=== PATIENT | female | born 1975 | race Caucasian/White ===

== ENCOUNTER 2023-01-22 03:28 | Inpatient (IN) | payer OTHER ==
[2023-01-22] MEDS ORDERED: methylPREDNISolone SOD SUCCI 125 MG/2 ML VIAL IV STA (03:38)
[2023-01-22] MEDS ORDERED: MAGNESIUM SULFATE-D5W PMX 1 GM in DEXTROSE/WATER 1 100ML.BAG IVPB STA (03:38)
[2023-01-22] MEDS ORDERED: IPRATROPIUM-ALBUTEROL 3 ML NEB INHALATION STA ×4 (03:38→06:06)
[2023-01-22 04:03] LABS: Allen Test Performed? Yes
[2023-01-22 04:04] LABS: ABG Oxygen Saturation 91.4 % (94-97); ABG PH 7.25 (7.35-7.45); ABG PO2 66 mmHg (83-108); ABG TCO2 49 mmol/L (19-24)
--- NOTE | 2023-01-22 04:07 | ED ---
General Adult HPI - General Chief complaint: Shortness of Breath Stated complaint: Respitory distress Time Seen by Provider: 01/22/23 03:41 Source: family, EMS, RN notes reviewed, old records reviewed Mode of arrival: EMS - History of Present Illness Initial comments: Patient is a 47-year-old female with past medical history remarkable for chronic hypoxic respiratory failure on CPAP and home oxygen, diabetes, CML, bipolar disorder, morbid obesity, hypertension, who is coming from [facility] where she is a permanent resident [facility] hypoxia and increased work of breathing. Patient is confused. She keeps trend rip off her CPAP as well as we'll keep any nasal cannula oxygen on. She is alert but oriented only to self. Normally is alert and oriented 3. Denies any chest pain or abdominal pain. Patient is not a good historian. Denies any acute complaints at this time and states she does not want to mask on and wants to lay down flat. Presents for further evaluation at this time. - Related Data Home Medications Medication Instructions Recorded Confirmed Baclofen 20 mg PO TID 02/06/16 02/06/16 Calcium Carbonate [Calcium] 600 mg PO 02/06/16 02/06/16 DULoxetine HCL [Cymbalta] 60 mg PO DAILY 02/06/16 02/06/16 Estrogens, Conjugated [Premarin] 0.625 mg PO DAILY 02/06/16 02/06/16 Fenofibrate [Tricor] 160 mg PO DAILY 02/06/16 02/06/16 INSULIN LISPRO (HumaLOG) [HumaLOG] 0 units SQ ACHS 02/06/16 02/06/16 Insulin Glargine [Lantus] 0 unit SQ HS 02/06/16 02/06/16 Lurasidone [Latuda] 40 mg PO DAILY 02/06/16 02/06/16 Meloxicam [Mobic] 7.5 mg PO BID 02/06/16 02/06/16 Metoprolol Tartrate [Lopressor] 25 mg PO DAILY 02/06/16 02/06/16 Naproxen 500 mg PO Q12HR 02/06/16 02/06/16 Nitroglycerin Sl Tabs [Nitrostat] 0.4 mg SUBLINGUAL Q5M PRN 02/06/16 02/06/16 OXcarbazepine [Trileptal] 150 mg PO BID 02/06/16 02/06/16 busPIRone HCL [Buspar] 30 mg PO BID 02/06/16 02/06/16 diphenhydrAMINE [Benadryl] 50 mg PO HS PRN 02/06/16 02/06/16 oxyCODONE HCL [OxyCONTIN] 30 mg PO Q12H 02/06/16 02/06/16 Allergies Allergy/AdvReac Type Severity Reaction Status Date / Time Sulfa (Sulfonamide Allergy Anaphylaxis Verified 02/06/16 19:10 Antibiotics) diuretics Allergy Swelling Uncoded 02/06/16 19:10 Review of Systems ROS Statement: Those systems with pertinent positive or pertinent negative responses have been documented in the HPI. ROS Other: All systems not noted in ROS Statement are negative. Past Medical History Past Medical History: COPD, Diabetes Mellitus Additional Past Medical History / Comment(s): colitis History of Any Multi-Drug Resistant Organisms: None Reported Past Surgical History: Cholecystectomy, Hysterectomy, Tonsillectomy Additional Past Surgical History / Comment(s): carpal tunnel, right axila-lymph removal Past Psychological History: ADD/ADHD, Bipolar Past Alcohol Use History: None Reported Past Drug Use History: None Reported - Past Family History Father Brother(s) Family Medical History: Unable to Obtain (due to mental status) General Exam - General Exam Comments Initial Comments: General: Appears in respiratory distress, is tachypneic, hypoxic. HEAD: Normal with no signs of head trauma. EYES: PERRLA, EOMI, conjunctiva normal, no discharge. Pupils are 3 mm and equal bilaterally. ENT: Hearing grossly intact, normal oropharynx. RESPIRATORY: Bilateral end expiratory wheezing with coarse breath sounds bilaterally. Hypoxic on room air. Hypoxia on BiPAP. Increased work of breathing. C/V: Regular rate and rhythm. S1 and S2 auscultated, no significant pitting edema, peripheral pulses 2+ and intact throughout ABD: Abd is soft, nontender, nondistended EXT: Normal range of motion, no obvious deformity SKIN: No rashes or lesions observed on exposed skin. NEURO: Alert and oriented times one. Baseline is alert and oriented 4. Moving all 4 extremities. No obvious focal deficits. Difficult to obtain a specific neurological exam secondary to patient's current altered mental status and confusion. Course Vital Signs 0601/22/23 01/22/23 03:30 03:35 03:37 Temperature 98.8 F Pulse Rate 86 Respiratory 22 Rate Blood Pressure 110/56 O2 Sat by Pulse 88 L Oximetry Fraction of 100 100 Inspired Oxygen (FIO2) 01/22/23 01/22/23 01/22/23 03:46 03:51 03:58 Temperature Pulse Rate 83 82 Respiratory 13 16 Rate Blood Pressure 110/56 110/56 O2 Sat by Pulse 91 L 90 L Oximetry Fraction of 100 Inspired Oxygen (FIO2) 01/22/23 01/22/23 01/22/23 04:00 04:30 05:00 Temperature Pulse Rate 84 85 90 Respiratory 17 18 8 L Rate Blood Pressure 110/56 108/46 116/78 O2 Sat by Pulse 90 L 88 L 89 L Oximetry Fraction of Inspired Oxygen (FIO2) 01/22/23 01/22/23 01/22/23 05:30 05:45 06:00 Temperature Pulse Rate 92 93 Respiratory 25 H 18 Rate Blood Pressure 128/57 147/45 O2 Sat by Pulse 89 L 80 L Oximetry Fraction of 100 Inspired Oxygen (FIO2) 01/22/23 01/22/23 01/22/23 06:25 06:28 06:30 Temperature 98.9 F Pulse Rate 92 92 92 Respiratory 17 14 Rate Blood Pressure 103/55 117/62 O2 Sat by Pulse 77 L 81 L Oximetry Fraction of Inspired Oxygen (FIO2) 01/22/23 01/22/23 01/22/23 06:35 07:21 07:27 Temperature 97.7 F Pulse Rate 92 92 Respiratory 16 Rate Blood Pressure 115/78 O2 Sat by Pulse 79 L Oximetry Fraction of 100 Inspired Oxygen (FIO2) 01/22/23 01/22/23 07:32 07:34 Temperature Pulse Rate 96 Respiratory 21 Rate Blood Pressure O2 Sat by Pulse Oximetry Fraction of 100 Inspired Oxygen (FIO2) Medical Decision Making - Medical Decision Making Was pt. sent in by a medical professional or institution (, PA, UNIVERSITY EXTENSION SPECIALIST, urgent care, hospital, or retirement...) When possible be specific @ -No Did you speak to anyone other than the patient for history (EMS, parent, family, police, friend...)? What history was obtained from this source @ -Nursing staff has spoken with patient's sister Rosemary multiple times who confirms that the patient is full code. Intubation if necessary. Did you review nursing and triage notes (agree or disagree)? Why? @ -I reviewed and agree with nursing and triage notes Were old charts reviewed (outside hosp., previous admission, EMS record, old EKG, old radiological studies, urgent care reports/EKG's, retirement records)? Report findings @ -No old charts were reviewed Differential Diagnosis (chest pain, altered mental status, abdominal pain women, abdominal pain men, vaginal bleeding, weakness, fever, dyspnea, syncope, heada jalil, dizziness, GI bleed, back pain, seizure, CVA, palpatations, mental health, musculoskeletal)? @ -Differential Dyspnea: Coronary syndrome, arrhythmia, tamponade, asthma, COPD, pulmonary embolism, pneumonia, pneumothorax, pulmonary effusion, anaphylaxis, diabetic ketoacidosis, flailed chest, pulmonary contusion, diaphragmatic rupture, anemia, neuromuscular, this is not meant to be an all-inclusive list. EKG interpreted by me (3pts min.). @ -As above X-rays interpreted by me (1pt min.). @ -Chest x-ray shows findings concerning for multifocal pneumonia.Repeat chest x-ray following intubation reveals adequate placement of the ET tube, after multiple adjustments. ET tube is now at [address] interpreted by me (1pt min.). @ -CT brain reveals no obvious acute intracranial process or injury. U/S interpreted by me (1pt. min.). @ -None done What testing was considered but not performed or refused? (CT, X-rays, U/S, labs)? Why? @ -None What meds were considered but not given or refused? Why? @ -None Did you discuss the management of the patient with other professionals (professionals i.e. , PA, UNIVERSITY EXTENSION SPECIALIST, lab, RT, psych nurse, dialysis social worker, paper latcher, teacher, surveillance officer, spring encaser)? Give summary @ -Discussed the case with Dr. Dick admitting physician who accepted the patient. Also discussed the case with ICU attending Dr. Chew who accepted the patient. He was also in agreement with the plan. Patient will be admitted to ICU in serious condition. Was smoking cessation discussed for >3mins.? @ -No Was critical care preformed (if so, how long)? @ -Yes, 45 minutes. Were there social determinants of health that impacted care today? How? (Homelessness, low income, unemployed, alcoholism, drug addiction, transportation, low edu. Level, literacy, decrease access to med. care, custodial, rehab)? @ -No Was there de-escalation of care discussed even if they declined (Discuss DNR or withdrawal of care, Hospice)? DNR status @ -No What co-morbidities impacted this encounter? (DM, HTN, Smoking, COPD, CAD, Cancer, CVA, ARF, Chemo, Hep., AIDS, mental health diagnosis, sleep apnea, morbid obesity)? @ -None Was patient admitted / discharged? Hospital course, mention meds given and route, prescriptions, significant lab abnormalities, going to OR and other pertinent info. @ - Based on the patient's presentation and physical exam, there is concern for acute on chronic hypoxic and hypercarbic respiratory failure for the patient. She is altered. I suspect hypercarbia this time however we will obtain altered mental status labs in addition to cardiopulmonary labs. She was immediately placed on BiPAP. We immediately obtained an ABG while placing the patient on BiPAP. This did reveal a respiratory acidosis. Patient is hypercarbia up to 105. We will repeat an ABG in 1 hour after being on BiPAP to observe for improvement. At this time, patient's sister Rosemary was contacted by nursing staff. They confirm that the patient is a full code. Intubation if necessary. Chest x-ray showed findings concerning for multifocal pneumonia. Patient's labs are remarkable for a possible UTI with a Dixon catheter in place. Elevated bicarb in the setting of hypercapnic respiratory failure, as well as an anemia with a hemoglobin of 10.6. Troponin is undetectable. BNP is within except for limits for her age. Patient was empirically started on Rocephin as well as azithromycin for pneumonia. Blood cultures were obtained and sent. Sputum culture was obtained and sent. CT brain showed no evidence of acute process. Degenerative changes are present. Repeat ABG redemonstrates the patient's hypoxic hypercapnic respiratory failure with a respiratory acidosis. The patient is more altered at this time and continues to attempt to rip off her BiPAP. She remains alert and oriented only to self. Baseline is alert and oriented 3. She is not tolerating BiPAP ther apy at this time, decision was made to intubate. Patient tolerated intubation well. Placement was confirmed on chest x-ray, and multiple x-rays were obtained as tube was withdrawn multiple times to 23 at the lip.. However postintubation there was difficult time oxygenating the patient. We did increase the patient's PEEP eventually to 12 on 100%. Patient was given an additional breathing treatment. Breath sounds remain course. We'll continue to monitor. Postintubation patient was initially at 66% but did improve to 81%, and continues to slowly improve. I spoke with the ICU attending on-call Dr. Deng who accepted the patient to the ICU. We discussed the plan and he was in agreement with it. I also spoke with Dr. Dick who accepted the admission. Patient will be admitted to the ICU in serious condition. Undiagnosed new problem with uncertain prognosis? @ -No Drug Therapy requiring intensive monitoring for toxicity (Heparin, Nitro, Insulin, Cardizem)? @ -No Were any procedures done? @ -Intubation Diagnosis/symptom? @ -Acute on chronic hypoxic hypercapnic respiratory failure secondary to COPD and multifocal pneumonia Concerning for ARDS Acute, or Chronic, or Acute on Chronic? @ -Acute on chronic Uncomplicated (without systemic symptoms) or Complicated (systemic symptoms)? @ -Complicated Side effects of treatment? @ -none. Exacerbation, Progression, or Severe Exacerbation] @ -Severe exacerbation Poses a threat to life or bodily function? @ -yes Diagnosis/symptom? @ -Encephalopathy, likely secondary to hypercapnia Acute, or Chronic, or Acute on Chronic? @ -Acute Uncomplicated (without systemic symptoms) or Complicated (systemic symptoms)? @ -Complicated Side effects of treatment? @ -none Exacerbation, Progression, or Severe Exacerbation] @ -no Poses a threat to life or bodily function? @ -no. - Lab Data Result diagrams: 01/22/23 03:48 01/22/23 03:48 Lab Results 01/22/23 01/22/23 01/22/23 Range/Units 03:48 03:48 03:48 WBC 10.0 (3.8-10.6) k/uL RBC 4.06 (3.80-5.40) m/uL Hgb 10.6 L (11.4-16.0) gm/dL Hct 36.2 (34.0-46.0) % MCV 89.1 (80.0-100.0) fL MCH 26.1 (25.0-35.0) pg MCHC 29.3 L (31.0-37.0) g/dL RDW 14.5 (11.5-15.5) % Plt Count 239 (150-450) k/uL MPV 7.7 Neutrophils % 91 % Lymphocytes % 4 % Monocytes % 3 % Eosinophils % 1 % Basophils % 0 % Neutrophils # 9.2 H (1.3-7.7) k/uL Lymphocytes # 0.5 L (1.0-4.8) k/uL Monocytes # 0.3 (0-1.0) k/uL Eosinophils # 0.1 (0-0.7) k/uL Basophils # 0.0 (0-0.2) k/uL Hypochromasia Marked PT 10.7 (9.0-12.0) sec INR 1.0 (<1.2) APTT 26.1 (22.0-30.0) sec Sample Site ABG pH (7.35-7.45) ABG pCO2 (35-45) mmHg ABG pO2 (83-108) mmHg ABG HCO3 (21-25) mmol/L ABG Total CO2 (19-24) mmol/L ABG O2 Saturation (94-97) % ABG Base Excess mmol/L Denys Test FiO2 % Sodium 129 L (137-145) mmol/L Potassium 3.8 (3.5-5.1) mmol/L Chloride 77 L (98-107) mmol/L Carbon Dioxide 45 H* (22-30) mmol/L Anion Gap 7 mmol/L BUN 12 (7-17) mg/dL Creatinine 0.99 (0.52-1.04) mg/dL Est GFR (CKD-EPI)AfAm 78 (>60 ml/min/1.73 sqM) Est GFR (CKD-EPI)NonAf 67 (>60 ml/min/1.73 sqM) Glucose 205 H (74-99) mg/dL Plasma Lactic Acid Dimitri (0.7-2.0) mmol/L Calcium 8.1 L (8.4-10.2) mg/dL Magnesium 2.2 (1.6-2.3) mg/dL Total Bilirubin 0.4 (0.2-1.3) mg/dL AST 37 H (14-36) U/L ALT 26 (4-34) U/L Alkaline Phosphatase 88 (38-126) U/L Ammonia (<30) umol/L Troponin I (0.000-0.034) ng/mL NT-Pro-B Natriuret Pep pg/mL Total Protein 6.4 (6.3-8.2) g/dL Albumin 3.9 (3.5-5.0) g/dL Urine Color Urine Appearance (Clear) Urine pH (5.0-8.0) Ur Specific [place] (1.001-1.035) Urine Protein (Negative) Urine Glucose (UA) (Negative) Urine Ketones (Negative) Urine Blood (Negative) Urine Nitrite (Negative) Urine Bilirubin (Negative) Urine Urobilinogen (<2.0) mg/dL Ur Leukocyte Esterase (Negative) Urine WBC (0-5) /hpf Urine Bacteria (None) /hpf Urine Mucus (None) /hpf Influenza Type A (PCR) (Not Detectd) Influenza Type B (PCR) (Not Detectd) RSV (PCR) (Not Detectd) SARS-CoV-2 (PCR) (Not Detectd) 01/22/23 01/22/23 01/22/23 Range/Units 03:48 03:48 03:48 WBC (3.8-10.6) k/uL RBC (3.80-5.40) m/uL Hgb (11.4-16.0) gm/dL Hct (34.0-46.0) % MCV (80.0-100.0) fL MCH (25.0-35.0) pg MCHC (31.0-37.0) g/dL RDW (11.5-15.5) % Plt Count (150-450) k/uL MPV Neutrophils % % Lymphocytes % % Monocytes % % Eosinophils % % Basophils % % Neutrophils # (1.3-7.7) k/uL Lymphocytes # (1.0-4.8) k/uL Monocytes # (0-1.0) k/uL Eosinophils # (0-0.7) k/uL Basophils # (0-0.2) k/uL Hypochromasia PT (9.0-12.0) sec INR (<1.2) APTT (22.0-30.0) sec Sample Site ABG pH (7.35-7.45) ABG pCO2 (35-45) mmHg ABG pO2 (83-108) mmHg ABG HCO3 (21-25) mmol/L ABG Total CO2 (19-24) mmol/L ABG O2 Saturation (94-97) % ABG Base Excess mmol/L Denys Test FiO2 % Sodium (137-145) mmol/L Potassium (3.5-5.1) mmol/L Chloride (98-107) mmol/L Carbon Dioxide (22-30) mmol/L Anion Gap mmol/L BUN (7-17) mg/dL Creatinine (0.52-1.04) mg/dL Est GFR (CKD-EPI)AfAm (>60 ml/min/1.73 sqM) Est GFR (CKD-EPI)NonAf (>60 ml/min/1.73 sqM) Glucose (74-99) mg/dL Plasma Lactic Acid Dimitri 0.9 (0.7-2.0) mmol/L Calcium (8.4-10.2) mg/dL Magnesium (1.6-2.3) mg/dL Total Bilirubin (0.2-1.3) mg/dL AST (14-36) U/L ALT (4-34) U/L Alkaline Phosphatase (38-126) U/L Ammonia 29 (<30) umol/L Troponin I <0.012 (0.000-0.034) ng/mL NT-Pro-B Natriuret Pep 744 pg/mL Total Protein (6.3-8.2) g/dL Albumin (3.5-5.0) g/dL Urine Color Urine Appearance (Clear) Urine pH (5.0-8.0) Ur Specific [place] (1.001-1.035) Urine Protein (Negative) Urine Glucose (UA) (Negative) Urine Ketones (Negative) Urine Blood (Negative) Urine Nitrite (Negative) Urine Bilirubin (Negative) Urine Urobilinogen (<2.0) mg/dL Ur Leukocyte Esterase (Negative) Urine WBC (0-5) /hpf Urine Bacteria (None) /hpf Urine Mucus (None) /hpf Influenza Type A (PCR) (Not Detectd) Influenza Type B (PCR) (Not Detectd) RSV (PCR) (Not Detectd) SARS-CoV-2 (PCR) (Not Detectd) 01/22/23 01/22/23 01/22/23 Range/Units 03:48 03:49 04:24 WBC (3.8-10.6) k/uL RBC (3.80-5.40) m/uL Hgb (11.4-16.0) gm/dL Hct (34.0-46.0) % MCV (80.0-100.0) fL MCH (25.0-35.0) pg MCHC (31.0-37.0) g/dL RDW (11.5-15.5) % Plt Count (150-450) k/uL MPV Neutrophils % % Lymphocytes % % Monocytes % % Eosinophils % % Basophils % % Neutrophils # (1.3-7.7) k/uL Lymphocytes # (1.0-4.8) k/uL Monocytes # (0-1.0) k/uL Eosinophils # (0-0.7) k/uL Basophils # (0-0.2) k/uL Hypochromasia PT (9.0-12.0) sec INR (<1.2) APTT (22.0-30.0) sec Sample Site right radial ABG pH 7.25 L (7.35-7.45) ABG pCO2 105 H* (35-45) mmHg ABG pO2 66 L (83-108) mmHg ABG HCO3 46 H* (21-25) mmol/L ABG Total CO2 49 H (19-24) mmol/L ABG O2 Saturation 91.4 L (94-97) % ABG Base Excess 19.0 mmol/L Denys Test Yes FiO2 100 % Sodium (137-145) mmol/L Potassium (3.5-5.1) mmol/L Chloride (98-107) mmol/L Carbon Dioxide (22-30) mmol/L Anion Gap mmol/L BUN (7-17) mg/dL Creatinine (0.52-1.04) mg/dL Est GFR (CKD-EPI)AfAm (>60 ml/min/1.73 sqM) Est GFR (CKD-EPI)NonAf (>60 ml/min/1.73 sqM) Glucose (74-99) mg/dL Plasma Lactic Acid Dimitri (0.7-2.0) mmol/L Calcium (8.4-10.2) mg/dL Magnesium (1.6-2.3) mg/dL Total Bilirubin (0.2-1.3) mg/dL AST (14-36) U/L ALT (4-34) U/L Alkaline Phosphatase (38-126) U/L Ammonia (<30) umol/L Troponin I (0.000-0.034) ng/mL NT-Pro-B Natriuret Pep pg/mL Total Protein (6.3-8.2) g/dL Albumin (3.5-5.0) g/dL Urine Color Yellow Urine Appearance Cloudy H (Clear) Urine pH 7.5 (5.0-8.0) Ur Specific [place] 1.008 (1.001-1.035) Urine Protein Trace H (Negative) Urine Glucose (UA) 1+ H (Negative) Urine Ketones Negative (Negative) Urine Blood Negative (Negative) Urine Nitrite Negative (Negative) Urine Bilirubin Negative (Negative) Urine Urobilinogen <2.0 (<2.0) mg/dL Ur Leukocyte Esterase Large H (Negative) Urine WBC 23 H (0-5) /hpf Urine Bacteria Occasional H (None) /hpf Urine Mucus Rare H (None) /hpf Influenza Type A (PCR) Not Detected (Not Detectd) Influenza Type B (PCR) Not Detected (Not Detectd) RSV (PCR) Not Detected (Not Detectd) SARS-CoV-2 (PCR) Not Detected (Not Detectd) 01/22/23 Range/Units 04:58 WBC (3.8-10.6) k/uL RBC (3.80-5.40) m/uL Hgb (11.4-16.0) gm/dL Hct (34.0-46.0) % MCV (80.0-100.0) fL MCH (25.0-35.0) pg MCHC (31.0-37.0) g/dL RDW (11.5-15.5) % Plt Count (150-450) k/uL MPV Neutrophils % % Lymphocytes % % Monocytes % % Eosinophils % % Basophils % % Neutrophils # (1.3-7.7) k/uL Lymphocytes # (1.0-4.8) k/uL Monocytes # (0-1.0) k/uL Eosinophils # (0-0.7) k/uL Basophils # (0-0.2) k/uL Hypochromasia PT (9.0-12.0) sec INR (<1.2) APTT (22.0-30.0) sec Sample Site right radial ABG pH 7.25 L (7.35-7.45) ABG pCO2 103 H* (35-45) mmHg ABG pO2 49 L* (83-108) mmHg ABG HCO3 45 H* (21-25) mmol/L ABG Total CO2 48 H (19-24) mmol/L ABG O2 Saturation 80.1 L (94-97) % ABG Base Excess 17.4 mmol/L Denys Test Yes FiO2 100 % Sodium (137-145) mmol/L Potassium (3.5-5.1) mmol/L Chloride (98-107) mmol/L Carbon Dioxide (22-30) mmol/L Anion Gap mmol/L BUN (7-17) mg/dL Creatinine (0.52-1.04) mg/dL Est GFR (CKD-EPI)AfAm (>60 ml/min/1.73 sqM) Est GFR (CKD-EPI)NonAf (>60 ml/min/1.73 sqM) Glucose (74-99) mg/dL Plasma Lactic Acid Dimitri (0.7-2.0) mmol/L Calcium (8.4-10.2) mg/dL Magnesium (1.6-2.3) mg/dL Total Bilirubin (0.2-1.3) mg/dL AST (14-36) U/L ALT (4-34) U/L Alkaline Phosphatase (38-126) U/L Ammonia (<30) umol/L Troponin I (0.000-0.034) ng/mL NT-Pro-B Natriuret Pep pg/mL Total Protein (6.3-8.2) g/dL Albumin (3.5-5.0) g/dL Urine Color Urine Appearance (Clear) Urine pH (5.0-8.0) Ur Specific [place] (1.001-1.035) Urine Protein (Negative) Urine Glucose (UA) (Negative) Urine Ketones (Negative) Urine Blood (Negative) Urine Nitrite (Negative) Urine Bilirubin (Negative) Urine Urobilinogen (<2.0) mg/dL Ur Leukocyte Esterase (Negative) Urine WBC (0-5) /hpf Urine Bacteria (None) /hpf Urine Mucus (None) /hpf Influenza Type A (PCR) (Not Detectd) Influenza Type B (PCR) (Not Detectd) RSV (PCR) (Not Detectd) SARS-CoV-2 (PCR) (Not Detectd) - EKG Data -: EKG Interpreted by Me EKG Comments: 12-lead Electrocardiogram Interpretation Note EKG was reviewed and interpreted by myself. 12-lead ECG performed at 0333 is interpreted by me as revealing normal sinus rhythm at a rate of 87 beats per minute. [place] is normal. CT interval is 166 ms, QRS duration is 109 ms, QTc is 430 ms.. There is an incomplete right bundle branch block. There were no ST or T wave abnormalities to suggest myocardial ischemia or injury. R wave progression across the precordium was satisfactory. By my interpretation this EKG is non-diagnostic for acute ischemia. Disposition Clinical Impression: Respiratory failure with hypoxia and hypercapnia, COPD (chronic obstructive pulmonary disease), Pneumonia, Encephalopathy acute, Acute respiratory distress syndrome (ARDS) Disposition: ADMITTED IP TO THIS HOSP Condition: Serious Time of Disposition: 06:25
[2023-01-22 04:09] LABS: ABG HCO3 46 mmol/L (21-25); ABG PCO2 105 mmHg (35-45)
[2023-01-22 04:12] LABS: Partial Thromboplastin Time 26.1 sec (22.0-30.0); Prothrombin Time 10.7 sec (9.0-12.0)
[2023-01-22 04:23] LABS: Basophils % (A) 0 %; Eosinophils # (A) 0.1 k/uL (0-0.7); Eosinophils % (A) 1 %; HCT 36.2 % (34.0-46.0); HGB 10.6 gm/dL (11.4-16.0); Hypochromasia Marked; Lymphocytes # (A) 0.5 k/uL (1.0-4.8); Lymphocytes % (A) 4 %; MCH 26.1 pg (25.0-35.0); MCHC 29.3 g/dL (31.0-37.0); MCV 89.1 fL (80.0-100.0); Mean Platelet Volume 7.7; Monocytes # (A) 0.3 k/uL (0-1.0); Monocytes % (A) 3 %; Neutrophils # (A) 9.2 k/uL (1.3-7.7); Neutrophils % (A) 91 %; Platelet Count 239 k/uL (150-450); RBC 4.06 m/uL (3.80-5.40); RDW 14.5 % (11.5-15.5)
[2023-01-22 04:24] LABS: ALT 26 U/L (4-34); AST 37 U/L (14-36); African American GFR (CKD) 78 (>60 ml/min/1.73 sqM); Albumin 3.9 g/dL (3.5-5.0); Alkaline Phosphatase 88 U/L (38-126); Blood Urea Nitrogen 12 mg/dL (7-17); Calcium 8.1 mg/dL (8.4-10.2); Chloride 77 mmol/L (98-107); Glucose 205 mg/dL (74-99); Lactic Acid, Venous 0.9 mmol/L (0.7-2.0); Magnesium 2.2 mg/dL (1.6-2.3); Non-African American GFR(CKD) 67 (>60 ml/min/1.73 sqM); Potassium 3.8 mmol/L (3.5-5.1); Sodium 129 mmol/L (137-145); Total Bilirubin 0.4 mg/dL (0.2-1.3); Total Protein 6.4 g/dL (6.3-8.2)
[2023-01-22 04:32] LABS: Anion Gap 7 mmol/L
--- NOTE | 2023-01-22 04:35 | P.HPIM ---
History of Present Illness H&P Date: 01/22/23 Patient is a 47-year-old female with a PMH of COPD with chronic hypoxic respiratory failure, type II DM, and hypertension, resident of [facility] was sent to the emergency room due to hypoxia and altered mental status. The history was limited as the patient was confused at the time of interview and also agitated and refusing to answer most questions. When asked about her breathing, the patient states that "it's fine"and refused to answer any further questions or elaborate. She denied experiencing any pain. In the emergency room, upon arrival in the emergency room, the patient was noted to be hypoxic with SpO2 of 88% on nonrebreather at 15 L of oxygen, BP 110/56, pulse 86, and temp 98.8F with respiratory rate 22. An ABG revealed a pH of 7.25 with pCO2 105. Laboratory evaluation also revealed a hemoglobin of 10.6 (only prior value available is 15.6 from 01/2016). Chest X-ray revealed findings consistent with pneumonia. ED documentation reviewed and case discussed with ED provider. Review of systems: Unable to obtain due to mental status Physical examination: Vital signs reviewed General: Morbidly obese female on BiPAP, no distress, appears older than stated age Derm: no unusual rashes/lesions, warm Head: atraumatic, normocephalic, symmetric Eyes: EOMI, no lid lag, anicteric sclera, pupils equal round reactive to light ENT: Nose and ears atraumatic Neck: No cervical lymphadenopathy, trachea midline, supple Mouth: no lip lesion, mucus membranes dry Cardiovascular: S1S2 reg, no murmur, positive dorsalis pedis pulse bilateral, no edema Lungs: Coarse breath sounds throughout with expiratory wheezing appreciated, some accessory muscle use noted Abdominal: soft, nontender to palpation, no guarding Ext: no gross muscle atrophy, no contractures, Neuro: no gross focal neuro deficits Psych: Slow to respond, oriented to self, refused to answer further orientation questions, agitated Assessment: Toxic metabolic encephalopathy secondary to acute hypercapnic respiratory failure Acute hypoxic and hypercapnic respiratory failure, likely multifactorial sec ondary pneumonia with acute COPD exacerbation Chronic conditions: Type II DM, hypertension Imaging: Chest X-ray revealed findings consistent with pneumonia. Data Review: In the emergency room, upon arrival in the emergency room, the patient was noted to be hypoxic with SpO2 of 88% on nonrebreather at 15 L of oxygen, BP 110/56, pulse 86, and temp 98.8F with respiratory rate 22. An ABG revealed a pH of 7.25 with pCO2 105. Laboratory evaluation also revealed a hemoglobin of 10.6 (only prior value available is 15.6 from 01/2016). Plan: C/w Bipap Pulmonary consulted Continue IV Abxs with Ceftriaxone 2 g q24h and Azithromycin 500 mg po q24h C/w Duonebs scheduled and prn C/w Solumedrol 60 mg q6h IV Repeat ABG F/u sputum and blood cultures DVT prophylaxis: Lovenox SubQ The patient is admitted with an anticipated greater than 2 midnight stay for evaluation of COPD exacerbation CODE STATUS: Full Code Anticipated discharge place: [facility] Review of Systems ROS unobtainable: due to mental status (due to mental status) Past Medical History Past Medical History: COPD, Diabetes Mellitus Additional Past Medical History / Comment(s): colitis History of Any Multi-Drug Resistant Organisms: None Reported Past Surgical History: Cholecystectomy, Hysterectomy, Tonsillectomy Additional Past Surgical History / Comment(s): carpal tunnel, right axila-lymph removal Past Psychological History: ADD/ADHD, Bipolar Past Alcohol Use History: None Reported Past Drug Use History: None Reported - Past Family History Father Brother(s) Family Medical History: Unable to Obtain (due to mental status) Medications and Allergies Home Medications Medication Instructions Recorded Confirmed Type Baclofen 20 mg PO TID 02/06/16 02/06/16 History Calcium Carbonate [Calcium] 600 mg PO 02/06/16 02/06/16 History DULoxetine HCL [Cymbalta] 60 mg PO DAILY 02/06/16 02/06/16 History Estrogens, Conjugated [Premarin] 0.625 mg PO DAILY 02/06/16 02/06/16 History Fenofibrate [Tricor] 160 mg PO DAILY 02/06/16 02/06/16 History INSULIN LISPRO (HumaLOG) [HumaLOG] 0 units SQ ACHS 02/06/16 02/06/16 History Insulin Glargine [Lantus] 0 unit SQ HS 02/06/16 02/06/16 History Lurasidone [Latuda] 40 mg PO DAILY 02/06/16 02/06/16 History Meloxicam [Mobic] 7.5 mg PO BID 02/06/16 02/06/16 History Metoprolol Tartrate [Lopressor] 25 mg PO DAILY 02/06/16 02/06/16 History Naproxen 500 mg PO Q12HR 02/06/16 02/06/16 History Nitroglycerin Sl Tabs [Nitrostat] 0.4 mg SUBLINGUAL Q5M PRN 02/06/16 02/06/16 History OXcarbazepine [Trileptal] 150 mg PO BID 02/06/16 02/06/16 History busPIRone HCL [Buspar] 30 mg PO BID 02/06/16 02/06/16 History diphenhydrAMINE [Benadryl] 50 mg PO HS PRN 02/06/16 02/06/16 History oxyCODONE HCL [OxyCONTIN] 30 mg PO Q12H 02/06/16 02/06/16 History Allergies Allergy/AdvReac Type Severity Reaction Status Date / Time Sulfa (Sulfonamide Allergy Anaphylaxis Verified 02/06/16 19:10 Antibiotics) diuretics Allergy Swelling Uncoded 02/06/16 19:10 Physical Exam Vitals: Vital Signs Temp Pulse Resp BP Pulse Ox FiO2 01/22/23 03:58 82 16 110/56 90 L 01/22/23 03:46 100 01/22/23 03:37 98.8 F 86 22 110/56 88 L 01/22/23 03:35 100 01/22/23 03:30 100 Intake and Output 01/21/23 01/21/23 01/22/23 14:59 22:59 06:59 Other: Weight 131.542 kg Results CBC & Chem 7: 01/22/23 03:48 01/22/23 03:48 Labs: Abnormal Lab Results - Last 24 Hours (Table) 01/22/23 01/22/23 Range/Units 03:48 03:49 Hgb 10.6 L (11.4-16.0) gm/dL MCHC 29.3 L (31.0-37.0) g/dL Neutrophils # 9.2 H (1.3-7.7) k/uL Lymphocytes # 0.5 L (1.0-4.8) k/uL ABG pH 7.25 L (7.35-7.45) ABG pCO2 105 H* (35-45) mmHg ABG pO2 66 L (83-108) mmHg ABG HCO3 46 H* (21-25) mmol/L ABG Total CO2 49 H (19-24) mmol/L ABG O2 Saturation 91.4 L (94-97) %
[2023-01-22 04:38] LABS: Carbon Dioxide 45 mmol/L (22-30)
[2023-01-22 04:42] LABS: Appearance,Urine Cloudy (Clear); Bacteria,Urine Occasional /hpf; Bilirubin,Urine Negative (Negative); Blood,Urine Negative (Negative); Color,Urine Yellow; Glucose,Urine (UA) 1+ (Negative); Ketones,Urine Negative (Negative); Leukocyte Esterase,Urine Large (Negative); Mucus,Urine Rare /hpf; Nitrite,Urine Negative (Negative); PH, Urine 7.5 (5.0-8.0); Protein,Urine Trace (Negative); Specific Gravity,Urine 1.008 (1.001-1.035); Urobilinogen,Urine <2.0 mg/dL (<2.0); WBC,Urine 23 /hpf (0-5)
[2023-01-22] MEDS ORDERED: AZITHROMYCIN 500 MG in SODIUM CHLORIDE 0.9% 250 ML IVPB STA (04:53)
[2023-01-22 05:08] LABS: ABG Base Excess 17.4 mmol/L; ABG Oxygen Saturation 80.1 % (94-97); ABG PH 7.25 (7.35-7.45); ABG TCO2 48 mmol/L (19-24); Allen Test Performed? Yes
[2023-01-22 05:15] LABS: ABG PCO2 103 mmHg (35-45); ABG PO2 49 mmHg (83-108)
[2023-01-22] MEDS ORDERED: ROCURONIUM 10 MG/ML (5 ML VIAL) IV STA (05:16)
[2023-01-22] MEDS ORDERED: ETOMIDATE 2 MG/ML 10 ML VIAL IVP STA (05:16)
[2023-01-22 05:17] LABS: ABG HCO3 45 mmol/L (21-25)
[2023-01-22] MEDS ORDERED: IPRATROPIUM-ALBUTEROL 3 ML NEB INHALATION PRN (05:38)
[2023-01-22] MEDS ORDERED: NALOXONE 0.4 MG/ML 1 ML VIAL IV PRN (06:10)
[2023-01-22] MEDS: methylPREDNISolone SOD SUCCI 125 MG/2 ML VIAL IV SCH ×3 (06:28→16:22)
[2023-01-22] MEDS ORDERED: IPRATROPIUM-ALBUTEROL 3 ML NEB INHALATION SCH (08:00)
[2023-01-22 08:01] LABS: Glucose,Whole Blood 343 mg/dL (70-110)
--- NOTE | 2023-01-22 08:13 | CT ---
EXAMINATION TYPE: CT brain wo con DATE OF EXAM: 01/22/2023 COMPARISON: None HISTORY: 47-year-old female confusion, altered mental status TECHNIQUE: Examination was done in axial plane without intravenous contrast. Coronal and sagittal r econstructions performed. CT DLP: 1170.4 mGycm Automated exposure control for dose reduction was used. FINDINGS: There is a 1.9 cm area of extra-axial calcification along the inner table of the anterior left fronta l convexity. Neither some hyperostosis frontalis interna or calcified meningioma. The former is favor ed. Otherwise, there is no evidence of acute intracranial hemorrhage, acute ischemic changes, mass effect , or extra-axial fluid collection. There is no effacement of cerebral sulci or basal subarachnoid ci sterns. There is no hydrocephalus. There is no midline shift. Spence-white matter distinction is pre served. Mild mucosal thickening floor left maxillary sinus. Mastoid air cells well pneumatized. Orbits and gl obes are intact. IMPRESSION: No acute intracranial abnormality seen. Either a 1.9 cm anterior left frontal meningioma versus conge nital variation with hyperostosis frontalis interna.
[2023-01-22] MEDS: HEPARIN SODIUM,PORCINE/PF 5,000 UNIT/0.5 ML SYRINGE SQ SCH ×2 (08:20→16:22)
[2023-01-22] MEDS: INSULIN ASPART (NovoLOG) 100 UNIT/ML VIAL SQ SCH ×3 (08:20→18:01)
--- NOTE | 2023-01-22 08:21 | XR ---
EXAMINATION TYPE: XR chest 1V portable DATE OF EXAM: 01/22/2023 Comparison: 02/06/2016 Clinical History: 47 year-old female shortness of breath, COPD, dyspnea Findings: The heart is enlarged. Background hyperinflation. However, asymmetric volume loss in the right hemith orax with extensive right upper and midlung opacity. Prominent left perihilar opacity as well. Impression: COPD with asymmetric volume loss in the right hemithorax and extensive opacification throughout the r ight upper and midlung. Extensive opacity in the left perihilar region as well.
--- NOTE | 2023-01-22 08:22 | XR ---
EXAMINATION TYPE: XR chest 1V portable DATE OF EXAM: 01/22/2023 Comparison: Earlier today Clinical History: 47-year-old female ETT and OGT PLACEMENT Findings: Interval placement of ET and NG tubes which are satisfactory. Partially visualized posterior lumbar f usion hardware. Redemonstrated cardiomegaly and extensive opacity right upper and midlung. Increasing patchy right lower lung opacity and increasing opacity throughout the left mid and lower lung nodule . Impression: 1. Satisfactory ET and NG tubes. 2. Ongoing extensive bilateral opacities but with some interval worsening.
--- NOTE | 2023-01-22 08:50 | XR ---
EXAMINATION TYPE: XR chest 1V portable DATE OF EXAM: 01/22/2023 Comparison: Earlier today Clinical History: 47-year-old female ETT repositioned, check placement please Findings: ET tube tip just below the level of the medial clavicular heads, satisfactory. NG tube courses below the diaphragm. Continued bilateral extensive airspace opacities. There may be slight interval improve ment in the left upper lobe now. Some new blunting of the right costophrenic angle suggesting a trace effusion here. Impression: Satisfactory ET and NG tubes. Continued extensive bilateral airspace disease. Some volume loss in the right hemithorax is also similar. Slight improvement in aeration within the left upper lobe.
--- NOTE | 2023-01-22 09:55 | ED ---
Medical Decision Making - Lab Data Result diagrams: 01/22/23 03:48 01/22/23 03:48 Lab Results 01/22/23 01/22/23 01/22/23 Range/Units 03:48 03:48 03:48 WBC 10.0 (3.8-10.6) k/uL RBC 4.06 (3.80-5.40) m/uL Hgb 10.6 L (11.4-16.0) gm/dL Hct 36.2 (34.0-46.0) % MCV 89.1 (80.0-100.0) fL MCH 26.1 (25.0-35.0) pg MCHC 29.3 L (31.0-37.0) g/dL RDW 14.5 (11.5-15.5) % Plt Count 239 (150-450) k/uL MPV 7.7 Neutrophils % 91 % Lymphocytes % 4 % Monocytes % 3 % Eosinophils % 1 % Basophils % 0 % Neutrophils # 9.2 H (1.3-7.7) k/uL Lymphocytes # 0.5 L (1.0-4.8) k/uL Monocytes # 0.3 (0-1.0) k/uL Eosinophils # 0.1 (0-0.7) k/uL Basophils # 0.0 (0-0.2) k/uL Hypochromasia Marked PT 10.7 (9.0-12.0) sec INR 1.0 (<1.2) APTT 26.1 (22.0-30.0) sec Sample Site ABG pH (7.35-7.45) ABG pCO2 (35-45) mmHg ABG pO2 (83-108) mmHg ABG HCO3 (21-25) mmol/L ABG Total CO2 (19-24) mmol/L ABG O2 Saturation (94-97) % ABG Base Excess mmol/L Denys Test FiO2 % Sodium 129 L (137-145) mmol/L Potassium 3.8 (3.5-5.1) mmol/L Chloride 77 L (98-107) mmol/L Carbon Dioxide 45 H* (22-30) mmol/L Anion Gap 7 mmol/L BUN 12 (7-17) mg/dL Creatinine 0.99 (0.52-1.04) mg/dL Est GFR (CKD-EPI)AfAm 78 (>60 ml/min/1.73 sqM) Est GFR (CKD-EPI)NonAf 67 (>60 ml/min/1.73 sqM) Glucose 205 H (74-99) mg/dL Plasma Lactic Acid Dimitri (0.7-2.0) mmol/L Calcium 8.1 L (8.4-10.2) mg/dL Magnesium 2.2 (1.6-2.3) mg/dL Total Bilirubin 0.4 (0.2-1.3) mg/dL AST 37 H (14-36) U/L ALT 26 (4-34) U/L Alkaline Phosphatase 88 (38-126) U/L Ammonia (<30) umol/L Troponin I (0.000-0.034) ng/mL NT-Pro-B Natriuret Pep pg/mL Total Protein 6.4 (6.3-8.2) g/dL Albumin 3.9 (3.5-5.0) g/dL Urine Color Urine Appearance (Clear) Urine pH (5.0-8.0) Ur Specific [place] (1.001-1.035) Urine Protein (Negative) Urine Glucose (UA) (Negative) Urine Ketones (Negative) Urine Blood (Negative) Urine Nitrite (Negative) Urine Bilirubin (Negative) Urine Urobilinogen (<2.0) mg/dL Ur Leukocyte Esterase (Negative) Urine WBC (0-5) /hpf Urine Bacteria (None) /hpf Urine Mucus (None) /hpf Influenza Type A (PCR) (Not Detectd) Influenza Type B (PCR) (Not Detectd) RSV (PCR) (Not Detectd) SARS-CoV-2 (PCR) (Not Detectd) 01/22/23 01/22/23 01/22/23 Range/Units 03:48 03:48 03:48 WBC (3.8-10.6) k/uL RBC (3.80-5.40) m/uL Hgb (11.4-16.0) gm/dL Hct (34.0-46.0) % MCV (80.0-100.0) fL MCH (25.0-35.0) pg MCHC (31.0-37.0) g/dL RDW (11.5-15.5) % Plt Count (150-450) k/uL MPV Neutrophils % % Lymphocytes % % Monocytes % % Eosinophils % % Basophils % % Neutrophils # (1.3-7.7) k/uL Lymphocytes # (1.0-4.8) k/uL Monocytes # (0-1.0) k/uL Eosinophils # (0-0.7) k/uL Basophils # (0-0.2) k/uL Hypochromasia PT (9.0-12.0) sec INR (<1.2) APTT (22.0-30.0) sec Sample Site ABG pH (7.35-7.45) ABG pCO2 (35-45) mmHg ABG pO2 (83-108) mmHg ABG HCO3 (21-25) mmol/L ABG Total CO2 (19-24) mmol/L ABG O2 Saturation (94-97) % ABG Base Excess mmol/L Denys Test FiO2 % Sodium (137-145) mmol/L Potassium (3.5-5.1) mmol/L Chloride (98-107) mmol/L Carbon Dioxide (22-30) mmol/L Anion Gap mmol/L BUN (7-17) mg/dL Creatinine (0.52-1.04) mg/dL Est GFR (CKD-EPI)AfAm (>60 ml/min/1.73 sqM) Est GFR (CKD-EPI)NonAf (>60 ml/min/1.73 sqM) Glucose (74-99) mg/dL Plasma Lactic Acid Dimitri 0.9 (0.7-2.0) mmol/L Calcium (8.4-10.2) mg/dL Magnesium (1.6-2.3) mg/dL Total Bilirubin (0.2-1.3) mg/dL AST (14-36) U/L ALT (4-34) U/L Alkaline Phosphatase (38-126) U/L Ammonia 29 (<30) umol/L Troponin I <0.012 (0.000-0.034) ng/mL NT-Pro-B Natriuret Pep 744 pg/mL Total Protein (6.3-8.2) g/dL Albumin (3.5-5.0) g/dL Urine Color Urine Appearance (Clear) Urine pH (5.0-8.0) Ur Specific [place] (1.001-1.035) Urine Protein (Negative) Urine Glucose (UA) (Negative) Urine Ketones (Negative) Urine Blood (Negative) Urine Nitrite (Negative) Urine Bilirubin (Negative) Urine Urobilinogen (<2.0) mg/dL Ur Leukocyte Esterase (Negative) Urine WBC (0-5) /hpf Urine Bacteria (None) /hpf Urine Mucus (None) /hpf Influenza Type A (PCR) (Not Detectd) Influenza Type B (PCR) (Not Detectd) RSV (PCR) (Not Detectd) SARS-CoV-2 (PCR) (Not Detectd) 01/22/23 01/22/23 01/22/23 Range/Units 03:48 03:49 04:24 WBC (3.8-10.6) k/uL RBC (3.80-5.40) m/uL Hgb (11.4-16.0) gm/dL Hct (34.0-46.0) % MCV (80.0-100.0) fL MCH (25.0-35.0) pg MCHC (31.0-37.0) g/dL RDW (11.5-15.5) % Plt Count (150-450) k/uL MPV Neutrophils % % Lymphocytes % % Monocytes % % Eosinophils % % Basophils % % Neutrophils # (1.3-7.7) k/uL Lymphocytes # (1.0-4.8) k/uL Monocytes # (0-1.0) k/uL Eosinophils # (0-0.7) k/uL Basophils # (0-0.2) k/uL Hypochromasia PT (9.0-12.0) sec INR (<1.2) APTT (22.0-30.0) sec Sample Site right radial ABG pH 7.25 L (7.35-7.45) ABG pCO2 105 H* (35-45) mmHg ABG pO2 66 L (83-108) mmHg ABG HCO3 46 H* (21-25) mmol/L ABG Total CO2 49 H (19-24) mmol/L ABG O2 Saturation 91.4 L (94-97) % ABG Base Excess 19.0 mmol/L Denys Test Yes FiO2 100 % Sodium (137-145) mmol/L Potassium (3.5-5.1) mmol/L Chloride (98-107) mmol/L Carbon Dioxide (22-30) mmol/L Anion Gap mmol/L BUN (7-17) mg/dL Creatinine (0.52-1.04) mg/dL Est GFR (CKD-EPI)AfAm (>60 ml/min/1.73 sqM) Est GFR (CKD-EPI)NonAf (>60 ml/min/1.73 sqM) Glucose (74-99) mg/dL Plasma Lactic Acid Dimitri (0.7-2.0) mmol/L Calcium (8.4-10.2) mg/dL Magnesium (1.6-2.3) mg/dL Total Bilirubin (0.2-1.3) mg/dL AST (14-36) U/L ALT (4-34) U/L Alkaline Phosphatase (38-126) U/L Ammonia (<30) umol/L Troponin I (0.000-0.034) ng/mL NT-Pro-B Natriuret Pep pg/mL Total Protein (6.3-8.2) g/dL Albumin (3.5-5.0) g/dL Urine Color Yellow Urine Appearance Cloudy H (Clear) Urine pH 7.5 (5.0-8.0) Ur Specific [place] 1.008 (1.001-1.035) Urine Protein Trace H (Negative) Urine Glucose (UA) 1+ H (Negative) Urine Ketones Negative (Negative) Urine Blood Negative (Negative) Urine Nitrite Negative (Negative) Urine Bilirubin Negative (Negative) Urine Urobilinogen <2.0 (<2.0) mg/dL Ur Leukocyte Esterase Large H (Negative) Urine WBC 23 H (0-5) /hpf Urine Bacteria Occasional H (None) /hpf Urine Mucus Rare H (None) /hpf Influenza Type A (PCR) Not Detected (Not Detectd) Influenza Type B (PCR) Not Detected (Not Detectd) RSV (PCR) Not Detected (Not Detectd) SARS-CoV-2 (PCR) Not Detected (Not Detectd) 01/22/23 Range/Units 04:58 WBC (3.8-10.6) k/uL RBC (3.80-5.40) m/uL Hgb (11.4-16.0) gm/dL Hct (34.0-46.0) % MCV (80.0-100.0) fL MCH (25.0-35.0) pg MCHC (31.0-37.0) g/dL RDW (11.5-15.5) % Plt Count (150-450) k/uL MPV Neutrophils % % Lymphocytes % % Monocytes % % Eosinophils % % Basophils % % Neutrophils # (1.3-7.7) k/uL Lymphocytes # (1.0-4.8) k/uL Monocytes # (0-1.0) k/uL Eosinophils # (0-0.7) k/uL Basophils # (0-0.2) k/uL Hypochromasia PT (9.0-12.0) sec INR (<1.2) APTT (22.0-30.0) sec Sample Site right radial ABG pH 7.25 L (7.35-7.45) ABG pCO2 103 H* (35-45) mmHg ABG pO2 49 L* (83-108) mmHg ABG HCO3 45 H* (21-25) mmol/L ABG Total CO2 48 H (19-24) mmol/L ABG O2 Saturation 80.1 L (94-97) % ABG Base Excess 17.4 mmol/L Denys Test Yes FiO2 100 % Sodium (137-145) mmol/L Potassium (3.5-5.1) mmol/L Chloride (98-107) mmol/L Carbon Dioxide (22-30) mmol/L Anion Gap mmol/L BUN (7-17) mg/dL Creatinine (0.52-1.04) mg/dL Est GFR (CKD-EPI)AfAm (>60 ml/min/1.73 sqM) Est GFR (CKD-EPI)NonAf (>60 ml/min/1.73 sqM) Glucose (74-99) mg/dL Plasma Lactic Acid Dimitri (0.7-2.0) mmol/L Calcium (8.4-10.2) mg/dL Magnesium (1.6-2.3) mg/dL Total Bilirubin (0.2-1.3) mg/dL AST (14-36) U/L ALT (4-34) U/L Alkaline Phosphatase (38-126) U/L Ammonia (<30) umol/L Troponin I (0.000-0.034) ng/mL NT-Pro-B Natriuret Pep pg/mL Total Protein (6.3-8.2) g/dL Albumin (3.5-5.0) g/dL Urine Color Urine Appearance (Clear) Urine pH (5.0-8.0) Ur Specific [place] (1.001-1.035) Urine Protein (Negative) Urine Glucose (UA) (Negative) Urine Ketones (Negative) Urine Blood (Negative) Urine Nitrite (Negative) Urine Bilirubin (Negative) Urine Urobilinogen (<2.0) mg/dL Ur Leukocyte Esterase (Negative) Urine WBC (0-5) /hpf Urine Bacteria (None) /hpf Urine Mucus (None) /hpf Influenza Type A (PCR) (Not Detectd) Influenza Type B (PCR) (Not Detectd) RSV (PCR) (Not Detectd) SARS-CoV-2 (PCR) (Not Detectd) Disposition Clinical Impression: Respiratory failure with hypoxia and hypercapnia, COPD (chronic obstructive pulmonary disease), Pneumonia, Encephalopathy acute, Acute respiratory distress syndrome (ARDS) Disposition: ADMITTED IP TO THIS HOSP Condition: Serious Procedures - Intubation Sedative: Etomidate Mg Given: 30 Paralytic: Rocuronium Mg Given: 80 Laryngoscope: other (glidescope) Size: 4 ET Tube Size: 7.5 Tube Secured Depth (cm): 23 (secured at 23cm after multiple adjustments) Tube Secured Location: lips Tube Placement Confirmation: visualized tube passing through cords, equal breath sounds bilaterally, no breath sounds over epigastrium, confirmation by capnometry Patient Tolerated Procedure: well Intubation Complications: none Additional Comments: continued hypoxia post intubation.
[2023-01-22] MEDS ORDERED: Potassium Replacement Protocol 1 EACH MISC MISCELLANE PRN (11:06)
[2023-01-22] MEDS ORDERED: Magnesium Replacement Protocol 1 EACH MISC MISCELLANE PRN (11:06)
[2023-01-22] MEDS ORDERED: POTASSIUM BICARBONATE/CIT AC 20 MEQ TABLET.EFF NG-TUBE ONE (11:06)
[2023-01-22 11:13] LABS: ABG Base Excess 16.1 mmol/L; ABG Oxygen Saturation 94.7 % (94-97); ABG PCO2 62 mmHg (35-45); ABG PH 7.42 (7.35-7.45); ABG PO2 74 mmHg (83-108); ABG TCO2 42 mmol/L (19-24)
[2023-01-22 11:15] LABS: ABG HCO3 41 mmol/L (21-25); Allen Test Performed? no
--- NOTE | 2023-01-22 11:34 | P.PN ---
Progress Note - Text Progress Note Date: 01/22/23 Reconciled home medications. Reviewed CXR, ET tube in right mainstem bronchus, pulled out around 4 cm, repeat CXR shows ET tube in right position.
[2023-01-22 11:41] LABS: Glucose,Whole Blood 211 mg/dL (70-110)
--- NOTE | 2023-01-22 11:41 | XR ---
EXAMINATION TYPE: XR chest 1V confirm line plcmt DATE OF EXAM: 01/22/2023 COMPARISON: Earlier today HISTORY: 47-year-old female confirm femoral central line placement TECHNIQUE: Single frontal view of the chest is obtained. FINDINGS: Current radiograph is of the chest. This does not include the patient's femoral line repor anant in the history. Heart is mildly enlarged. Multifocal bilateral opacities persist. Likely small ri ght pleural effusion which may be slightly increased. There may be improving aeration at the left bas e now. ET and NG tubes remain satisfactory. IMPRESSION: 1. Satisfactory ET and NG tubes. Note that this is an exam of the chest in the femoral CVC in the ind icated in the patient's history is not assessed. 2. Otherwise, largely stable exam with multifocal airspace disease. This may be slightly worsened at the right base and slightly improved at the left base.
[2023-01-22] MEDS: PANTOPRAZOLE 40 MG/10 ML VIAL IVP SCH (11:44)
[2023-01-22] MEDS: SODIUM CHLORIDE 0.9% 1,000 ML IV SCH ×2 (11:46→22:32)
--- NOTE | 2023-01-22 12:25 | P.CNPUL ---
History of Present Illness Consult date: 01/22/23 Requesting physician: Matthew Dick Reason for consult: pneumonia, other (Acute hypoxic respiratory failure requiring intubation and mechanical ventilation) Chief complaint: Altered mental status History of present illness: This is a 47-year-old female with history of COPD, chronic hypoxic respiratory failure, hypertension, type 2 diabetes, patient is a resident of [facility], presented to the ER with hypoxia and altered mental status. Patient was hypoxic upon arrival in spite of 15 L flow of oxygen, she had a low- grade temp of 98.8, she was hemodynamically stable, however ABG showed a pCO2 of 105 pCO2 of 7.25, patient was initially placed on BiPAP, did not improve with Bi PAP, and she required intubation and mechanical ventilation. Chest x-ray showed multifocal infiltrates. Patient was admitted, placed on mechanical ventilation, she is presently on assist control rate of 20,000 volume 400 FiO2 70% and PEEP of 15 ABG showed a pO2 of 74 pCO2 of 62 pH of 7.42 patient remains on a FiO2 of 70% and PEEP of 14. WBC count is 10 hemoglobin is 10.6, basic metabolic profile is normal including normal renal profile, bicarb is 45. Screening for influenza A, influenza B, RSV and COVID-19 came back negative chest x-ray showed multifocal pneumonia. CT of the brain showed no intracranial abnormality, she does have a 1.9 cm anterior left frontal meningioma versus congenital variation with Chi hyperostosis of frontalis interna it initially the patient was placed on antibiotics in the form of Zithromax and Rocephin however considering the presentation I recommended we go to Zosyn. Patient remained hemodynamically stable but requires a relatively high FiO2 high PEEP, she is on propofol at 20 mcg/kg/m, her IV fluid is running at 100 mL an hour, urine output seems to be marginal. Review of Systems ROS unobtainable: due to endotracheal tube Past Medical History Past Medical History: COPD, Diabetes Mellitus Additional Past Medical History / Comment(s): colitis History of Any Multi-Drug Resistant Organisms: None Reported Past Surgical History: Cholecystectomy, Hysterectomy, Tonsillectomy Additional Past Surgical History / Comment(s): carpal tunnel, right axila-lymph removal Past Psychological History: ADD/ADHD, Bipolar Past Alcohol Use History: None Reported Past Drug Use History: None Reported - Past Family History Father Brother(s) Family Medical History: Unable to Obtain (due to mental status) Medications and Allergies Home Medications Medication Instructions Recorded Confirmed Type Baclofen 20 mg PO TID 02/06/16 02/06/16 History Calcium Carbonate [Calcium] 600 mg PO 02/06/16 02/06/16 History DULoxetine HCL [Cymbalta] 60 mg PO DAILY 02/06/16 02/06/16 History Estrogens, Conjugated [Premarin] 0.625 mg PO DAILY 02/06/16 02/06/16 History Fenofibrate [Tricor] 160 mg PO DAILY 02/06/16 02/06/16 History INSULIN LISPRO (HumaLOG) [HumaLOG] 0 units SQ ACHS 02/06/16 02/06/16 History Insulin Glargine [Lantus] 0 unit SQ HS 02/06/16 02/06/16 History Lurasidone [Latuda] 40 mg PO DAILY 02/06/16 02/06/16 History Meloxicam [Mobic] 7.5 mg PO BID 02/06/16 02/06/16 History Metoprolol Tartrate [Lopressor] 25 mg PO DAILY 02/06/16 02/06/16 History Naproxen 500 mg PO Q12HR 02/06/16 02/06/16 History Nitroglycerin Sl Tabs [Nitrostat] 0.4 mg SUBLINGUAL Q5M PRN 02/06/16 02/06/16 Hi story OXcarbazepine [Trileptal] 150 mg PO BID 02/06/16 02/06/16 History busPIRone HCL [Buspar] 30 mg PO BID 02/06/16 02/06/16 History diphenhydrAMINE [Benadryl] 50 mg PO HS PRN 02/06/16 02/06/16 History oxyCODONE HCL [OxyCONTIN] 30 mg PO Q12H 02/06/16 02/06/16 History Allergies Allergy/AdvReac Type Severity Reaction Status Date / Time Sulfa (Sulfonamide Allergy Anaphylaxis Verified 02/06/16 19:10 Antibiotics) diuretics Allergy Swelling Uncoded 02/06/16 19:10 Physical Exam Vitals: Vital Signs Temp Pulse Pulse Resp BP Pulse Ox FiO2 01/22/23 12:00 100.7 F H 91 20 98 70 01/22/23 11:16 70 01/22/23 11:00 92 20 104/65 95 01/22/23 10:00 93 20 103/62 100 01/22/23 09:00 92 20 85/70 97 01/22/23 08:30 97.5 F L 92 20 87/60 95 100 01/22/23 08:00 92 20 100 01/22/23 07:45 100 01/22/23 07:34 100 01/22/23 07:32 96 21 01/22/23 07:27 100 01/22/23 07:21 97.7 F 92 16 115/78 79 L 01/22/23 06:35 92 01/22/23 06:30 93 20 103/55 77 L 01/22/23 06:28 98.9 F 92 17 103/55 77 L 01/22/23 06:25 92 01/22/23 06:00 93 18 147/45 80 L 01/22/23 05:45 100 01/22/23 05:30 92 25 H 128/57 89 L 01/22/23 05:00 90 8 L 116/78 89 L 01/22/23 04:30 85 18 108/46 88 L 01/22/23 04:00 84 17 110/56 90 L 01/22/23 03:58 82 16 110/56 90 L 01/22/23 03:51 83 13 110/56 91 L 01/22/23 03:46 100 01/22/23 03:37 98.8 F 86 22 110/56 88 L 01/22/23 03:35 100 01/22/23 03:30 100 Intake and Output 01/21/23 01/22/23 01/22/23 22:59 06:59 14:59 Intake Total 1.381 382.346 Output Total 95 Balance 1.381 287.346 Intake: Intake, IV Titration 1.381 382.346 Amount Sodium Chloride 0.9% 1, 250 000 ml @ 125 mls/hr IV . Q8H WIN Rx#:[id number] cefTRIAXone 2 gm In 50 Sodium Chloride 0.9% 50 ml @ 100 mls/hr IVPB Q24HR WIN Rx#:[id number] propofoL 1,000 mg In 1.381 82.346 Empty Bag 1 bag @ 15 MCG/ KG/MIN 11.839 mls/hr IV . Q8H27M WIN Rx#:[id number] Output: Urine 95 Other: Voiding Method Indwelling Catheter Weight 131.542 kg ABP, PAP, CO, CI - Last 8 Hours Arterial Blood Pressure 138/57 Arterial Blood Pressure 102/53 Physical Exam: Revealed a 47-year-old female, obese, in no distress on mechanical ventilation. Sedated, on propofol. Head: Atraumatic, normocephalic. Endotracheal tube and orogastric tube are intact. HEENT: Short obese neck noted. [Neck is supple.] [No neck masses.] [No thyromegaly.] [No JVD.] Chest: Crackles bilaterally no rhonchi and no wheezes symmetrical chest expansion. Cardiac Exam: [Normal S1 and S2, no S3 gallop, no murmur.] Abdomen: [Soft, nontender, no megaly, no rebound, no guarding, normal bowel sounds.] Extremities: [No clubbing, no edema, no cyanosis.] Neurological Exam: [Could not assess, patient is intubated and sedated. On propofol. Psychiatric: Could not assess, patient is sedated and mechanically ventilated. Results - Laboratory Findings CBC and BMP: 01/22/23 03:48 01/22/23 03:48 ABG ABG pH 7.42 (7.35-7.45) 01/22/23 11:11 ABG pCO2 62 mmHg (35-45) H 01/22/23 11:11 ABG pO2 74 mmHg (83-108) L 01/22/23 11:11 ABG O2 Saturation 94.7 % (94-97) 01/22/23 11:11 PT/INR, D-dimer PT 10.7 sec (9.0-12.0) 01/22/23 03:48 INR 1.0 (<1.2) 01/22/23 03:48 Abnormal lab findings: Abnormal Labs 01/22/23 01/22/23 01/22/23 03:48 03:48 03:49 Hgb 10.6 L MCHC 29.3 L Neutrophils # 9.2 H Lymphocytes # 0.5 L ABG pH 7.25 L ABG pCO2 105 H* ABG pO2 66 L ABG HCO3 46 H* ABG Total CO2 49 H ABG O2 Saturation 91.4 L Sodium 129 L Chloride 77 L Carbon Dioxide 45 H* Glucose 205 H POC Glucose (mg/dL) Calcium 8.1 L AST 37 H Urine Appearance Urine Protein Urine Glucose (UA) Ur Leukocyte Esterase Urine WBC Urine Bacteria Urine Mucus 01/22/23 01/22/23 01/22/23 04:24 04:58 07:59 Hgb MCHC Neutrophils # Lymphocytes # ABG pH 7.25 L ABG pCO2 103 H* ABG pO2 49 L* ABG HCO3 45 H* ABG Total CO2 48 H ABG O2 Saturation 80.1 L Sodium Chloride Carbon Dioxide Glucose POC Glucose (mg/dL) 343 H Calcium AST Urine Appearance Cloudy H Urine Protein Trace H Urine Glucose (UA) 1+ H Ur Leukocyte Esterase Large H Urine WBC 23 H Urine Bacteria Occasional H Urine Mucus Rare H 01/22/23 01/22/23 11:11 11:37 Hgb MCHC Neutrophils # Lymphocytes # ABG pH ABG pCO2 62 H ABG pO2 74 L ABG HCO3 41 H* ABG Total CO2 42 H ABG O2 Saturation Sodium Chloride Carbon Dioxide Glucose POC Glucose (mg/dL) 211 H Calcium AST Urine Appearance Urine Protein Urine Glucose (UA) Ur Leukocyte Esterase Urine WBC Urine Bacteria Urine Mucus - Diagnostic Findings Chest x-ray: image reviewed (As noted in HPI) Additional studies: CT of the brain, as noted in HPI Assessment and Plan Assessment: Impression: Acute on chronic hypoxic and hypercapnic respiratory failure secondary to multifocal pneumonia and underlying COPD. Strongly suspect aspiration pneumonia Altered mental status most likely secondary to hypercapnia and CO2 narcosis as noted on presentation. History of underlying COPD with acute COPD exacerbation Morbid obesity Type 2 diabetes without complications. Acute toxic metabolic encephalopathy with hypercapnia Benign essential hypertension recommendation: Continue ventilatory support Continue GI and DVT prophylaxis Antibiotics in the form of Zosyn for presumptive aspiration pneumonia Check sputum cultures urine cultures and blood cultures Address antibiotics accordingly based on the final cultures Nutritional support/enteral feeding to be started Titrate FiO2 and PEEP as tolerated maintaining O2 saturations above 90% Continue bronchodilators/no Solu-Medrol 40 mg IV push every 8 hours Resume home meds Close monitoring of her sugars and address accordingly with insulin Patient is critically ill. Critical care time is over 50 minutes not including the procedures. Time with Patient: Greater than 30
[2023-01-22] MEDS: IPRATROPIUM-ALBUTEROL 3 ML NEB INHALATION SCH ×4 (12:33→23:26)
--- NOTE | 2023-01-22 13:23 | OP ---
OPERATIVE REPORT DATE OF SERVICE : PROCEDURE PERFORMED: Placement of a right femoral triple-lumen catheter. PREOPERATIVE DIAGNOSES: Acute hypoxic respiratory failure and pneumonia. POSTOPERATIVE DIAGNOSES: Acute hypoxic respiratory failure and pneumonia. ANESTHESIA USED: 2 mL of 1% lidocaine. DESCRIPTION OF PROCEDURE: The patient was placed in the supine position. The area of the right groin was prepared in a sterile fashion, and drapes were applied. The right femoral area was locally anesthetized with lidocaine. The right femoral vein was easily cannulated. A guidewire was placed, and the area around the guidewire was dilated. Triple-lumen catheter was inserted over the guidewire, and the guidewire was removed. Good blood flow was noted in the 3 different ports of the catheter. No complications. Line was secured using 3-0 silk sutures. MMODL / IJN: [id number] /
--- NOTE | 2023-01-22 13:23 | OP ---
OPERATIVE REPORT DATE OF SERVICE : PROCEDURE PERFORMED: Placement of a left brachial arterial line. PREOPERATIVE DIAGNOSIS: Acute hypoxic respiratory failure. POSTOPERATIVE DIAGNOSIS: Acute hypoxic respiratory failure. ANESTHESIA USED: None deployed. DESCRIPTION OF PROCEDURE: The patient was placed in a supine position. The left brachial region was prepared in a sterile fashion. Drapes were applied. The left brachial artery was palpated, cannulated easily. A guidewire was placed. A Cook catheter was inserted over the guidewire, and the guidewire was removed. Good blood flow and good waveform. No complications. Line was secured using 3-0 silk sutures. MMODL / IJN: [id number] /
[2023-01-22] MEDS ORDERED: SODIUM CHLORIDE 0.9% 500 ML 500 ML IV ONE (13:27)
[2023-01-22] MEDS: NOREPINEPHRINE 8 MG in SODIUM CHLORIDE 0.9% 250 ML IV SCH (13:54)
[2023-01-22] MEDS: PIPERACILLIN-TAZOBACTAM 3.375 GM in SODIUM CHLORIDE 0.9% 100 ML IVPB SCH (16:22)
[2023-01-22] MEDS: ACETAMINOPHEN TAB 325 MG TAB PO PRN (16:38)
[2023-01-22 18:02] LABS: Glucose,Whole Blood 179 mg/dL (70-110)
[2023-01-22] MEDS: busPIRone HCl 10 MG TAB PO SCH (21:14)
[2023-01-22] MEDS: CHLORHEXIDINE GLUCONATE 15 ML CUP MUCOUS MEM SCH (21:14)
[2023-01-22] MEDS: OXcarbazepine 150 MG TAB PO SCH (21:14)
[2023-01-23 00:08] LABS: Glucose,Whole Blood 221 mg/dL (70-110)
[2023-01-23] MEDS: PIPERACILLIN-TAZOBACTAM 3.375 GM in SODIUM CHLORIDE 0.9% 100 ML IVPB SCH ×4 (00:13→23:56)
[2023-01-23] MEDS: methylPREDNISolone SOD SUCCI 125 MG/2 ML VIAL IV SCH ×4 (00:14→23:55)
[2023-01-23] MEDS: HEPARIN SODIUM,PORCINE/PF 5,000 UNIT/0.5 ML SYRINGE SQ SCH ×4 (00:14→23:55)
[2023-01-23] MEDS: INSULIN ASPART (NovoLOG) 100 UNIT/ML VIAL SQ SCH ×5 (00:15→23:56)
[2023-01-23] MEDS: ACETAMINOPHEN TAB 325 MG TAB PO PRN ×3 (00:15→21:17)
[2023-01-23] MEDS: IPRATROPIUM-ALBUTEROL 3 ML NEB INHALATION SCH ×5 (02:59→19:48)
[2023-01-23 04:44] LABS: Hypochromasia Marked; MCH 26.5 pg (25.0-35.0); MCHC 30.3 g/dL (31.0-37.0); MCV 87.3 fL (80.0-100.0); Platelet Count 180 k/uL (150-450); RBC 3.44 m/uL (3.80-5.40); RDW 14.9 % (11.5-15.5); WBC 7.8 k/uL (3.8-10.6)
[2023-01-23 04:49] LABS: HGB 9.1 gm/dL (11.4-16.0)
[2023-01-23 04:54] LABS: African American GFR (CKD) 80 (>60 ml/min/1.73 sqM); Anion Gap 5 mmol/L; Blood Urea Nitrogen 20 mg/dL (7-17); Calcium 7.6 mg/dL (8.4-10.2); Carbon Dioxide 39 mmol/L (22-30); Chloride 86 mmol/L (98-107); Glucose 207 mg/dL (74-99); Magnesium 2.3 mg/dL (1.6-2.3); Non-African American GFR(CKD) 70 (>60 ml/min/1.73 sqM); Sodium 130 mmol/L (137-145)
[2023-01-23 05:22] LABS: ABG Base Excess 14.7 mmol/L; ABG PCO2 65 mmHg (35-45); ABG PO2 141 mmHg (83-108); ABG TCO2 42 mmol/L (19-24)
[2023-01-23 05:27] LABS: ABG HCO3 40 mmol/L (21-25); Allen Test Performed? no
[2023-01-23] MEDS ORDERED: AZITHROMYCIN 500 MG in SODIUM CHLORIDE 0.9% 250 ML IVPB SCH (06:00)
[2023-01-23 06:02] LABS: Glucose,Whole Blood 221 mg/dL (70-110)
[2023-01-23] MEDS: SODIUM CHLORIDE 0.9% 1,000 ML IV SCH ×3 (06:35→23:21)
[2023-01-23] MEDS: CHLORHEXIDINE GLUCONATE 15 ML CUP MUCOUS MEM SCH ×2 (08:17→21:05)
[2023-01-23] MEDS: PANTOPRAZOLE 40 MG/10 ML VIAL IVP SCH (08:18)
[2023-01-23] MEDS ORDERED: DULoxetine HCL 60 MG CAPSULE.DR PO SCH (09:00)
[2023-01-23] MEDS ORDERED: FENOFIBRATE 160 MG TAB PO SCH (09:00)
[2023-01-23] MEDS: METOPROLOL TARTRATE 25 MG TAB PO SCH (09:14)
[2023-01-23] MEDS: LURASIDONE 40 MG TAB PO SCH (09:17)
[2023-01-23] MEDS: INSULIN DETEMIR (LEVEMIR) 100 UNIT/ML SYR SQ SCH (10:10)
[2023-01-23] MEDS: FENOFIBRATE 160 MG TAB PO SCH (10:11)
[2023-01-23] MEDS: OXcarbazepine 300 MG TAB PO SCH (10:11)
--- NOTE | 2023-01-23 10:35 | P.PN ---
Subjective Progress Note Date: 01/23/23 Hospital Course: 47-year-old female with a PMH of COPD with chronic hypoxic respiratory failure, type II DM, and hypertension, resident of [facility] was sent to the emergency room due to hypoxia and altered mental status. In the emergency room, upon arrival in the emergency room, the patient was noted to be hypoxic with SpO2 of 88% on nonrebreather at 15 L of oxygen, BP 110/56, pulse 86, and temp 98.8F with respiratory rate 22. An ABG revealed a pH of 7.25 with pCO2 105. Laborator y evaluation also revealed a hemoglobin of 10.6 (only prior value available is 15.6 from 01/2016). Chest X-ray revealed findings consistent with multifocal pneumonia. Patient intubated and sedated, currently in the medical ICU. Being treated for pneumonia and COPD exacerbation. Subjective: Patient seen and examined at bedside. No acute events overnight. Per nurse, patient is able to follow commands and having purposeful movement, possible extubation tomorrow. Currently remains intubated and sedated. Has a Dixon catheter in place. Pertinent positives and negatives as discussed above, a complete review of systems was performed and all other systems are negative. Vitals Signs Reviewed. General: Intubated and sedated, morbidly obese Derm: warm, dry Head: atraumatic, normocephalic, symmetric Eyes: Right pupil marginally greater than left, reactive Mouth: no lip lesion, mucus membranes moist Cardiovascular: S1S2 reg, no murmur Lungs: Bilateral rhonchi, no accessory muscle use, intubated Abdominal: soft, obese abdomen Ext: no gross muscle atrophy, no edema, no contractures Neuro: Sedated Psych: Unable to assess Data Reviewed Today: Pertinent Labs: WBC 7.8, hemoglobin 9.1, platelet 180, pH 7.4, pCO2 65, sodium 1:30, bicarbonate 39, creatinine 0.96, blood sugars range between 179-221 Imaging: Chest x-ray independently interpreted, shows multifocal interstitial opacities, greater on the left Assessment and Plan: Active: Acute hypoxic and hypercapnic respiratory failure Multifocal pneumonia Acute COPD exacerbation Acute metabolic encephalopathy Insulin-dependent diabetes Acute normocytic anemia Hypovolemic hyponatremia -Currently intubated and sedated -Pulmonology following, patient remains on IV Solu-Medrol 40 mg every 8 hours, DuoNeb treatments -Also on Zosyn 3.375 g IV every 8 hours -Blood cultures, and sputum cultures pending -Encephalopathy likely in the setting of hypercapnia -Home antipsychotics and seizure medications continue, reduced dose of gabapen tin -Sliding scale insulin every 6 hours, continue home Levemir 34 units -No active blood loss, continue to monitor -Iron studies and B12, folic acid ordered -On normal saline at 1 25 mL an hour, sodium improving Chronic: CML? Dyslipidemia Seizure history? Schizophrenia Hypertension DVT ppx: Subcu heparin Code status: Full code Anticipated discharge place: Pending clinical course Anticipated discharge time: Pending clinical course Objective - Vital Signs Vital signs: Vital Signs Temp 99.7 F H 01/23/23 08:00 Pulse 97 01/23/23 10:00 Resp 20 01/23/23 10:00 BP 117/60 01/23/23 08:30 Pulse Ox 93 L 01/23/23 10:00 FiO2 50 01/23/23 10:00 Intake & Output 01/22/23 01/23/23 01/23/23 18:59 06:59 18:59 Intake Total 2395.051 2016.803 769.410 Output Total 335 785 270 Balance 2060.051 1232.803 499.410 Weight 131.542 kg 105.1 kg Intake: Intake, IV Titration 5.051 2016.803 624.410 Amount Norepinephrine 8 mg In 21.297 7.36 56.468 Sodium Chloride 0.9% 250 ml @ 0.03 MCG/KG/MIN 7. 636 mls/hr IV .Q24H WIN Rx#:[id number] Piperacillin-Tazobactam 3 100 50 .375 gm In Sodium Chloride 0.9% 100 ml @ 25 mls/hr IVPB Q8HR WIN Rx# :[id number] Sodium Chloride 0.9% 1, 1000 1500 450 000 ml @ 125 mls/hr IV . Q8H WIN Rx#:[id number] Sodium Chloride 0.9% 500 1000 ml 500 ml @ 999 mls/hr IV .Q31M ONE Rx#:[id number] cefTRIAXone 2 gm In 50 Sodium Chloride 0.9% 50 ml @ 100 mls/hr IVPB Q24HR WIN Rx#:[id number] propofoL 1,000 mg In 223.754 510.443 67.942 Empty Bag 1 bag @ 15 MCG/ KG/MIN 11.839 mls/hr IV . Q8H27M [facility] Rx#:[id number] Tube Feeding 115 Other 30 Output: Urine 335 785 270 Other: Voiding Method Indwelling Catheter Indwelling Catheter Indwelling Catheter ABP, PAP, CO, CI - Last Documented Arterial Blood Pressure 97/42 - Labs CBC & Chem 7: 01/23/23 04:25 01/23/23 04:25 Labs: Abnormal Lab Results - Last 24 Hours (Table) 01/22/23 01/22/23 01/22/23 Range/Units 11:11 11:37 18:00 RBC (3.80-5.40) m/uL Hgb (11.4-16.0) gm/dL Hct (34.0-46.0) % MCHC (31.0-37.0) g/dL ABG pCO2 62 H (35-45) mmHg ABG pO2 74 L (83-108) mmHg ABG HCO3 41 H* (21-25) mmol/L ABG Total CO2 42 H (19-24) mmol/L ABG O2 Saturation (94-97) % Sodium (137-145) mmol/L Chloride (98-107) mmol/L Carbon Dioxide (22-30) mmol/L BUN (7-17) mg/dL Glucose (74-99) mg/dL POC Glucose (mg/dL) 211 H 179 H (70-110) mg/dL Calcium (8.4-10.2) mg/dL 01/23/23 01/23/23 01/23/23 Range/Units 00:07 04:25 04:25 RBC 3.44 L (3.80-5.40) m/uL Hgb 9.1 L D (11.4-16.0) gm/dL Hct 30.0 L (34.0-46.0) % MCHC 30.3 L (31.0-37.0) g/dL ABG pCO2 (35-45) mmHg ABG pO2 (83-108) mmHg ABG HCO3 (21-25) mmol/L ABG Total CO2 (19-24) mmol/L ABG O2 Saturation (94-97) % Sodium 130 L (137-145) mmol/L Chloride 86 L (98-107) mmol/L Carbon Dioxide 39 H (22-30) mmol/L BUN 20 H (7-17) mg/dL Glucose 207 H (74-99) mg/dL POC Glucose (mg/dL) 221 H (70-110) mg/dL Calcium 7.6 L (8.4-10.2) mg/dL 01/23/23 01/23/23 Range/Units 05:20 06:01 RBC (3.80-5.40) m/uL Hgb (11.4-16.0) gm/dL Hct (34.0-46.0) % MCHC (31.0-37.0) g/dL ABG pCO2 65 H (35-45) mmHg ABG pO2 141 H (83-108) mmHg ABG HCO3 40 H* (21-25) mmol/L ABG Total CO2 42 H (19-24) mmol/L ABG O2 Saturation 98.0 H (94-97) % Sodium (137-145) mmol/L Chloride (98-107) mmol/L Carbon Dioxide (22-30) mmol/L BUN (7-17) mg/dL Glucose (74-99) mg/dL POC Glucose (mg/dL) 221 H (70-110) mg/dL Calcium (8.4-10.2) mg/dL
--- NOTE | 2023-01-23 10:35 | P.PN ---
Subjective Progress Note Date: 01/23/23 Principal diagnosis: Acute hypoxic and hypercapnic respiratory failure secondary to pneumonia. This is a 47-year-old female with history of COPD, chronic hypoxic respiratory failure, hypertension, type 2 diabetes, patient is a resident of [facility], presented to the ER with hypoxia and altered mental status. Patient was hypoxic upon arrival in spite of 15 L flow of oxygen, she had a low- grade temp of 98.8, she was hemodynamically stable, however ABG showed a pCO2 of 105 pCO2 of 7.25, patient was initially placed on BiPAP, did not improve with BiPAP, and she required intubation and mechanical ventilation. Chest x-ray showed multifocal infiltrates. Patient was admitted, placed on mechanical ventilation, she is presently on assist control rate of 20,000 volume 400 FiO2 70% and PEEP of 15 ABG showed a pO2 of 74 pCO2 of 62 pH of 7.42 patient remains on a FiO2 of 70% and PEEP of 14. WBC count is 10 hemoglobin is 10.6, basic metabolic profile is normal including normal renal profile, bicarb is 45. Screening for influenza A, influenza B, RSV and COVID-19 came back negative chest x-ray showed multifocal pneumonia. CT of the brain showed no intracranial abnormality, she does have a 1.9 cm anterior left frontal meningioma versus congenital variation with Chi hyperostosis of frontalis interna it initially the patient was placed on antibiotics in the form of Zithromax and Rocephin however considering the presentation I recommended we go to Zosyn. Patient remained hemodynamically stable but requires a relatively high FiO2 high PEEP, she is on propofol at 20 mcg/kg/m, her IV fluid is running at 100 mL an hour, urine output seems to be marginal. Patient was today on 01/23/2023, remains in the ICU, intubated and mechanically ventilated. Patient is on assist control rate of 20 to volume 400 FiO2 55% PEEP of 14. ABG showed a pO2 of 141 pCO2 65 pH of 7.40. Hence I cut down her FiO2 to 50% and cut down PEEP to 10. Chest x-ray showed evidence of bilateral infiltrates, highly suspicious for multifocal pneumonia./Aspiration pneumonia. Patient remains in the meantime on Zosyn. Her endotracheal tube will be advanced since it seems to be high proximal in the trachea. Patient remains on propofol at 45 mcg/kg/m norepinephrine at 0.01 mcg/kg/m IV fluid is 0.9 normal saline 100 mL per hour. Cultures so far are nondiagnostic. Patient remains empirically on Zosyn. Overnight no major issues, patient did require a low dose of norepinephrine at 0.01 mcg/kg/m, and her propofol has been adjusted overnight. Patient has good urine output, she is on enteral feeding, she is on antibiotics, she is on GI and DVT prophylaxis, and she is not quite ready for weaning. Patient is still requiring relatively high FiO2 and the relatively high PEEP Objective - Vital Signs Vital signs: Vital Signs Temp 99.7 F H 01/23/23 08:00 Pulse 97 01/23/23 10:00 Resp 20 01/23/23 10:00 BP 117/60 01/23/23 08:30 Pulse Ox 93 L 01/23/23 10:00 FiO2 50 01/23/23 10:00 Intake & Output 01/22/23 01/23/23 01/23/23 18:59 06:59 18:59 Intake Total 2395.051 2017.803 769.410 Output Total 335 785 270 Balance 2060.051 1232.803 499.410 Weight 131.542 kg 105.1 kg Intake: Intake, IV Titration 2395.051 2017.803 624.410 Amount Norepinephrine 8 mg In 21.297 7.36 56.468 Sodium Chloride 0.9% 250 ml @ 0.03 MCG/KG/MIN 7. 636 mls/hr IV .Q24H [facility] Rx#:[id number] Piperacillin-Tazobactam 3 100 50 .375 gm In Sodium Chloride 0.9% 100 ml @ 25 mls/hr IVPB Q8HR [facility] Rx# :[id number] Sodium Chloride 0.9% 1, 1000 1500 450 000 ml @ 125 mls/hr IV . Q8H [facility] Rx#:[id number] Sodium Chloride 0.9% 500 1000 ml 500 ml @ 999 mls/hr IV .Q31M ONE Rx#:[id number] cefTRIAXone 2 gm In 50 Sodium Chloride 0.9% 50 ml @ 100 mls/hr IVPB Q24HR [facility] Rx#:[id number] propofoL 1,000 mg In 223.754 510.443 67.942 Empty Bag 1 bag @ 15 MCG/ KG/MIN 11.839 mls/hr IV . Q8H27[facility] Rx#:[id number] Tube Feeding 115 Other 30 Output: Urine 335 785 270 Other: Voiding Method Indwelling Catheter Indwelling Catheter Indwelling Catheter ABP, PAP, CO, CI - Last Documented Arterial Blood Pressure 97/42 - Exam Physical Exam: Revealed a 47-year-old female, obese, in no distress on mechanical ventilation. Sedated, on propofol. Head: Atraumatic, normocephalic. Endotracheal tube and orogastric tube are intact. HEENT: Short obese neck noted. [Neck is supple.] [No neck masses.] [No thyromegaly.] [No JVD.] Chest: Crackles bilaterally no rhonchi and no wheezes symmetrical chest expansion. Cardiac Exam: [Normal S1 and S2, no S3 gallop, no murmur.] Abdomen: [Soft, nontender, no megaly, no rebound, no guarding, normal bowel sounds.] Extremities: [No clubbing, trace of bipedal edema, no cyanosis. Neurological Exam: [Could not assess, patient is intubated and sedated. On propofol. Psychiatric: Could not assess, patient is sedated and mechanically ventilated. - Labs CBC & Chem 7: 01/23/23 04:25 01/23/23 04:25 Labs: Abnormal Lab Results - Last 24 Hours (Table) 01/22/23 01/22/23 01/22/23 Range/Units 11:11 11:37 18:00 RBC (3.80-5.40) m/uL Hgb (11.4-16.0) gm/dL Hct (34.0-46.0) % MCHC (31.0-37.0) g/dL ABG pCO2 62 H (35-45) mmHg ABG pO2 74 L (83-108) mmHg ABG HCO3 41 H* (21-25) mmol/L ABG Total CO2 42 H (19-24) mmol/L ABG O2 Saturation (94-97) % Sodium (137-145) mmol/L Chloride (98-107) mmol/L Carbon Dioxide (22-30) mmol/L BUN (7-17) mg/dL Glucose (74-99) mg/dL POC Glucose (mg/dL) 211 H 179 H (70-110) mg/dL Calcium (8.4-10.2) mg/dL 01/23/23 01/23/23 01/23/23 Range/Units 00:07 04:25 04:25 RBC 3.44 L (3.80-5.40) m/uL Hgb 9.1 L D (11.4-16.0) gm/dL Hct 30.0 L (34.0-46.0) % MCHC 30.3 L (31.0-37.0) g/dL ABG pCO2 (35-45) mmHg ABG pO2 (83-108) mmHg ABG HCO3 (21-25) mmol/L ABG Total CO2 (19-24) mmol/L ABG O2 Saturation (94-97) % Sodium 130 L (137-145) mmol/L Chloride 86 L (98-107) mmol/L Carbon Dioxide 39 H (22-30) mmol/L BUN 20 H (7-17) mg/dL Glucose 207 H (74-99) mg/dL POC Glucose (mg/dL) 221 H (70-110) mg/dL Calcium 7.6 L (8.4-10.2) mg/dL 01/23/23 01/23/23 Range/Units 05:20 06:01 RBC (3.80-5.40) m/uL Hgb (11.4-16.0) gm/dL Hct (34.0-46.0) % MCHC (31.0-37.0) g/dL ABG pCO2 65 H (35-45) mmHg ABG pO2 141 H (83-108) mmHg ABG HCO3 40 H* (21-25) mmol/L ABG Total CO2 42 H (19-24) mmol/L ABG O2 Saturation 98.0 H (94-97) % Sodium (137-145) mmol/L Chloride (98-107) mmol/L Carbon Dioxide (22-30) mmol/L BUN (7-17) mg/dL Glucose (74-99) mg/dL POC Glucose (mg/dL) 221 H (70-110) mg/dL Calcium (8.4-10.2) mg/dL Assessment and Plan Assessment: Impression: Acute on chronic hypoxic and hypercapnic respiratory failure secondary to multifocal pneumonia and underlying COPD. Strongly suspect aspiration pneumonia Altered mental status most likely secondary to hypercapnia and CO2 narcosis as noted on presentation. History of underlying COPD with acute COPD exacerbation Morbid obesity Type 2 diabetes without complications. Acute toxic metabolic encephalopathy with hypercapnia Benign essential hypertension recommendation: Continue ventilatory support, cut down FiO2 to 50% cut down PEEP to 10 otherwise no change and then settings. Continue GI and DVT prophylaxis Antibiotics in the form of Zosyn for presumptive aspiration pneumonia/multifocal infiltrates noted on chest x-ray on admission Awaiting results of sputum and blood cultures of this patient. Address antibiotics accordingly based on the final cultures Continue enteral feeding. Titrate FiO2 and PEEP as needed and as tolerated based on ABG Continue bronchodilators Solu-Medrol 40 mg IV push every 8 hours Daily x-rays of the chest. Daily labs including ABG chest x-ray and basic metabolic profile. Patient is critically ill. Critical care time is over 30 minutes Time with Patient: Greater than 30
--- NOTE | 2023-01-23 11:17 | XR ---
EXAMINATION TYPE: XR chest 1V portable DATE OF EXAM: 01/23/2023 Comparison: 01/22/2023 Clinical History: 47-year-old female Tube placement Findings: ET tube is high. Tip now located above the clavicular heads. Advanced by 4 cm and reassessed at follo w-up. NG tube courses below the diaphragm. Mild cardiomegaly and bilateral interstitial and patchy ai rspace opacities persist though with slight interval improving aeration. Posterior lumbar fusion hard mota. Impression: 1. The ET tube has been pulled back. Tip is now above the level of the medial clavicular heads. Advan ce 4 cm and reassess at follow-up. Called to nurse Katz in 2[facility] at 11:10am. Tube has already bee n advanced. 2. Ongoing cardiomegaly, COPD, and multifocal airspace disease though showing some interval improveme nt.
[2023-01-23 11:52] LABS: Glucose,Whole Blood 198 mg/dL (70-110)
[2023-01-23] MEDS: GABAPENTIN 100 MG CAP PO SCH ×2 (15:44→21:05)
[2023-01-23 18:12] LABS: Glucose,Whole Blood 183 mg/dL (70-110)
[2023-01-23] MEDS: ATORVASTATIN 40 MG TAB PO SCH (21:05)
[2023-01-23 23:47] LABS: Glucose,Whole Blood 171 mg/dL (70-110)
[2023-01-24] MEDS: IPRATROPIUM-ALBUTEROL 3 ML NEB INHALATION SCH ×6 (01:15→21:08)
[2023-01-24] MEDS: ACETAMINOPHEN TAB 325 MG TAB PO PRN (03:09)
[2023-01-24 05:31] LABS: African American GFR (CKD) 78 (>60 ml/min/1.73 sqM); Anion Gap 6 mmol/L; Blood Urea Nitrogen 25 mg/dL (7-17); Calcium 7.3 mg/dL (8.4-10.2); Carbon Dioxide 33 mmol/L (22-30); Chloride 92 mmol/L (98-107); Glucose 213 mg/dL (74-99); Non-African American GFR(CKD) 68 (>60 ml/min/1.73 sqM); Potassium 3.9 mmol/L (3.5-5.1); Sodium 131 mmol/L (137-145)
[2023-01-24] MEDS: NOREPINEPHRINE 8 MG in SODIUM CHLORIDE 0.9% 250 ML IV SCH ×2 (05:50→15:56)
[2023-01-24 06:00] LABS: Glucose,Whole Blood 230 mg/dL (70-110)
[2023-01-24] MEDS ORDERED: POTASSIUM BICARBONATE/CIT AC 20 MEQ TABLET.EFF NG-TUBE SCH (06:00)
[2023-01-24] MEDS: INSULIN ASPART (NovoLOG) 100 UNIT/ML VIAL SQ SCH ×4 (06:05→23:42)
[2023-01-24 06:11] LABS: ABG Base Excess 11.8 mmol/L; ABG HCO3 36 mmol/L (21-25); ABG Oxygen Saturation 92.3 % (94-97); ABG PCO2 53 mmHg (35-45); ABG PH 7.44 (7.35-7.45); ABG PO2 63 mmHg (83-108); ABG TCO2 38 mmol/L (19-24)
[2023-01-24 06:51] LABS: Basophils % (A) 0 %; Eosinophils % (A) 0 %; HCT 26.6 % (34.0-46.0); HGB 8.3 gm/dL (11.4-16.0); Hypochromasia Marked; Lymphocytes # (A) 0.4 k/uL (1.0-4.8); Lymphocytes % (A) 6 %; MCH 27.3 pg (25.0-35.0); MCHC 31.3 g/dL (31.0-37.0); MCV 87.1 fL (80.0-100.0); Mean Platelet Volume 8.2; Monocytes # (A) 0.3 k/uL (0-1.0); Monocytes % (A) 5 %; Neutrophils # (A) 5.6 k/uL (1.3-7.7); Neutrophils % (A) 87 %; Platelet Count 219 k/uL (150-450); RBC 3.05 m/uL (3.80-5.40); RDW 15.2 % (11.5-15.5); WBC 6.4 k/uL (3.8-10.6)
[2023-01-24] MEDS: methylPREDNISolone SOD SUCCI 125 MG/2 ML VIAL IV SCH ×3 (07:44→23:42)
[2023-01-24] MEDS: PANTOPRAZOLE 40 MG/10 ML VIAL IVP SCH (07:45)
[2023-01-24] MEDS: PIPERACILLIN-TAZOBACTAM 3.375 GM in SODIUM CHLORIDE 0.9% 100 ML IVPB SCH ×3 (07:48→23:42)
[2023-01-24] MEDS: HEPARIN SODIUM,PORCINE/PF 5,000 UNIT/0.5 ML SYRINGE SQ SCH ×3 (07:48→23:42)
[2023-01-24] MEDS: CHLORHEXIDINE GLUCONATE 15 ML CUP MUCOUS MEM SCH ×2 (07:48→21:11)
[2023-01-24] MEDS: METOPROLOL TARTRATE 25 MG TAB PO SCH (08:32)
[2023-01-24] MEDS: ASPIRIN 81 MG PO SCH (08:32)
[2023-01-24] MEDS: FENOFIBRATE 160 MG TAB PO SCH (08:32)
[2023-01-24] MEDS: OXcarbazepine 300 MG TAB PO SCH (08:33)
[2023-01-24] MEDS: SODIUM CHLORIDE 0.9% 1,000 ML IV SCH ×3 (08:35→20:17)
[2023-01-24] MEDS: LURASIDONE 40 MG TAB PO SCH (08:35)
[2023-01-24] MEDS: IMATINIB MESYLATE 400 MG PO SCH (08:39)
[2023-01-24] MEDS: GABAPENTIN 100 MG CAP PO SCH ×3 (08:39→21:11)
--- NOTE | 2023-01-24 08:45 | XR ---
EXAMINATION TYPE: XR chest 1V portable DATE OF EXAM: 01/24/2023 COMPARISON: 01/23/2023 INDICATION: Tube placement TECHNIQUE: Single frontal view of the chest is obtained. FINDINGS: The heart size is mildly prominent. The pulmonary vasculature is normal. Mild subsegmental atelectasis medially at the left base. Right upper lobe infiltrate is improved. Endotracheal tube tip is located 2.3 cm above the lisa. Nasogastric tube transverses the thorax. IMPRESSION: 1. Improving lung infiltrates. 2. Mild cardiomegaly. 3. Endotracheal tube tip 2.3 cm above the lisa
[2023-01-24] MEDS: INSULIN DETEMIR (LEVEMIR) 100 UNIT/ML SYR SQ SCH (09:39)
[2023-01-24 11:14] LABS: % Iron Saturation 2.28 (12.00-45.00); Ferritin 61.1 ng/mL (10.0-291.0); Iron 9 UG/DL (50-170); Total Iron Binding Capacity 395 UG/DL (228-460)
--- NOTE | 2023-01-24 11:19 | P.PN ---
Subjective Progress Note Date: 01/24/23 Principal diagnosis: Respiratory failure. Acute hypoxic and hypercapnic respiratory failure secondary to pneumonia. This is a 47-year-old female with history of COPD, chronic hypoxic respiratory failure, hypertension, type 2 diabetes, patient is a resident of [facility], presented to the ER with hypoxia and altered mental status. Patient was hypoxic upon arrival in spite of 15 L flow of oxygen, she had a low- grade temp of 98.8, she was hemodynamically stable, however ABG showed a pCO2 of 105 pCO2 of 7.25, patient was initially placed on BiPAP, did not improve with BiPAP, and she required intubation and mechanical ventilation. Chest x-ray showed multifocal infiltrates. Patient was admitted, placed on mechanical ventilation, she is presently on assist control rate of 20,000 volume 400 FiO2 70% and PEEP of 15 ABG showed a pO2 of 74 pCO2 of 62 pH of 7.42 patient remains on a FiO2 of 70% and PEEP of 14. WBC count is 10 hemoglobin is 10.6, basic meta bolic profile is normal including normal renal profile, bicarb is 45. Screening for influenza A, influenza B, RSV and COVID-19 came back negative chest x-ray showed multifocal pneumonia. CT of the brain showed no intracranial abnormality, she does have a 1.9 cm anterior left frontal meningioma versus congenital variation with Chi hyperostosis of frontalis interna it initially the patient was placed on antibiotics in the form of Zithromax and Rocephin however considering the presentation I recommended we go to Zosyn. Patient remained hemodynamically stable but requires a relatively high FiO2 high PEEP, she is on propofol at 20 mcg/kg/m, her IV fluid is running at 100 mL an hour, urine output seems to be marginal. Patient was today on 01/23/2023, remains in the ICU, intubated and mechanically ventilated. Patient is on assist control rate of 20 to volume 400 FiO2 55% PEEP of 14. ABG showed a pO2 of 141 pCO2 65 pH of 7.40. Hence I cut down her FiO2 to 50% and cut down PEEP to 10. Chest x-ray showed evidence of bilateral infiltrates, highly suspicious for multifocal pneumonia./Aspiration pneumonia. Patient remains in the meantime on Zosyn. Her endotracheal tube will be advanc ed since it seems to be high proximal in the trachea. Patient remains on propofol at 45 mcg/kg/m norepinephrine at 0.01 mcg/kg/m IV fluid is 0.9 normal saline 100 mL per hour. Cultures so far are nondiagnostic. Patient remains empirically on Zosyn. Overnight no major issues, patient did require a low dose of norepinephrine at 0.01 mcg/kg/m, and her propofol has been adjusted overnight. Patient has good urine output, she is on enteral feeding, she is on antibiotics, she is on GI and DVT prophylaxis, and she is not quite ready for weaning. Patient is still requiring relatively high FiO2 and the relatively high PEEP Progress note dated 01/24/2023. This is a 47-year-old female who was admitted to the hospital on January 22 or respiratory failure, pneumonia, and acute respiratory distress syndrome. The patient was intubated on the same day. The patient remains on the mechanical ventilator. She is on the volume assist control mode, rate 20, tidal volume 400, FiO2 50%, and PEEP of 8. Blood gases show pO2 63, pCO2 of 53, and a pH is 7.44. The patient is on saline at 125 mL an hour, propofol at 60 mcg/kg/m, norepinephrine which is off, and Glucerna 1.2 at 66 mL an hour, which is goal. The patient is on Zosyn IV piggyback. The patient will have an attempted daily interruption of sedation today and a spontaneous breathing trial, with a pressure support of 8, and CPAP of 5. White count 6.4, hemoglobin 8.3, hematocrit 26.6, and platelet count 219,000. Sodium 131, potassium 3.9, chlorides 92, CO2 33, BUN 25, creatinine 0.98. Chest x-ray shows mild cardiomegaly, and improving lung infiltrates. Objective - Vital Signs Vital signs: Vital Signs Temp 99.0 F 01/24/23 08:00 Pulse 79 01/24/23 11:00 Resp 20 01/24/23 11:00 BP 111/48 01/24/23 04:00 Pulse Ox 96 01/24/23 11:00 FiO2 50 01/24/23 11:00 Intake & Output 01/23/23 01/24/23 01/24/23 18:59 06:59 18:59 Intake Total 2449.273 2034.488 821 Output Total 935 1050 365 Balance 1514.273 984.488 456 Weight 107 kg Intake: Intake, IV Titration 0162.255 4853.488 725 Amount Norepinephrine 8 mg In 65.588 Sodium Chloride 0.9% 250 ml @ 0.03 MCG/KG/MIN 7. 636 mls/hr IV .Q24H [facility] Rx#:[id number] Piperacillin-Tazobactam 3 150 75 75 .375 gm In Sodium Chloride 0.9% 100 ml @ 25 mls/hr IVPB Q8HR [facility] Rx# :[id number] Sodium Chloride 0.9% 1, 1350 1475 550 000 ml @ 125 mls/hr IV . Q8H [facility] Rx#:[id number] propofoL 1,000 mg In 298.685 429.488 100 Empty Bag 1 bag @ 15 MCG/ KG/MIN 11.839 mls/hr IV . Q8H27M [facility] Rx#:[id number] Tube Feeding 495 55 66 Other 90 30 Output: Urine 935 1050 365 Other: Voiding Method Indwelling Catheter Indwelling Catheter Indwelling Catheter # Bowel Movements 1 ABP, PAP, CO, CI - Last Documented Arterial Blood Pressure 130/59 - Exam No acute distress, sedated, with an orally placed endotracheal tube. HEENT examination is grossly unremarkable. Neck supple. Full range of motion. No adenopathy thyromegaly or neck vein distention. Cardiovascular examination reveals regular rhythm rate. S1-S2 normal. No S3 or S4. No discernible murmur noted. Heart sounds are distant. Heart rate 79 bpm. Lungs reveal scattered rhonchi. No wheezes or crackles. Breath sounds equal. Saturations are 96%. Abdomen soft, with bowel sounds. No masses or tenderness. Extremities are intact. No cyanosis clubbing or edema. Skin is without rash or lesion. Neurologic examination cannot be assessed, as the patient's currently sedated. - Labs CBC & Chem 7: 01/24/23 04:41 01/24/23 04:41 Labs: Abnormal Lab Results - Last 24 Hours (Table) 01/23/23 01/23/23 01/23/23 Range/Units 11:50 18:10 23:45 RBC (3.80-5.40) m/uL Hgb (11.4-16.0) gm/dL Hct (34.0-46.0) % Lymphocytes # (1.0-4.8) k/uL ABG pCO2 (35-45) mmHg ABG pO2 (83-108) mmHg ABG HCO3 (21-25) mmol/L ABG Total CO2 (19-24) mmol/L ABG O2 Saturation (94-97) % Sodium (137-145) mmol/L Chloride (98-107) mmol/L Carbon Dioxide (22-30) mmol/L BUN (7-17) mg/dL Glucose (74-99) mg/dL POC Glucose (mg/dL) 198 H 183 H 171 H (70-110) mg/dL Calcium (8.4-10.2) mg/dL 01/24/23 01/24/23 01/24/23 Range/Units 04:41 04:41 05:58 RBC 3.05 L (3.80-5.40) m/uL Hgb 8.3 L (11.4-16.0) gm/dL Hct 26.6 L (34.0-46.0) % Lymphocytes # 0.4 L (1.0-4.8) k/uL ABG pCO2 (35-45) mmHg ABG pO2 (83-108) mmHg ABG HCO3 (21-25) mmol/L ABG Total CO2 (19-24) mmol/L ABG O2 Saturation (94-97) % Sodium 131 L (137-145) mmol/L Chloride 92 L (98-107) mmol/L Carbon Dioxide 33 H (22-30) mmol/L BUN 25 H (7-17) mg/dL Glucose 213 H (74-99) mg/dL POC Glucose (mg/dL) 230 H (70-110) mg/dL Calcium 7.3 L (8.4-10.2) mg/dL 01/24/23 Range/Units 06:05 RBC (3.80-5.40) m/uL Hgb (11.4-16.0) gm/dL Hct (34.0-46.0) % Lymphocytes # (1.0-4.8) k/uL ABG pCO2 53 H (35-45) mmHg ABG pO2 63 L (83-108) mmHg ABG HCO3 36 H (21-25) mmol/L ABG Total CO2 38 H (19-24) mmol/L ABG O2 Saturation 92.3 L (94-97) % Sodium (137-145) mmol/L Chloride (98-107) mmol/L Carbon Dioxide (22-30) mmol/L BUN (7-17) mg/dL Glucose (74-99) mg/dL POC Glucose (mg/dL) (70-110) mg/dL Calcium (8.4-10.2) mg/dL Microbiology - Last 24 Hours (Table) 01/22/23 05:50 Blood Culture - Preliminary Blood 01/22/23 04:46 Blood Culture - Preliminary Blood 01/22/23 06:34 Gram Stain - Preliminary Sputum Assessment and Plan Assessment: Acute on chronic hypoxemic and hypercapnic respiratory failure, secondary to multifocal pneumonia, and COPD. Possible aspiration pneumonia. Acute mental status changes, likely on the basis of sepsis, and worsening hypercapnia. History of COPD. Morbid obesity. Type 2 diabetes. Acute toxic/metabolic encephalopathy. Benign essential hypertension. Plan: Plan dated 01/24/2023. Although the patient may not be ready, we will attempt a daily interruption of sedation spontaneous breathing trial. The patient has been off norepinephrine now for a while. She is getting tube feedings. She's getting propofol at 60 mcg/kg/m. Arterial blood gases are borderline. Chest x-ray, labs, and all medications are reviewed. We will continue to follow the patient and make recommendations along the way. Time with Patient: Greater than 30
[2023-01-24 11:21] LABS: Glucose,Whole Blood 192 mg/dL (70-110)
--- NOTE | 2023-01-24 15:36 | P.PN ---
Subjective Progress Note Date: 01/24/23 (delayed charting seen at 0945) Patient is a 47-year-old female with COPD on chronic O2 at 5 L, diabetes mellitus type 2, hypertension, suprapubic tube who is a resident at [facility] and presented to the emergency room for hypoxia and altered mentation. In the emergency department he underwent an extensive evaluation. On arrival her O2 sat was 88% on nonrebreather at 15 L, blood pressure was 110/56, and respiration was 22. Initial ABG revealed a pH of 7.25 with acute CO2 of 105. Laboratory analysis was remarkable for hemoglobin 10.6, carbon dioxide 45, sodium 129, blood sugar 205. COVID-19, influenza A/B, and RSV testing were negative. CT of the brain showed 1.9 cm left frontal lobe meningioma versus congenital variation. Chest x-ray demonstrated COPD with asymmetric volume loss in the right hemithorax and opacification throughout the right upper and mid lobes as well as extensive opacification in the left perihilar region. In the emergency department she was started on ceftriaxone, Zithromax, and BiPAP was ordered. She was also started on DuoNeb's and Solu-Medrol. Arrangements were made for admission. The patient ultimately required intubation prior to being admitted. She was subsequently admitted to the ICU and pulmonary critical care was consulted. Pulmonary did recommend transitioning the patient to Zosyn. She did have some low blood pressures and required levo fed overnight from 01/22 through 01/23. Patient seen and examined at bedside. She is currently intubated and sedated on vent. Per nursing no acute events overnight. Vital signs reviewed General: Ill-appearing, appears at stated age Cardiovascular: [S1S2 reg], [no murmur], [positive posterior tibial pulse bilateral], Lungs: [Coarse breath sounds bilateral], [no rhonchi, no rales] , [no accessory muscle use] Abdominal: [soft], [ nontender to palpation], [no guarding], [no appreciable organomegaly] Ext: [no gross muscle atrophy], [no edema b/l lower extremities], [no contrac tures] Neuro: Breathing over the vent, pupils equal round reactive to light, positive cough/gag, no tremors Psych: Sedated on vent Assessment: Multifocal pneumonia Acute exacerbation of COPD Acute on chronic hypoxic hypercapnic respiratory failure Toxic metabolic encephalopathy -Pulmonary no reviewed, start daily spontaneous breathing trials, continue with propofol -Continue with DuoNeb's scheduled in as needed, Solu-Medrol 60 every 6 -Continue with Zosyn 3.375 g every 8 hours day #2 -Sputum with few normal respiratory kody -Blood cultures negative to date -Wean from vent as able Type 2 insulin-dependent -Continue with sliding scale, Levemir 34 units daily - follow bs Anemia, secondary to severe iron deficiency -2 g drop in the last 3 days - Start IV iron -No overt signs of GI bleed -Continue to follow hemoglobin Hypovolemic hyponatremia -Improving slowly -Continue with normal saline 125 MLS per hour Chronic: Chronic myelogenous leukemia Dyslipidemia Chronic CHF HTN Obesity with BMI 35.9 LEYVA Vit D def schizophrenia Imaging: This x-ray ordered and reviewed by my 12 which shows elevated diaphragm on the right continue opacification of the left perihilar region Data Review: T-max in the last 24 hours 100.3 Pulse 85, respirations 20, blood pressure 118/50, O2 sat 92% on 50% FiO2 DVT prophylaxis: Heparin Discussed with:Nursing Anticipated discharge date: Pending Clinical Course Anticipated discharge place: Pending Clinical Course This dictation was prepared using [employer] voice recognition software. Though every attempt is made to correct errors during dictation some may still exist. Objective - Vital Signs Vital signs: Vital Signs Temp 99.6 F 01/24/23 12:00 Pulse 80 01/24/23 15:27 Resp 20 01/24/23 15:00 BP 111/48 01/24/23 04:00 Pulse Ox 94 L 01/24/23 15:00 FiO2 50 01/24/23 15:27 Intake & Output 01/23/23 01/24/23 01/24/23 18:59 06:59 18:59 Intake Total 2449.273 2034.488 1352.349 Output Total 935 1050 590 Balance 1514.273 984.488 762.349 Weight 107 kg 107 kg Intake: Intake, IV Titration 5314.352 8272.488 1172.349 Amount Norepinephrine 8 mg In 65.588 Sodium Chloride 0.9% 250 ml @ 0.03 MCG/KG/MIN 7. 636 mls/hr IV .Q24H [facility] Rx#:[id number] Piperacillin-Tazobactam 3 150 75 75 .375 gm In Sodium Chloride 0.9% 100 ml @ 25 mls/hr IVPB Q8HR [facility] Rx# :[id number] Sodium Chloride 0.9% 1, 1350 1475 925 000 ml @ 125 mls/hr IV . Q8H [facility] Rx#:[id number] propofoL 1,000 mg In 298.685 429.488 172.349 Empty Bag 1 bag @ 15 MCG/ KG/MIN 11.839 mls/hr IV . Q8H27M [facility] Rx#:[id number] Tube Feeding 495 55 120 Other 90 60 Output: Urine 935 1050 590 Other: Voiding Method Indwelling Catheter Indwelling Catheter Indwelling Catheter # Bowel Movements 1 ABP, PAP, CO, CI - Last Documented Arterial Blood Pressure 119/54 - Labs CBC & Chem 7: 01/24/23 04:41 01/24/23 04:41 Labs: Abnormal Lab Results - Last 24 Hours (Table) 01/23/23 01/23/23 01/24/23 Range/Units 18:10 23:45 04:41 RBC (3.80-5.40) m/uL Hgb (11.4-16.0) gm/dL Hct (34.0-46.0) % Lymphocytes # (1.0-4.8) k/uL ABG pCO2 (35-45) mmHg ABG pO2 (83-108) mmHg ABG HCO3 (21-25) mmol/L ABG Total CO2 (19-24) mmol/L ABG O2 Saturation (94-97) % Sodium 131 L (137-145) mmol/L Chloride 92 L (98-107) mmol/L Carbon Dioxide 33 H (22-30) mmol/L BUN 25 H (7-17) mg/dL Glucose 213 H (74-99) mg/dL POC Glucose (mg/dL) 183 H 171 H (70-110) mg/dL Calcium 7.3 L (8.4-10.2) mg/dL Iron 9 L (50-170) UG/DL % Saturation 2.28 L (12.00-45.00) 01/24/23 01/24/23 01/24/23 Range/Units 04:41 05:58 06:05 RBC 3.05 L (3.80-5.40) m/uL Hgb 8.3 L (11.4-16.0) gm/dL Hct 26.6 L (34.0-46.0) % Lymphocytes # 0.4 L (1.0-4.8) k/uL ABG pCO2 53 H (35-45) mmHg ABG pO2 63 L (83-108) mmHg ABG HCO3 36 H (21-25) mmol/L ABG Total CO2 38 H (19-24) mmol/L ABG O2 Saturation 92.3 L (94-97) % Sodium (137-145) mmol/L Chloride (98-107) mmol/L Carbon Dioxide (22-30) mmol/L BUN (7-17) mg/dL Glucose (74-99) mg/dL POC Glucose (mg/dL) 230 H (70-110) mg/dL Calcium (8.4-10.2) mg/dL Iron (50-170) UG/DL % Saturation (12.00-45.00) 01/24/23 Range/Units 11:19 RBC (3.80-5.40) m/uL Hgb (11.4-16.0) gm/dL Hct (34.0-46.0) % Lymphocytes # (1.0-4.8) k/uL ABG pCO2 (35-45) mmHg ABG pO2 (83-108) mmHg ABG HCO3 (21-25) mmol/L ABG Total CO2 (19-24) mmol/L ABG O2 Saturation (94-97) % Sodium (137-145) mmol/L Chloride (98-107) mmol/L Carbon Dioxide (22-30) mmol/L BUN (7-17) mg/dL Glucose (74-99) mg/dL POC Glucose (mg/dL) 192 H (70-110) mg/dL Calcium (8.4-10.2) mg/dL Iron (50-170) UG/DL % Saturation (12.00-45.00) Microbiology - Last 24 Hours (Table) 01/22/23 06:34 Gram Stain - Final Sputum Sputum Culture - Final 01/22/23 05:50 Blood Culture - Preliminary Blood 01/22/23 04:46 Blood Culture - Preliminary Blood
[2023-01-24] MEDS: SODIUM FERRIC GLUCONAT-SUCROSE 125 MG in SODIUM CHLORIDE 0.9% 100 ML IVPB SCH (16:04)
[2023-01-24 17:39] LABS: Glucose,Whole Blood 153 mg/dL (70-110)
[2023-01-24] MEDS ORDERED: INSULIN DETEMIR (LEVEMIR) 100 UNIT/ML SYR SQ SCH (21:00)
[2023-01-24] MEDS: ATORVASTATIN 40 MG TAB PO SCH (21:11)
[2023-01-24 21:15] LABS: Glucose,Whole Blood 176 mg/dL (70-110)
[2023-01-24 23:39] LABS: Glucose,Whole Blood 157 mg/dL (70-110)
[2023-01-25] MEDS: IPRATROPIUM-ALBUTEROL 3 ML NEB INHALATION SCH ×6 (00:33→20:46)
[2023-01-25 05:04] LABS: HCT 28.3 % (34.0-46.0); HGB 8.6 gm/dL (11.4-16.0); Hypochromasia Marked; MCH 26.4 pg (25.0-35.0); MCHC 30.5 g/dL (31.0-37.0); MCV 86.7 fL (80.0-100.0); Mean Platelet Volume 9.5; Platelet Count 213 k/uL (150-450); RBC 3.26 m/uL (3.80-5.40); RDW 15.1 % (11.5-15.5); WBC 8.3 k/uL (3.8-10.6)
[2023-01-25 05:14] LABS: African American GFR (CKD) 80 (>60 ml/min/1.73 sqM); Anion Gap 5 mmol/L; Blood Urea Nitrogen 25 mg/dL (7-17); Calcium 7.6 mg/dL (8.4-10.2); Carbon Dioxide 32 mmol/L (22-30); Chloride 98 mmol/L (98-107); Glucose 164 mg/dL (74-99); Non-African American GFR(CKD) 69 (>60 ml/min/1.73 sqM); Potassium 4.4 mmol/L (3.5-5.1); Sodium 135 mmol/L (137-145)
[2023-01-25 05:32] LABS: Glucose,Whole Blood 176 mg/dL (70-110)
[2023-01-25] MEDS: SODIUM CHLORIDE 0.9% 1,000 ML IV SCH (05:33)
[2023-01-25] MEDS: HYDROmorphone 0.5 MG/0.5 ML SYRINGE IVP PRN ×2 (05:33→19:42)
[2023-01-25] MEDS: INSULIN ASPART (NovoLOG) 100 UNIT/ML VIAL SQ SCH ×4 (05:34→23:49)
[2023-01-25 05:52] LABS: ABG Base Excess 8.8 mmol/L; ABG HCO3 33 mmol/L (21-25); ABG PCO2 50 mmHg (35-45); ABG PH 7.43 (7.35-7.45); ABG PO2 70 mmHg (83-108); ABG TCO2 35 mmol/L (19-24)
[2023-01-25 06:07] LABS: Glucose,Whole Blood 193 mg/dL (70-110)
[2023-01-25] MEDS: IMATINIB MESYLATE 400 MG PO SCH (07:57)
[2023-01-25] MEDS ORDERED: FUROSEMIDE 10 MG/ML 10 ML VIAL IV STA (08:09)
--- NOTE | 2023-01-25 08:29 | XR ---
EXAMINATION TYPE: XR chest 1V portable DATE OF EXAM: 01/25/2023 Comparison: 01/24/2023 Clinical History: 47-year-old female Tube placement Findings: ET tube satisfactory. NG tube courses below the diaphragm. Heart mildly enlarged. Interstitial opacit ies persist. Patchy bilateral opacities have increased at the right upper lung and left midlung. Poss ible trace left effusion. Impression: Correlate for CHF with ongoing interstitial pulmonary edema/infiltrates. Patchy airspace opacity is d eveloping now in the right upper lobe and left midlung. Possible trace left effusion.
[2023-01-25] MEDS: PANTOPRAZOLE 40 MG/10 ML VIAL IVP SCH (08:51)
[2023-01-25] MEDS: ASPIRIN 81 MG PO SCH (08:52)
[2023-01-25] MEDS: HEPARIN SODIUM,PORCINE/PF 5,000 UNIT/0.5 ML SYRINGE SQ SCH ×3 (08:52→23:38)
[2023-01-25] MEDS: CHLORHEXIDINE GLUCONATE 15 ML CUP MUCOUS MEM SCH ×2 (08:53→21:08)
[2023-01-25] MEDS: methylPREDNISolone SOD SUCCI 125 MG/2 ML VIAL IV SCH ×3 (08:53→23:38)
[2023-01-25] MEDS: GABAPENTIN 100 MG CAP PO SCH ×3 (08:54→21:08)
[2023-01-25] MEDS: PIPERACILLIN-TAZOBACTAM 3.375 GM in SODIUM CHLORIDE 0.9% 100 ML IVPB SCH ×3 (08:54→23:37)
[2023-01-25] MEDS: METOPROLOL TARTRATE 25 MG TAB PO SCH (08:54)
[2023-01-25] MEDS: LURASIDONE 40 MG TAB PO SCH (08:56)
[2023-01-25] MEDS: FENOFIBRATE 160 MG TAB PO SCH (08:56)
[2023-01-25] MEDS: INSULIN DETEMIR (LEVEMIR) 100 UNIT/ML SYR SQ SCH ×2 (08:57→21:09)
[2023-01-25] MEDS: SODIUM FERRIC GLUCONAT-SUCROSE 125 MG in SODIUM CHLORIDE 0.9% 100 ML IVPB SCH (08:58)
[2023-01-25] MEDS: OXcarbazepine 300 MG TAB PO SCH (08:58)
--- NOTE | 2023-01-25 10:21 | P.PN ---
Subjective Progress Note Date: 01/25/23 Principal diagnosis: Respiratory failure. Acute hypoxic and hypercapnic respiratory failure secondary to pneumonia. This is a 47-year-old female with history of COPD, chronic hypoxic respiratory failure, hypertension, type 2 diabetes, patient is a resident of [facility], presented to the ER with hypoxia and altered mental status. Patient was hypoxic upon arrival in spite of 15 L flow of oxygen, she had a low- grade temp of 98.8, she was hemodynamically stable, however ABG showed a pCO2 of 105 pCO2 of 7.25, patient was initially placed on BiPAP, did not improve with BiPAP, and she required intubation and mechanical ventilation. Chest x-ray showed multifocal infiltrates. Patient was admitted, placed on mechanical ventilation, she is presently on assist control rate of 20,000 volume 400 FiO2 70% and PEEP of 15 ABG showed a pO2 of 74 pCO2 of 62 pH of 7.42 patient remains on a FiO2 of 70% and PEEP of 14. WBC count is 10 hemoglobin is 10.6, basic meta bolic profile is normal including normal renal profile, bicarb is 45. Screening for influenza A, influenza B, RSV and COVID-19 came back negative chest x-ray showed multifocal pneumonia. CT of the brain showed no intracranial abnormality, she does have a 1.9 cm anterior left frontal meningioma versus congenital variation with Chi hyperostosis of frontalis interna it initially the patient was placed on antibiotics in the form of Zithromax and Rocephin however considering the presentation I recommended we go to Zosyn. Patient remained hemodynamically stable but requires a relatively high FiO2 high PEEP, she is on propofol at 20 mcg/kg/m, her IV fluid is running at 100 mL an hour, urine output seems to be marginal. Patient was today on 01/23/2023, remains in the ICU, intubated and mechanically ventilated. Patient is on assist control rate of 20 to volume 400 FiO2 55% PEEP of 14. ABG showed a pO2 of 141 pCO2 65 pH of 7.40. Hence I cut down her FiO2 to 50% and cut down PEEP to 10. Chest x-ray showed evidence of bilateral infiltrates, highly suspicious for multifocal pneumonia./Aspiration pneumonia. Patient remains in the meantime on Zosyn. Her endotracheal tube will be advanc ed since it seems to be high proximal in the trachea. Patient remains on propofol at 45 mcg/kg/m norepinephrine at 0.01 mcg/kg/m IV fluid is 0.9 normal saline 100 mL per hour. Cultures so far are nondiagnostic. Patient remains empirically on Zosyn. Overnight no major issues, patient did require a low dose of norepinephrine at 0.01 mcg/kg/m, and her propofol has been adjusted overnight. Patient has good urine output, she is on enteral feeding, she is on antibiotics, she is on GI and DVT prophylaxis, and she is not quite ready for weaning. Patient is still requiring relatively high FiO2 and the relatively high PEEP Progress note dated 01/24/2023. This is a 47-year-old female who was admitted to the hospital on January 22 or respiratory failure, pneumonia, and acute respiratory distress syndrome. The patient was intubated on the same day. The patient remains on the mechanical ventilator. She is on the volume assist control mode, rate 20, tidal volume 400, FiO2 50%, and PEEP of 8. Blood gases show pO2 63, pCO2 of 53, and a pH is 7.44. The patient is on saline at 125 mL an hour, propofol at 60 mcg/kg/m, norepinephrine which is off, and Glucerna 1.2 at 66 mL an hour, which is goal. The patient is on Zosyn IV piggyback. The patient will have an attempted daily interruption of sedation today and a spontaneous breathing trial, with a pressure support of 8, and CPAP of 5. White count 6.4, hemoglobin 8.3, hematocrit 26.6, and platelet count 219,000. Sodium 131, potassium 3.9, chlorides 92, CO2 33, BUN 25, creatinine 0.98. Chest x-ray shows mild cardiomegaly, and improving lung infiltrates. Progress note dated 01/25/2023. 47-year-old female admitted to the hospital on January 22 respiratory failure, pneumonia, and respiratory distress. The patient was intubated on the same today, January 22. She remains on the mechanical ventilator. Yesterday, we attempted a daily interruption of sedation, but she was quite agitated, and had to be re-sedated. She is on volume assist control, rate 20, tidal volume 400, FiO2 50%, EPAP of 8. Gases show pO2 70, he CO2 50, and a pH is 7.43. The patient's on saline at 125 mL an hour, propofol 60 mcg/kg/m, and Glucerna at goal, which is 18 mL/h. The patient is going to get Lasix 60 mg IV push today. She is on Zosyn. Her pro-calcitonin level was elevated at 3.24. The saline will be dropped down to KVO. White count 8.3, he will may 0.6, hematocrit 28.3, and platelet count normal. Sodium 135, potassium 4.4, chlorides 98, CO2 32, BUN 25, creatinine 0.97. Thus far, cultures are negative. Chest x-ray show a pattern of possible fluid overload, versus pneumonia. Objective - Vital Signs Vital signs: Vital Signs Temp 99.1 F 01/25/23 08:00 Pulse 77 01/25/23 10:00 Resp 20 01/25/23 10:00 BP 138/73 01/25/23 03:00 Pulse Ox 96 01/25/23 10:00 FiO2 50 01/25/23 08:00 Intake & Output 01/24/23 01/25/23 01/25/23 18:59 06:59 18:59 Intake Total 2367.349 2095.539 614.835 Output Total 1050 1315 265 Balance 1317.349 780.539 349.835 Weight 107 kg 110.3 kg Intake: IV 1350 370 Piperacillin-Tazobactam 3 100 100 .375 gm In Sodium Chloride 0.9% 100 ml @ 25 mls/hr IVPB Q8HR [facility] Rx# :[id number] Sodium Chloride 0.9% 1, 1250 270 000 ml @ 20 mls/hr IV . Q24H [facility] Rx#:[id number] Intake, IV Titration 2097.349 427.539 226.835 Amount Piperacillin-Tazobactam 3 175 .375 gm In Sodium Chloride 0.9% 100 ml @ 25 mls/hr IVPB Q8HR [facility] Rx# :[id number] Sodium Chloride 0.9% 1, 1450 000 ml @ 20 mls/hr IV . Q24H [facility] Rx#:[id number] Sodium Ferric Gluconat- 100 100 Sucrose 125 mg In Sodium Chloride 0.9% 100 ml @ 100 mls/hr IVPB DAILY [facility] Rx#:[id number] propofoL 1,000 mg In 372.349 427.539 126.835 Empty Bag 1 bag @ 15 MCG/ KG/MIN 11.839 mls/hr IV . Q8H27M [facility] Rx#:[id number] Tube Feeding 210 198 18 Other 60 120 Output: Urine 1050 1315 265 Other: Voiding Method Indwelling Catheter Indwelling Catheter ABP, PAP, CO, CI - Last Documented Arterial Blood Pressure 138/59 - Exam No acute distress, sedated, with an orally placed endotracheal tube. HEENT examination is grossly unremarkable. Neck supple. Full range of motion. No adenopathy thyromegaly or neck vein distention. Cardiovascular examination reveals regular rhythm rate. S1-S2 normal. No S3 or S4. No discernible murmur noted. Heart sounds are distant. Heart rate 77 bpm. Lungs reveal scattered rhonchi. No wheezes or crackles. Breath sounds equal. Saturations are 97 %. Abdomen soft, with bowel sounds. No masses or tenderness. Extremities are intact. No cyanosis clubbing or edema. Skin is without rash or lesion. Neurologic examination cannot be assessed, as the patient's currently sedated. - Labs CBC & Chem 7: 01/25/23 04:50 01/25/23 04:50 Labs: Abnormal Lab Results - Last 24 Hours (Table) 01/24/23 01/24/23 01/24/23 Range/Units 04:41 09:45 11:19 RBC (3.80-5.40) m/uL Hgb (11.4-16.0) gm/dL Hct (34.0-46.0) % MCHC (31.0-37.0) g/dL ABG pCO2 (35-45) mmHg ABG pO2 (83-108) mmHg ABG HCO3 (21-25) mmol/L ABG Total CO2 (19-24) mmol/L Sodium (137-145) mmol/L Carbon Dioxide (22-30) mmol/L BUN (7-17) mg/dL Glucose (74-99) mg/dL POC Glucose (mg/dL) 192 H (70-110) mg/dL Calcium (8.4-10.2) mg/dL Iron 9 L (50-170) UG/DL % Saturation 2.28 L (12.00-45.00) Procalcitonin 3.24 H (0.02-0.09) ng/mL 01/24/23 01/24/2301/24/23 Range/Units 17:37 21:13 23:37 RBC (3.80-5.40) m/uL Hgb (11.4-16.0) gm/dL Hct (34.0-46.0) % MCHC (31.0-37.0) g/dL ABG pCO2 (35-45) mmHg ABG pO2 (83-108) mmHg ABG HCO3 (21-25) mmol/L ABG Total CO2 (19-24) mmol/L Sodium (137-145) mmol/L Carbon Dioxide (22-30) mmol/L BUN (7-17) mg/dL Glucose (74-99) mg/dL POC Glucose (mg/dL) 153 H 176 H 157 H (70-110) mg/dL Calcium (8.4-10.2) mg/dL Iron (50-170) UG/DL % Saturation (12.00-45.00) Procalcitonin (0.02-0.09) ng/mL 01/25/23 01/25/23 01/25/23 Range/Units 04:50 04:50 05:30 RBC 3.26 L (3.80-5.40) m/uL Hgb 8.6 L (11.4-16.0) gm/dL Hct 28.3 L (34.0-46.0) % MCHC 30.5 L (31.0-37.0) g/dL ABG pCO2 (35-45) mmHg ABG pO2 (83-108) mmHg ABG HCO3 (21-25) mmol/L ABG Total CO2 (19-24) mmol/L Sodium 135 L (137-145) mmol/L Carbon Dioxide 32 H (22-30) mmol/L BUN 25 H (7-17) mg/dL Glucose 164 H (74-99) mg/dL POC Glucose (mg/dL) 176 H (70-110) mg/dL Calcium 7.6 L (8.4-10.2) mg/dL Iron (50-170) UG/DL % Saturation (12.00-45.00) Procalcitonin (0.02-0.09) ng/mL 01/25/23 01/25/23 Range/Units 05:50 06:06 RBC (3.80-5.40) m/uL Hgb (11.4-16.0) gm/dL Hct (34.0-46.0) % MCHC (31.0-37.0) g/dL ABG pCO2 50 H (35-45) mmHg ABG pO2 70 L (83-108) mmHg ABG HCO3 33 H (21-25) mmol/L ABG Total CO2 35 H (19-24) mmol/L Sodium (137-145) mmol/L Carbon Dioxide (22-30) mmol/L BUN (7-17) mg/dL Glucose (74-99) mg/dL POC Glucose (mg/dL) 193 H (70-110) mg/dL Calcium (8.4-10.2) mg/dL Iron (50-170) UG/DL % Saturation (12.00-45.00) Procalcitonin (0.02-0.09) ng/mL Microbiology - Last 24 Hours (Table) 01/22/23 05:50 Blood Culture - Preliminary Blood 01/22/23 04:46 Blood Culture - Preliminary Blood 01/22/23 06:34 Gram Stain - Final Sputum Sputum Culture - Final Assessment and Plan Assessment: Acute on chronic hypoxemic and hypercapnic respiratory failure, secondary to multifocal pneumonia, and COPD. Possible aspiration pneumonia. Acute mental status changes, likely on the basis of sepsis, and worsening hypercapnia. History of COPD. Morbid obesity. Type 2 diabetes. Acute toxic/metabolic encephalopathy. Benign essential hypertension. Plan: Plan dated 01/24/2023. Although the patient may not be ready, we will attempt a daily interruption of sedation spontaneous breathing trial. The patient has been off norepinephrine now for a while. She is getting tube feedings. She's getting propofol at 60 mcg/kg/m. Arterial blood gases are borderline. Chest x-ray, labs, and all medications are reviewed. We will continue to follow the patient and make recommendations along the way. Plan dated 01/25/2023. The patient remains relatively stable, although, she did not do very well yesterday on her daily interruption of sedation. She became very agitated. Today, the patient saline IVs dropped down to KVO. We'll give her Lasix 60 mg IV push. She remains on Zosyn empirically for pneumonia. Pro-calcitonin level was elevated at 3.24. Labs, x-rays, and medications are reviewed. The patient's overall prognosis remains very guarded. We will attempt another daily interruption of sedation today. If the patient does not show progression, she may need a tracheostomy tube and feeding tube. Time with Patient: Greater than 30
[2023-01-25 11:58] LABS: Glucose,Whole Blood 147 mg/dL (70-110)
[2023-01-25] MEDS ORDERED: CALCIUM GLUCONATE IN NACL 1 GM in SALINE 1 100ML.BAG IVPB ONE (12:00)
[2023-01-25] MEDS: NOREPINEPHRINE 8 MG in SODIUM CHLORIDE 0.9% 250 ML IV SCH (13:32)
--- NOTE | 2023-01-25 14:39 | P.PN ---
Subjective Progress Note Date: 01/25/23 (delayed charting seen at 1115 ) Patient is a 47-year-old female with COPD on chronic O2 at 5 L, diabetes mellitus type 2, hypertension, suprapubic tube who is a resident at [facility] and presented to the emergency room for hypoxia and altered mentation. In the emergency department he underwent an extensive evaluation. On arrival her O2 sat was 88% on nonrebreather at 15 L, blood pressure was 110/56, and respiration was 22. Initial ABG revealed a pH of 7.25 with acute CO2 of 105. Laboratory analysis was remarkable for hemoglobin 10.6, carbon dioxide 45, sodium 129, blood sugar 205. COVID-19, influenza A/B, and RSV testing were negative. CT of the brain showed 1.9 cm left frontal lobe meningioma versus congenital variation. Chest x-ray demonstrated COPD with asymmetric volume loss in the right hemithorax and opacification throughout the right upper and mid lobes as well as extensive opacification in the left perihilar region. In the emergency department she was started on ceftriaxone, Zithromax, and BiPAP was ordered. She was also started on DuoNeb's and Solu-Medrol. Arrangements were made for admission. The patient ultimately required intubation prior to being admitted. She was subsequently admitted to the ICU and pulmonary critical care was consulted. Pulmonary did recommend transitioning the patient to Zosyn. She did have some low blood pressures and required levo fed overnight from 01/22 through 01/23. Patient seen and examined at bedside. Per nursing no acute events overnight. Intubated and sedated and awaiting sedation holiday. Vital signs reviewed General: Ill-appearing, appears at stated age Cardiovascular: S1S2 reg, no murmur, positive posterior tibial pulse bilateral, Lungs: Coarse breath sounds bilateral, no rhonchi, no rales , no accessory muscle use Abdominal: soft, nontender to palpation, no guarding, no appreciable org anomegaly Ext: no gross muscle atrophy, no edema b/l lower extremities, no contractures Neuro: Breathing over the vent, pupils equal round reactive to light, positive cough/gag, no tremors Psych: Sedated on vent Assessment: Multifocal pneumonia Acute exacerbation of COPD Acute on chronic hypoxic hypercapnic respiratory failure Toxic metabolic encephalopathy -Pulmonary no reviewed, start daily spontaneous breathing trials, continue with bronchidilators -Continue with DuoNeb's scheduled in as needed, Solu-Medrol 60 every 6 -Continue with Zosyn 3.375 g every 8 hours day #3 -Sputum with few normal respiratory kody -Blood cultures negative to date -Wean from vent as able Type 2 insulin-dependent -Continue with Levemir 34 units in the morning, and placed night dose to 15 units, continue with sliding scale - follow bs Anemia, secondary to severe iron deficiency -2 g drop in the last 3 days -Ferric gluconate day #2 of 3 -No overt signs of GI bleed -Continue to follow hemoglobin Hypovolemic hyponatremia, resolved -Improving slowly - NS at 20 ml/hr Chronic: Chronic myelogenous leukemia Dyslipidemia Chronic CHF HTN Obesity with BMI 35.9 LEYVA Vit D def schizophrenia Imaging: CXR reviewed by myself RUL and LML patchy airspace disease Data Review: Vital signs reviewed T-max last 24 hours 99.6 Pulse 76, respirations 20, blood pressure 09/06/1957, O2 sat 94% on 50% vent Laboratory analysis reviewed hemoglobin 8.6, sodium 135, carbon dioxide 32, BUN 25, blood sugar 164 DVT prophylaxis: Heparin Discussed with:Nursing Anticipated discharge date: Pending Clinical Course Anticipated discharge place: Pending Clinical Course This dictation was prepared using [employer] Dragon voice recognition software. Though every attempt is made to correct errors during dictation some may still exist. Objective - Vital Signs Vital signs: Vital Signs Temp 99.6 F 01/25/23 12:00 Pulse 78 01/25/23 13:00 Resp 86 H 01/25/23 13:00 BP 138/73 01/25/23 03:00 Pulse Ox 96 01/25/23 13:00 FiO2 50 01/25/23 12:12 Intake & Output 01/24/23 01/25/23 01/25/23 18:59 06:59 18:59 Intake Total 2367.349 2095.539 1006.603 Output Total 1050 1315 3590 Balance 1317.349 780.539 -2583.397 Weight 107 kg 110.3 kg 110.3 kg Intake: IV 1350 450 Piperacillin-Tazobactam 3 100 100 .375 gm In Sodium Chloride 0.9% 100 ml @ 25 mls/hr IVPB Q8HR [facility] Rx# :[id number] Sodium Chloride 0.9% 1, 1250 350 000 ml @ 20 mls/hr IV . Q24H [facility] Rx#:[id number] Intake, IV Titration 2097.349 427.539 502.603 Amount Calcium Gluconate in NaCl 100 1 gm In Saline 1 100ml. bag @ 100 mls/hr IVPB ONCE ONE Rx#:[id number] Piperacillin-Tazobactam 3 175 .375 gm In Sodium Chloride 0.9% 100 ml @ 25 mls/hr IVPB Q8HR [facility] Rx# :[id number] Sodium Chloride 0.9% 1, 1450 000 ml @ 20 mls/hr IV . Q24H [facility] Rx#:[id number] Sodium Ferric Gluconat- 100 100 Sucrose 125 mg In Sodium Chloride 0.9% 100 ml @ 100 mls/hr IVPB DAILY [facility] Rx#:[id number] propofoL 1,000 mg In 372.349 427.539 302.603 Empty Bag 1 bag @ 15 MCG/ KG/MIN 11.839 mls/hr IV . Q8H27M [facility] Rx#:[id number] Tube Feeding 210 198 54 Other 60 120 Output: Urine 1050 1315 3590 Other: Voiding Method Indwelling Catheter Indwelling Catheter Indwelling Catheter ABP, PAP, CO, CI - Last Documented Arterial Blood Pressure 149/62 - Labs CBC & Chem 7: 01/25/23 04:50 01/25/23 04:50 Labs: Abnormal Lab Results - Last 24 Hours (Table) 01/24/23 01/24/23 01/24/23 Range/Units 09:45 17:37 21:13 RBC (3.80-5.40) m/uL Hgb (11.4-16.0) gm/dL Hct (34.0-46.0) % MCHC (31.0-37.0) g/dL ABG pCO2 (35-45) mmHg ABG pO2 (83-108) mmHg ABG HCO3 (21-25) mmol/L ABG Total CO2 (19-24) mmol/L Sodium (137-145) mmol/L Carbon Dioxide (22-30) mmol/L BUN (7-17) mg/dL Glucose (74-99) mg/dL POC Glucose (mg/dL) 153 H 176 H (70-110) mg/dL Calcium (8.4-10.2) mg/dL Procalcitonin 3.24 H (0.02-0.09) ng/mL 01/24/23 01/25/23 01/25/23 Range/Units 23:37 04:50 04:50 RBC 3.26 L (3.80-5.40) m/uL Hgb 8.6 L (11.4-16.0) gm/dL Hct 28.3 L (34.0-46.0) % MCHC 30.5 L (31.0-37.0) g/dL ABG pCO2 (35-45) mmHg ABG pO2 (83-108) mmHg ABG HCO3 (21-25) mmol/L ABG Total CO2 (19-24) mmol/L Sodium 135 L (137-145) mmol/L Carbon Dioxide 32 H (22-30) mmol/L BUN 25 H (7-17) mg/dL Glucose 164 H (74-99) mg/dL POC Glucose (mg/dL) 157 H (70-110) mg/dL Calcium 7.6 L (8.4-10.2) mg/dL Procalcitonin (0.02-0.09) ng/mL 01/25/23 01/25/23 01/25/23 Range/Units 05:30 05:50 06:06 RBC (3.80-5.40) m/uL Hgb (11.4-16.0) gm/dL Hct (34.0-46.0) % MCHC (31.0-37.0) g/dL ABG pCO2 50 H (35-45) mmHg ABG pO2 70 L (83-108) mmHg ABG HCO3 33 H (21-25) mmol/L ABG Total CO2 35 H (19-24) mmol/L Sodium (137-145) mmol/L Carbon Dioxide (22-30) mmol/L BUN (7-17) mg/dL Glucose (74-99) mg/dL POC Glucose (mg/dL) 176 H 193 H (70-110) mg/dL Calcium (8.4-10.2) mg/dL Procalcitonin (0.02-0.09) ng/mL 01/25/23 Range/Units 11:57 RBC (3.80-5.40) m/uL Hgb (11.4-16.0) gm/dL Hct (34.0-46.0) % MCHC (31.0-37.0) g/dL ABG pCO2 (35-45) mmHg ABG pO2 (83-108) mmHg ABG HCO3 (21-25) mmol/L ABG Total CO2 (19-24) mmol/L Sodium (137-145) mmol/L Carbon Dioxide (22-30) mmol/L BUN (7-17) mg/dL Glucose (74-99) mg/dL POC Glucose (mg/dL) 147 H (70-110) mg/dL Calcium (8.4-10.2) mg/dL Procalcitonin (0.02-0.09) ng/mL Microbiology - Last 24 Hours (Table) 01/22/23 05:50 Blood Culture - Preliminary Blood 01/22/23 04:46 Blood Culture - Preliminary Blood 01/22/23 06:34 Gram Stain - Final Sputum Sputum Culture - Final
[2023-01-25 17:51] LABS: Glucose,Whole Blood 132 mg/dL (70-110)
[2023-01-25] MEDS: ATORVASTATIN 40 MG TAB PO SCH (21:08)
[2023-01-25 23:48] LABS: Glucose,Whole Blood 128 mg/dL (70-110)
[2023-01-26] MEDS: IPRATROPIUM-ALBUTEROL 3 ML NEB INHALATION SCH ×6 (00:56→21:08)
[2023-01-26] MEDS: HYDROmorphone 0.5 MG/0.5 ML SYRINGE IVP PRN ×3 (01:55→21:08)
[2023-01-26] MEDS: SODIUM CHLORIDE 0.9% 1,000 ML IV SCH (03:58)
[2023-01-26 05:40] LABS: HCT 27.6 % (34.0-46.0); HGB 8.6 gm/dL (11.4-16.0); Hypochromasia Moderate; MCH 26.6 pg (25.0-35.0); MCHC 31.2 g/dL (31.0-37.0); MCV 85.1 fL (80.0-100.0); Mean Platelet Volume 8.7; Platelet Count 227 k/uL (150-450); RBC 3.25 m/uL (3.80-5.40); RDW 15.2 % (11.5-15.5); WBC 8.5 k/uL (3.8-10.6)
[2023-01-26 05:43] LABS: African American GFR (CKD) 87 (>60 ml/min/1.73 sqM); Anion Gap 6 mmol/L; Blood Urea Nitrogen 26 mg/dL (7-17); Carbon Dioxide 33 mmol/L (22-30); Chloride 99 mmol/L (98-107); Glucose 145 mg/dL (74-99); Magnesium 2.1 mg/dL (1.6-2.3); Non-African American GFR(CKD) 76 (>60 ml/min/1.73 sqM); Potassium 4.2 mmol/L (3.5-5.1); Sodium 138 mmol/L (137-145)
[2023-01-26 06:27] LABS: Glucose,Whole Blood 144 mg/dL (70-110)
[2023-01-26 06:31] LABS: ABG Base Excess 10.9 mmol/L; ABG HCO3 35 mmol/L (21-25); ABG Oxygen Saturation 95.7 % (94-97); ABG PCO2 49 mmHg (35-45); ABG PH 7.46 (7.35-7.45); ABG PO2 85 mmHg (83-108); ABG TCO2 36 mmol/L (19-24); Allen Test Performed? Yes
[2023-01-26] MEDS: INSULIN ASPART (NovoLOG) 100 UNIT/ML VIAL SQ SCH ×4 (06:31→21:14)
--- NOTE | 2023-01-26 08:05 | XR ---
EXAMINATION TYPE: XR chest 1V portable DATE OF EXAM: 01/26/2023 COMPARISON: 01/25/2023 HISTORY: SOB, Follow Up FINDINGS: Indwelling tubes and catheters are unchanged. Stable perihilar and basilar infiltrates and small effusions. Stable appearance of the cardio-mediastinal structures at this time. IMPRESSION: 1. Stable portable chest. Clinical correlation and follow up until resolution is recommended.
[2023-01-26] MEDS: HEPARIN SODIUM,PORCINE/PF 5,000 UNIT/0.5 ML SYRINGE SQ SCH ×3 (08:13→23:13)
[2023-01-26] MEDS: ASPIRIN 81 MG PO SCH (08:14)
[2023-01-26] MEDS: CHLORHEXIDINE GLUCONATE 15 ML CUP MUCOUS MEM SCH (08:14)
[2023-01-26] MEDS: GABAPENTIN 100 MG CAP PO SCH ×3 (08:14→21:09)
[2023-01-26] MEDS: ACETAMINOPHEN TAB 325 MG TAB PO PRN (08:14)
[2023-01-26] MEDS: METOPROLOL TARTRATE 25 MG TAB PO SCH (08:14)
[2023-01-26] MEDS: PIPERACILLIN-TAZOBACTAM 3.375 GM in SODIUM CHLORIDE 0.9% 100 ML IVPB SCH ×3 (08:15→23:13)
[2023-01-26] MEDS: methylPREDNISolone SOD SUCCI 125 MG/2 ML VIAL IV SCH ×3 (08:16→23:13)
[2023-01-26] MEDS: PANTOPRAZOLE 40 MG/10 ML VIAL IVP SCH (08:16)
[2023-01-26] MEDS: LURASIDONE 40 MG TAB PO SCH (08:17)
[2023-01-26] MEDS: FENOFIBRATE 160 MG TAB PO SCH (08:17)
[2023-01-26] MEDS: OXcarbazepine 300 MG TAB PO SCH (08:17)
[2023-01-26] MEDS: IMATINIB MESYLATE 400 MG PO SCH (08:30)
[2023-01-26] MEDS: SODIUM FERRIC GLUCONAT-SUCROSE 125 MG in SODIUM CHLORIDE 0.9% 100 ML IVPB SCH (08:56)
[2023-01-26] MEDS: busPIRone HCl 10 MG TAB PO SCH (09:40)
[2023-01-26] MEDS: OXcarbazepine 150 MG TAB PO SCH (09:40)
--- NOTE | 2023-01-26 10:13 | P.PN ---
Subjective Progress Note Date: 01/26/23 Principal diagnosis: Respiratory failure. Acute hypoxic and hypercapnic respiratory failure secondary to pneumonia. This is a 47-year-old female with history of COPD, chronic hypoxic respiratory failure, hypertension, type 2 diabetes, patient is a resident of [facility], presented to the ER with hypoxia and altered mental status. Patient was hypoxic upon arrival in spite of 15 L flow of oxygen, she had a low- grade temp of 98.8, she was hemodynamically stable, however ABG showed a pCO2 of 105 pCO2 of 7.25, patient was initially placed on BiPAP, did not improve with BiPAP, and she required intubation and mechanical ventilation. Chest x-ray showed multifocal infiltrates. Patient was admitted, placed on mechanical ventilation, she is presently on assist control rate of 20,000 volume 400 FiO2 70% and PEEP of 15 ABG showed a pO2 of 74 pCO2 of 62 pH of 7.42 patient remains on a FiO2 of 70% and PEEP of 14. WBC count is 10 hemoglobin is 10.6, basic meta bolic profile is normal including normal renal profile, bicarb is 45. Screening for influenza A, influenza B, RSV and COVID-19 came back negative chest x-ray showed multifocal pneumonia. CT of the brain showed no intracranial abnormality, she does have a 1.9 cm anterior left frontal meningioma versus congenital variation with Chi hyperostosis of frontalis interna it initially the patient was placed on antibiotics in the form of Zithromax and Rocephin however considering the presentation I recommended we go to Zosyn. Patient remained hemodynamically stable but requires a relatively high FiO2 high PEEP, she is on propofol at 20 mcg/kg/m, her IV fluid is running at 100 mL an hour, urine output seems to be marginal. Patient was today on 01/23/2023, remains in the ICU, intubated and mechanically ventilated. Patient is on assist control rate of 20 to volume 400 FiO2 55% PEEP of 14. ABG showed a pO2 of 141 pCO2 65 pH of 7.40. Hence I cut down her FiO2 to 50% and cut down PEEP to 10. Chest x-ray showed evidence of bilateral infiltrates, highly suspicious for multifocal pneumonia./Aspiration pneumonia. Patient remains in the meantime on Zosyn. Her endotracheal tube will be advanc ed since it seems to be high proximal in the trachea. Patient remains on propofol at 45 mcg/kg/m norepinephrine at 0.01 mcg/kg/m IV fluid is 0.9 normal saline 100 mL per hour. Cultures so far are nondiagnostic. Patient remains empirically on Zosyn. Overnight no major issues, patient did require a low dose of norepinephrine at 0.01 mcg/kg/m, and her propofol has been adjusted overnight. Patient has good urine output, she is on enteral feeding, she is on antibiotics, she is on GI and DVT prophylaxis, and she is not quite ready for weaning. Patient is still requiring relatively high FiO2 and the relatively high PEEP Progress note dated 01/24/2023. This is a 47-year-old female who was admitted to the hospital on January 22 or respiratory failure, pneumonia, and acute respiratory distress syndrome. The patient was intubated on the same day. The patient remains on the mechanical ventilator. She is on the volume assist control mode, rate 20, tidal volume 400, FiO2 50%, and PEEP of 8. Blood gases show pO2 63, pCO2 of 53, and a pH is 7.44. The patient is on saline at 125 mL an hour, propofol at 60 mcg/kg/m, norepinephrine which is off, and Glucerna 1.2 at 66 mL an hour, which is goal. The patient is on Zosyn IV piggyback. The patient will have an attempted daily interruption of sedation today and a spontaneous breathing trial, with a pressure support of 8, and CPAP of 5. White count 6.4, hemoglobin 8.3, hematocrit 26.6, and platelet count 219,000. Sodium 131, potassium 3.9, chlorides 92, CO2 33, BUN 25, creatinine 0.98. Chest x-ray shows mild cardiomegaly, and improving lung infiltrates. Progress note dated 01/25/2023. 47-year-old female admitted to the hospital on January 22 respiratory failure, pneumonia, and respiratory distress. The patient was intubated on the same today, January 22. She remains on the mechanical ventilator. Yesterday, we attempted a daily interruption of sedation, but she was quite agitated, and had to be re-sedated. She is on volume assist control, rate 20, tidal volume 400, FiO2 50%, EPAP of 8. Gases show pO2 70, he CO2 50, and a pH is 7.43. The patient's on saline at 125 mL an hour, propofol 60 mcg/kg/m, and Glucerna at goal, which is 18 mL/h. The patient is going to get Lasix 60 mg IV push today. She is on Zosyn. Her pro-calcitonin level was elevated at 3.24. The saline will be dropped down to KVO. White count 8.3, he will may 0.6, hematocrit 28.3, and platelet count normal. Sodium 135, potassium 4.4, chlorides 98, CO2 32, BUN 25, creatinine 0.97. Thus far, cultures are negative. Chest x-ray show a pattern of possible fluid overload, versus pneumonia. Progress note dated 01/26/2023. 47-year-old female who was admitted to hospital on 01/22/2023, with respiratory failure, pneumonia, and respiratory distress. She was intubated and mechanically ventilated on January 22. She remains on the ventilator, but, is closer to be weaned and extubated. Currently, the patient is on volume assist control, rate 20, tidal volume 400, FiO2 50%, and PEEP of 8. The patient will have a spontaneous breathing trial today, with pressure support of 8, and CPAP of 5. Blood gases this morning show pO2 of 85, pCO2 49, and pH is 7.46. Patient remains on saline at 20 mL an hour. Propofol has been turned off. The patient is receiving Glucerna and 18 mL an hour. White count 8.5, hemoglobin 8.6, hematocrit 27.6, with a normal platelet count. Sodium 138, potassium 4.2, chlorides 99, CO2 33, anion gap 6, BUN 26, and creatinine 0.90. All cultures are negative. Today's chest x-ray is unchanged. Objective - Vital Signs Vital signs: Vital Signs Temp 99 F 01/26/23 04:00 Pulse 94 01/26/23 09:00 Resp 29 H 01/26/23 09:00 BP 138/73 01/25/23 03:00 Pulse Ox 93 L 01/26/23 09:00 FiO2 50 01/26/23 08:26 Intake & Output 01/25/23 01/26/23 01/26/23 18:59 06:59 18:59 Intake Total 1574.185 957.730 301.376 Output Total 5280 1300 200 Balance -3705.815 -342.270 101.376 Weight 110.3 kg 108.5 kg Intake: IV 650 360 280 Invasive Line 1 10 Invasive Line 2 10 Invasive Line 4 30 Invasive Line 5 10 Piperacillin-Tazobactam 3 200 100 100 .375 gm In Sodium Chloride 0.9% 100 ml @ 25 mls/hr IVPB Q8HR [facility] Rx# :[id number] Sodium Chloride 0.9% 1, 450 260 20 000 ml @ 20 mls/hr IV . Q24H [facility] Rx#:[id number] Sodium Ferric Gluconat- 100 Sucrose 125 mg In Sodium Chloride 0.9% 100 ml @ 100 mls/hr IVPB DAILY [facility] Rx#:[id number] Intake, IV Titration 780.185 417.730 21.376 Amount Calcium Gluconate in NaCl 100 1 gm In Saline 1 100ml. bag @ 100 mls/hr IVPB ONCE ONE Rx#:[id number] Piperacillin-Tazobactam 3 100 100 .375 gm In Sodium Chloride 0.9% 100 ml @ 25 mls/hr IVPB Q8HR [facility] Rx# :[id number] Sodium Ferric Gluconat- 100 Sucrose 125 mg In Sodium Chloride 0.9% 100 ml @ 100 mls/hr IVPB DAILY [facility] Rx#:[id number] propofoL 1,000 mg In 480.185 317.730 21.376 Empty Bag 1 bag @ 15 MCG/ KG/MIN 11.839 mls/hr IV . Q8H27M [facility] Rx#:[id number] Oral 0 Tube Feeding 144 180 Output: Urine 5280 1300 200 Other: Voiding Method Indwelling Catheter Indwelling Catheter Indwelling Catheter ABP, PAP, CO, CI - Last Documented Arterial Blood Pressure 127/51 - Exam No acute distress, sedated, with an orally placed endotracheal tube. HEENT examination is grossly unremarkable. Neck supple. Full range of motion. No adenopathy thyromegaly or neck vein distention. Cardiovascular examination reveals regular rhythm rate. S1-S2 normal. No S3 or S4. No discernible murmur noted. Heart sounds are distant. Heart rate 94 bpm. Lungs reveal scattered rhonchi. No wheezes or crackles. Breath sounds equal. Saturations are 96 %. Abdomen soft, with bowel sounds. No masses or tenderness. Extremities are intact. No cyanosis clubbing or edema. Skin is without rash or lesion. Neurologic examination cannot be assessed, as the patient's currently sedated. - Labs CBC & Chem 7: 01/26/23 05:24 01/26/23 05:24 Labs: Abnormal Lab Results - Last 24 Hours (Table) 01/25/23 01/25/23 01/25/23 Range/Units 11:57 17:49 23:46 RBC (3.80-5.40) m/uL Hgb (11.4-16.0) gm/dL Hct (34.0-46.0) % ABG pH (7.35-7.45) ABG pCO2 (35-45) mmHg ABG HCO3 (21-25) mmol/L ABG Total CO2 (19-24) mmol/L Carbon Dioxide (22-30) mmol/L BUN (7-17) mg/dL Glucose (74-99) mg/dL POC Glucose (mg/dL) 147 H 132 H 128 H (70-110) mg/dL Calcium (8.4-10.2) mg/dL 01/26/23 01/26/23 01/26/23 Range/Units 05:24 05:24 06:25 RBC 3.25 L (3.80-5.40) m/uL Hgb 8.6 L (11.4-16.0) gm/dL Hct 27.6 L (34.0-46.0) % ABG pH (7.35-7.45) ABG pCO2 (35-45) mmHg ABG HCO3 (21-25) mmol/L ABG Total CO2 (19-24) mmol/L Carbon Dioxide 33 H (22-30) mmol/L BUN 26 H (7-17) mg/dL Glucose 145 H (74-99) mg/dL POC Glucose (mg/dL) 144 H (70-110) mg/dL Calcium 8.0 L (8.4-10.2) mg/dL 01/26/23 Range/Units 06:27 RBC (3.80-5.40) m/uL Hgb (11.4-16.0) gm/dL Hct (34.0-46.0) % ABG pH 7.46 H (7.35-7.45) ABG pCO2 49 H (35-45) mmHg ABG HCO3 35 H (21-25) mmol/L ABG Total CO2 36 H (19-24) mmol/L Carbon Dioxide (22-30) mmol/L BUN (7-17) mg/dL Glucose (74-99) mg/dL POC Glucose (mg/dL) (70-110) mg/dL Calcium (8.4-10.2) mg/dL Microbiology - Last 24 Hours (Table) 01/22/23 05:50 Blood Culture - Preliminary Blood 01/22/23 04:46 Blood Culture - Preliminary Blood Assessment and Plan Assessment: Acute on chronic hypoxemic and hypercapnic respiratory failure, secondary to multifocal pneumonia, and COPD, S/P intubation and mechanical ventilation on 01/22/2023. Possible aspiration pneumonia. Acute mental status changes, likely on the basis of sepsis, and worsening hypercapnia. History of COPD. Morbid obesity. Type 2 diabetes. Acute toxic/metabolic encephalopathy. Benign essential hypertension. Plan: Plan dated 01/24/2023. Although the patient may not be ready, we will attempt a daily interruption of sedation spontaneous breathing trial. The patient has been off norepinephrine now for a while. She is getting tube feedings. She's getting propofol at 60 mcg/kg/m. Arterial blood gases are borderline. Chest x-ray, labs, and all medications are reviewed. We will continue to follow the patient and make recommendations along the way. Plan dated 01/25/2023. The patient remains relatively stable, although, she did not do very well yesterday on her daily interruption of sedation. She became very agitated. Tod ay, the patient saline IVs dropped down to KVO. We'll give her Lasix 60 mg IV push. She remains on Zosyn empirically for pneumonia. Pro-calcitonin level was elevated at 3.24. Labs, x-rays, and medications are reviewed. The patient's overall prognosis remains very guarded. We will attempt another daily interruption of sedation today. If the patient does not show progression, she may need a tracheostomy tube and feeding tube. Plan dated 01/26/2023. The patient appears to be much more clinically stable today and much more awake, on a small dose of propofol. The propofol will be discontinued completely, and tube feedings will be held, and her stomach suctioned. We will do a spontaneous breathing trial on pressure support of 8 and CPAP of 5. We'll check weaning parameters and 20-30 minutes, including a rapid shallow breathing index, and cuff leak test. If she is ready, the patient will be extubated. Labs, x-rays, medications reviewed. We'll continue to follow the patient and make recommendations along the way. Prognosis is guarded. Time with Patient: Greater than 30
[2023-01-26 10:24] LABS: Glucose,Whole Blood 112 mg/dL (70-110)
[2023-01-26] MEDS: INSULIN DETEMIR (LEVEMIR) 100 UNIT/ML SYR SQ SCH ×2 (10:31→21:16)
[2023-01-26] MEDS ORDERED: DEXTROSE 50% SYRINGE 50 ML IVP PRN ×2 (10:33)
[2023-01-26] MEDS ORDERED: IPRATROPIUM-ALBUTEROL 3 ML NEB INHALATION PRN (10:52)
--- NOTE | 2023-01-26 12:15 | P.PN ---
Subjective Progress Note Date: 01/26/23 Hospital Course: Patient is a 47-year-old female with COPD on chronic O2 at 5 L, diabetes mellitus type 2, hypertension, suprapubic tube who is a resident at [facility] and presented to the emergency room for hypoxia and altered mentation. In the emergency department he underwent an extensive evaluation. On arrival her O2 sat was 88% on nonrebreather at 15 L, blood pressure was 110/56, and respiration was 22. Initial ABG revealed a pH of 7.25 with acute CO2 of 105. Laboratory analysis was remarkable for hemoglobin 10.6, carbon dioxide 45, sodium 129, blood sugar 205. COVID-19, influenza A/B, and RSV testing were negative. CT of the brain showed 1.9 cm left frontal lobe meningioma versus congenital variation. Chest x-ray demonstrated COPD with asymmetric volume loss in the right hemithorax and opacification throughout the right upper and mid lobes as well as extensive opacification in the left perihilar region. In the emergency department she was started on ceftriaxone, Zithromax, and BiPAP was ordered. She was also started on DuoNeb's and Solu-Medrol. Arrangements were made for admission. The patient ultimately required intubation prior to being admitted. She was subsequently admitted to the ICU and pulmonary critical care was consulted. Pulmonary did recommend transitioning the patient to Zosyn. She did have some low blood pressures and required levophed overnight from 01/22 through 01/23. Subjective: Patient seen and examined at bedside. No acute events overnight. Currently extubated on nasal cannula. Denies any chest pain, worsening shortness of breath, abdominal pain, nausea, vomiting. She still has some shortness of breath and productive cough. Dixon catheter in place. Pertinent positives and negatives as discussed above, a complete review of systems was performed and all other systems are negative. Vitals Signs Reviewed. General: nontoxic, no distress, appears at stated age, morbidly obese Derm: warm, dry Head: atraumatic, normocephalic, symmetric Eyes: EOMI, no lid lag, anicteric sclera Mouth: no lip lesion, mucus membranes moist Cardiovascular: S1S2 reg, no murmur Lungs: Bilateral rhonchi, scattered wheezing, no accessory muscle use, supplemental oxygen Abdominal: soft, nontender to palpation, no guarding, no appreciable organomegaly Ext: no gross muscle atrophy, no edema, no contractures Neuro: CN II-XI grossly intact, no focal neuro deficits Psych: Alert, oriented, appropriate affect Data Reviewed Today: Pertinent Labs: WBC 8.5, hemoglobin 8.6, pH 7.46, pCO2 49, pO2 35, sodium 138, potassium 4.2, bicarb 33, creatinine 0.9, blood sugars range between 128-145 Imaging: Chest x-ray independently interpreted, shows bilateral pulmonary opacities, multifocal, poor inspiratory effort Assessment and Plan: Active: Multifocal pneumonia Acute exacerbation of COPD Acute on chronic hypoxic hypercapnic respiratory failure Toxic metabolic encephalopathy, resolving Type 2 insulin-dependent diabetes Severe iron deficiency anemia, status post IV iron -Pulmonology note reviewed, patient extubated today -Continue DuoNeb, IV Solu-Medrol, Zosyn -Continue to wean oxygen, currently on nasal cannula -Mental status improving -Continue current insulin regimen, no changes -Hemoglobin stable, no active bleeding, continue to monitor CBC Resolved: Hypovolemic hyponatremia Chronic: Chronic myelogenous leukemia Dyslipidemia Chronic CHF HTN Obesity with BMI 35.9 LEYVA Vit D def schizophrenia DVT ppx: Subcu heparin Code status: Full code Anticipated discharge place: Pending clinical course Anticipated discharge time: Pending clinical course Objective - Vital Signs Vital signs: Vital Signs Temp 99 F 01/26/23 04:00 Pulse 85 01/26/23 11:21 Resp 29 H 01/26/23 09:00 BP 138/73 01/25/23 03:00 Pulse Ox 93 L 01/26/23 09:00 FiO2 50 01/26/23 08:26 Intake & Output 01/25/23 01/26/23 01/26/23 18:59 06:59 18:59 Intake Total 1574.185 957.730 301.376 Output Total 5280 1300 200 Balance -3705.815 -342.270 101.376 Weight 110.3 kg 108.5 kg Intake: IV 650 360 280 Invasive Line 1 10 Invasive Line 2 10 Invasive Line 4 30 Invasive Line 5 10 Piperacillin-Tazobactam 3 200 100 100 .375 gm In Sodium Chloride 0.9% 100 ml @ 25 mls/hr IVPB Q8HR [facility] Rx# :[id number] Sodium Chloride 0.9% 1, 450 260 20 000 ml @ 20 mls/hr IV . Q24H [facility] Rx#:[id number] Sodium Ferric Gluconat- 100 Sucrose 125 mg In Sodium Chloride 0.9% 100 ml @ 100 mls/hr IVPB DAILY [facility] Rx#:[id number] Intake, IV Titration 780.185 417.730 21.376 Amount Calcium Gluconate in NaCl 100 1 gm In Saline 1 100ml. bag @ 100 mls/hr IVPB ONCE ONE Rx#:[id number] Piperacillin-Tazobactam 3 100 100 .375 gm In Sodium Chloride 0.9% 100 ml @ 25 mls/hr IVPB Q8HR [facility] Rx# :[id number] Sodium Ferric Gluconat- 100 Sucrose 125 mg In Sodium Chloride 0.9% 100 ml @ 100 mls/hr IVPB DAILY [facility] Rx#:[id number] propofoL 1,000 mg In 480.185 317.730 21.376 Empty Bag 1 bag @ 15 MCG/ KG/MIN 11.839 mls/hr IV . Q8H27M [facility] Rx#:[id number] Oral 0 Tube Feeding 144 180 Output: Urine 5280 1300 200 Other: Voiding Method Indwelling Catheter Indwelling Catheter Indwelling Catheter ABP, PAP, CO, CI - Last Documented Arterial Blood Pressure 127/51 - Labs CBC & Chem 7: 01/26/23 05:24 01/26/23 05:24 Labs: Abnormal Lab Results - Last 24 Hours (Table) 01/25/23 01/25/23 01/26/23 Range/Units 17:49 23:46 05:24 RBC 3.25 L (3.80-5.40) m/uL Hgb 8.6 L (11.4-16.0) gm/dL Hct 27.6 L (34.0-46.0) % ABG pH (7.35-7.45) ABG pCO2 (35-45) mmHg ABG HCO3 (21-25) mmol/L ABG Total CO2 (19-24) mmol/L Carbon Dioxide (22-30) mmol/L BUN (7-17) mg/dL Glucose (74-99) mg/dL POC Glucose (mg/dL) 132 H 128 H (70-110) mg/dL Calcium (8.4-10.2) mg/dL 01/26/23 01/26/23 01/26/23 Range/Units 05:24 06:25 06:27 RBC (3.80-5.40) m/uL Hgb (11.4-16.0) gm/dL Hct (34.0-46.0) % ABG pH 7.46 H (7.35-7.45) ABG pCO2 49 H (35-45) mmHg ABG HCO3 35 H (21-25) mmol/L ABG Total CO2 36 H (19-24) mmol/L Carbon Dioxide 33 H (22-30) mmol/L BUN 26 H (7-17) mg/dL Glucose 145 H (74-99) mg/dL POC Glucose (mg/dL) 144 H (70-110) mg/dL Calcium 8.0 L (8.4-10.2) mg/dL 01/26/23 Range/Units 10:23 RBC (3.80-5.40) m/uL Hgb (11.4-16.0) gm/dL Hct (34.0-46.0) % ABG pH (7.35-7.45) ABG pCO2 (35-45) mmHg ABG HCO3 (21-25) mmol/L ABG Total CO2 (19-24) mmol/L Carbon Dioxide (22-30) mmol/L BUN (7-17) mg/dL Glucose (74-99) mg/dL POC Glucose (mg/dL) 112 H (70-110) mg/dL Calcium (8.4-10.2) mg/dL Microbiology - Last 24 Hours (Table) 01/22/23 05:50 Blood Culture - Preliminary Blood 01/22/23 04:46 Blood Culture - Preliminary Blood
[2023-01-26 12:48] LABS: Glucose,Whole Blood 139 mg/dL (70-110)
[2023-01-26] MEDS: ONDANSETRON 4 MG/2 ML VIAL IVP PRN (13:26)
[2023-01-26 17:59] LABS: Glucose,Whole Blood 161 mg/dL (70-110)
[2023-01-26 20:16] LABS: Glucose,Whole Blood 85 mg/dL (70-110)
[2023-01-26] MEDS: ATORVASTATIN 40 MG TAB PO SCH (21:09)
[2023-01-27 04:30] LABS: Basophils % (A) 0 %; Eosinophils % (A) 0 %; HCT 29.4 % (34.0-46.0); HGB 8.8 gm/dL (11.4-16.0); Hypochromasia Marked; Lymphocytes # (A) 0.9 k/uL (1.0-4.8); Lymphocytes % (A) 9 %; MCH 26.7 pg (25.0-35.0); Mean Platelet Volume 9.5; Monocytes # (A) 0.5 k/uL (0-1.0); Monocytes % (A) 5 %; Neutrophils # (A) 8.6 k/uL (1.3-7.7); Neutrophils % (A) 86 %; Platelet Count 199 k/uL (150-450)
[2023-01-27 04:43] LABS: ALT 18 U/L (4-34); AST 19 U/L (14-36); African American GFR (CKD) 84 (>60 ml/min/1.73 sqM); Albumin 3.2 g/dL (3.5-5.0); Alkaline Phosphatase 50 U/L (38-126); Anion Gap 3 mmol/L; Blood Urea Nitrogen 18 mg/dL (7-17); Calcium 8.1 mg/dL (8.4-10.2); Carbon Dioxide 36 mmol/L (22-30); Chloride 99 mmol/L (98-107); Glucose 113 mg/dL (74-99); Non-African American GFR(CKD) 73 (>60 ml/min/1.73 sqM); Potassium 4.6 mmol/L (3.5-5.1); Sodium 138 mmol/L (137-145); Total Bilirubin 0.4 mg/dL (0.2-1.3); Total Protein 5.7 g/dL (6.3-8.2)
[2023-01-27] MEDS: SODIUM CHLORIDE 0.9% 1,000 ML IV SCH (05:00)
[2023-01-27] MEDS: INSULIN ASPART (NovoLOG) 100 UNIT/ML VIAL SQ SCH ×4 (06:49→20:32)
[2023-01-27 06:50] LABS: Glucose,Whole Blood 102 mg/dL (70-110)
--- NOTE | 2023-01-27 07:54 | XR ---
EXAMINATION TYPE: XR chest 1V portable DATE OF EXAM: 01/27/2023 6:07 AM COMPARISON: Chest radiographs from 01/26/2023 TECHNIQUE: XR chest 1V portable Portable AP radiograph of the chest. CLINICAL INDICATION:Female, 47 years old with history of multifocal pneumonia; FINDINGS: Lungs/Pleura: Increased small moderate size right pleural effusion. No pneumothorax. Similar perihila r infiltrates. Heart/mediastinum: Cardiomediastinal silhouette is enlarged and stable. Musculoskeletal: No acute osseous pathology. Vertebral augmentation with lumbar fusion changes. IMPRESSION: Increased small to moderate size right pleural effusion. Cardiomegaly with ongoing interstitial pulmo nary edema/infiltrates. Correlate for CHF and/or pneumonia.
[2023-01-27] MEDS ORDERED: FUROSEMIDE 10 MG/ML 4 ML VIAL IV STA (08:37)
[2023-01-27] MEDS: methylPREDNISolone SOD SUCCI 125 MG/2 ML VIAL IV SCH ×2 (08:59→16:11)
[2023-01-27] MEDS: HEPARIN SODIUM,PORCINE/PF 5,000 UNIT/0.5 ML SYRINGE SQ SCH ×2 (09:00→16:10)
[2023-01-27] MEDS: GABAPENTIN 100 MG CAP PO SCH ×3 (09:02→20:32)
[2023-01-27] MEDS: PANTOPRAZOLE 40 MG/10 ML VIAL IVP SCH (09:02)
[2023-01-27] MEDS: PIPERACILLIN-TAZOBACTAM 3.375 GM in SODIUM CHLORIDE 0.9% 100 ML IVPB SCH ×2 (09:04→16:12)
[2023-01-27] MEDS: IMATINIB MESYLATE 400 MG PO SCH (09:14)
[2023-01-27] MEDS: ASPIRIN 81 MG PO SCH (09:18)
[2023-01-27] MEDS: METOPROLOL TARTRATE 25 MG TAB PO SCH (09:18)
[2023-01-27] MEDS: OXcarbazepine 300 MG TAB PO SCH (09:19)
[2023-01-27] MEDS: LURASIDONE 40 MG TAB PO SCH (09:19)
[2023-01-27] MEDS: FENOFIBRATE 160 MG TAB PO SCH (09:19)
[2023-01-27] MEDS: IPRATROPIUM-ALBUTEROL 3 ML NEB INHALATION SCH ×4 (09:51→20:21)
[2023-01-27 10:15] LABS: Glucose,Whole Blood 109 mg/dL (70-110)
[2023-01-27] MEDS: INSULIN DETEMIR (LEVEMIR) 100 UNIT/ML SYR SQ SCH ×2 (10:15→20:33)
--- NOTE | 2023-01-27 10:15 | P.PN ---
Subjective Progress Note Date: 01/27/23 Principal diagnosis: Respiratory failure. Acute hypoxic and hypercapnic respiratory failure secondary to pneumonia. This is a 47-year-old female with history of COPD, chronic hypoxic respiratory failure, hypertension, type 2 diabetes, patient is a resident of [facility], presented to the ER with hypoxia and altered mental status. Patient was hypoxic upon arrival in spite of 15 L flow of oxygen, she had a low- grade temp of 98.8, she was hemodynamically stable, however ABG showed a pCO2 of 105 pCO2 of 7.25, patient was initially placed on BiPAP, did not improve with BiPAP, and she required intubation and mechanical ventilation. Chest x-ray showed multifocal infiltrates. Patient was admitted, placed on mechanical ventilation, she is presently on assist control rate of 20,000 volume 400 FiO2 70% and PEEP of 15 ABG showed a pO2 of 74 pCO2 of 62 pH of 7.42 patient remains on a FiO2 of 70% and PEEP of 14. WBC count is 10 hemoglobin is 10.6, basic meta bolic profile is normal including normal renal profile, bicarb is 45. Screening for influenza A, influenza B, RSV and COVID-19 came back negative chest x-ray showed multifocal pneumonia. CT of the brain showed no intracranial abnormality, she does have a 1.9 cm anterior left frontal meningioma versus congenital variation with Chi hyperostosis of frontalis interna it initially the patient was placed on antibiotics in the form of Zithromax and Rocephin however considering the presentation I recommended we go to Zosyn. Patient remained hemodynamically stable but requires a relatively high FiO2 high PEEP, she is on propofol at 20 mcg/kg/m, her IV fluid is running at 100 mL an hour, urine output seems to be marginal. Patient was today on 01/23/2023, remains in the ICU, intubated and mechanically ventilated. Patient is on assist control rate of 20 to volume 400 FiO2 55% PEEP of 14. ABG showed a pO2 of 141 pCO2 65 pH of 7.40. Hence I cut down her FiO2 to 50% and cut down PEEP to 10. Chest x-ray showed evidence of bilateral infiltrates, highly suspicious for multifocal pneumonia./Aspiration pneumonia. Patient remains in the meantime on Zosyn. Her endotracheal tube will be advanc ed since it seems to be high proximal in the trachea. Patient remains on propofol at 45 mcg/kg/m norepinephrine at 0.01 mcg/kg/m IV fluid is 0.9 normal saline 100 mL per hour. Cultures so far are nondiagnostic. Patient remains empirically on Zosyn. Overnight no major issues, patient did require a low dose of norepinephrine at 0.01 mcg/kg/m, and her propofol has been adjusted overnight. Patient has good urine output, she is on enteral feeding, she is on antibiotics, she is on GI and DVT prophylaxis, and she is not quite ready for weaning. Patient is still requiring relatively high FiO2 and the relatively high PEEP Progress note dated 01/24/2023. This is a 47-year-old female who was admitted to the hospital on January 22 or respiratory failure, pneumonia, and acute respiratory distress syndrome. The patient was intubated on the same day. The patient remains on the mechanical ventilator. She is on the volume assist control mode, rate 20, tidal volume 400, FiO2 50%, and PEEP of 8. Blood gases show pO2 63, pCO2 of 53, and a pH is 7.44. The patient is on saline at 125 mL an hour, propofol at 60 mcg/kg/m, norepinephrine which is off, and Glucerna 1.2 at 66 mL an hour, which is goal. The patient is on Zosyn IV piggyback. The patient will have an attempted daily interruption of sedation today and a spontaneous breathing trial, with a pressure support of 8, and CPAP of 5. White count 6.4, hemoglobin 8.3, hematocrit 26.6, and platelet count 219,000. Sodium 131, potassium 3.9, chlorides 92, CO2 33, BUN 25, creatinine 0.98. Chest x-ray shows mild cardiomegaly, and improving lung infiltrates. Progress note dated 01/25/2023. 47-year-old female admitted to the hospital on January 22 respiratory failure, pneumonia, and respiratory distress. The patient was intubated on the same today, January 22. She remains on the mechanical ventilator. Yesterday, we attempted a daily interruption of sedation, but she was quite agitated, and had to be re-sedated. She is on volume assist control, rate 20, tidal volume 400, FiO2 50%, EPAP of 8. Gases show pO2 70, he CO2 50, and a pH is 7.43. The patient's on saline at 125 mL an hour, propofol 60 mcg/kg/m, and Glucerna at goal, which is 18 mL/h. The patient is going to get Lasix 60 mg IV push today. She is on Zosyn. Her pro-calcitonin level was elevated at 3.24. The saline will be dropped down to KVO. White count 8.3, he will may 0.6, hematocrit 28.3, and platelet count normal. Sodium 135, potassium 4.4, chlorides 98, CO2 32, BUN 25, creatinine 0.97. Thus far, cultures are negative. Chest x-ray show a pattern of possible fluid overload, versus pneumonia. Progress note dated 01/26/2023. 47-year-old female who was admitted to hospital on 01/22/2023, with respiratory failure, pneumonia, and respiratory distress. She was intubated and mechanically ventilated on January 22. She remains on the ventilator, but, is closer to be weaned and extubated. Currently, the patient is on volume assist control, rate 20, tidal volume 400, FiO2 50%, and PEEP of 8. The patient will have a spontaneous breathing trial today, with pressure support of 8, and CPAP of 5. Blood gases this morning show pO2 of 85, pCO2 49, and pH is 7.46. Patient remains on saline at 20 mL an hour. Propofol has been turned off. The patient is receiving Glucerna and 18 mL an hour. White count 8.5, hemoglobin 8.6, hematocrit 27.6, with a normal platelet count. Sodium 138, potassium 4.2, chlorides 99, CO2 33, anion gap 6, BUN 26, and creatinine 0.90. All cultures are negative. Today's chest x-ray is unchanged. Progress note dated 01/27/2023. 47-year-old female admitted on January 22, with respiratory failure, pneumonia, and respiratory distress. She was intubated and mechanically ventilated on 01/22/2023. The patient was successfully extubated yesterday, 01/26/2023. She remains on 6 L of oxygen by nasal cannula. She's getting saline at 20 mL an hour. Microbiologic studies have been negative. She remains on Zosyn, day #5. The patient will be getting Lasix 40 mg IV push today. The patient could be transferred out of the intensive care unit, to the general medical floor today. White count 10, hemoglobin 8.8, hematocrit 29.4, and platelet count 199,000. Sodium 138, potassium 4.6, chlorides 99, CO2 36, BUN 18, creatinine 0.93. Chest x-ray shows small to moderate size right pleural effusion, with cardiomegaly, and mild interstitial changes, consistent with edema and/or pneumonia. Objective - Vital Signs Vital signs: Vital Signs Temp 99.4 F 01/27/23 08:00 Pulse 90 01/27/23 09:00 Resp 17 01/27/23 09:00 BP 122/65 01/27/23 10:00 Pulse Ox 91 L 01/27/23 09:00 FiO2 50 01/26/23 08:26 Intake & Output 01/26/23 01/27/23 01/27/23 18:59 06:59 18:59 Intake Total 1027.376 260 140 Output Total 855 1230 510 Balance 172.376 -970 -370 Intake: IV 666 260 140 .9 3cc (A-Line) 36 Invasive Line 1 20 Invasive Line 2 20 Invasive Line 4 90 60 Invasive Line 5 30 30 10 Invasive Line 6 30 Piperacillin-Tazobactam 3 200 100 .375 gm In Sodium Chloride 0.9% 100 ml @ 25 mls/hr IVPB Q8HR [facility] Rx# :[id number] Sodium Chloride 0.9% 1, 170 170 0 000 ml @ 20 mls/hr IV . Q24H [facility] Rx#:[id number] Sodium Ferric Gluconat- 100 Sucrose 125 mg In Sodium Chloride 0.9% 100 ml @ 100 mls/hr IVPB DAILY [facility] Rx#:[id number] Intake, IV Titration 21.376 Amount propofoL 1,000 mg In 21.376 Empty Bag 1 bag @ 15 MCG/ KG/MIN 11.839 mls/hr IV . Q8H27M [facility] Rx#:[id number] Oral 340 0 Output: Urine 855 1230 510 Other: Voiding Method Indwelling Catheter Indwelling Catheter Indwelling Catheter ABP, PAP, CO, CI - Last Documented Arterial Blood Pressure 145/62 - Exam No acute distress, currently on 6 L nasal cannula. HEENT examination is grossly unremarkable. Neck supple. Full range of motion. No adenopathy thyromegaly or neck vein distention. Cardiovascular examination reveals regular rhythm rate. S1-S2 normal. No S3 or S4. No discernible murmur noted. Heart sounds are distant. Heart rate 90 bpm. Lungs reveal scattered rhonchi. No wheezes or crackles. Breath sounds equal. Saturations are 91% on 6 L. Abdomen soft, with bowel sounds. No masses or tenderness. Extremities are intact. No cyanosis clubbing or edema. Skin is without rash or lesion. Neurologic examination is brief but nonfocal. - Labs CBC & Chem 7: 01/27/23 04:20 01/27/23 04:20 Labs: Abnormal Lab Results - Last 24 Hours (Table) 01/26/23 01/26/23 01/26/23 Range/Units 10:23 12:47 17:57 RBC (3.80-5.40) m/uL Hgb (11.4-16.0) gm/dL Hct (34.0-46.0) % MCHC (31.0-37.0) g/dL Neutrophils # (1.3-7.7) k/uL Lymphocytes # (1.0-4.8) k/uL Carbon Dioxide (22-30) mmol/L BUN (7-17) mg/dL Glucose (74-99) mg/dL POC Glucose (mg/dL) 112 H 139 H 161 H (70-110) mg/dL Hemoglobin A1c (<=6.0) % Calcium (8.4-10.2) mg/dL Total Protein (6.3-8.2) g/dL Albumin (3.5-5.0) g/dL 01/27/23 01/27/23 01/27/23 Range/Units 04:20 04:20 04:20 RBC 3.30 L (3.80-5.40) m/uL Hgb 8.8 L (11.4-16.0) gm/dL Hct 29.4 L (34.0-46.0) % MCHC 30.0 L (31.0-37.0) g/dL Neutrophils # 8.6 H (1.3-7.7) k/uL Lymphocytes # 0.9 L (1.0-4.8) k/uL Carbon Dioxide 36 H (22-30) mmol/L BUN 18 H (7-17) mg/dL Glucose 113 H (74-99) mg/dL POC Glucose (mg/dL) (70-110) mg/dL Hemoglobin A1c 6.6 H (<=6.0) % Calcium 8.1 L (8.4-10.2) mg/dL Total Protein 5.7 L (6.3-8.2) g/dL Albumin 3.2 L (3.5-5.0) g/dL Assessment and Plan Assessment: Acute on chronic hypoxemic and hypercapnic respiratory failure, secondary to multifocal pneumonia, and COPD, S/P intubation and mechanical ventilation on 01/22/2023. Status post successful extubation, 01/26/2023. Possible aspiration pneumonia. Acute mental status changes, likely on the basis of sepsis, and worsening hypercapnia. History of COPD. Morbid obesity. Type 2 diabetes. Acute toxic/metabolic encephalopathy. Benign essential hypertension. Plan: Plan dated 01/24/2023. Although the patient may not be ready, we will attempt a daily interruption of sedation spontaneous breathing trial. The patient has been off norepinephrine now for a while. She is getting tube feedings. She's getting propofol at 60 mcg/kg/m. Arterial blood gases are borderline. Chest x-ray, labs, and all medications are reviewed. We will continue to follow the patient and make recommendations along the way. Plan dated 01/25/2023. The patient remains relatively stable, although, she did not do very well yesterday on her daily interruption of sedation. She became very agitated. Today, the patient saline IVs dropped down to KVO. We'll give her Lasix 60 mg IV push. She remains on Zosyn empirically for pneumonia. Pro-calcitonin level was elevated at 3.24. Labs, x-rays, and medications are reviewed. The patient's overall prognosis remains very guarded. We will attempt another daily interruption of sedation today. If the patient does not show progression, she may need a tracheostomy tube and feeding tube. Plan dated 01/26/2023. The patient appears to be much more clinically stable today and much more awake, on a small dose of propofol. The propofol will be discontinued completely, and tube feedings will be held, and her stomach suctioned. We will do a spontaneous breathing trial on pressure support of 8 and CPAP of 5. We'll check weaning parameters and 20-30 minutes, including a rapid shallow breathing index, and cuff leak test. If she is ready, the patient will be extubated. Labs, x-rays, medications reviewed. We'll continue to follow the patient and make recommendations along the way. Prognosis is guarded. Plan dated 01/27/2023. The patient was successfully extubated yesterday. She remains on oxygen at 6 L. She's getting saline at 20 mL an hour. Microbiologic studies of S4 been negative. Labs, x-rays, and medications are reviewed. She is on Zosyn, day #5. The patient will get Lasix 40 mg IV push today. The patient could be considered for discharge to the general medical floor today, without telemetry. We'll continue to follow. Prognosis is guarded. Time with Patient: Less than 30
[2023-01-27 11:19] LABS: Glucose,Whole Blood 105 mg/dL (70-110)
--- NOTE | 2023-01-27 11:31 | P.PN ---
Subjective Progress Note Date: 01/27/23 Hospital Course: Patient is a 47-year-old female with COPD on chronic O2 at 5 L, diabetes mellitus type 2, hypertension, suprapubic tube who is a resident at [facility] and presented to the emergency room for hypoxia and altered mentation. In the emergency department he underwent an extensive evaluation. On arrival her O2 sat was 88% on nonrebreather at 15 L, blood pressure was 110/56, and respiration was 22. Initial ABG revealed a pH of 7.25 with acute CO2 of 105. Laboratory analysis was remarkable for hemoglobin 10.6, carbon dioxide 45, sodium 129, blood sugar 205. COVID-19, influenza A/B, and RSV testing were negative. CT of the brain showed 1.9 cm left frontal lobe meningioma versus congenital variation. Chest x-ray demonstrated COPD with asymmetric volume loss in the right hemithorax and opacification throughout the right upper and mid lobes as well as extensive opacification in the left perihilar region. In the emergency department she was started on ceftriaxone, Zithromax, and BiPAP was ordered. She was also started on DuoNeb's and Solu-Medrol. Arrangements were made for admission. The patient ultimately required intubation prior to being admitted. She was subsequently admitted to the ICU and pulmonary critical care was consulted. Pulmonary did recommend transitioning the patient to Zosyn. She did have some low blood pressures and required levophed overnight from 01/22 through 01/23. She is now status post extubation. Continues to require gill pplemental oxygen, also given diuretics. Subjective: Patient seen and examined at bedside. No acute events overnight. On nasal cannula. Denies any chest pain, worsening shortness of breath, abdominal pain, nausea, vomiting. She still has some shortness of breath and productive cough. Dixon catheter in place. Pertinent positives and negatives as discussed above, a complete review of systems was performed and all other systems are negative. Vitals Signs Reviewed. General: nontoxic, no distress, appears at stated age, morbidly obese Derm: warm, dry Head: atraumatic, normocephalic, symmetric Eyes: EOMI, no lid lag, anicteric sclera Mouth: no lip lesion, mucus membranes moist Cardiovascular: S1S2 reg, no murmur Lungs: Bilateral rhonchi, scattered wheezing, no accessory muscle use, supplemental oxygen Abdominal: soft, nontender to palpation, no guarding, no appreciable organomega ly Ext: no gross muscle atrophy, no edema, no contractures Neuro: CN II-XI grossly intact, no focal neuro deficits Psych: Alert, oriented, flat affect, poor concentration Data Reviewed Today: Pertinent Labs: WBC 10, hemoglobin 8.8, sodium 138, potassium 4.6, creatinine 0.93, blood sugars range between 113-143, magnesium 2.1 Imaging: Chest x-ray independently interpreted, shows worsening bilateral interstitial pulmonary opacities, multifocal, poor inspiratory effort, likely pulmonary vascular congestion Assessment and Plan: Patient is currently critically ill, in the medical ICU. Possible downgrade to 3 S. Active: Multifocal pneumonia Acute exacerbation of COPD Acute on chronic hypoxic hypercapnic respiratory failure Pulmonary vascular congestion CHF exacerbation, likely diastolic Toxic metabolic encephalopathy, mental status back to baseline Type 2 insulin-dependent diabetes Severe iron deficiency anemia, status post IV iron -Pulmonology note reviewed, given 40 of IV Lasix -Echocardiogram ordered -Repeat BMP and magnesium tomorrow to monitor for electrolytes -Continue DuoNeb, IV Solu-Medrol, Zosyn day #5 -Continue to wean oxygen, currently on nasal cannula -Mental status back to baseline -Continue current insulin regimen, no changes -Hemoglobin stable, no active bleeding, continue to monitor CBC Resolved: Hypovolemic hyponatremia Chronic: Chronic myelogenous leukemia Dyslipidemia HTN Obesity with BMI 35.9 LEYVA Vit D def Schizoaffective DVT ppx: Subcu heparin Code status: Full code Anticipated discharge place: Pending clinical course Anticipated discharge time: Pending clinical course Objective - Vital Signs Vital signs: Vital Signs Temp 99.4 F 01/27/23 08:00 Pulse 90 01/27/23 09:00 Resp 17 01/27/23 09:00 BP 122/65 01/27/23 10:00 Pulse Ox 91 L 01/27/23 09:00 FiO2 50 01/26/23 08:26 Intake & Output 01/26/23 01/27/23 01/27/23 18:59 06:59 18:59 Intake Total 1027.376 260 140 Output Total 855 1230 835 Balance 172.376 -740 -576 Intake: IV 666 260 140 .9 3cc (A-Line) 36 Invasive Line 1 20 Invasive Line 2 20 Invasive Line 4 90 60 Invasive Line 5 30 30 10 Invasive Line 6 30 Piperacillin-Tazobactam 3 200 100 .375 gm In Sodium Chloride 0.9% 100 ml @ 25 mls/hr IVPB Q8HR WIN Rx# :[id number] Sodium Chloride 0.9% 1, 170 170 0 000 ml @ 20 mls/hr IV . Q24H WIN Rx#:[id number] Sodium Ferric Gluconat- 100 Sucrose 125 mg In Sodium Chloride 0.9% 100 ml @ 100 mls/hr IVPB DAILY WIN Rx#:[id number] Intake, IV Titration 21.376 Amount propofoL 1,000 mg In 21.376 Empty Bag 1 bag @ 15 MCG/ KG/MIN 11.839 mls/hr IV . Q8H27M WIN Rx#:[id number] Oral 340 0 Output: Urine 855 1230 835 Other: Voiding Method Indwelling Catheter Indwelling Catheter Indwelling Catheter ABP, PAP, CO, CI - Last Documented Arterial Blood Pressure 145/62 - Labs CBC & Chem 7: 01/27/23 04:20 01/27/23 04:20 Labs: Abnormal Lab Results - Last 24 Hours (Table) 01/26/23 01/26/23 01/27/23 Range/Units 12:47 17:57 04:20 RBC 3.30 L (3.80-5.40) m/uL Hgb 8.8 L (11.4-16.0) gm/dL Hct 29.4 L (34.0-46.0) % MCHC 30.0 L (31.0-37.0) g/dL Neutrophils # 8.6 H (1.3-7.7) k/uL Lymphocytes # 0.9 L (1.0-4.8) k/uL Carbon Dioxide (22-30) mmol/L BUN (7-17) mg/dL Glucose (74-99) mg/dL POC Glucose (mg/dL) 139 H 161 H (70-110) mg/dL Hemoglobin A1c (<=6.0) % Calcium (8.4-10.2) mg/dL Total Protein (6.3-8.2) g/dL Albumin (3.5-5.0) g/dL 01/27/23 01/27/23 Range/Units 04:20 04:20 RBC (3.80-5.40) m/uL Hgb (11.4-16.0) gm/dL Hct (34.0-46.0) % MCHC (31.0-37.0) g/dL Neutrophils # (1.3-7.7) k/uL Lymphocytes # (1.0-4.8) k/uL Carbon Dioxide 36 H (22-30) mmol/L BUN 18 H (7-17) mg/dL Glucose 113 H (74-99) mg/dL POC Glucose (mg/dL) (70-110) mg/dL Hemoglobin A1c 6.6 H (<=6.0) % Calcium 8.1 L (8.4-10.2) mg/dL Total Protein 5.7 L (6.3-8.2) g/dL Albumin 3.2 L (3.5-5.0) g/dL
[2023-01-27] MEDS: ACETAMINOPHEN TAB 325 MG TAB PO PRN (13:00)
[2023-01-27 14:00] VITALS: BMI 36.3
[2023-01-27 16:10] LABS: Glucose,Whole Blood 209 mg/dL (70-110)
[2023-01-27] MEDS: HYDROmorphone 0.5 MG/0.5 ML SYRINGE IVP PRN ×2 (16:10→21:31)
[2023-01-27 20:09] LABS: Glucose,Whole Blood 176 mg/dL (70-110)
[2023-01-27] MEDS: ATORVASTATIN 40 MG TAB PO SCH (20:32)
[2023-01-28] MEDS: HEPARIN SODIUM,PORCINE/PF 5,000 UNIT/0.5 ML SYRINGE SQ SCH ×4 (00:49→23:50)
[2023-01-28] MEDS: methylPREDNISolone SOD SUCCI 125 MG/2 ML VIAL IV SCH ×5 (00:50→23:50)
[2023-01-28] MEDS: PIPERACILLIN-TAZOBACTAM 3.375 GM in SODIUM CHLORIDE 0.9% 100 ML IVPB SCH ×4 (00:50→23:49)
[2023-01-28 04:36] LABS: Basophils % (A) 0 %; Eosinophils # (A) 0.1 k/uL (0-0.7); Eosinophils % (A) 1 %; HCT 31.1 % (34.0-46.0); HGB 9.4 gm/dL (11.4-16.0); Hypochromasia Marked; Lymphocytes # (A) 0.8 k/uL (1.0-4.8); Lymphocytes % (A) 6 %; MCH 26.9 pg (25.0-35.0); MCHC 30.2 g/dL (31.0-37.0); MCV 89.1 fL (80.0-100.0); Mean Platelet Volume 7.5; Monocytes # (A) 0.6 k/uL (0-1.0); Monocytes % (A) 4 %; Neutrophils # (A) 11.7 k/uL (1.3-7.7); Neutrophils % (A) 88 %; Platelet Count 204 k/uL (150-450); RBC 3.49 m/uL (3.80-5.40); RDW 15.2 % (11.5-15.5); WBC 13.3 k/uL (3.8-10.6)
[2023-01-28 04:44] LABS: African American GFR (CKD) >90 (>60 ml/min/1.73 sqM); Anion Gap 2 mmol/L; Blood Urea Nitrogen 22 mg/dL (7-17); Calcium 8.2 mg/dL (8.4-10.2); Carbon Dioxide 38 mmol/L (22-30); Chloride 98 mmol/L (98-107); Glucose 108 mg/dL (74-99); Non-African American GFR(CKD) 90 (>60 ml/min/1.73 sqM); Potassium 4.5 mmol/L (3.5-5.1); Sodium 138 mmol/L (137-145)
[2023-01-28 06:47] LABS: Glucose,Whole Blood 115 mg/dL (70-110)
[2023-01-28] MEDS: INSULIN ASPART (NovoLOG) 100 UNIT/ML VIAL SQ SCH ×4 (06:50→20:09)
--- NOTE | 2023-01-28 07:28 | CA ---
Transthoracic Echo Report Name: Shavonne Hurtado Age: 47 Gender: F : 1975 Exam Date: 01/27/2023 12:56 Exam Location: [facility] Ht (in): 68 Wt (lb): 239 Ordering Physician: Aaron Pittman MD Attending/Referring Phys: Beauty Operator Apprentice Arturo Quinones Procedure CPT: Indications: Hypoxia Cardiac Hx: Technical Quality: Technically difficult study Contrast 1: Total Dose (mL): Contrast 2: Total Dose (mL): MEASUREMENTS (Male / Female) Normal Values 2D ECHO LV Diastolic Diameter PLAX 4.5 cm 4.2 - 5.9 / 3.9 - 5.3 cm LV Systolic Diameter PLAX 2.7 cm IVS Diastolic Thickness 1.2 cm 0.6 - 1.0 / 0.6 - 0.9 cm LVPW Diastolic Thickness 1.4 cm 0.6 - 1.0 / 0.6 - 0.9 cm LV Relative Wall Thickness 0.6 RV Internal Dim ED PLAX 3.1 cm LVOT Diameter 2.0 cm Aortic Root Diameter 2.8 cm LA Systolic Diameter LX 3.4 cm 3.0 - 4.0 / 2.7 - 3.8 cm LV Diastolic Volume MOD BP 51.9 cm??? 67 - 155 / 56 - 104 cm??? LV Systolic Volume MOD BP 18.8 cm??? 22 - 58 / 19 - 49 cm??? LV Ejection Fraction MOD BP 63.7 % >= 55 % LV Diastolic Volume MOD 4C 53.3 cm??? LV Systolic Volume MOD 4C 15.1 cm??? LV Ejection Fraction MOD 4C 71.6 % LV Diastolic Length 4C 6.6 cm LV Systolic Length 4C 6.0 cm LV Diastolic Volume MOD 2C 49.3 cm??? LV Systolic Volume MOD 2C 23.1 cm??? LV Ejection Fraction MOD 2C 53.2 % LV Diastolic Length 2C 6.4 cm LV Systolic Length 2C 6.2 cm LA Volume 45.9 cm??? 18 - 58 / 22 - 52 cm??? Ascending Aorta Diameter 2.9 cm DOPPLER AV Peak Velocity 179.5 cm/s AV Peak Gradient 12.9 mmHg LVOT Peak Velocity 121.7 cm/s LVOT Peak Gradient 5.9 mmHg AV Area Cont Eq pk 2.1 cm??? MV Peak Velocity 163.2 cm/s MV Peak Gradient 10.7 mmHg MV Mean Velocity 84.5 cm/s MV Mean Gradient 3.7 mmHg MV Velocity Time Integral 44.8 cm MR Peak Velocity 392.6 cm/s MR Peak Gradient 61.6 mmHg Mitral E Point Velocity 139.8 cm/s Mitral A Point Velocity 150.8 cm/s Mitral E to A Ratio 0.9 MV Deceleration Time 325.5 ms MV E' Velocity 9.2 cm/s Mitral E to MV E' Ratio 15.2 TR Peak Velocity 448.5 cm/s TR Peak Gradient 80.5 mmHg Right Ventricular Systolic Press 90.5 mmHg FINDINGS Left Ventricle Left ventricular ejection fraction is estimated at 60-65 %.normal left ventricular wall motion. Left ventricular cavity size normal. Mildly increased left ventricular wall thickness. Right Ventricle Right ventricle at upper limits of normal. RVSP= 95mmhg. Hypokinetic right ventricle Right Atrium Normal right atrial size. Left Atrium Normal left atrial size. Mitral Valve Structurally normal mitral valve. Mild mitral regurgitation. Aortic Valve Aortic valve not well visualized. No aortic valve stenosis or regurgitation. Tricuspid Valve Structurally normal tricuspid valve. Moderate to severe TR. Pulmonic Valve Pulmonic valve not well visualized. No pulmonic regurgitation. Pericardium Normal pericardium. Aorta Normal size aortic root and proximal ascending aorta. CONCLUSIONS 1. Normal size and systolic function 2. Severe pulmonary hypertension with moderate to severe tricuspid regurgitation 3. Mild mitral regurgitation Previewed by: Dr. Floresita Hamilton MD (Electronically Signed) Final Date: 28 January 2023 07:27
--- NOTE | 2023-01-28 07:58 | XR ---
EXAMINATION TYPE: XR chest 1V portable DATE OF EXAM: 01/28/2023 Comparison: 01/27/2023 Clinical History: 47-year-old female Tube placement Findings: The heart remains enlarged. Extensive opacity extending up to the right mid lung level persists. Patc hy opacity left mid and lower lung. Interstitial prominence. Impression: Ongoing moderate sized right pleural effusion extending up to the right mid lung level. Cardiomegaly with possible background mild perivascular congestion redemonstrated. Additional patchy left basilar opacity is also similar.
[2023-01-28] MEDS: IPRATROPIUM-ALBUTEROL 3 ML NEB INHALATION SCH ×4 (08:00→19:59)
--- NOTE | 2023-01-28 09:46 | CDI ---
Documentation Clarification Form Date: 01/28/2023 08:59:53 AM From: Gardenia Rob RN, CCDS Admit Date: 01/22/2023 06:10:00 AM Patient Name: Shavonne Hurtado Visit Number: [id number] Discharge Date: ATTENTION: The Clinical Documentation Specialists (CDI) and [facility] Coding Staff appreciate your assistance in clarifying documentation. Please respond to the clarification below the line at the bottom and electronically sign. The CDI & [facility] Coding staff will review the response and follow-up if needed. Please note: Queries are made part of the Legal Health Record. If you have any questions, please contact the author of this message via ITS. Dr. Kaylah Horner pressure injury right buttock is documented in the nursing wound care assessment starting on 01/24/2023 as hospital acquired, but not documented by the attending. Based on this information and the findings below, is there an additional diagnosis that is clinically appropriate for this patient? History/Risk Factors: COPD, chronic hypoxic respiratory failure, Hypertension Diabetes Mellitus, Morbid obesity, ADD/ADHD, Bipolar resident ECF, Clinical Indicators: 47-year- old female present with hypoxia and altered mental status. 01/22 ED Skin: No rashes or lesion observed on exposed skin. Location: Right buttock Wound description: stage II Treatment: Dressing right buttock: Optfoam (change per protocol) Monitor Skin integrity per protocol. Log Roll side to side, Assist with ADL Is there an additional diagnosis that is clinically appropriate for this patient? [ ] Right buttock Pressure Ulcer Stage 2, Hospital Acquired [X ] Right Buttock Pressure Ulcer Stage 2, present on admission [ ] Other condition, please specify [ ] Unable to determine Clinical Definitions: Stage 1 Pressure Ulcer: intact skin, non-blanching redness of local area Stage 2 Pressure Ulcer: Partial thickness, loss of dermis, pink wound bed Stage 3 Pressure Ulcer: Full thickness tissue loss Stage 4 Pressure Ulcer: Full thickness tissue loss with exposed bone, tendon, or muscle. Unstageable pressure ulcer: Full thickness tissue loss in which the base of the ulcer is covered by slough (yellow, barlow, quinonez, green or brown) and/or eschar (barlow, brown or black) in the wound bed. (Template Last Revised: October 2020) MTDD
--- NOTE | 2023-01-28 10:27 | P.PN ---
Subjective Progress Note Date: 01/28/23 Principal diagnosis: Respiratory failure. Acute hypoxic and hypercapnic respiratory failure secondary to pneumonia. This is a 47-year-old female with history of COPD, chronic hypoxic respiratory failure, hypertension, type 2 diabetes, patient is a resident of [facility], presented to the ER with hypoxia and altered mental status. Patient was hypoxic upon arrival in spite of 15 L flow of oxygen, she had a low- grade temp of 98.8, she was hemodynamically stable, however ABG showed a pCO2 of 105 pCO2 of 7.25, patient was initially placed on BiPAP, did not improve with BiPAP, and she required intubation and mechanical ventilation. Chest x-ray showed multifocal infiltrates. Patient was admitted, placed on mechanical ventilation, she is presently on assist control rate of 20,000 volume 400 FiO2 70% and PEEP of 15 ABG showed a pO2 of 74 pCO2 of 62 pH of 7.42 patient remains on a FiO2 of 70% and PEEP of 14. WBC count is 10 hemoglobin is 10.6, basic meta bolic profile is normal including normal renal profile, bicarb is 45. Screening for influenza A, influenza B, RSV and COVID-19 came back negative chest x-ray showed multifocal pneumonia. CT of the brain showed no intracranial abnormality, she does have a 1.9 cm anterior left frontal meningioma versus congenital variation with Chi hyperostosis of frontalis interna it initially the patient was placed on antibiotics in the form of Zithromax and Rocephin however considering the presentation I recommended we go to Zosyn. Patient remained hemodynamically stable but requires a relatively high FiO2 high PEEP, she is on propofol at 20 mcg/kg/m, her IV fluid is running at 100 mL an hour, urine output seems to be marginal. Patient was today on 01/23/2023, remains in the ICU, intubated and mechanically ventilated. Patient is on assist control rate of 20 to volume 400 FiO2 55% PEEP of 14. ABG showed a pO2 of 141 pCO2 65 pH of 7.40. Hence I cut down her FiO2 to 50% and cut down PEEP to 10. Chest x-ray showed evidence of bilateral infiltrates, highly suspicious for multifocal pneumonia./Aspiration pneumonia. Patient remains in the meantime on Zosyn. Her endotracheal tube will be advanc ed since it seems to be high proximal in the trachea. Patient remains on propofol at 45 mcg/kg/m norepinephrine at 0.01 mcg/kg/m IV fluid is 0.9 normal saline 100 mL per hour. Cultures so far are nondiagnostic. Patient remains empirically on Zosyn. Overnight no major issues, patient did require a low dose of norepinephrine at 0.01 mcg/kg/m, and her propofol has been adjusted overnight. Patient has good urine output, she is on enteral feeding, she is on antibiotics, she is on GI and DVT prophylaxis, and she is not quite ready for weaning. Patient is still requiring relatively high FiO2 and the relatively high PEEP Progress note dated 01/24/2023. This is a 47-year-old female who was admitted to the hospital on January 22 or respiratory failure, pneumonia, and acute respiratory distress syndrome. The patient was intubated on the same day. The patient remains on the mechanical ventilator. She is on the volume assist control mode, rate 20, tidal volume 400, FiO2 50%, and PEEP of 8. Blood gases show pO2 63, pCO2 of 53, and a pH is 7.44. The patient is on saline at 125 mL an hour, propofol at 60 mcg/kg/m, norepinephrine which is off, and Glucerna 1.2 at 66 mL an hour, which is goal. The patient is on Zosyn IV piggyback. The patient will have an attempted daily interruption of sedation today and a spontaneous breathing trial, with a pressure support of 8, and CPAP of 5. White count 6.4, hemoglobin 8.3, hematocrit 26.6, and platelet count 219,000. Sodium 131, potassium 3.9, chlorides 92, CO2 33, BUN 25, creatinine 0.98. Chest x-ray shows mild cardiomegaly, and improving lung infiltrates. Progress note dated 01/25/2023. 47-year-old female admitted to the hospital on January 22 respiratory failure, pneumonia, and respiratory distress. The patient was intubated on the same today, January 22. She remains on the mechanical ventilator. Yesterday, we attempted a daily interruption of sedation, but she was quite agitated, and had to be re-sedated. She is on volume assist control, rate 20, tidal volume 400, FiO2 50%, EPAP of 8. Gases show pO2 70, he CO2 50, and a pH is 7.43. The patient's on saline at 125 mL an hour, propofol 60 mcg/kg/m, and Glucerna at goal, which is 18 mL/h. The patient is going to get Lasix 60 mg IV push today. She is on Zosyn. Her pro-calcitonin level was elevated at 3.24. The saline will be dropped down to KVO. White count 8.3, he will may 0.6, hematocrit 28.3, and platelet count normal. Sodium 135, potassium 4.4, chlorides 98, CO2 32, BUN 25, creatinine 0.97. Thus far, cultures are negative. Chest x-ray show a pattern of possible fluid overload, versus pneumonia. Progress note dated 01/26/2023. 47-year-old female who was admitted to hospital on 01/22/2023, with respiratory failure, pneumonia, and respiratory distress. She was intubated and mechanically ventilated on January 22. She remains on the ventilator, but, is closer to be weaned and extubated. Currently, the patient is on volume assist control, rate 20, tidal volume 400, FiO2 50%, and PEEP of 8. The patient will have a spontaneous breathing trial today, with pressure support of 8, and CPAP of 5. Blood gases this morning show pO2 of 85, pCO2 49, and pH is 7.46. Patient remains on saline at 20 mL an hour. Propofol has been turned off. The patient is receiving Glucerna and 18 mL an hour. White count 8.5, hemoglobin 8.6, hematocrit 27.6, with a normal platelet count. Sodium 138, potassium 4.2, chlorides 99, CO2 33, anion gap 6, BUN 26, and creatinine 0.90. All cultures are negative. Today's chest x-ray is unchanged. Progress note dated 01/27/2023. 47-year-old female admitted on January 22, with respiratory failure, pneumonia, and respiratory distress. She was intubated and mechanically ventilated on 01/22/2023. The patient was successfully extubated yesterday, 01/26/2023. She remains on 6 L of oxygen by nasal cannula. She's getting saline at 20 mL an hour. Microbiologic studies have been negative. She remains on Zosyn, day #5. The patient will be getting Lasix 40 mg IV push today. The patient could be transferred out of the intensive care unit, to the general medical floor today. White count 10, hemoglobin 8.8, hematocrit 29.4, and platelet count 199,000. Sodium 138, potassium 4.6, chlorides 99, CO2 36, BUN 18, creatinine 0.93. Chest x-ray shows small to moderate size right pleural effusion, with cardiomegaly, and mild interstitial changes, consistent with edema and/or pneumonia. Progress note dated 01/28/2023. 47-year-old female admitted on January 22 with respiratory failure, pneumonia, and respiratory distress. The patient was intubated and mechanically ventilated on 01/22/2023. She was finally and successfully extubated on 01/26/2023. She seen today in the intensive care unit, room 257. She's currently on 5 L nasal cannula. She's getting saline at KVO. The patient can be transferred to the general medical floor, without telemetry. We are just waiting for bed. White count 13.3, hemoglobin 9.4, hematocrit 31.1, and platelet count was normal. Sodium 138, potassium 4.5, chlorides 98, CO2 38, BUN 22, and creatinine 0.78. Chest x-ray shows a right-sided pleural effusion. There is evidence of cardiomegaly. The patient remains on Zosyn. Objective - Vital Signs Vital signs: Vital Signs Temp 98.4 F 01/28/23 02:00 Pulse 85 01/28/23 08:15 Resp 15 01/28/23 02:00 BP 122/86 01/28/23 02:00 Pulse Ox 93 L 01/28/23 08:02 FiO2 40 01/28/23 08:02 Intake & Output 01/27/23 01/28/23 01/28/23 18:59 06:59 18:59 Intake Total 2300 420 Output Total 2835 750 Balance -535 -330 Weight 108.5 kg Intake: IV 240 40 Invasive Line 5 10 10 Invasive Line 6 30 30 Piperacillin-Tazobactam 3 200 .375 gm In Sodium Chloride 0.9% 100 ml @ 25 mls/hr IVPB Q8HR [facility] Rx# :[id number] Sodium Chloride 0.9% 1, 0 0 000 ml @ 20 mls/hr IV . Q24H [facility] Rx#:[id number] Oral 2060 380 Output: Urine 2835 750 Other: Voiding Method Indwelling Catheter Indwelling Catheter ABP, PAP, CO, CI - Last Documented Arterial Blood Pressure 145/62 - Exam No acute distress, currently on 6 L nasal cannula. HEENT examination is grossly unremarkable. Neck supple. Full range of motion. No adenopathy thyromegaly or neck vein distention. Cardiovascular examination reveals regular rhythm rate. S1-S2 normal. No S3 or S4. No discernible murmur noted. Heart sounds are distant. Heart rate 85 bpm. Lungs reveal scattered rhonchi. No wheezes or crackles. Breath sounds equal. Saturations are 93% on 5 L. Abdomen soft, with bowel sounds. No masses or tenderness. Extremities are intact. No cyanosis clubbing or edema. Skin is without rash or lesion. Neurologic examination is brief but nonfocal. - Labs CBC & Chem 7: 01/28/23 04:12 01/28/23 04:07 Labs: Abnormal Lab Results - Last 24 Hours (Table) 01/27/23 01/27/23 01/28/23 Range/Units 16:08 20:08 04:07 WBC (3.8-10.6) k/uL RBC (3.80-5.40) m/uL Hgb (11.4-16.0) gm/dL Hct (34.0-46.0) % MCHC (31.0-37.0) g/dL Neutrophils # (1.3-7.7) k/uL Lymphocytes # (1.0-4.8) k/uL Carbon Dioxide 38 H (22-30) mmol/L BUN 22 H (7-17) mg/dL Glucose 108 H (74-99) mg/dL POC Glucose (mg/dL) 209 H 176 H (70-110) mg/dL Calcium 8.2 L (8.4-10.2) mg/dL 01/28/23 01/28/23 Range/Units 04:12 06:45 WBC 13.3 H (3.8-10.6) k/uL RBC 3.49 L (3.80-5.40) m/uL Hgb 9.4 L (11.4-16.0) gm/dL Hct 31.1 L (34.0-46.0) % MCHC 30.2 L (31.0-37.0) g/dL Neutrophils # 11.7 H (1.3-7.7) k/uL Lymphocytes # 0.8 L (1.0-4.8) k/uL Carbon Dioxide (22-30) mmol/L BUN (7-17) mg/dL Glucose (74-99) mg/dL POC Glucose (mg/dL) 115 H (70-110) mg/dL Calcium (8.4-10.2) mg/dL Microbiology - Last 24 Hours (Table) 01/22/23 05:50 Blood Culture - Final Blood 01/22/23 04:46 Blood Culture - Final Blood Assessment and Plan Assessment: Acute on chronic hypoxemic and hypercapnic respiratory failure, secondary to multifocal pneumonia, and COPD, S/P intubation and mechanical ventilation on 01/22/2023. Status post successful extubation, 01/26/2023. Possible aspiration pneumonia, with right-sided pleural effusion. Acute mental status changes, likely on the basis of sepsis, and worsening hypercapnia. History of COPD. Morbid obesity. Type 2 diabetes. Acute toxic/metabolic encephalopathy. Benign essential hypertension. Plan: Plan dated 01/24/2023. Although the patient may not be ready, we will attempt a daily interruption of sedation spontaneous breathing trial. The patient has been off norepinephrine now for a while. She is getting tube feedings. She's getting propofol at 60 mcg/kg/m. Arterial blood gases are borderline. Chest x-ray, labs, and all medications are reviewed. We will continue to follow the patient and make recommendations along the way. Plan dated 01/25/2023. The patient remains relatively stable, although, she did not do very well yesterday on her daily interruption of sedation. She became very agitated. Today, the patient saline IVs dropped down to KVO. We'll give her Lasix 60 mg IV push. She remains on Zosyn empirically for pneumonia. Pro-calcitonin level was elevated at 3.24. Labs, x-rays, and medications are reviewed. The patient's overall prognosis remains very guarded. We will attempt another daily interruption of sedation today. If the patient does not show progression, she may need a tracheostomy tube and feeding tube. Plan dated 01/26/2023. The patient appears to be much more clinically stable today and much more awake, on a small dose of propofol. The propofol will be discontinued completely, and tube feedings will be held, and her stomach suctioned. We will do a spontaneous breathing trial on pressure support of 8 and CPAP of 5. We'll check weaning parameters and 20-30 minutes, including a rapid shallow breathing index, and cuff leak test. If she is ready, the patient will be extubated. Labs, x-rays, medications reviewed. We'll continue to follow the patient and make recommendations along the way. Prognosis is guarded. Plan dated 01/27/2023. The patient was successfully extubated yesterday. She remains on oxygen at 6 L. She's getting saline at 20 mL an hour. Microbiologic studies of S4 been negative. Labs, x-rays, and medications are reviewed. She is on Zosyn, day #5. The patient will get Lasix 40 mg IV push today. The patient could be considered for discharge to the general medical floor today, without telemetry. We'll continue to follow. Prognosis is guarded. Plan dated 01/28/2023. The patient's labs, x-rays, medications are reviewed. The patient will have an ultrasound of the right chest with markings. She may benefit from a thoracentesis. Additional recommendations and suggestions are forthcoming. All her microbiologic studies are negative. The patient's on Zosyn, day #6. After tomorrow, we can likely stop the Zosyn. We will continue to follow the patient and make recommendations along the way. Prognosis is guarded. Time with Patient: Less than 30
[2023-01-28] MEDS: GABAPENTIN 100 MG CAP PO SCH ×3 (10:59→20:09)
[2023-01-28] MEDS: ASPIRIN 81 MG PO SCH (10:59)
[2023-01-28] MEDS: METOPROLOL TARTRATE 25 MG TAB PO SCH (10:59)
[2023-01-28] MEDS: PANTOPRAZOLE 40 MG/10 ML VIAL IVP SCH (11:01)
[2023-01-28] MEDS: FENOFIBRATE 160 MG TAB PO SCH (11:02)
[2023-01-28] MEDS: OXcarbazepine 300 MG TAB PO SCH (11:02)
[2023-01-28] MEDS: INSULIN DETEMIR (LEVEMIR) 100 UNIT/ML SYR SQ SCH ×2 (11:02→20:09)
[2023-01-28] MEDS: LURASIDONE 40 MG TAB PO SCH (11:02)
[2023-01-28 11:07] LABS: Glucose,Whole Blood 177 mg/dL (70-110)
[2023-01-28] MEDS: HYDROcodone/APAP 7.5-325MG 1 EACH TAB PO PRN ×2 (11:20→17:22)
--- NOTE | 2023-01-28 13:37 | US ---
EXAMINATION TYPE: US chest DATE OF EXAM: 01/28/2023 COMPARISON: NONE CLINICAL INDICATION: Female, 47 years old with history of Right-sided pleural effusion.; right pleura l effusion TECHNIQUE: Targeted ultrasound of the posterior lower bilateral hemithoraces EXAM MEASUREMENTS: Right Pleural Effusion pocket size: simple fluid collection not noted. possible complex pocket fille d with debris and solid component Right side marked for possible thoracentesis outside the dept. Left side NOT marked for possible thoracentesis outside the dept. Pulmonologists are able to review the images in the patient?s EMR. IMPRESSIONS: 1. Complex, possibly loculated, small right pleural effusion.
[2023-01-28 16:26] LABS: Glucose,Whole Blood 173 mg/dL (70-110)
--- NOTE | 2023-01-28 19:53 | P.PN ---
Subjective Progress Note Date: 01/28/23 (delayed hcarting seen at 1045) Patient is a 47-year-old female with COPD on chronic O2 at 5 L, diabetes mellitus type 2, hypertension, suprapubic tube who is a resident at [facility] and presented to the emergency room for hypoxia and altered mentation. In the emergency department he underwent an extensive evaluation. On arrival her O2 sat was 88% on nonrebreather at 15 L, blood pressure was 110/56, and respiration was 22. Initial ABG revealed a pH of 7.25 with acute CO2 of 105. Laboratory analysis was remarkable for hemoglobin 10.6, carbon dioxide 45, sodium 129, blood sugar 205. COVID-19, influenza A/B, and RSV testing were negative. CT of the brain showed 1.9 cm left frontal lobe meningioma versus congenital variation. Chest x-ray demonstrated COPD with asymmetric volume loss in the right hemithorax and opacification throughout the right upper and mid lobes as well as extensive opacification in the left perihilar region. In the emergency department she was started on ceftriaxone, Zithromax, and BiPAP was ordered. She was also started on DuoNeb's and Solu-Medrol. Arrangements were made for admission. The patient ultimately required intubation prior to being admitted. She was subsequently admitted to the ICU and pulmonary critical care was consulted. Pulmonary did recommend transitioning the patient to Zosyn. She did have some low blood pressures and required levo fed overnight from 01/22 through 01/23. Patient was sucessfully extubated on 01/26/23. She has been progressing well since then. Patient seen and examined at bedside. [facility] She denies any significant shortness of breath. She states she wears 3 L at baseline. She denies any nausea or vomiting. Vital signs reviewed General: non toxic, no acute distress, appears at stated age Cardiovascular: S1S2 reg, no murmur, positive posterior tibial pulse bilateral, Lungs: Coarse breath sounds bilateral, no rhonchi, no rales , no accessory muscle use Abdominal: soft, nontender to palpation, no guarding, no appreciable organomegaly Ext: no gross muscle atrophy, no edema b/l lower extremities, no contractures Neuro: Cranial nerves II through XII grossly intact, no focal neuro deficits Psych: Awake, alert, oriented to situation, appropriate affect Assessment: Multifocal pneumonia Acute exacerbation of COPD Acute on chronic hypoxic hypercapnic respiratory failure -Pulmonary no reviewed, start daily spontaneous breathing trials, continue with bronchidilators -Continue with DuoNeb's scheduled in as needed, Solu-Medrol 60 every 6 -Continue with Zosyn 3.375 g every 8 hours day #6/ -Sputum with few normal respiratory kody -Blood cultures negative to date -WeanO2 as able Type 2 insulin-dependent -Continue with Levemir 34 units in the morning, and 15 units at night, continue with sliding scale - follow bs -A1C 6.6 Anemia, secondary to severe iron deficiency -IV iron completed -No overt signs of GI bleed -Continue to follow hemoglobin, out patient evaluation for etiology Hypovolemic hyponatremia, resolved Toxic metabolic encephalopathy, resolved Leukocytosis, suspect reactive secondary to steroids -Repeat CBC in a.m. Stage II pressure wound right buttock, POA (4 eyes assessment from january 22) - barrrier cream - off load wound Chronic: Chronic myelogenous leukemia Dyslipidemia Chronic CHF HTN Obesity with BMI 35.9 LEYVA Vit D def schizophrenia Imaging: Echocardiogram: Severe pulmonary hypertension with RVSP of 95 and hypokinetic right ventricle, left ventricular ejection fraction 60-65% Chest x-rays reviewed by myself on 01/28 reveals large right-sided pleural effusion Data Review: patient is afebrile the last 24 hours. Pulse 93, respirations 14, blood pressure 159/81, O2 sat 93% on 5 L Laboratory analysis reviewed and remarkable for white blood cell count 13.3, hemoglobin 9.4, carbon dioxide 38, BUN 22. Ambien blood sugar was 108. Blood cultures-negative, sputum culture-negative DVT prophylaxis: Heparin Discussed with:Nursing Anticipated discharge date: Pending Clinical Course Anticipated discharge place: Pending Clinical Course This dictation was prepared using Share[employer] voice recognition software. Though every attempt is made to correct errors during dictation some may still exist. Objective - Vital Signs Vital signs: Vital Signs Temp 98.6 F 01/28/23 14:00 Pulse 85 01/28/23 14:00 Resp 16 01/28/23 14:00 BP 131/70 01/28/23 14:00 Pulse Ox 95 01/28/23 14:00 FiO2 40 01/28/23 08:02 Intake & Output 01/28/23 01/28/23 01/29/23 06:59 18:59 06:59 Intake Total 420 740 Output Total 750 1000 Balance -330 -260 Intake: IV 40 20 Invasive Line 5 10 10 Invasive Line 6 30 10 Sodium Chloride 0.9% 1, 0 000 ml @ 20 mls/hr IV . Q24H [facility] Rx#:[id number] Oral 380 720 Output: Urine 750 1000 Other: Voiding Method Indwelling Catheter Indwelling Catheter ABP, PAP, CO, CI - Last Documented Arterial Blood Pressure 145/62 - Labs CBC & Chem 7: 01/28/23 04:12 01/28/23 04:07 Labs: Abnormal Lab Results - Last 24 Hours (Table) 01/27/23 01/28/23 01/28/23 Range/Units 20:08 04:07 04:12 WBC 13.3 H (3.8-10.6) k/uL RBC 3.49 L (3.80-5.40) m/uL Hgb 9.4 L (11.4-16.0) gm/dL Hct 31.1 L (34.0-46.0) % MCHC 30.2 L (31.0-37.0) g/dL Neutrophils # 11.7 H (1.3-7.7) k/uL Lymphocytes # 0.8 L (1.0-4.8) k/uL Carbon Dioxide 38 H (22-30) mmol/L BUN 22 H (7-17) mg/dL Glucose 108 H (74-99) mg/dL POC Glucose (mg/dL) 176 H (70-110) mg/dL Calcium 8.2 L (8.4-10.2) mg/dL 01/28/23 01/28/23 01/28/23 Range/Units 06:45 11:05 16:25 WBC (3.8-10.6) k/uL RBC (3.80-5.40) m/uL Hgb (11.4-16.0) gm/dL Hct (34.0-46.0) % MCHC (31.0-37.0) g/dL Neutrophils # (1.3-7.7) k/uL Lymphocytes # (1.0-4.8) k/uL Carbon Dioxide (22-30) mmol/L BUN (7-17) mg/dL Glucose (74-99) mg/dL POC Glucose (mg/dL) 115 H 177 H 173 H (70-110) mg/dL Calcium (8.4-10.2) mg/dL Microbiology - Last 24 Hours (Table) 01/22/23 05:50 Blood Culture - Final Blood 01/22/23 04:46 Blood Culture - Final Blood
[2023-01-28 20:03] LABS: Glucose,Whole Blood 218 mg/dL (70-110)
[2023-01-28] MEDS: ATORVASTATIN 40 MG TAB PO SCH (20:09)
[2023-01-28] MEDS: HYDROmorphone 0.5 MG/0.5 ML SYRINGE IVP PRN (20:10)
[2023-01-28] MEDS: ONDANSETRON 4 MG/2 ML VIAL IVP PRN (22:20)
[2023-01-29] MEDS: HYDROcodone/APAP 7.5-325MG 1 EACH TAB PO PRN ×3 (01:44→14:55)
[2023-01-29 02:39] VITALS: TEMP 98.8
[2023-01-29 04:27] LABS: HCT 31.4 % (34.0-46.0); HGB 9.5 gm/dL (11.4-16.0); Hypochromasia Marked; MCH 27.5 pg (25.0-35.0); MCHC 30.2 g/dL (31.0-37.0); Platelet Count 170 k/uL (150-450); RBC 3.46 m/uL (3.80-5.40); RDW 15.4 % (11.5-15.5); WBC 9.9 k/uL (3.8-10.6)
[2023-01-29 04:40] LABS: African American GFR (CKD) >90 (>60 ml/min/1.73 sqM); Anion Gap 5 mmol/L; Blood Urea Nitrogen 26 mg/dL (7-17); Calcium 8.3 mg/dL (8.4-10.2); Carbon Dioxide 34 mmol/L (22-30); Chloride 97 mmol/L (98-107); Glucose 137 mg/dL (74-99); Magnesium 1.9 mg/dL (1.6-2.3); Non-African American GFR(CKD) 87 (>60 ml/min/1.73 sqM); Potassium 4.7 mmol/L (3.5-5.1); Sodium 136 mmol/L (137-145)
[2023-01-29 06:38] LABS: Glucose,Whole Blood 143 mg/dL (70-110)
[2023-01-29] MEDS: IPRATROPIUM-ALBUTEROL 3 ML NEB INHALATION SCH ×2 (07:49→12:06)
[2023-01-29] MEDS: INSULIN ASPART (NovoLOG) 100 UNIT/ML VIAL SQ SCH ×2 (08:49→12:55)
[2023-01-29] MEDS: HEPARIN SODIUM,PORCINE/PF 5,000 UNIT/0.5 ML SYRINGE SQ SCH (09:58)
[2023-01-29] MEDS: PIPERACILLIN-TAZOBACTAM 3.375 GM in SODIUM CHLORIDE 0.9% 100 ML IVPB SCH (09:59)
[2023-01-29] MEDS: methylPREDNISolone SOD SUCCI 125 MG/2 ML VIAL IV SCH (09:59)
[2023-01-29] MEDS: METOPROLOL TARTRATE 25 MG TAB PO SCH (10:00)
[2023-01-29] MEDS: ASPIRIN 81 MG PO SCH (10:00)
[2023-01-29] MEDS: GABAPENTIN 100 MG CAP PO SCH (10:00)
[2023-01-29] MEDS: LURASIDONE 40 MG TAB PO SCH (10:00)
[2023-01-29] MEDS: FENOFIBRATE 160 MG TAB PO SCH (10:00)
[2023-01-29] MEDS: OXcarbazepine 300 MG TAB PO SCH (10:01)
[2023-01-29] MEDS: PANTOPRAZOLE 40 MG/10 ML VIAL IVP SCH (10:02)
[2023-01-29] MEDS: INSULIN DETEMIR (LEVEMIR) 100 UNIT/ML SYR SQ SCH (10:02)
[2023-01-29] MEDS ORDERED: RX INFO: IV CONTRAST WAS GIVEN 1 EACH MISC MISCELLANE PRN (10:19)
--- NOTE | 2023-01-29 10:20 | P.PN ---
Subjective Progress Note Date: 01/29/23 Principal diagnosis: Respiratory failure. Acute hypoxic and hypercapnic respiratory failure secondary to pneumonia. This is a 47-year-old female with history of COPD, chronic hypoxic respiratory failure, hypertension, type 2 diabetes, patient is a resident of [facility], presented to the ER with hypoxia and altered mental status. Patient was hypoxic upon arrival in spite of 15 L flow of oxygen, she had a low- grade temp of 98.8, she was hemodynamically stable, however ABG showed a pCO2 of 105 pCO2 of 7.25, patient was initially placed on BiPAP, did not improve with BiPAP, and she required intubation and mechanical ventilation. Chest x-ray showed multifocal infiltrates. Patient was admitted, placed on mechanical ventilation, she is presently on assist control rate of 20,000 volume 400 FiO2 70% and PEEP of 15 ABG showed a pO2 of 74 pCO2 of 62 pH of 7.42 patient remains on a FiO2 of 70% and PEEP of 14. WBC count is 10 hemoglobin is 10.6, basic meta bolic profile is normal including normal renal profile, bicarb is 45. Screening for influenza A, influenza B, RSV and COVID-19 came back negative chest x-ray showed multifocal pneumonia. CT of the brain showed no intracranial abnormality, she does have a 1.9 cm anterior left frontal meningioma versus congenital variation with Chi hyperostosis of frontalis interna it initially the patient was placed on antibiotics in the form of Zithromax and Rocephin however considering the presentation I recommended we go to Zosyn. Patient remained hemodynamically stable but requires a relatively high FiO2 high PEEP, she is on propofol at 20 mcg/kg/m, her IV fluid is running at 100 mL an hour, urine output seems to be marginal. Patient was today on 01/23/2023, remains in the ICU, intubated and mechanically ventilated. Patient is on assist control rate of 20 to volume 400 FiO2 55% PEEP of 14. ABG showed a pO2 of 141 pCO2 65 pH of 7.40. Hence I cut down her FiO2 to 50% and cut down PEEP to 10. Chest x-ray showed evidence of bilateral infiltrates, highly suspicious for multifocal pneumonia./Aspiration pneumonia. Patient remains in the meantime on Zosyn. Her endotracheal tube will be advanc ed since it seems to be high proximal in the trachea. Patient remains on propofol at 45 mcg/kg/m norepinephrine at 0.01 mcg/kg/m IV fluid is 0.9 normal saline 100 mL per hour. Cultures so far are nondiagnostic. Patient remains empirically on Zosyn. Overnight no major issues, patient did require a low dose of norepinephrine at 0.01 mcg/kg/m, and her propofol has been adjusted overnight. Patient has good urine output, she is on enteral feeding, she is on antibiotics, she is on GI and DVT prophylaxis, and she is not quite ready for weaning. Patient is still requiring relatively high FiO2 and the relatively high PEEP Progress note dated 01/24/2023. This is a 47-year-old female who was admitted to the hospital on January 22 or respiratory failure, pneumonia, and acute respiratory distress syndrome. The patient was intubated on the same day. The patient remains on the mechanical ventilator. She is on the volume assist control mode, rate 20, tidal volume 400, FiO2 50%, and PEEP of 8. Blood gases show pO2 63, pCO2 of 53, and a pH is 7.44. The patient is on saline at 125 mL an hour, propofol at 60 mcg/kg/m, norepinephrine which is off, and Glucerna 1.2 at 66 mL an hour, which is goal. The patient is on Zosyn IV piggyback. The patient will have an attempted daily interruption of sedation today and a spontaneous breathing trial, with a pressure support of 8, and CPAP of 5. White count 6.4, hemoglobin 8.3, hematocrit 26.6, and platelet count 219,000. Sodium 131, potassium 3.9, chlorides 92, CO2 33, BUN 25, creatinine 0.98. Chest x-ray shows mild cardiomegaly, and improving lung infiltrates. Progress note dated 01/25/2023. 47-year-old female admitted to the hospital on January 22 respiratory failure, pneumonia, and respiratory distress. The patient was intubated on the same today, January 22. She remains on the mechanical ventilator. Yesterday, we attempted a daily interruption of sedation, but she was quite agitated, and had to be re-sedated. She is on volume assist control, rate 20, tidal volume 400, FiO2 50%, EPAP of 8. Gases show pO2 70, he CO2 50, and a pH is 7.43. The patient's on saline at 125 mL an hour, propofol 60 mcg/kg/m, and Glucerna at goal, which is 18 mL/h. The patient is going to get Lasix 60 mg IV push today. She is on Zosyn. Her pro-calcitonin level was elevated at 3.24. The saline will be dropped down to KVO. White count 8.3, he will may 0.6, hematocrit 28.3, and platelet count normal. Sodium 135, potassium 4.4, chlorides 98, CO2 32, BUN 25, creatinine 0.97. Thus far, cultures are negative. Chest x-ray show a pattern of possible fluid overload, versus pneumonia. Progress note dated 01/26/2023. 47-year-old female who was admitted to hospital on 01/22/2023, with respiratory failure, pneumonia, and respiratory distress. She was intubated and mechanically ventilated on January 22. She remains on the ventilator, but, is closer to be weaned and extubated. Currently, the patient is on volume assist control, rate 20, tidal volume 400, FiO2 50%, and PEEP of 8. The patient will have a spontaneous breathing trial today, with pressure support of 8, and CPAP of 5. Blood gases this morning show pO2 of 85, pCO2 49, and pH is 7.46. Patient remains on saline at 20 mL an hour. Propofol has been turned off. The patient is receiving Glucerna and 18 mL an hour. White count 8.5, hemoglobin 8.6, hematocrit 27.6, with a normal platelet count. Sodium 138, potassium 4.2, chlorides 99, CO2 33, anion gap 6, BUN 26, and creatinine 0.90. All cultures are negative. Today's chest x-ray is unchanged. Progress note dated 01/27/2023. 47-year-old female admitted on January 22, with respiratory failure, pneumonia, and respiratory distress. She was intubated and mechanically ventilated on 01/22/2023. The patient was successfully extubated yesterday, 01/26/2023. She remains on 6 L of oxygen by nasal cannula. She's getting saline at 20 mL an hour. Microbiologic studies have been negative. She remains on Zosyn, day #5. The patient will be getting Lasix 40 mg IV push today. The patient could be transferred out of the intensive care unit, to the general medical floor today. White count 10, hemoglobin 8.8, hematocrit 29.4, and platelet count 199,000. Sodium 138, potassium 4.6, chlorides 99, CO2 36, BUN 18, creatinine 0.93. Chest x-ray shows small to moderate size right pleural effusion, with cardiomegaly, and mild interstitial changes, consistent with edema and/or pneumonia. Progress note dated 01/28/2023. 47-year-old female admitted on January 22 with respiratory failure, pneumonia, and respiratory distress. The patient was intubated and mechanically ventilated on 01/22/2023. She was finally and successfully extubated on 01/26/2023. She seen today in the intensive care unit, room 257. She's currently on 5 L nasal cannula. She's getting saline at KVO. The patient can be transferred to the general medical floor, without telemetry. We are just waiting for bed. White count 13.3, hemoglobin 9.4, hematocrit 31.1, and platelet count was normal. Sodium 138, potassium 4.5, chlorides 98, CO2 38, BUN 22, and creatinine 0.78. Chest x-ray shows a right-sided pleural effusion. There is evidence of cardiomegaly. The patient remains on Zosyn. Progress note dated 01/29/2023. 47-year-old female admitted on January 22 with respiratory failure, possible pneumonia, and respiratory distress. She was intubated and mechanically ventilated on 01/22/2023. She was extubated successfully on 01/26/2023. She seen today in the intensive care unit, room 257. She remains on saline at KVO. She's getting oxygen at 6 L. White count 9.9, hemoglobin 9.5, hematocrit 31.4, and platelet count normal. Sodium 136, potassium 4.7, chlorides 97, CO2 34, BUN 26, creatinine 0.8. Microbiologic studies have been negative. Objective - Vital Signs Vital signs: Vital Signs Temp 98.8 F 01/29/23 08:00 Pulse 100 01/29/23 08:01 Resp 18 01/29/23 08:00 BP 137/66 01/29/23 08:00 Pulse Ox 94 L 01/29/23 08:00 FiO2 40 01/28/23 08:02 Intake & Output 01/28/23 01/29/23 01/29/23 18:59 06:59 18:59 Intake Total 740 120 10 Output Total 1000 1700 Balance -260 -1580 10 Intake: IV 20 120 10 Invasive Line 5 10 Invasive Line 6 10 10 10 Piperacillin-Tazobactam 3 100 .375 gm In Sodium Chloride 0.9% 100 ml @ 25 mls/hr IVPB Q8HR WIN Rx# :[id number] Sodium Chloride 0.9% 1, 10 000 ml @ 20 mls/hr IV . Q24H WIN Rx#:[id number] Oral 720 Output: Urine 1000 1700 Other: Voiding Method Indwelling Catheter Indwelling Catheter ABP, PAP, CO, CI - Last Documented Arterial Blood Pressure 145/62 - Exam No acute distress, currently on 6 L nasal cannula. HEENT examination is grossly unremarkable. Neck supple. Full range of motion. No adenopathy thyromegaly or neck vein distention. Cardiovascular examination reveals regular rhythm rate. S1-S2 normal. No S3 or S4. No discernible murmur noted. Heart sounds are distant. Heart rate 92 bpm. Lungs reveal scattered rhonchi. No wheezes or crackles. Breath sounds diminished at the right lung base. Saturations are 94% on 6 L. Abdomen soft, with bowel sounds. No masses or tenderness. Extremities are intact. No cyanosis clubbing or edema. Skin is without rash or lesion. Neurologic examination is brief but nonfocal. - Labs CBC & Chem 7: 01/29/23 03:57 01/29/23 03:57 Labs: Abnormal Lab Results - Last 24 Hours (Table) 01/28/23 01/28/23 01/28/23 Range/Units 11:05 16:25 20:01 RBC (3.80-5.40) m/uL Hgb (11.4-16.0) gm/dL Hct (34.0-46.0) % MCHC (31.0-37.0) g/dL Sodium (137-145) mmol/L Chloride (98-107) mmol/L Carbon Dioxide (22-30) mmol/L BUN (7-17) mg/dL Glucose (74-99) mg/dL POC Glucose (mg/dL) 177 H 173 H 218 H (70-110) mg/dL Calcium (8.4-10.2) mg/dL 01/29/23 01/29/2323 Range/Units 03:57 03:57 06:37 RBC 3.46 L (3.80-5.40) m/uL Hgb 9.5 L (11.4-16.0) gm/dL Hct 31.4 L (34.0-46.0) % MCHC 30.2 L (31.0-37.0) g/dL Sodium 136 L (137-145) mmol/L Chloride 97 L (98-107) mmol/L Carbon Dioxide 34 H (22-30) mmol/L BUN 26 H (7-17) mg/dL Glucose 137 H (74-99) mg/dL POC Glucose (mg/dL) 143 H (70-110) mg/dL Calcium 8.3 L (8.4-10.2) mg/dL Assessment and Plan Assessment: Acute on chronic hypoxemic and hypercapnic respiratory failure, secondary to multifocal pneumonia, and COPD, S/P intubation and mechanical ventilation on 01/22/2023. S/P successful extubation, 01/26/2023. Possible aspiration pneumonia, with right-sided pleural effusion. Acute mental status changes, likely on the basis of sepsis, and worsening hypercapnia. History of COPD. Morbid obesity. Type 2 diabetes. Acute toxic/metabolic encephalopathy. Benign essential hypertension. Plan: Plan dated 01/24/2023. Although the patient may not be ready, we will attempt a daily interruption of sedation spontaneous breathing trial. The patient has been off norepinephrine now for a while. She is getting tube feedings. She's getting propofol at 60 mcg/kg/m. Arterial blood gases are borderline. Chest x-ray, labs, and all medications are reviewed. We will continue to follow the patient and make recommendations along the way. Plan dated 01/25/2023. The patient remains relatively stable, although, she did not do very well yesterday on her daily interruption of sedation. She became very agitated. Today, the patient saline IVs dropped down to KVO. We'll give her Lasix 60 mg IV push. She remains on Zosyn empirically for pneumonia. Pro-calcitonin level was elevated at 3.24. Labs, x-rays, and medications are reviewed. The patient's overall prognosis remains very guarded. We will attempt another daily interruption of sedation today. If the patient does not show progression, she may need a tracheostomy tube and feeding tube. Plan dated 01/26/2023. The patient appears to be much more clinically stable today and much more awake, on a small dose of propofol. The propofol will be discontinued completely, and tube feedings will be held, and her stomach suctioned. We will do a spontaneous breathing trial on pressure support of 8 and CPAP of 5. We'll check weaning parameters and 20-30 minutes, including a rapid shallow breathing index, and cuff leak test. If she is ready, the patient will be extubated. Labs, x-rays, medications reviewed. We'll continue to follow the patient and make recommendations along the way. Prognosis is guarded. Plan dated 01/27/2023. The patient was successfully extubated yesterday. She remains on oxygen at 6 L. She's getting saline at 20 mL an hour. Microbiologic studies of S4 been negative. Labs, x-rays, and medications are reviewed. She is on Zosyn, day #5. The patient will get Lasix 40 mg IV push today. The patient could be considered for discharge to the general medical floor today, without telemetry. We'll continue to follow. Prognosis is guarded. Plan dated 01/28/2023. The patient's labs, x-rays, medications are reviewed. The patient will have an ultrasound of the right chest with markings. She may benefit from a thoracente sis. Additional recommendations and suggestions are forthcoming. All her microbiologic studies are negative. The patient's on Zosyn, day #6. After tomorrow, we can likely stop the Zosyn. We will continue to follow the patient and make recommendations along the way. Prognosis is guarded. Plan dated 01/29/2023. The patient can be transferred out of the ICU, to the general medical floor. She should continue on antibiotics. Labs, x-rays, medications are reviewed. Chest ultrasound did not show free-flowing fluid in the right pleural space. We will order a computed tomography scan of the chest with contrast, to better visualize the process in the right pleural space. Additional recommendations and suggestions are forthcoming. Labs, x-rays, medications are reviewed. Prognosis is guarded. Time with Patient: Less than 30
--- NOTE | 2023-01-29 10:33 | P.DS ---
Providers Date of admission: 01/22/23 06:10 Expected date of discharge: 01/29/23 Attending physician: Matthew Dick MD Consults: 01/22/23 06:10 Consult Physician Stat Consulting Provider: Robert Deng Consult Reason/Comments: hypoxic resp failure, pneumonia, copd, hypercarbia, encephalopathy Do you want consulting provider notified?: Already Contacted Primary care physician: Erick Tejada DO Hospital Course: Discharge Diagnosis: Multifocal pneumonia Acute exacerbation of COPD Acute on chronic hypoxic hypercapnic respiratory failure Type 2 insulin-dependent diabetes Anemia, secondary to severe iron deficiency Hypovolemic hyponatremia, resolved Toxic metabolic encephalopathy, resolved Leukocytosis, suspect reactive secondary to steroids Stage II pressure wound right buttock, POA Hospital Course: Patient is a 47-year-old female with COPD on chronic O2 at 3-5 L, diabetes mellitus type 2, hypertension, suprapubic tube who is a resident at [facility] and presented to the emergency room for hypoxia and altered mentation. In the emergency department he underwent an extensive evaluation. On arrival her O2 sat was 88% on nonrebreather at 15 L, blood pressure was 110/56, and respiration was 22. Initial ABG revealed a pH of 7.25 with acute CO2 of 105. Laboratory analysis was remarkable for hemoglobin 10.6, carbon dioxide 45, sodium 129, blood sugar 205. COVID-19, influenza A/B, and RSV testing were negative. CT of the brain showed 1.9 cm left frontal lobe meningioma versus congenital variation. Chest x-ray demonstrated COPD with asymmetric volume loss in the right hemithorax and opacification throughout the right upper and mid lobes as well as extensive opacification in the left perihilar region. In the emergency department she was started on ceftriaxone, Zithromax, and BiPAP was ordered. She was also started on DuoNeb's and Solu-Medrol. Arrangements were made for admission. The patient ultimately required intubation prior to being admitted. She was subsequently admitted to the ICU and pulmonary critical care was consulted. Pulmonary did recommend transitioning the patient to Zosyn. She did have some low blood pressures and required levo fed overnight from 01/22 through 01/23. Patient was sucessfully extubated on 01/26/23. She has been progressing well since then. CT chest was completed which showed scant right effusion, nodular changes in the right upper lobe and enlarge lymphnodes, with follow recommended in 3 months. There was also a possible retained guide wire. Jhonatan Dixon saw the patient and was able to access to records and confirm it has been there since March 2022 and no indication for surgical intervention at this time. She was determined stable for discharge back to [facility]. Follow-up: CXR in 1 week for pleural effusion, Needs further evaluation for iron deficiency anemia. Augment for 2 more days (will need 1 dose tonight). Follow with attending at [facility], Dr. Monroe in 2 weeks Patient seen and examined at bedside. No complaints breathing well. Having her chronic pain. No nuasea or vomiting.Wants to be discharged. Vital signs reviewed and stable. General: nontoxic, no distress, appears at stated age Cardiovascular: S1S2 reg, no murmur, positive posterior tibial pulse bilateral, Lungs: Decreased bs bilateral, no rhonchi, no rales , no accessory muscle use Abdominal: soft, nontender to palpation, no guarding, no appreciable organomegaly Ext: no gross muscle atrophy, trace edema b/l lower extremities, no contractures Neuro: CN II-XI grossly intact, no focal neuro deficits Psych: Alert, oriented, appropriate affect A total of 45 minutes of time were spent preparing this complex discharge summary. Patient was discharged on 01/29/23. This dictation was prepared using [employer] voice recognition software. Though every attempt is made to correct errors during dictation some may still exist. Patient Condition at Discharge: Stable Plan - Discharge Summary Discharge Rx Participant: No New Discharge Prescriptions: New Amoxic-Pot Clav 875-125Mg [Augmentin 875-125] 1 tab PO BID 2 Days #5 tab Continue DULoxetine HCL [Cymbalta] 60 mg PO DAILY Lurasidone [Latuda] 40 mg PO BID Insulin Glargine [Lantus Vial] 34 unit SQ DAILY@1000 Acetaminophen Tab [Tylenol] 650 mg PO Q6H PRN PRN Reason: Fever And/ Or Pain Ipratropium-Albuterol Nebulize [Duoneb 0.5 mg-3 mg/3 ml Soln] 3 ml INHALATION RT-Q6H PRN PRN Reason: Shortness Of Breath Calcium Carbonate 500 mg PO Q2H PRN PRN Reason: ACID REFLUX Albuterol Inhaler [Ventolin Hfa Inhaler] 2 puff INHALATION RT-QID Insulin Lispro [Admelog Solostar] See Protocol SQ TID-W/MEALS Gabapentin [Neurontin] 300 mg PO TID Budesonide/Formoterol Fumarate [Symbicort 160-4.5 Mcg Inhaler] 2 puff INHA LATION RT-BID L.acidoph,Paracasei, B.lactis [Probiotic] 1 cap PO DAILY Imatinib Mesylate [Gleevec] 400 mg PO DAILY Atorvastatin [Lipitor] 40 mg PO HS Aspirin EC [Ecotrin Low Dose] 81 mg PO DAILY Diclofenac Sodium Gel [Voltaren Gel] 1 applic TOPICAL Q6H PRN PRN Reason: HAND PAIN Cyclobenzaprine [Flexeril] 10 mg PO Q12H PRN PRN Reason: MUSCLE SPASM OF BACK Pyridoxine HCl (Vitamin B6) [Vitamin B-6] 100 mg PO DAILY Ergocalciferol (Vitamin D2) [Drisdol (50,000 Iu)] 1,250 mcg PO CAUSEY Calcium Carbonate/Vitamin D3 [Oyster Shell-D 250 mg Tablet] 1 tab PO DAILY Omeprazole [PriLOSEC] 20 mg PO HS OXcarbazepine [Trileptal] 600 mg PO DAILY Multivitamins, Thera [Multivitamin (formulary)] 1 tab PO DAILY Mirtazapine [Remeron] 15 mg PO HS Metoprolol Succinate (ER) [Toprol XL] 25 mg PO DAILY Melatonin 5 mg PO HS Fenofibrate,Micronized [Fenofibrate] 200 mg PO DAILY Estradiol Cream [Estrace Cream 0.01%] 1 gm VAGINAL Q4D Loratadine [Claritin] 10 mg PO DAILY HYDROcodone/APAP 5-325MG [Erlanger 5-325] 1 tab PO Q8H PRN #9 tab PRN Reason: Pain Discontinued Loperamide [Imodium] 2 mg PO Q4H PRN PRN Reason: Loose Stool Bumetanide [BUMEX] 2 mg PO BID@0800,1600 oxyBUTYnin chloride [oxyBUTYnin chloride ER] 5 mg PO DAILY Discharge Medication List DULoxetine HCL [Cymbalta] 60 mg PO DAILY 02/06/16 [History] Insulin Glargine [Lantus Vial] 34 unit SQ DAILY@1000 02/06/16 [History] Lurasidone [Latuda] 40 mg PO BID 02/06/16 [History] Acetaminophen Tab [Tylenol] 650 mg PO Q6H PRN 01/22/23 [History] Albuterol Inhaler [Ventolin Hfa Inhaler] 2 puff INHALATION RT-QID 01/22/23 [History] Aspirin EC [Ecotrin Low Dose] 81 mg PO DAILY 01/22/23 [History] Atorvastatin [Lipitor] 40 mg PO HS 01/22/23 [History] Budesonide/Formoterol Fumarate [Symbicort 160-4.5 Mcg Inhaler] 2 puff INHALATION RT-BID 01/22/23 [History] Calcium Carbonate 500 mg PO Q2H PRN 01/22/23 [History] Calcium Carbonate/Vitamin D3 [Oyster Shell-D 250 mg Tablet] 1 tab PO DAILY 01/22/23 [History] Cyclobenzaprine [Flexeril] 10 mg PO Q12H PRN 01/22/23 [History] Diclofenac Sodium Gel [Voltaren Gel] 1 applic TOPICAL Q6H PRN 01/22/23 [History] Ergocalciferol (Vitamin D2) [Drisdol (50,000 Iu)] 1,250 mcg PO CAUSEY 01/22/23 [History] Estradiol Cream [Estrace Cream 0.01%] 1 gm VAGINAL Q4D 01/22/23 [History] Fenofibrate,Micronized [Fenofibrate] 200 mg PO DAILY 01/22/23 [History] Gabapentin [Neurontin] 300 mg PO TID 01/22/23 [History] Imatinib Mesylate [Gleevec] 400 mg PO DAILY 01/22/23 [History] Insulin Lispro [Admelog Solostar] See Protocol SQ TID-W/MEALS 01/22/23 [History] Ipratropium-Albuterol Nebulize [Duoneb 0.5 mg-3 mg/3 ml Soln] 3 ml INHALATION RT-Q6H PRN 01/22/23 [History] L.acidoph,Paracasei, B.lactis [Probiotic] 1 cap PO DAILY 01/22/23 [History] Loratadine [Claritin] 10 mg PO DAILY 01/22/23 [History] Melatonin 5 mg PO HS 01/22/23 [History] Metoprolol Succinate (ER) [Toprol XL] 25 mg PO DAILY 01/22/23 [History] Mirtazapine [Remeron] 15 mg PO HS 01/22/23 [History] Multivitamins, Thera [Multivitamin (formulary)] 1 tab PO DAILY 01/22/23 [History] OXcarbazepine [Trileptal] 600 mg PO DAILY 01/22/23 [History] Omeprazole [PriLOSEC] 20 mg PO HS 01/22/23 [History] Pyridoxine HCl (Vitamin B6) [Vitamin B-6] 100 mg PO DAILY 01/22/23 [History] Amoxic-Pot Clav 875-125Mg [Augmentin 875-125] 1 tab PO BID 2 Days #5 tab 01/29/23 [Rx] HYDROcodone/APAP 5-325MG [Erlanger 5-325] 1 tab PO Q8H PRN #9 tab 01/29/23 [Rx] Follow up Appointment(s)/Referral(s): Erick Tejada DO [Primary Care Provider] - 1-2 days Nash Monroe DO [Doctor of Osteopathic Medicine] - 2 Weeks [facility], [NON-STAFF] - 1 Week Activity/Diet/Wound Care/Special Instructions: Activity: As tolerated Fall precautions Diet: Heart healthy, Carb consistent Special Instructions: Needs further evaluation for etiology of iron deficiency anemia- received IV iron X 3. Repeat CXR in 1 week DX: Pleural effusion, please send results with patient on her appointment with Dr. Monroe Maintain O2 for sat >88% Discharge Disposition: TRANSFER TO SNF/ECF
[2023-01-29 11:49] VITALS: BP 127/47; PULSE 90; RESP 17
--- NOTE | 2023-01-29 12:02 | CT ---
EXAMINATION TYPE: CT chest w con CT DLP: 665 mGycm, Automated exposure control for dose reduction was used. DATE OF EXAM: 01/29/2023 11:21 AM COMPARISON: Chest radiograph from 01/28/2023. CLINICAL INDICATION:Female, 47 years old with history of right effusion with loculation;, right effus ion with loculation TECHNIQUE: Multiple axial images were obtained through the chest. Sagittal and coronal reformats were created for review. Contrast used:100ml mL of Isovue 300 with IV Contrast Oral contrast used: none. FINDINGS: LUNGS/ PLEURA: Small/trace right pleural effusion trace left pleural effusion. There is associated at electasis changes. Nodular consolidation to the right upper lung with atelectasis of the right middle and right lower lobe. Intralobular septa. Additional streaky atelectasis seen throughout the lungs. AIRWAY: Patent and unremarkable. HEART: Large mildly enlarged for size. MEDIASTINUM: No gross evidence of adenopathy. Bilateral paratracheal lymph node measuring 17 mm in sh ort axis. Right high paratracheal lymph node measuring 12 mm in short axis. VASCULATURE: No aortic aneurysm. No evidence for a filling defect to suggest pulmonary embolus. The pulmonary trunk is dilated up to 35 mm. Linear density that extends through the left pulmonary arteri al vasculature which may possibly be a wire versus catheter. MUSCULOSKELETAL: No acute osseous abnormalities, vertebroplasty changes to the spine. SOFT TISSUES/LYMPH NODES: Unremarkable. LOWER NECK: No significant findings. UPPER ABDOMEN: No significant findings. IMPRESSION: 1. Trace right pleural effusion predominantly in the dependent portion. 2. Linear metallic density that extends through the left pulmonary arterial vasculature that appears possibly to be a wire. Correlate for retained foreign body. 3. Low lung volumes are present with atelectasis of the right middle and lower lobe. 4. Nodular opacities within the right upper lung correlate for infectious/inflammatory process. Foll ow-up imaging in 3 months to ensure resolution is recommended. 5. Cardiomegaly with pulmonary vascular congestion correlate with serum BNP. 6. Pulmonary hypertension also present. 7. Enlarged mediastinal lymph nodes could be reactive to infectious/inflammatory process. Attention on follow-up imaging to ensure resolution 3 months.
[2023-01-29 12:26] LABS: Glucose,Whole Blood 170 mg/dL (70-110)
--- NOTE | 2023-01-29 13:41 | P.GSCN ---
History of Present Illness Consult date: 01/29/23 History of present illness: Shaovnne is a 47-year-old female with a complex past medical history including COPD chronically on oxygen, diabetes, hypertension, suprapubic tube, resident at [facility], previous hospitalizations at [facility] who presented to the ER for hypoxia and altered mentation. In the emergency department he underwent evaluation and opacifications consistent with pneumonia. She was intubated and subsequently been extubated. She had been progressing well and there was desired to reevaluate her pneumonia with early therefore a CT chest was ordered. There is evidence of a possible retained guidewire in the left pulmonary artery and we are consult for this. Patient this point is essentially at her baseline no acute distress without complaints. Past Medical History Past Medical History: COPD, Diabetes Mellitus Additional Past Medical History / Comment(s): colitis History of Any Multi-Drug Resistant Organisms: None Reported Past Surgical History: Cholecystectomy, Hysterectomy, Tonsillectomy Additional Past Surgical History / Comment(s): carpal tunnel, right axila-lymph removal Past Psychological History: ADD/ADHD, Bipolar Past Alcohol Use History: None Reported Past Drug Use History: None Reported - Past Family History Father Brother(s) Family Medical History: Unable to Obtain (due to mental status) Medications and Allergies Home Medications Medication Instructions Recorded Confirmed Type DULoxetine HCL [Cymbalta] 60 mg PO DAILY 02/06/16 01/22/23 History Insulin Glargine [Lantus Vial] 34 unit SQ DAILY@1000 02/06/16 01/22/23 History Lurasidone [Latuda] 40 mg PO BID 02/06/16 01/22/23 History Acetaminophen Tab [Tylenol] 650 mg PO Q6H PRN 01/22/23 01/22/23 History Albuterol Inhaler [Ventolin Hfa 2 puff INHALATION RT-QID 01/22/23 01/22/23 History Inhaler] Aspirin EC [Ecotrin Low Dose] 81 mg PO DAILY 01/22/23 01/22/23 History Atorvastatin [Lipitor] 40 mg PO HS 01/22/23 01/22/23 History Budesonide/Formoterol Fumarate 2 puff INHALATION RT-BID 01/22/23 01/22/23 History [Symbicort 160-4.5 Mcg Inhaler] Calcium Carbonate 500 mg PO Q2H PRN 01/22/23 01/22/23 History Calcium Carbonate/Vitamin D3 1 tab PO DAILY 01/22/23 01/22/23 History [Oyster Shell-D 250 mg Tablet] Cyclobenzaprine [Flexeril] 10 mg PO Q12H PRN 01/22/23 01/22/23 History Diclofenac Sodium Gel [Voltaren 1 applic TOPICAL Q6H PRN 01/22/23 01/22/23 History Gel] Ergocalciferol (Vitamin D2) 1,250 mcg PO CAUSEY 01/22/23 01/22/23 History [Drisdol (50,000 Iu)] Estradiol Cream [Estrace Cream 1 gm VAGINAL Q4D 01/22/23 01/22/23 History 0.01%] Fenofibrate,Micronized 200 mg PO DAILY 01/22/23 01/22/23 History [Fenofibrate] Gabapentin [Neurontin] 300 mg PO TID 01/22/23 01/22/23 History Imatinib Mesylate [Gleevec] 400 mg PO DAILY 01/22/23 01/22/23 History Insulin Lispro [Admelog Solostar] See Protocol SQ TID-W/MEALS 01/22/23 01/22/23 History Ipratropium-Albuterol Nebulize 3 ml INHALATION RT-Q6H PRN 01/22/23 01/22/23 History [Duoneb 0.5 mg-3 mg/3 ml Soln] L.acidoph,Paracasei, B.lactis 1 cap PO DAILY 01/22/23 01/22/23 History [Probiotic] Loratadine [Claritin] 10 mg PO DAILY 01/22/23 01/22/23 History Melatonin 5 mg PO HS 01/22/23 01/22/23 History Metoprolol Succinate (ER) [Toprol 25 mg PO DAILY 01/22/23 01/22/23 History XL] Mirtazapine [Remeron] 15 mg PO HS 01/22/23 01/22/23 History Multivitamins, Thera [Multivitamin 1 tab PO DAILY 01/22/23 01/22/23 History (formulary)] OXcarbazepine [Trileptal] 600 mg PO DAILY 01/22/23 01/22/23 History Omeprazole [PriLOSEC] 20 mg PO HS 01/22/23 01/22/23 History Pyridoxine HCl (Vitamin B6) 100 mg PO DAILY 01/22/23 01/22/23 History [Vitamin B-6] Amoxic-Pot Clav 875-125Mg 1 tab PO BID 2 Days #5 tab 01/29/23 Rx [Augmentin 875-125] HYDROcodone/APAP 5-325MG [Davis 1 tab PO Q8H PRN #9 tab 01/29/23 Rx 5-325] Allergies Allergy/AdvReac Type Severity Reaction Status Date / Time Fish Containing Products Allergy Unknown Verified 01/22/23 12:22 [Fish] furosemide [From Lasix] Allergy Unknown Verified 01/22/23 12:22 Latex, Natural Rubber Allergy Unknown Verified 01/22/23 12:22 prochlorperazine Allergy Unknown Verified 01/22/23 12:22 [From Compazine] shellfish derived [Shellfish] Allergy Unknown Verified 01/22/23 12:22 Sulfa (Sulfonamide Allergy Anaphylaxis Verified 02/06/16 19:10 Antibiotics) diuretics Allergy Swelling Uncoded 02/06/16 19:10 Surgical - Exam Vital Signs FiO2 100 01/22/23 03:30 Genitals a pleasant cooperative female in no acute distress. No acute respiratory distress. Normal mood and affect. Heart appears regular. Extr emities without clubbing, cyanosis or edema. Results Computed tomography scan is reviewed. Metallic density in the left pulmonary artery correlating with the foreign body - Labs 01/29/23 03:57 01/29/23 03:57 Abnormal Lab Results - Last 24 Hours (Table) 01/28/23 01/28/23 01/29/23 Range/Units 16:25 20:01 03:57 RBC 3.46 L (3.80-5.40) m/uL Hgb 9.5 L (11.4-16.0) gm/dL Hct 31.4 L (34.0-46.0) % MCHC 30.2 L (31.0-37.0) g/dL Sodium (137-145) mmol/L Chloride (98-107) mmol/L Carbon Dioxide (22-30) mmol/L BUN (7-17) mg/dL Glucose (74-99) mg/dL POC Glucose (mg/dL) 173 H 218 H (70-110) mg/dL Calcium (8.4-10.2) mg/dL 01/29/23 01/29/23 01/29/23 Range/Units 03:57 06:37 12:24 RBC (3.80-5.40) m/uL Hgb (11.4-16.0) gm/dL Hct (34.0-46.0) % MCHC (31.0-37.0) g/dL Sodium 136 L (137-145) mmol/L Chloride 97 L (98-107) mmol/L Carbon Dioxide 34 H (22-30) mmol/L BUN 26 H (7-17) mg/dL Glucose 137 H (74-99) mg/dL POC Glucose (mg/dL) 143 H 170 H (70-110) mg/dL Calcium 8.3 L (8.4-10.2) mg/dL Diabetes panel 01/29/23 Range/Units 03:57 Sodium 136 L (137-145) mmol/L Potassium 4.7 (3.5-5.1) mmol/L Chloride 97 L (98-107) mmol/L Carbon Dioxide 34 H (22-30) mmol/L BUN 26 H (7-17) mg/dL Creatinine 0.80 (0.52-1.04) mg/dL Glucose 137 H (74-99) mg/dL Calcium 8.3 L (8.4-10.2) mg/dL Calcium panel 01/29/23 Range/Units 03:57 Calcium 8.3 L (8.4-10.2) mg/dL Pituitary panel 01/29/23 Range/Units 03:57 Sodium 136 L (137-145) mmol/L Potassium 4.7 (3.5-5.1) mmol/L Chloride 97 L (98-107) mmol/L Carbon Dioxide 34 H (22-30) mmol/L BUN 26 H (7-17) mg/dL Creatinine 0.80 (0.52-1.04) mg/dL Glucose 137 H (74-99) mg/dL Calcium 8.3 L (8.4-10.2) mg/dL Adrenal panel 01/29/23 Range/Units 03:57 Sodium 136 L (137-145) mmol/L Potassium 4.7 (3.5-5.1) mmol/L Chloride 97 L (98-107) mmol/L Carbon Dioxide 34 H (22-30) mmol/L BUN 26 H (7-17) mg/dL Creatinine 0.80 (0.52-1.04) mg/dL Glucose 137 H (74-99) mg/dL Calcium 8.3 L (8.4-10.2) mg/dL Assessment and Plan Assessment: Left pulmonary artery linear density on imaging, chronic Plan: I had the pleasure of seeing Shavonne. Fortunately I was able to review outside studies from previous hospitalizations and after further review the area of concern was [facility] I personally reviewed today that was performed back in March 2022. Unable to find any further documentation this carotid at this point no further intervention is necessary. Would monitor for possible source of thrombus however given that his been here for excision amount of time without any evidence of thrombus, unlikely to do so. No intervention necessary. Patient still able for discharge.
== END 2023-01-29 15:31 | DRG 130 ==
LOC: EC 03:28 → 2SICU 06:10 → 5NMEDONC 01-29 11:42
PROVIDERS: ADMIT Internal Medicine; ATTEND Internal Medicine
PROC: 5A1955Z Respiratory Ventilation, Greater than 96 Consecutive Hours (ICD-10-PCS; principal; 2023-01-22)
PROC: 0BH17EZ Insertion of Endotracheal Airway into Trachea, Via Natural or Artificial Opening (ICD-10-PCS; 2023-01-22)
PROC: 03H833Z Insertion of Infusion Device into Left Brachial Artery, Percutaneous Approach (ICD-10-PCS; 2023-01-22)
PROC: 06HY33Z Insertion of Infusion Device into Lower Vein, Percutaneous Approach (ICD-10-PCS; 2023-01-22)
PROC: 0D9670Z Drainage of Stomach with Drainage Device, Via Natural or Artificial Opening (ICD-10-PCS; 2023-01-22)
PROC: 3E043XZ Introduction of Vasopressor into Central Vein, Percutaneous Approach (ICD-10-PCS; 2023-01-22)
PROC: 3E0G76Z Introduction of Nutritional Substance into Upper GI, Via Natural or Artificial Opening (ICD-10-PCS; 2023-01-22)
PROC: 5A09357 Assistance with Respiratory Ventilation, Less than 24 Consecutive Hours, Continuous Positive Airway Pressure (ICD-10-PCS; 2023-01-22)
DX: J96.21 Acute and chronic respiratory failure with hypoxia (principal); J18.9 Pneumonia, unspecified organism; G92.8 Other toxic encephalopathy; I50.33 Acute on chronic diastolic (congestive) heart failure; L89.312 Pressure ulcer of right buttock, stage 2; C92.10 Chronic myeloid leukemia, BCR/ABL-positive, not having achieved remission; J96.22 Acute and chronic respiratory failure with hypercapnia; I27.20 Pulmonary hypertension, unspecified; F25.9 Schizoaffective disorder, unspecified; D50.9 Iron deficiency anemia, unspecified; E11.9 Type 2 diabetes mellitus without complications; I11.0 Hypertensive heart disease with heart failure; J44.1 Chronic obstructive pulmonary disease with (acute) exacerbation; F31.9 Bipolar disorder, unspecified; Z68.41 Body mass index [BMI] 40.0-44.9, adult; E66.01 Morbid (severe) obesity due to excess calories; Z79.4 Long term (current) use of insulin; Z20.822 Contact with and (suspected) exposure to COVID-19; E87.1 Hypo-osmolality and hyponatremia; K75.81 Nonalcoholic steatohepatitis (NASH); E86.1 Hypovolemia; E55.9 Vitamin D deficiency, unspecified; E78.5 Hyperlipidemia, unspecified; F90.9 Attention-deficit hyperactivity disorder, unspecified type; G89.29 Other chronic pain; D72.829 Elevated white blood cell count, unspecified; F17.290 Nicotine dependence, other tobacco product, uncomplicated; T38.0X5A Adverse effect of glucocorticoids and synthetic analogues, initial encounter; Z79.82 Long term (current) use of aspirin; Z79.51 Long term (current) use of inhaled steroids; Z79.890 Hormone replacement therapy; Z79.1 Long term (current) use of non-steroidal anti-inflammatories (NSAID); Z79.899 Other long term (current) drug therapy; Z71.3 Dietary counseling and surveillance; Z99.81 Dependence on supplemental oxygen; Z88.2 Allergy status to sulfonamides; Z88.8 Allergy status to other drugs, medicaments and biological substances; Z91.040 Latex allergy status; Z91.013 Allergy to seafood; Z91.018 Allergy to other foods
CPT/HCPCS: 31500; 36415; 36600; 70450; 71045; 71260; 76604; 80048; 80053; 81001; 82140; 82607; 82728; 82746; 82805; 83036; 83540; 83550; 83605; 83735; 83880; 84145; 84466; 84484; 85025; 85027; 85610; 85730; 87040; 87070; 87205; 87636; 92950; 93005; 93306; 94002; 94003; 94640; 94660; 94760; 96365; 96366; 96375; 99291

== ENCOUNTER 2023-02-02 13:57 | Inpatient (IN) | payer OTHER ==
[2023-02-02] MEDS ORDERED: IPRATROPIUM-ALBUTEROL 3 ML NEB INHALATION STA (14:24)
--- NOTE | 2023-02-02 14:24 | ED ---
SOB HPI - General Chief Complaint: Shortness of Breath Stated Complaint: SOB Time Seen by Provider: 02/02/23 14:01 Source: patient, RN notes reviewed, old records reviewed Mode of arrival: EMS Limitations: altered mental status, physical limitation - History of Present Illness Initial Comments: This is a 47-year-old female to the emergency department today for evaluation patient presents today under severe shortness of breath, patient placed on BiPAP on arrival to emergency department unable to find history secondary to significant clinical condition patient had pulse ox in the 60s MD Complaint: shortness of breath, chest pain, "asthma attack", anxiety -: unknown Severity: moderate, severe Severity scale (1-10): 10 Quality: aching Consistency: constant Improves With: nothing Worsens With: movement Known History Of: COPD, congestive heart failure Context: recent URI, anxiety, recent illness Associated Symptoms: denies other symptoms, cough, sputum production Treatments Prior to Arrival: none - Related Data Home Medications Medication Instructions Recorded Confirmed DULoxetine HCL [Cymbalta] 60 mg PO DAILY@0800 02/06/16 02/02/23 Lurasidone [Latuda] 40 mg PO BID@0800,1800 02/06/16 02/02/23 Acetaminophen Tab [Tylenol] 650 mg PO Q6H PRN 01/22/23 02/02/23 Albuterol Inhaler [Ventolin Hfa 2 puff INHALATION 01/22/23 02/02/23 Inhaler] RT-QID@00,06,,18 Aspirin EC [Ecotrin Low Dose] 81 mg PO DAILY@0800 01/22/23 02/02/23 Atorvastatin [Lipitor] 40 mg PO HS 01/22/23 02/02/23 Calcium Carbonate 500 mg PO Q2H PRN 01/22/23 02/02/23 Cyclobenzaprine [Flexeril] 10 mg PO Q12H PRN 01/22/23 02/02/23 Ergocalciferol (Vitamin D2) 1,250 mcg PO CAUSEY 01/22/23 02/02/23 [Drisdol (50,000 Iu)] Estradiol Cream [Estrace Cream 1 gm VAGINAL Q4D 01/22/23 02/02/23 0.01%] Imatinib Mesylate [Gleevec] 400 mg PO DAILY@0800 01/22/23 02/02/23 Ipratropium-Albuterol Nebulize 3 ml INHALATION RT-QID@00,06,12,18 01/22/23 02/02/23 [Duoneb 0.5 mg-3 mg/3 ml Soln] PRN L.acidoph,Paracasei, B.lactis 1 cap PO DAILY 01/22/23 02/02/23 [Probiotic] Loratadine [Claritin] 10 mg PO DAILY@0801/22/23 02/02/23 Melatonin 5 mg PO HS 01/22/23 02/02/23 Metoprolol Succinate (ER) [Toprol 25 mg PO DAILY@79901/22/23 02/02/23 XL] Mirtazapine [Remeron] 15 mg PO HS@199901/22/23 02/02/23 Multivitamins, Thera [Multivitamin 1 tab PO DAILY@79901/22/23 02/02/23 (formulary)] OXcarbazepine [Trileptal] 600 mg PO DAILY@79901/22/23 02/02/23 Omeprazole [PriLOSEC] 20 mg PO HS@199901/22/23 02/02/23 Pyridoxine HCl (Vitamin B6) 100 mg PO DAILY@79901/22/23 02/02/23 [Vitamin B-6] Albuterol Nebulized [Ventolin 2.5 mg INHALATION RT-Q2H PRN 02/02/23 02/02/23 Nebulized] INSULIN LISPRO (humaLOG) [humaLOG] See Protocol SQ AC-TID 02/02/23 02/02/23 busPIRone HCL 5 mg PO BID@0800,1600 02/02/23 02/02/23 Previous Rx's Medication Instructions Recorded Budesonide-Formot 160-4.5 Mcg 2 puff INHALATION BID #1 each 02/08/23 [Symbicort 160-4.5 Mcg Inhaler] Furosemide [Lasix] 40 mg PO DAILY #30 tablet 02/08/23 Gabapentin [Neurontin] 300 mg PO TID@0800,1600,2200 #9 cap 02/08/23 HYDROcodone/APAP 5-325MG [[place] 1 tab PO Q8H PRN #9 tab 02/08/23 5-325] Insulin Detemir (Levemir) [Levemir] 20 unit SQ DAILY@0700 each 02/08/23 Allergies Allergy/AdvReac Type Severity Reaction Status Date / Time Fish Containing Products Allergy Unknown Verified 02/02/23 15:09 [Fish] furosemide [From Lasix] Allergy Unknown Verified 02/02/23 15:09 Latex, Natural Rubber Allergy Unknown Verified 02/02/23 15:09 prochlorperazine Allergy Unknown Verified 02/02/23 15:09 [From Compazine] shellfish derived [Shellfish] Allergy Unknown Verified 02/02/23 15:09 Sulfa (Sulfonamide Allergy Anaphylaxis Verified 02/02/23 15:09 Antibiotics) diuretics Allergy Swelling Uncoded 02/06/16 19:10 Review of Systems ROS Statement: Those systems with pertinent positive or pertinent negative responses have been documented in the HPI. ROS Other: All systems not noted in ROS Statement are negative. Past Medical History Past Medical History: Heart Failure, COPD, Diabetes Mellitus, GERD/Reflux, Hypertension Additional Past Medical History / Comment(s): colitis. chronic myeloi leukemia. resp failure with hypoxia. obesity. LEYVA History of Any Multi-Drug Resistant Organisms: None Reported Past Surgical History: Cholecystectomy, Hysterectomy, Tonsillectomy Additional Past Surgical History / Comment(s): carpal tunnel, right axila-lymph removal Past Psychological History: ADD/ADHD, Bipolar Smoking Status: Unknown if ever smoked Past Alcohol Use History: None Reported Past Drug Use History: None Reported - Past Family History Father Brother(s) Family Medical History: Unable to Obtain (due to mental status) General Exam Limitations: altered mental status, physical limitation General appearance: alert, anxious, lethargic, obtunded, in distress Head exam: Present: atraumatic, normocephalic, normal inspection Eye exam: Present: normal appearance, PERRL, EOMI. Absent: scleral icterus, conjunctival injection, periorbital swelling ENT exam: Present: normal exam, mucous membranes moist Neck exam: Present: normal inspection. Absent: tenderness, meningismus, lymph adenopathy Respiratory exam: Present: respiratory distress, wheezes, accessory muscle use, decreased breath sounds, prolonged expiratory. Absent: rales, rhonchi, stridor Cardiovascular Exam: Present: normal rhythm, tachycardia, normal heart sounds. Absent: systolic murmur, diastolic murmur, rubs, gallop, clicks GI/Abdominal exam: Present: soft, normal bowel sounds. Absent: distended, tenderness, guarding, rebound, rigid Extremities exam: Present: normal inspection, full ROM, normal capillary refill. Absent: tenderness, pedal edema, joint swelling, calf tenderness Back exam: Present: normal inspection Neurological exam: Present: alert, oriented X3, CN II-XII intact Psychiatric exam: Present: normal affect, normal mood Skin exam: Present: warm, dry, intact, normal color. Absent: rash Course Vital Signs 02/02/23 02/02/23 02/02/23 13:59 14:00 14:08 Temperature Pulse Rate 98 97 Respiratory 20 20 Rate Blood Pressure 98/64 98/34 O2 Sat by Pulse 58 L 98 Oximetry Fraction of 100 Inspired Oxygen (FIO2) 02/02/23 02/02/23 02/02/23 14:09 14:12 14:19 Temperature 96.9 F L Pulse Rate Respiratory Rate Blood Pressure O2 Sat by Pulse Oximetry Fraction of 70 60 Inspired Oxygen (FIO2) 02/02/23 02/02/23 02/02/23 14:59 15:18 15:40 Temperature 97.0 F L Pulse Rate 102 H 97 96 Respiratory 20 Rate Blood Pressure 98/38 O2 Sat by Pulse 95 Oximetry Fraction of Inspired Oxygen (FIO2) 02/02/23 02/02/23 02/02/23 15:42 15:50 16:00 Temperature Pulse Rate 96 94 Respiratory 26 H 19 Rate Blood Pressure 109/39 105/45 O2 Sat by Pulse 94 L 94 L Oximetry Fraction of 60 Inspired Oxygen (FIO2) 02/02/23 02/02/23 02/02/23 16:10 16:20 16:30 Temperature Pulse Rate 93 107 H 99 Respiratory 36 H 19 15 Rate Blood Pressure 113/53 113/53 129/64 O2 Sat by Pulse 95 Oximetry Fraction of Inspired Oxygen (FIO2) 02/02/23 02/02/23 02/02/23 16:40 16:50 17:00 Temperature Pulse Rate 97 96 93 Respiratory 12 16 15 Rate Blood Pressure 143/97 134/62 135/66 O2 Sat by Pulse Oximetry Fraction of Inspired Oxygen (FIO2) 02/02/23 02/02/23 02/02/23 17:10 17:20 17:30 Temperature Pulse Rate 104 H 101 H Respiratory 18 21 27 H Rate Blood Pressure 124/66 135/119 156/131 O2 Sat by Pulse Oximetry Fraction of Inspired Oxygen (FIO2) 02/02/23 02/02/23 02/02/23 17:40 17:50 18:00 Temperature Pulse Rate 101 H 98 102 H Respiratory 8 L 17 18 Rate Blood Pressure 118/107 179/131 136/48 O2 Sat by Pulse Oximetry Fraction of Inspired Oxygen (FIO2) 02/02/23 02/02/23 02/02/23 18:10 18:20 18:30 Temperature Pulse Rate 103 H 101 H 103 H Respiratory 27 H 16 27 H Rate Blood Pressure 111/66 111/58 115/65 O2 Sat by Pulse Oximetry Fraction of Inspired Oxygen (FIO2) 02/02/23 02/02/23 02/02/23 19:30 19:33 19:39 Temperature Pulse Rate 96 93 Respiratory 19 Rate Blood Pressure 137/66 O2 Sat by Pulse Oximetry Fraction of 60 Inspired Oxygen (FIO2) 02/02/23 02/02/23 20:47 21:17 Temperature 96.3 F L Pulse Rate 89 86 Respiratory 22 17 Rate Blood Pressure 119/63 110/87 O2 Sat by Pulse 94 L 94 L Oximetry Fraction of Inspired Oxygen (FIO2) - Reevaluation(s) Reevaluation #1: 02/02/23 23:12 Medical records reviewed 02/02/23 23:12 placed on BiPAP upon arrival to emergency department Reevaluation #2: 02/02/23 23:12 Patient informed results questions answered Reevaluation #3: 02/02/23 23:12 Patient has no change in symptoms here in the ER Reevaluation #4: 02/02/23 23:12 Was pt. sent in by a medical professional or institution? @ -no Did you speak to anyone other than the patient for history? @ -no Did you review nursing and triage notes? @ -agree Were old charts reviewed? @ -no Differential Diagnosis? @ -prior EKG interpreted by me (3pts min.)? @ -yes X-rays interpreted by me (1pt min.)? @ -yes CT interpreted by me (1pt min.)? @ -no U/S interpreted by me (1pt. min.)? @ -no What testing was considered but not performed? (CT, X-rays, U/S, labs)? Why? @ -no What meds were considered but not given? Why? @ -no Did you discuss the management of the patient with other professionals? @ -no Did you reconcile home meds? @ -no Was smoking cessation discussed for >3mins.? @ -no Was critical care preformed (if so, how long)? @ -no Were there social determinants of health that impacted care today? How? (Homelessness, low income, unemployed, alcoholism, drug addiction, transportation, low edu. Level, literacy, decrease access to med. care, [facility], rehab)? @ -no Was there de-escalation of care discussed even if they declined? (Discuss DNR or withdrawal of care, Hospice)? @ -no What co-morbidities impacted this encounter? (DM, HTN, Smoking, COPD, CAD, Cancer, CVA, Hep., AIDS, mental health diagnosis, sleep apnea, morbid obesity)? @ -none Was patient admitted / discharged? @ -47 female to the emergency department for severe shortness of breath and is immediately to be placed on BiPAP for severe respiratory failure patient has significant shortness of breath despite BiPAP treatment will be started on IV antibiotics secondary to significant pneumonia admitted Undiagnosed new problem with uncertain prognosis? @ -no Drug Therapy requiring intensive monitoring for toxicity (Heparin, Nitro, Insulin, Cardizem)? @ -no Were any procedures done? @ -no Diagnosis/symptom? @ -Respiratory failure, COPD and pneumonia Acute, or Chronic, or Acute on Chronic? @ -Acute Uncomplicated (without systemic symptoms) or Complicated (systemic symptoms)? @ -complicated Side effects of treatment? @ -no Exacerbation, Progression, or Severe Exacerbation] @ -no Poses a threat to life or bodily function? @ -Yes Reevaluation #5: 02/02/23 23:12 Differential Dyspnea: Coronary syndrome, arrhythmia, tamponade, asthma, COPD, pulmonary embolism, pneumonia, pneumothorax, pulmonary effusion, anaphylaxis, diabetic ketoacidosis, flailed chest, pulmonary contusion, diaphragmatic rupture, anemia, neuromuscular, this is not meant to be an all-inclusive list. - Consultations Consultation #1: Spoke with admitting physicians, sound who agree to admit this patient Medical Decision Making - Medical Decision Making 47 female to the emergency department for severe shortness of breath and is immediately to be placed on BiPAP for severe respiratory failure patient has significant shortness of breath despite BiPAP treatment will be started on IV antibiotics secondary to significant pneumonia - Lab Data Result diagrams: 02/08/23 04:22 02/08/23 04:22 Lab Results 02/02/23 02/02/23 02/02/23 Range/Units 14:30 14:30 14:30 WBC 11.1 H (3.8-10.6) k/uL RBC 3.74 L (3.80-5.40) m/uL Hgb 10.3 L (11.4-16.0) gm/dL Hct 35.5 (34.0-46.0) % MCV 94.9 (80.0-100.0) fL MCH 27.5 (25.0-35.0) pg MCHC 28.9 L (31.0-37.0) g/dL RDW 17.3 H (11.5-15.5) % Plt Count 173 (150-450) k/uL MPV 8.0 Neutrophils % 89 % Lymphocytes % 6 % Monocytes % 3 % Eosinophils % 1 % Basophils % 0 % Neutrophils # 9.9 H (1.3-7.7) k/uL Lymphocytes # 0.7 L (1.0-4.8) k/uL Monocytes # 0.4 (0-1.0) k/uL Eosinophils # 0.1 (0-0.7) k/uL Basophils # 0.0 (0-0.2) k/uL Hypochromasia Marked Anisocytosis Slight Macrocytosis Slight PT 10.3 (9.0-12.0) sec INR 1.0 (<1.2) APTT 25.2 (22.0-30.0) sec Sodium 134 L (137-145) mmol/L Potassium 5.3 H (3.5-5.1) mmol/L Chloride 92 L (98-107) mmol/L Carbon Dioxide 39 H (22-30) mmol/L Anion Gap 3 mmol/L BUN 16 (7-17) mg/dL Creatinine 0.93 (0.52-1.04) mg/dL Est GFR (CKD-EPI)AfAm 84 (>60 ml/min/1.73 sqM) Est GFR (CKD-EPI)NonAf 73 (>60 ml/min/1.73 sqM) Glucose 155 H (74-99) mg/dL Estimated Ave Glu mg/dL mg/dL Hemoglobin A1c (<=6.0) % Calcium 8.5 (8.4-10.2) mg/dL Magnesium 1.9 (1.6-2.3) mg/dL Total Bilirubin 0.3 (0.2-1.3) mg/dL AST 24 (14-36) U/L ALT 23 (4-34) U/L Alkaline Phosphatase 73 (38-126) U/L Troponin I (0.000-0.034) ng/mL NT-Pro-B Natriuret Pep pg/mL Total Protein 6.7 (6.3-8.2) g/dL Albumin 3.9 (3.5-5.0) g/dL Urine Legionella Ag (Negative) 02/02/23 02/02/23 02/02/23 Range/Units 14:30 14:30 14:30 WBC (3.8-10.6) k/uL RBC (3.80-5.40) m/uL Hgb (11.4-16.0) gm/dL Hct (34.0-46.0) % MCV (80.0-100.0) fL MCH (25.0-35.0) pg MCHC (31.0-37.0) g/dL RDW (11.5-15.5) % Plt Count (150-450) k/uL MPV Neutrophils % % Lymphocytes % % Monocytes % % Eosinophils % % Basophils % % Neutrophils # (1.3-7.7) k/uL Lymphocytes # (1.0-4.8) k/uL Monocytes # (0-1.0) k/uL Eosinophils # (0-0.7) k/uL Basophils # (0-0.2) k/uL Hypochromasia Anisocytosis Macrocytosis PT (9.0-12.0) sec INR (<1.2) APTT (22.0-30.0) sec Sodium (137-145) mmol/L Potassium (3.5-5.1) mmol/L Chloride (98-107) mmol/L Carbon Dioxide (22-30) mmol/L Anion Gap mmol/L BUN (7-17) mg/dL Creatinine (0.52-1.04) mg/dL Est GFR (CKD-EPI)AfAm (>60 ml/min/1.73 sqM) Est GFR (CKD-EPI)NonAf (>60 ml/min/1.73 sqM) Glucose (74-99) mg/dL Estimated Ave Glu mg/dL 134 mg/dL Hemoglobin A1c 6.3 H (<=6.0) % Calcium (8.4-10.2) mg/dL Magnesium (1.6-2.3) mg/dL Total Bilirubin (0.2-1.3) mg/dL AST (14-36) U/L ALT (4-34) U/L Alkaline Phosphatase (38-126) U/L Troponin I 0.037 H* (0.000-0.034) ng/mL NT-Pro-B Natriuret Pep 32472 pg/mL Total Protein (6.3-8.2) g/dL Albumin (3.5-5.0) g/dL Urine Legionella Ag (Negative) 02/02/23 Range/Units 17:58 WBC (3.8-10.6) k/uL RBC (3.80-5.40) m/uL Hgb (11.4-16.0) gm/dL Hct (34.0-46.0) % MCV (80.0-100.0) fL MCH (25.0-35.0) pg MCHC (31.0-37.0) g/dL RDW (11.5-15.5) % Plt Count (150-450) k/uL MPV Neutrophils % % Lymphocytes % % Monocytes % % Eosinophils % % Basophils % % Neutrophils # (1.3-7.7) k/uL Lymphocytes # (1.0-4.8) k/uL Monocytes # (0-1.0) k/uL Eosinophils # (0-0.7) k/uL Basophils # (0-0.2) k/uL Hypochromasia Anisocytosis Macrocytosis PT (9.0-12.0) sec INR (<1.2) APTT (22.0-30.0) sec Sodium (137-145) mmol/L Potassium (3.5-5.1) mmol/L Chloride (98-107) mmol/L Carbon Dioxide (22-30) mmol/L Anion Gap mmol/L BUN (7-17) mg/dL Creatinine (0.52-1.04) mg/dL Est GFR (CKD-EPI)AfAm (>60 ml/min/1.73 sqM) Est GFR (CKD-EPI)NonAf (>60 ml/min/1.73 sqM) Glucose (74-99) mg/dL Estimated Ave Glu mg/dL mg/dL Hemoglobin A1c (<=6.0) % Calcium (8.4-10.2) mg/dL Magnesium (1.6-2.3) mg/dL Total Bilirubin (0.2-1.3) mg/dL AST (14-36) U/L ALT (4-34) U/L Alkaline Phosphatase (38-126) U/L Troponin I (0.000-0.034) ng/mL NT-Pro-B Natriuret Pep pg/mL Total Protein (6.3-8.2) g/dL Albumin (3.5-5.0) g/dL Urine Legionella Ag Negative (Negative) - EKG Data -: EKG Interpreted by Me (EKG is sinus 97 ME 152 QRS 110 QTc 406) - Radiology Data Radiology results: report reviewed (Chest x-rays positive for pneumonia), image reviewed Disposition Clinical Impression: Respiratory failure with hypoxia and hypercapnia, COPD (chronic obstructive pulmonary disease), Acute respiratory distress syndrome (ARDS), Community acquired pneumonia, Acute exacerbation of chronic obstructive pulmonary disease Disposition: ADMITTED IP TO THIS HOSP Condition: Good Is patient prescribed a controlled substance at d/c from ED?: No Time of Disposition: 18:00
[2023-02-02 14:43] LABS: Anisocytosis Slight; Basophils % (A) 0 %; Eosinophils # (A) 0.1 k/uL (0-0.7); Eosinophils % (A) 1 %; HCT 35.5 % (34.0-46.0); HGB 10.3 gm/dL (11.4-16.0); Hypochromasia Marked; Lymphocytes # (A) 0.7 k/uL (1.0-4.8); Lymphocytes % (A) 6 %; MCH 27.5 pg (25.0-35.0); MCHC 28.9 g/dL (31.0-37.0); MCV 94.9 fL (80.0-100.0); Macrocytosis Slight; Monocytes # (A) 0.4 k/uL (0-1.0); Monocytes % (A) 3 %; Neutrophils # (A) 9.9 k/uL (1.3-7.7); Neutrophils % (A) 89 %; Platelet Count 173 k/uL (150-450); RBC 3.74 m/uL (3.80-5.40); RDW 17.3 % (11.5-15.5); WBC 11.1 k/uL (3.8-10.6)
[2023-02-02 14:56] LABS: Partial Thromboplastin Time 25.2 sec (22.0-30.0); Prothrombin Time 10.3 sec (9.0-12.0)
--- NOTE | 2023-02-02 14:58 | XR ---
EXAMINATION TYPE: XR chest 1V portable DATE OF EXAM: 02/02/2023 Comparison: 01/28/2023 Clinical History: 47 year-old female shortness of breath Findings: Heart moderately enlarged. Developing atrophy and confluent bilateral airspace opacities. Ongoing asy mmetric elevation right hemidiaphragm. Impression: Cardiomegaly with new multifocal bilateral airspace disease. Correlate for multifocal pneumonia versu s pulmonary edema. Continued asymmetric elevation right hemidiaphragm.
[2023-02-02 15:20] LABS: ALT 23 U/L (4-34); AST 24 U/L (14-36); African American GFR (CKD) 84 (>60 ml/min/1.73 sqM); Albumin 3.9 g/dL (3.5-5.0); Alkaline Phosphatase 73 U/L (38-126); Anion Gap 3 mmol/L; Blood Urea Nitrogen 16 mg/dL (7-17); Calcium 8.5 mg/dL (8.4-10.2); Carbon Dioxide 39 mmol/L (22-30); Chloride 92 mmol/L (98-107); Glucose 155 mg/dL (74-99); Magnesium 1.9 mg/dL (1.6-2.3); Non-African American GFR(CKD) 73 (>60 ml/min/1.73 sqM); Potassium 5.3 mmol/L (3.5-5.1); Sodium 134 mmol/L (137-145); Total Bilirubin 0.3 mg/dL (0.2-1.3); Total Protein 6.7 g/dL (6.3-8.2)
[2023-02-02] MEDS ORDERED: PNEUMONIA PROTOCOL UTILIZED 1 EACH MISC PO PRN (17:58)
[2023-02-02] MEDS ORDERED: PIPERACILLIN-TAZOBACTAM 3.375 GM in SODIUM CHLORIDE 0.9% 100 ML IVPB STA (17:58)
[2023-02-02] MEDS: SODIUM CHLORIDE 0.9% 1,000 ML IV SCH (18:32)
[2023-02-02] MEDS ORDERED: ALBUTEROL NEBULIZED 2.5 MG/3 ML INHALATION SCH (20:00)
[2023-02-02] MEDS: LEVOFLOXACIN 750MG-D5W PMX 750 MG in DEXTROSE/WATER 1 150ML.BAG IVPB SCH (20:55)
[2023-02-02 23:45] LABS: Glucose,Whole Blood 113 mg/dL (70-110)
[2023-02-02] MEDS ORDERED: propofoL 0 ML IV ONE (23:50)
[2023-02-02] MEDS ORDERED: FUROSEMIDE 10 MG/ML 10 ML VIAL IV STA (23:53)
[2023-02-03] LABS: Glucose,Whole Blood 162 mg/dL (70-110)
[2023-02-03 00:11] LABS: Allen Test Performed? Yes
[2023-02-03] MEDS: IPRATROPIUM-ALBUTEROL 3 ML NEB INHALATION PRN ×2 (00:22→04:13)
[2023-02-03 00:29] LABS: ABG PCO2 83 mmHg (35-45); ABG PH 7.29 (7.35-7.45); ABG PO2 71 mmHg (83-108)
[2023-02-03 00:30] LABS: ABG Base Excess 12.7 mmol/L; ABG HCO3 39 mmol/L (21-25); ABG TCO2 42 mmol/L (19-24)
[2023-02-03] MEDS ORDERED: BUMETANIDE 0.25 MG/ML 4 ML VIAL IVP ONE (00:30)
[2023-02-03] MEDS: methylPREDNISolone SOD SUCCI 125 MG/2 ML VIAL IV SCH ×4 (00:40→18:44)
[2023-02-03] MEDS: BUMETANIDE 10 MG in DEXTROSE 5% IN WATER 60 ML IV SCH ×4 (00:54→23:48)
[2023-02-03 01:28] LABS: Anisocytosis Slight; Basophils % (A) 0 %; Eosinophils # (A) 0.1 k/uL (0-0.7); Eosinophils % (A) 1 %; HCT 29.6 % (34.0-46.0); HGB 8.6 gm/dL (11.4-16.0); Hypochromasia Marked; Lymphocytes % (A) 11 %; MCH 27.3 pg (25.0-35.0); MCHC 29.2 g/dL (31.0-37.0); MCV 93.6 fL (80.0-100.0); Macrocytosis Slight; Mean Platelet Volume 9.4; Monocytes # (A) 0.5 k/uL (0-1.0); Monocytes % (A) 5 %; Neutrophils # (A) 7.7 k/uL (1.3-7.7); Neutrophils % (A) 82 %; Platelet Count 135 k/uL (150-450); RBC 3.16 m/uL (3.80-5.40); RDW 17.6 % (11.5-15.5); WBC 9.4 k/uL (3.8-10.6)
--- NOTE | 2023-02-03 01:32 | P.HPIM ---
History of Present Illness H&P Date: 02/02/23 The patient is a 47-year-old female with a PMH of COPD with chronic hypoxic respiratory failure on 3-5 L nasal cannula continuous oxygen, type II DM, hypertension, resident of [facility] who was sent to the emergency room for complaints of shortness of breath with hypoxia. Upon arrival at the emergency room, the patient's vitals were SpO2 92 % on BiPAP, BP 98/64, respiratory rate 20, and pulse rate 98. Chest x-ray revealed cardiomegaly with bilateral opacities concerning for edema versus atypical pneumonia. Laboratory evaluation was remarkable for leukocytosis of 11.1, sodium 134, potassium 5.3, CO2 39, troponin 0.037, proBNP 17,300. I was informed of the admission after the patient had already been moved upstairs. Upon arrival at the scene, the patient was noted to be pale unresponsive to sternal rub while on BiPAP. Patient had diminished tidal volumes in the 100s and appeared to be having apneic episodes. Vital signs subsequently revealed an SpO2 in the 70s with BP 121/43. A CODE BLUE was activated due to concern for respiratory failure. The patient is BiPAP settings were immediately changed from IPAP 12 and EPAP 5 to 16/8. 80 mg IV push Lasix was administered. The patient's hypoxia significantly improved with newer BiPAP settings SpO2 90%. ABG was also ordered. She was immediately transferred to the medical ICU due to concern for impending respiratory failure. ED documentation reviewed and case discussed with ED provider. Review of systems: Unable to obtain due to mental status Physical examination: Vital signs reviewed General: morbidly obese female, no distress, appears older than stated age Derm: no unusual rashes/lesions, warm Head: atraumatic, normocephalic, symmetric Eyes: EOMI, no lid lag, anicteric sclera, pupils equal round reactive to light ENT: Nose and ears atraumatic Neck: No cervical lymphadenopathy, trachea midline, supple Mouth: no lip lesion, mucus membranes moist Cardiovascular: S1S2 reg, no murmur, positive dorsalis pedis pulse bilateral, 1+ bilateral lower extremity pitting edema Lungs: Bilateral poor air entry with coarse breath sounds, no accessory muscle use Abdominal: soft, nontender to palpation, no guarding Ext: no gross muscle atrophy, no contractures, Neuro: Unable to assess, patient unresponsive to sternal rub Psych: Unable to assess Assessment: Acute hypoxic and hypercapnic respiratory failure in setting of acute COPD and suspected CHF exacerbation, unable to rule out underlying pneumonia Leukocytosis Elevated troponin levels, suspect demand ischemia Hyperkalemia Imaging: Chest x-ray revealed cardiomegaly with bilateral opacities concerning for edema versus atypical pneumonia. Data Review: Laboratory evaluation was remarkable for leukocytosis of 11.1, sodium 134, potassium 5.3, CO2 39, troponin 0.037, proBNP 17,300. Plan: Continue BiPAP with low threshold for intubation Trend troponin Cardiac monitoring C/w Zosyn for now Order procalcitonin levels C/w Solumedrol 60 mg IV q6h and Duonebs Order Lasix 40 mg IV q12h Cardiology and [employer] consults DVT prophylaxis: Heparin subq The patient is admitted with an anticipated greater than 2 midnight stay for evaluation of respiratory failure CODE STATUS: Full Code Anticipated discharge place: Home Past Medical History Past Medical History: Heart Failure, COPD, Diabetes Mellitus, GERD/Reflux, Hypertension Additional Past Medical History / Comment(s): colitis. chronic myeloi leukemia. resp failure with hypoxia. obesity. LEYVA History of Any Multi-Drug Resistant Organisms: None Reported Past Surgical History: Cholecystectomy, Hysterectomy, Tonsillectomy Additional Past Surgical History / Comment(s): carpal tunnel, right axila-lymph removal Past Psychological History: ADD/ADHD, Bipolar Smoking Status: Unknown if ever smoked Past Alcohol Use History: None Reported Past Drug Use History: None Reported - Past Family History Father Brother(s) Family Medical History: Unable to Obtain (due to mental status) Medications and Allergies Home Medications Medication Instructions Recorded Confirmed Type DULoxetine HCL [Cymbalta] 60 mg PO DAILY@0800 02/06/16 02/02/23 History Insulin Glargine [Lantus Vial] 34 unit SQ DAILY@1000 02/06/16 02/02/23 History Lurasidone [Latuda] 40 mg PO BID@0800,1800 02/06/16 02/02/23 History Acetaminophen Tab [Tylenol] 650 mg PO Q6H PRN 01/22/23 02/02/23 History Albuterol Inhaler [Ventolin Hfa 2 puff INHALATION 01/22/23 02/02/23 History Inhaler] RT-QID@00,06,12,18 Aspirin EC [Ecotrin Low Dose] 81 mg PO DAILY@79901/22/23 02/02/23 History Atorvastatin [Lipitor] 40 mg PO HS 01/22/23 02/02/23 History Calcium Carbonate 500 mg PO Q2H PRN 01/22/23 02/02/23 History Cyclobenzaprine [Flexeril] 10 mg PO Q12H PRN 01/22/23 02/02/23 History Ergocalciferol (Vitamin D2) 1,250 mcg PO CAUSEY 01/22/23 02/02/23 History [Drisdol (50,000 Iu)] Estradiol Cream [Estrace Cream 1 gm VAGINAL Q4D 01/22/23 02/02/23 History 0.01%] Gabapentin [Neurontin] 300 mg PO TID@0800,1600,2200 01/22/23 02/02/23 History Imatinib Mesylate [Gleevec] 400 mg PO DAILY@79901/22/23 02/02/23 History Ipratropium-Albuterol Nebulize 3 ml INHALATION RT-QID@00,,,01/22/23 02/02/23 History [Duoneb 0.5 mg-3 mg/3 ml Soln] PRN L.acidoph,Paracasei, B.lactis 1 cap PO DAILY 01/22/23 02/02/23 History [Probiotic] Loratadine [Claritin] 10 mg PO DAILY@79901/22/23 02/02/23 History Melatonin 5 mg PO HS 01/22/23 02/02/23 History Metoprolol Succinate (ER) [Toprol 25 mg PO DAILY@79901/22/23 02/02/23 History XL] Mirtazapine [Remeron] 15 mg PO HS@199901/22/23 02/02/23 History Multivitamins, Thera [Multivitamin 1 tab PO DAILY@79901/22/23 02/02/23 History (formulary)] OXcarbazepine [Trileptal] 600 mg PO DAILY@79901/22/23 02/02/23 History Omeprazole [PriLOSEC] 20 mg PO HS@199901/22/23 02/02/23 History Pyridoxine HCl (Vitamin B6) 100 mg PO DAILY@79901/22/2323 History [Vitamin B-6] HYDROcodone/APAP 5-325MG [[place] 1 tab PO Q8H PRN #9 tab 01/29/23 02/02/23 Rx 5-325] Albuterol Nebulized [Ventolin 2.5 mg INHALATION RT-Q2H PRN 02/02/23 02/02/23 History Nebulized] INSULIN LISPRO (humaLOG) [humaLOG] See Protocol SQ AC-TID 02/02/23 02/02/23 History busPIRone HCL 5 mg PO BID@0800,1600 02/02/23 02/02/23 History Allergies Allergy/AdvReac Type Severity Reaction Status Date / Time Fish Containing Products Allergy Unknown Verified 02/02/23 15:09 [Fish] furosemide [From Lasix] Allergy Unknown Verified 02/02/23 15:09 Latex, Natural Rubber Allergy Unknown Verified 02/02/23 15:09 prochlorperazine Allergy Unknown Verified 02/02/23 15:09 [From Compazine] shellfish derived [Shellfish] Allergy Unknown Verified 02/02/23 15:09 Sulfa (Sulfonamide Allergy Anaphylaxis Verified 02/02/23 15:09 Antibiotics) diuretics Allergy Swelling Uncoded 02/06/16 19:10 Physical Exam Vitals: Vital Signs Temp Pulse Resp BP Pulse Ox FiO2 02/02/23 21:17 96.3 F L 86 17 110/87 94 L 02/02/23 20:47 89 22 119/63 94 L 02/02/23 19:39 93 02/02/23 19:33 60 02/02/23 19:30 96 19 137/66 02/02/23 18:30 103 H 27 H 115/65 02/02/23 18:20 101 H 16 111/58 02/02/23 18:10 103 H 27 H 111/66 02/02/23 18:00 102 H 18 136/48 02/02/23 17:50 98 17 179/131 02/02/23 17:40 101 H 8 L 118/107 02/02/23 17:30 101 H 27 H 156/131 02/02/23 17:20 21 135/119 02/02/23 17:10 104 H 18 124/66 02/02/23 17:00 93 15 135/66 06/21/23 16:50 96 16 134/62 06/21/23 16:40 97 12 143/97 02/02/23 16:30 99 15 129/64 02/02/23 16:20 107 H 19 113/53 02/02/23 16:10 93 36 H 113/53 95 02/02/23 16:00 94 19 105/45 94 L 02/02/23 15:50 96 26 H 109/39 94 L 02/02/23 15:42 60 02/02/23 15:40 97.0 F L 96 20 98/38 95 02/02/23 15:18 97 02/02/23 14:59 102 H 02/02/23 14:19 60 02/02/23 14:12 96.9 F L 02/02/23 14:09 70 02/02/23 14:08 97 20 98/34 98 02/02/23 14:03 100 02/02/23 14:00 100 02/02/23 13:59 98 20 98/64 58 L Intake and Output 02/02/23 02/02/23 02/03/23 14:59 22:59 06:59 Other: Weight 167.829 kg Results CBC & Chem 7: 02/03/23 00:47 02/03/23 00:47 Labs: Abnormal Lab Results - Last 24 Hours (Table) 02/02/23 02/02/23 02/02/23 Range/Units 14:30 14:30 14:30 WBC 11.1 H (3.8-10.6) k/uL RBC 3.74 L (3.80-5.40) m/uL Hgb 10.3 L (11.4-16.0) gm/dL MCHC 28.9 L (31.0-37.0) g/dL RDW 17.3 H (11.5-15.5) % Neutrophils # 9.9 H (1.3-7.7) k/uL Lymphocytes # 0.7 L (1.0-4.8) k/uL Sodium 134 L (137-145) mmol/L Potassium 5.3 H (3.5-5.1) mmol/L Chloride 92 L (98-107) mmol/L Carbon Dioxide 39 H (22-30) mmol/L Glucose 155 H (74-99) mg/dL POC Glucose (mg/dL) (70-110) mg/dL Troponin I 0.037 H* (0.000-0.034) ng/mL 02/02/23 Range/Units 23:42 WBC (3.8-10.6) k/uL RBC (3.80-5.40) m/uL Hgb (11.4-16.0) gm/dL MCHC (31.0-37.0) g/dL RDW (11.5-15.5) % Neutrophils # (1.3-7.7) k/uL Lymphocytes # (1.0-4.8) k/uL Sodium (137-145) mmol/L Potassium (3.5-5.1) mmol/L Chloride (98-107) mmol/L Carbon Dioxide (22-30) mmol/L Glucose (74-99) mg/dL POC Glucose (mg/dL) 113 H (70-110) mg/dL Troponin I (0.000-0.034) ng/mL
[2023-02-03 01:40] LABS: ABG Base Excess 14.7 mmol/L; ABG Oxygen Saturation 92.3 % (94-97); ABG PH 7.36 (7.35-7.45); ABG PO2 61 mmHg (83-108); ABG TCO2 42 mmol/L (19-24); Allen Test Performed? Yes
[2023-02-03 01:43] LABS: ABG HCO3 40 mmol/L (21-25); ABG PCO2 71 mmHg (35-45)
--- NOTE | 2023-02-03 01:44 | XR ---
EXAM: XR Chest, 1 View CLINICAL HISTORY: ITS.REASON XR Reason: CHF exacerbation TECHNIQUE: Frontal view of the chest. COMPARISON: 02/02/2023 FINDINGS: Lungs: Pulmonary edema is slightly improved. Pleural space: Likely small right pleural effusion. Heart: Stable moderate enlargement of the cardiac silhouette. Mediastinum: Unremarkable. Bones/joints: No acute osseous abnormalities. IMPRESSION: Pulmonary edema is slightly improved.
[2023-02-03] MEDS ORDERED: DEXTROSE 50% SYRINGE 50 ML IVP PRN ×2 (01:46)
[2023-02-03 01:53] LABS: Potassium 4.9 mmol/L (3.5-5.1)
[2023-02-03 01:54] LABS: African American GFR (CKD) >90 (>60 ml/min/1.73 sqM); Anion Gap 5 mmol/L; Blood Urea Nitrogen 14 mg/dL (7-17); Calcium 8.3 mg/dL (8.4-10.2); Carbon Dioxide 36 mmol/L (22-30); Chloride 94 mmol/L (98-107); Glucose 105 mg/dL (74-99); Magnesium 1.9 mg/dL (1.6-2.3); Non-African American GFR(CKD) >90 (>60 ml/min/1.73 sqM); Sodium 135 mmol/L (137-145)
[2023-02-03] MEDS ORDERED: INSULIN ASPART (NovoLOG) 100 UNIT/ML VIAL SQ SCH (02:00)
--- NOTE | 2023-02-03 02:06 | P.CNPUL ---
History of Present Illness Consult date: 02/03/23 Requesting physician: Alan Cadet Reason for consult: dyspnea Chief complaint: Found to be hypoxic and in respiratory distress at [facility] History of present illness: I am seeing this patient in new consultation today 02/03/2023 after the patient was sent from her F for respiratory distress and hypoxia. The patient is a 47-year-old female with medical history significant for oxygen dependent COPD, diabetes mellitus type 2, hypertension, GERD, CML. Patient did have a recent hospital admission on January 22 for multifocal pneumonia and respiratory failure requiring ventilator support. At that time, the patient was intubated for 4 days, and ultimately sent back to [facility] on January 29. The patient presented to the emergency room yesterday afternoon after being found hypoxic with a pulse ox of 60% and in some respiratory distress. She did present to the emergency room on BiPAP support, and was admitted to the cardiac stepdown unit. Around midnight, a code blue was called for a respiratory arrest. When I arrived to the room, the patient was on BiPAP with settings over 12/6 and FiO2 of 60%. The patient was achieving tidal volumes of 100-200 ML's. The patient did not lose a pulse. She was obtunded and minimally responsive to painful stimuli. I did augment the patient's pressure support to 16/6 and FiO2 of 50%. Patient did start to achieve better to tidal volumes of around 500ml. No further witnessed apneic episodes. The patient was transferred to the intensive care unit. Initial ABG shows a pO2 of 71, pCO2 of 83, pH of 7.29. The patient is now more arousab le to verbal stimuli. We will hold off on intubation for now. Chest x-ray on arrival was concerning for CHF exacerbation and pulmonary edema. Multifocal pneumonia is also in the differential. NT proBNP was very elevated at 17,300. The patient has not received any diuretics since her admission. The patient does have a sulfa and Lasix ALLERGY. Most recent echo from her prior admission earlier this month shows a preserved ejection fraction of 60-65%, severe pulmonary hypertension, and moderate to severe tricuspid regurgitation. No IV maintenance fluids infusing. Initial BMP shows sodium 134, potassium 5.3, chloride 92, serum bicarb 39, BUN 16, creatinine 0.93, glucose 155. Troponin was also mildly elevated at 0.037, likely related to supply/demand mismatch. ECG shows no acute ischemic changes. CBC on arrival shows a WBC count of 11, hemoglobin 10.3, hematocrit 35.5, platelets 173. Patient was started on empiric antibiotics with Levaquin and Zosyn. Blood cultures are pending. BP is stable, and there is no need for vasopressor support. Patient's hypercapnic respiratory failure seems to be improving, and she will be monitored closely in the intensive care unit. I will hold off on intubation at this time. Review of Systems ROS unobtainable: due to mental status Past Medical History Past Medical History: Heart Failure, COPD, Diabetes Mellitus, GERD/Reflux, Hypertension Additional Past Medical History / Comment(s): colitis. chronic myeloi leukemia. resp failure with hypoxia. obesity. LEYVA History of Any Multi-Drug Resistant Organisms: None Reported Past Surgical History: Cholecystectomy, Hysterectomy, Tonsillectomy Additional Past Surgical History / Comment(s): carpal tunnel, right axila-lymph removal Past Psychological History: ADD/ADHD, Bipolar Smoking Status: Unknown if ever smoked Past Alcohol Use History: None Reported Past Drug Use History: None Reported - Past Family History Father Brother(s) Family Medical History: Unable to Obtain (due to mental status) Medications and Allergies Home Medications Medication Instructions Recorded Confirmed Type DULoxetine HCL [Cymbalta] 60 mg PO DAILY@0800 02/06/16 02/02/23 History Insulin Glargine [Lantus Vial] 34 unit SQ DAILY@1000 02/06/16 02/02/23 History Lurasidone [Latuda] 40 mg PO BID@0800,1800 02/06/16 02/02/23 History Acetaminophen Tab [Tylenol] 650 mg PO Q6H PRN 01/22/23 02/02/23 History Albuterol Inhaler [Ventolin Hfa 2 puff INHALATION 01/22/23 02/02/23 History Inhaler] RT-QID@00,06,,18 Aspirin EC [Ecotrin Low Dose] 81 mg PO DAILY@0800 01/22/23 02/02/23 History Atorvastatin [Lipitor] 40 mg PO HS 01/22/23 02/02/23 History Calcium Carbonate 500 mg PO Q2H PRN 01/22/23 02/02/23 History Cyclobenzaprine [Flexeril] 10 mg PO Q12H PRN 01/22/23 02/02/23 History Ergocalciferol (Vitamin D2) 1,250 mcg PO CAUSEY 01/22/23 02/02/23 History [Drisdol (50,000 Iu)] Estradiol Cream [Estrace Cream 1 gm VAGINAL Q4D 01/22/23 02/02/23 History 0.01%] Gabapentin [Neurontin] 300 mg PO TID@0800,1600,2200 01/22/23 02/02/23 History Imatinib Mesylate [Gleevec] 400 mg PO DAILY@79901/22/23 02/02/23 History Ipratropium-Albuterol Nebulize 3 ml INHALATION RT-QID@00,06,12,18 01/22/23 02/02/23 History [Duoneb 0.5 mg-3 mg/3 ml Soln] PRN L.acidoph,Paracasei, B.lactis 1 cap PO DAILY 01/22/23 02/02/23 History [Probiotic] Loratadine [Claritin] 10 mg PO DAILY@79901/22/23 02/02/23 History Melatonin 5 mg PO HS 01/22/23 02/02/23 History Metoprolol Succinate (ER) [Toprol 25 mg PO DAILY@79901/22/23 02/02/23 History XL] Mirtazapine [Remeron] 15 mg PO HS@199901/22/23 02/02/23 History Multivitamins, Thera [Multivitamin 1 tab PO DAILY@79901/22/23 02/02/23 History (formulary)] OXcarbazepine [Trileptal] 600 mg PO DAILY@79901/22/23 02/02/23 History Omeprazole [PriLOSEC] 20 mg PO HS@199901/22/23 02/02/23 History Pyridoxine HCl (Vitamin B6) 100 mg PO DAILY@79901/22/23 02/02/23 History [Vitamin B-6] HYDROcodone/APAP 5-325MG [[place] 1 tab PO Q8H PRN #9 tab 01/29/23 02/02/23 Rx 5-325] Albuterol Nebulized [Ventolin 2.5 mg INHALATION RT-Q2H PRN 02/02/23 02/02/23 History Nebulized] INSULIN LISPRO (humaLOG) [humaLOG] See Protocol SQ AC-TID 02/02/23 02/02/23 History busPIRone HCL 5 mg PO BID@0800,1600 02/02/23 02/02/23 History Allergies Allergy/AdvReac Type Severity Reaction Status Date / Time Fish Containing Products Allergy Unknown Verified 02/02/23 15:09 [Fish] furosemide [From Lasix] Allergy Unknown Verified 02/02/23 15:09 Latex, Natural Rubber Allergy Unknown Verified 02/02/23 15:09 prochlorperazine Allergy Unknown Verified 02/02/23 15:09 [From Compazine] shellfish derived [Shellfish] Allergy Unknown Verified 02/02/23 15:09 Sulfa (Sulfonamide Allergy Anaphylaxis Verified 02/02/23 15:09 Antibiotics) diuretics Allergy Swelling Uncoded 02/06/16 19:10 Physical Exam Vitals: Vital Signs Temp Pulse Pulse Resp BP BP Pulse Ox 02/03/23 00:40 82 02/03/23 00:29 02/03/23 00:22 85 02/03/23 00:20 02/02/23 23:45 02/02/23 22:34 97.4 F L 96 28 H 143/58 90 L 02/02/23 21:17 96.3 F L 86 17 110/87 94 L 02/02/23 20:47 89 22 119/63 94 L 02/02/23 19:39 93 02/02/23 19:33 02/02/23 19:30 96 19 137/66 02/02/23 18:30 103 H 27 H 115/65 02/02/23 18:20 101 H 16 111/58 02/02/23 18:10 103 H 27 H 111/66 02/02/23 18:00 102 H 18 136/48 02/02/23 17:50 98 17 179/131 02/02/23 17:40 101 H 8 L 118/107 02/02/23 17:30 101 H 27 H 156/131 02/02/23 17:20 21 135/119 02/02/23 17:10 104 H 18 124/66 02/02/23 17:00 93 15 135/66 02/02/23 16:50 96 16 134/62 02/02/23 16:40 97 12 143/97 02/02/23 16:30 99 15 129/64 02/02/23 16:20 107 H 19 113/53 02/02/23 16:10 93 36 H 113/53 95 02/02/23 16:00 94 19 105/45 94 L 02/02/23 15:50 96 26 H 109/39 94 L 02/02/23 15:42 02/02/23 15:40 97.0 F L 96 20 98/38 95 02/02/23 15:18 97 02/02/23 14:59 102 H 02/02/23 14:19 02/02/23 14:12 96.9 F L 02/02/23 14:09 02/02/23 14:08 97 20 98/34 98 02/02/23 14:00 02/02/23 13:59 98 20 98/64 58 L FiO2 02/03/23 00:40 02/03/23 00:29 50 02/03/23 00:22 02/03/23 00:20 50 02/02/23 23:45 60 02/02/23 22:34 02/02/23 21:17 02/02/23 20:47 02/02/23 19:39 02/02/23 19:33 60 02/02/23 19:30 02/02/23 18:30 02/02/23 18:20 02/02/23 18:10 02/02/23 18:00 02/02/23 17:50 02/02/23 17:40 02/02/23 17:30 02/02/23 17:20 02/02/23 17:10 02/02/23 17:00 02/02/23 16:50 02/02/23 16:40 02/02/23 16:30 02/02/23 16:20 02/02/23 16:10 02/02/23 16:00 02/02/23 15:50 02/02/23 15:42 60 02/02/23 15:40 02/02/23 15:18 02/02/23 14:59 02/02/23 14:19 60 02/02/23 14:12 02/02/23 14:09 70 02/02/23 14:08 02/02/23 14:00 100 06/21/23 13:59 Intake and Output 02/02/23 02/02/23 02/03/23 14:59 22:59 06:59 Other: Weight 167.829 kg GENERAL EXAM: Obtunded and minimally responsive morbidly obese 47-year-old female HEAD: Normocephalic and atraumatic EYES: Normal reaction of pupils, equal size. NOSE: Clear with pink turbinates. THROAT: No erythema or exudates. NECK: No masses, no JVD. CHEST: No chest wall deformity. LUNGS: Equal air entry with diffuse crackles and wheezes. On BiPAP settings 16/6 and FiO2 of 50%. CVS: S1 and S2 normal with no audible murmur, regular rhythm. No extra heart sounds ABDOMEN: Obese abdomen. There is a suprapubic catheter. No hepatosplenomegaly, active bowel sounds, no guarding or rigidity. SPINE: No scoliosis or deformity SKIN: No rashes CENTRAL NERVOUS SYSTEM: No focal deficits, tone is normal in all 4 extremities. EXTREMITIES: There is 2+ pitting lower extremity edema. No clubbing, or cyanosis. Peripheral pulses are intact. Results - Laboratory Findings CBC and BMP: 02/03/23 00:47 02/03/23 00:47 ABG ABG pH 7.29 (7.35-7.45) L 02/02/23 23:51 ABG pCO2 83 mmHg (35-45) H* 02/02/23 23:51 ABG pO2 71 mmHg (83-108) L 02/02/23 23:51 ABG O2 Saturation 95.0 % (94-97) 02/02/23 23:51 PT/INR, D-dimer PT 10.3 sec (9.0-12.0) 02/02/23 14:30 INR 1.0 (<1.2) 02/02/23 14:30 Abnormal lab findings: Abnormal Labs 02/02/23 02/02/23 02/02/23 14:30 14:30 14:30 WBC 11.1 H RBC 3.74 L Hgb 10.3 L MCHC 28.9 L RDW 17.3 H Neutrophils # 9.9 H Lymphocytes # 0.7 L ABG pH ABG pCO2 ABG pO2 ABG HCO3 ABG Total CO2 Sodium 134 L Potassium 5.3 H Chloride 92 L Carbon Dioxide 39 H Glucose 155 H POC Glucose (mg/dL) Troponin I 0.037 H* 02/02/23 02/02/23 02/02/23 23:42 23:51 23:58 WBC RBC Hgb MCHC RDW Neutrophils # Lymphocytes # ABG pH 7.29 L ABG pCO2 83 H* ABG pO2 71 L ABG HCO3 39 H ABG Total CO2 42 H Sodium Potassium Chloride Carbon Dioxide Glucose POC Glucose (mg/dL) 113 H 162 H Troponin I - Diagnostic Findings Chest x-ray: image reviewed Assessment and Plan Assessment: Acute on chronic hypoxemic and hypercapnic respiratory failure likely related to exacerbation of diastolic congestive heart failure and pulmonary edema. Chest x-ray on arrival shows cardiomegaly with multifocal bilateral airspace disease. NT proBNP was elevated at 17,300. Multifocal pneumonia is also in the differential. Patient was recently treated for multifocal/aspiration pneumonia earlier this month. She did require ventilator support at that time. Patient is currently on BIPAP, settings 16/6 and FiO2 of 50%. She is achieving adequate tidal volumes of around 500 ML's. She is more awake to verbal stimulation. Acute COPD exacerbation secondary to above. She is normally oxygen dependent on 3 L/m nasal cannula. Pulmonary hypertension Elevated troponins, likely related to supply/demand mismatch. ECG shows no a cute ischemic changes. Diabetes mellitus type 2, insulin-dependent, maintained on Lantus insulin ou tpatient basis Benign essential hypertension Hyperlipidemia Anemia, of chronic disease Chronic myeloid leukemia, on Gleevec History of recent ventilator dependent respiratory failure Morbid obesity, BMI of 62 Chronic suprapubic Dixon catheter probably related to frequent UTIs Severe pulmonary hypertension has been earlier echocardiogram, preserved lv function. [facility] and the patient resides at [facility] Plan: Patient's medications, labs, chest x-ray reviewed I did speak with Dr. Granados, we will start the patient on a Bumex infusion with a loading dose of 1 mg IV push. The patient will remain on the BiPAP settings 16/6 and FiO2 50%. Repeat ABG done one hour later shows improvement in the patient's hypercapnic respiratory failure with a pO2 of 61, pCO2 of 71, pH of 7.36. No need for intubation at this point Repeat chest x-ray in the morning Optimize the patient's COPD with a combination of budesonide, formoterol, bronchodilators, IV Solu-Medrol Patient is empirically covered on a combination of Levaquin and Zosyn. Check procalcitonin Blood cultures are pending Trend troponins Cardiology was consulted Repeat chest x-ray in the morning The patient will be monitored in the intensive care unit I have personally seen and examined the patient, performed the documentation and the assessment and plan as written. Number of minutes spent on the visit:20 Visit joint evaluation that was done along with a nurse practitioner. This evaluation was done more than 30 minutes. The patient is a 47-year-old female, obese with known history of oxygen-dependent COPD and previous history of CML. She was moved to the intensive care because of an acute hypoxic respiratory failure and acute on top of chronic hypercapnic respiratory failure. The patient was in fluid overload/pulmonary edema/CHF. The patient was started on Bumex drip at 0.5 mg an hour. She has produced excellent amount of urine output. She is in a negative fluid balance of this point in time. She is on a BiPAP at a pressure of 16/6 with an FiO2 of 50%. The most recent blood gas from this morning shows improvement with a pH of 7.36 and a pCO2 of 71 and pO2 of 61. Chest x-ray also shows cardiomegaly and that is also improvement in the bilateral pulmonary infiltrates. The blood work from today shows stable renal function with a BUN of 14 and a creatinine of 0.7. With balance over the past 24 hours has been -2.9 L. The patient is more stable at this point in time. She remains on bronchodilators. She remains on steroids. She is on empiric antibiotic coverage with IV Levaquin. Echocardiogram from 01/27/2023 showed severe pulmonary hypertension with moderate degree of tricuspid regurgitation. No evidence of any LV dysfunction. The patient remains encephalopathic. She remains confused. Not following commands yet. She is a well-developed awake and opening her eyes spontaneously. She was recently hospitalized for multifocal pneumonia and COPD exacerbation and she had a similar presentation. She has a suprapubic orally catheter in place. UA is essentially negative. She'll be kept in the ICU. We'll continue to follow and monitor her progress. Time with Patient: Greater than 30
[2023-02-03 03:13] LABS: Appearance,Urine Clear (Clear); Bacteria,Urine Rare /hpf; Bilirubin,Urine Negative (Negative); Blood,Urine Negative (Negative); Color,Urine Colorless; Glucose,Urine (UA) Negative (Negative); Ketones,Urine Negative (Negative); Leukocyte Esterase,Urine Small (Negative); Mucus,Urine Rare /hpf; Nitrite,Urine Negative (Negative); Protein,Urine Negative (Negative); RBC,Urine 3 /hpf (0-5); Specific Gravity,Urine 1.005 (1.001-1.035); Urobilinogen,Urine <2.0 mg/dL (<2.0); WBC,Urine 13 /hpf (0-5)
[2023-02-03] MEDS: PIPERACILLIN-TAZOBACTAM 3.375 GM in SODIUM CHLORIDE 0.9% 100 ML IVPB SCH ×3 (04:21→21:32)
[2023-02-03 06:33] LABS: Glucose,Whole Blood 169 mg/dL (70-110)
[2023-02-03] MEDS: INSULIN ASPART (NovoLOG) 100 UNIT/ML VIAL SQ SCH ×3 (06:47→18:44)
[2023-02-03] MEDS: FORMOTEROL FUMARATE 20 MCG/2 ML NEBU INHALATION SCH ×2 (07:42→20:15)
[2023-02-03] MEDS: IPRATROPIUM-ALBUTEROL 3 ML NEB INHALATION SCH ×4 (07:42→20:15)
[2023-02-03] MEDS: BUDESONIDE 1 MG/2 ML NEBU INHALATION SCH ×2 (07:42→20:15)
--- NOTE | 2023-02-03 08:11 | XR ---
EXAMINATION TYPE: XR chest 1V portable DATE OF EXAM: 02/03/2023 COMPARISON: 02/03/2023 HISTORY: suspected CHF exacerbation TECHNIQUE: Single frontal view of the chest is obtained. FINDINGS: There is continued cardiomegaly with scattered infiltrates within the right upper and left upper lobe s and to a lesser extent the left medial lung base. There is elevation of the right hemidiaphragm wit h right basilar volume loss. The osseous structures are intact. IMPRESSION: 1. Stable evaluation of the chest. Correlate for pneumonia versus congestive failure.
[2023-02-03] MEDS: PANTOPRAZOLE 40 MG/10 ML VIAL IV SCH (08:27)
[2023-02-03] MEDS: HEPARIN SODIUM,PORCINE/PF 5,000 UNIT/0.5 ML SYRINGE SQ SCH ×3 (08:28→23:45)
[2023-02-03] MEDS ORDERED: FUROSEMIDE 10 MG/ML 4 ML VIAL IV SCH (09:00)
--- NOTE | 2023-02-03 09:10 | P.CRDCN ---
History of Present Illness Consult date: 02/03/23 Consult reason: congestive heart failure History of present illness: The patient is a 47-year-old female with multiple comorbid conditions, who pr esented to the hospital with worsening shortness of breath. She was recently admitted with multifocal pneumonia and acute COPD exacerbation. She was discharged to an extended care facility on January 29. She returned to the emergency room with worsening shortness of breath and hypoxia. Oxygen satur ations were in the 80s on arrival. Cardiology has been consulted for congestive heart failure and elevated troponin. The patient is currently admitted to the ICU on BiPAP. DIAGNOSTICS: EKG shows sinus tachycardia with incomplete right bundle-branch block Chest x-ray shows cardiomegaly with scattered infiltrates in the right upper and left upper lobes. Elevation of right hemidiaphragm with right basilar volume loss. Echocardiogram showed normal LV function with severe pulmonary hypertension and moderate to severe tricuspid regurgitation. RVSP 95 mmHg. Lab data: WBC 9.4, hemoglobin 8.6, hematocrit 29.6, platelet 135, sodium 135, potassium 4.9, BUN 14, creatinine 0.74, magnesium 1.9, AST 24, ALT 23, troponin 0.037, BNP 17,300, positive for urinary tract infection PAST MEDICAL HISTORY: Chronic respiratory failure on home oxygen, advanced COPD, diabetes, hypertension REVIEW OF SYSTEMS: Unable to complete due to mental status. PHYSICAL EXAMINATION: This is a 47-year-old obese female in mild respiratory distress. HEENT: Head is atraumatic, normocephalic. Pupils are equal, round. No carotid bruit is heard. CHEST EXAMINATION: Lungs are coarse to auscultation. No chest wall tenderness is noted on palpation or with deep breathing. Bilateral rhonchi. HEART EXAMINATION: Heart regular rate and rhythm. S1, S2 heard. No murmurs, gallops or rub. ABDOMEN: Soft, nontender. Bowel sounds are heard. No organomegaly noted. EXTREMITIES: 2+ peripheral pulses with no evidence of peripheral edema and no calf tenderness noted. NEUROLOGIC EXAMINATION: Patient is awake, but disoriented. FINAL ASSESSMENT AND PLAN: Acute hypoxic respiratory failure Heart failure exacerbation, diastolic Elevated troponin, likely supply/demand mismatch Severe pulmonary hypertension with tricuspid regurgitation Leukocytosis PLAN: Agree with Bumex drip for diuresis Continue to monitor electrolytes and strict I's and O's Aggressive pulmonary hygiene Further recommendations to be based upon clinical course I am dictating on behalf of Dr Cyrus Madrigal's history/physical and assessment/plan. Past Medical History Past Medical History: Heart Failure, COPD, Diabetes Mellitus, GERD/Reflux, Hypertension Additional Past Medical History / Comment(s): colitis. chronic myeloi leukemia. resp failure with hypoxia. obesity. LEYVA History of Any Multi-Drug Resistant Organisms: None Reported Past Surgical History: Cholecystectomy, Hysterectomy, Tonsillectomy Additional Past Surgical History / Comment(s): carpal tunnel, right axila-lymph removal Past Psychological History: ADD/ADHD, Bipolar Smoking Status: Unknown if ever smoked Past Alcohol Use History: None Reported Past Drug Use History: None Reported - Past Family History Father Brother(s) Family Medical History: Unable to Obtain (due to mental status) Medications and Allergies Home Medications Medication Instructions Recorded Confirmed Type DULoxetine HCL [Cymbalta] 60 mg PO DAILY@0800 02/06/16 02/02/23 History Insulin Glargine [Lantus Vial] 34 unit SQ DAILY@1000 02/06/16 02/02/23 History Lurasidone [Latuda] 40 mg PO BID@0800,1800 02/06/16 02/02/23 History Acetaminophen Tab [Tylenol] 650 mg PO Q6H PRN 01/22/23 02/02/23 History Albuterol Inhaler [Ventolin Hfa 2 puff INHALATION 01/22/23 02/02/23 History Inhaler] RT-QID@00,06,12,18 Aspirin EC [Ecotrin Low Dose] 81 mg PO DAILY@0800 01/22/23 02/02/23 History Atorvastatin [Lipitor] 40 mg PO HS 01/22/23 02/02/23 History Calcium Carbonate 500 mg PO Q2H PRN 01/22/23 02/02/23 History Cyclobenzaprine [Flexeril] 10 mg PO Q12H PRN 01/22/23 02/02/23 History Ergocalciferol (Vitamin D2) 1,250 mcg PO CAUSEY 01/22/23 02/02/23 History [Drisdol (50,000 Iu)] Estradiol Cream [Estrace Cream 1 gm VAGINAL Q4D 01/22/23 02/02/23 History 0.01%] Gabapentin [Neurontin] 300 mg PO TID@0800,1600,2200 01/22/23 02/02/23 History Imatinib Mesylate [Gleevec] 400 mg PO DAILY@0800 01/22/23 02/02/23 History Ipratropium-Albuterol Nebulize 3 ml INHALATION RT-QID@00,06,12,18 01/22/23 02/02/23 History [Duoneb 0.5 mg-3 mg/3 ml Soln] PRN L.acidoph,Paracasei, B.lactis 1 cap PO DAILY 01/22/23 02/02/23 History [Probiotic] Loratadine [Claritin] 10 mg PO DAILY@0801/22/23 02/02/23 History Melatonin 5 mg PO HS 01/22/23 02/02/23 History Metoprolol Succinate (ER) [Toprol 25 mg PO DAILY@79901/22/23 02/02/23 History XL] Mirtazapine [Remeron] 15 mg PO HS@199901/22/23 02/02/23 History Multivitamins, Thera [Multivitamin 1 tab PO DAILY@0801/22/23 02/02/23 History (formulary)] OXcarbazepine [Trileptal] 600 mg PO DAILY@79901/22/23 02/02/23 History Omeprazole [PriLOSEC] 20 mg PO HS@199901/22/23 02/02/23 History Pyridoxine HCl (Vitamin B6) 100 mg PO DAILY@0800 01/22/23 02/02/23 History [Vitamin B-6] HYDROcodone/APAP 5-325MG [[place] 1 tab PO Q8H PRN #9 tab 01/29/23 02/02/23 Rx 5-325] Albuterol Nebulized [Ventolin 2.5 mg INHALATION RT-Q2H PRN 02/02/23 02/02/23 History Nebulized] INSULIN LISPRO (humaLOG) [humaLOG] See Protocol SQ AC-TID 02/02/23 02/02/23 History busPIRone HCL 5 mg PO BID@0800,1600 02/02/23 02/02/23 History Allergies Allergy/AdvReac Type Severity Reaction Status Date / Time Fish Containing Products Allergy Unknown Verified 02/02/23 15:09 [Fish] furosemide [From Lasix] Allergy Unknown Verified 02/02/23 15:09 Latex, Natural Rubber Allergy Unknown Verified 02/02/23 15:09 prochlorperazine Allergy Unknown Verified 02/02/23 15:09 [From Compazine] shellfish derived [Shellfish] Allergy Unknown Verified 02/02/23 15:09 Sulfa (Sulfonamide Allergy Anaphylaxis Verified 02/02/23 15:09 Antibiotics) diuretics Allergy Swelling Uncoded 02/06/16 19:10 Physical Exam Vitals: Vital Signs Temp Pulse Pulse Resp BP BP Pulse Ox 02/03/23 08:18 110 H 02/03/23 08:14 110 H 02/03/23 07:47 109 H 02/03/23 07:43 02/03/23 07:00 105 H 15 144/67 95 02/03/23 06:49 107 H 23 144/67 93 L 02/03/23 05:14 97 21 120/58 92 L 02/03/23 04:41 98.8 F 101 H 17 154/76 93 L 02/03/23 04:28 101 H 02/03/23 04:14 99 02/03/23 04:00 20 02/03/23 03:04 92 20 145/73 92 L 02/03/23 02:33 90 21 139/68 90 L 02/03/23 00:40 82 02/03/23 00:29 02/03/23 00:22 85 02/03/23 00:20 02/02/23 23:45 02/02/23 22:34 97.4 F L 96 28 H 143/58 90 L 02/02/23 21:17 96.3 F L 86 17 110/87 94 L 02/02/23 20:47 89 22 119/63 94 L 02/02/23 19:39 93 02/02/23 19:33 02/02/23 19:30 96 19 137/66 02/02/23 18:30 103 H 27 H 115/65 02/02/23 18:20 101 H 16 111/58 02/02/23 18:10 103 H 27 H 111/66 02/02/23 18:00 102 H 18 136/48 02/02/23 17:50 98 17 179/131 02/02/23 17:40 101 H 8 L 118/107 02/02/23 17:30 101 H 27 H 156/131 02/02/23 17:20 21 135/119 02/02/23 17:10 104 H 18 124/66 02/02/23 17:00 93 15 135/66 02/02/23 16:50 96 16 134/62 02/02/23 16:40 97 12 143/97 02/02/23 16:30 99 15 129/64 02/02/23 16:20 107 H 19 113/53 02/02/23 16:10 93 36 H 113/53 95 02/02/23 16:00 94 19 105/45 94 L 02/02/23 15:50 96 26 H 109/39 94 L 02/02/23 15:42 02/02/23 15:40 97.0 F L 96 20 98/38 95 02/02/23 15:18 97 02/02/23 14:59 102 H 02/02/23 14:19 02/02/23 14:12 96.9 F L 02/02/23 14:09 02/02/23 14:08 97 20 98/34 98 02/02/23 14:00 02/02/23 13:59 98 20 98/64 58 L FiO2 02/03/23 08:18 02/03/23 08:14 02/03/23 07:47 02/03/23 07:43 50 02/03/23 07:00 02/03/23 06:49 02/03/23 05:14 02/03/23 04:41 50 02/03/23 04:28 02/03/23 04:14 50 02/03/23 04:00 50 02/03/23 03:04 02/03/23 02:33 50 02/03/23 00:40 02/03/23 00:29 50 02/03/23 00:22 02/03/23 00:20 50 02/02/23 23:45 60 02/02/23 22:34 02/02/23 21:17 02/02/23 20:47 02/02/23 19:39 02/02/23 19:33 60 02/02/23 19:30 02/02/23 18:30 02/02/23 18:20 02/02/23 18:10 02/02/23 18:00 02/02/23 17:50 02/02/23 17:40 02/02/23 17:30 02/02/23 17:20 02/02/23 17:10 02/02/23 17:00 02/02/23 16:50 02/02/23 16:40 02/02/23 16:30 02/02/23 16:20 02/02/23 16:10 02/02/23 16:00 02/02/23 15:50 02/02/23 15:42 60 02/02/23 15:40 02/02/23 15:18 02/02/23 14:59 02/02/23 14:19 60 02/02/23 14:12 02/02/23 14:09 70 02/02/23 14:08 02/02/23 14:00 100 02/02/23 13:59 Intake and Output 02/02/23 02/03/23 02/03/23 22:59 06:59 14:59 Intake Total 30 Output Total 2985 Balance -2955 Intake: Intake, IV Titration 30 Amount Bumetanide 10 mg In 5 Dextrose 5% in Water 60 ml @ 0.5 MG/HR 5 mls/hr IV .Q20H [facility] Rx#: [id number] Piperacillin-Tazobactam 3 25 .375 gm In Sodium Chloride 0.9% 100 ml @ 25 mls/hr IVPB Q8H [facility] Rx#: [id number] Output: Urine 2985 Other: Weight 167.829 kg 109.5 kg Results 02/03/23 00:47 02/03/23 00:47 Cardiac Enzymes 02/02/23 02/02/23 Range/Units 14:30 14:30 AST 24 (14-36) U/L Troponin I 0.037 H* (0.000-0.034) ng/mL Coagulation 02/02/23 Range/Units 14:30 PT 10.3 (9.0-12.0) sec APTT 25.2 (22.0-30.0) sec CBC 02/02/23 02/03/23 Range/Units 14:30 00:47 WBC 11.1 H 9.4 (3.8-10.6) k/uL RBC 3.74 L 3.16 L (3.80-5.40) m/uL Hgb 10.3 L 8.6 L D (11.4-16.0) gm/dL Hct 35.5 29.6 L (34.0-46.0) % Plt Count 173 135 L (150-450) k/uL Comprehensive Metabolic Panel 02/02/23 02/03/23 Range/Units 14:30 00:47 Sodium 134 L 135 L (137-145) mmol/L Potassium 5.3 H 4.9 (3.5-5.1) mmol/L Chloride 92 L 94 L (98-107) mmol/L Carbon Dioxide 39 H 36 H (22-30) mmol/L BUN 16 14 (7-17) mg/dL Creatinine 0.93 0.74 (0.52-1.04) mg/dL Glucose 155 H 105 H (74-99) mg/dL Calcium 8.5 8.3 L (8.4-10.2) mg/dL AST 24 (14-36) U/L ALT 23 (4-34) U/L Alkaline Phosphatase 73 (38-126) U/L Total Protein 6.7 (6.3-8.2) g/dL Albumin 3.9 (3.5-5.0) g/dL Current Medications Generic Name Dose Route Start Last Admin Trade Name Freq PRN Reason Stop Dose Admin Albuterol/Ipratropium 3 ml 02/03/23 08:00 02/03/23 07:42 Ipratropium-Albuterol 3 Ml Neb INHALATION 3 ml RT-QID WIN Administration Albuterol/Ipratropium 3 ml 02/02/23 22:22 02/03/23 04:13 Ipratropium-Albuterol 3 Ml Neb INHALATION 3 ml RT-Q2H PRN Administration Shortness Of Breath Or Wheezing Aspirin 81 mg 02/04/23 08:00 Aspirin 81 Mg PO DAILY@0800 WIN Atorvastatin Calcium 40 mg 02/03/23 21:00 Atorvastatin 40 Mg Tab PO HS WIN Budesonide 1 mg 02/03/23 08:00 02/03/23 07:42 Budesonide 1 Mg/2 Ml Nebu INHALATION 1 mg RT-BID IWN Administration Buspirone HCl 5 mg 02/03/23 16:00 Buspirone Hcl 5 Mg Tab PO BID@0800,1600 [facility] Dextrose/Water 25 ml 02/03/23 01:46 Dextrose 50% Syringe 50 Ml IVP PER PROTOCOL PRN Hypoglycemia Protocol Dextrose/Water 50 ml 06/22/23 01:46 Dextrose 50% Syringe 50 Ml IVP PER PROTOCOL PRN Hypoglycemia Protocol Duloxetine HCl 60 mg 02/04/23 08:00 Duloxetine Hcl 60 Mg Capsule. PO DAILY@0800 [facility] Formoterol Fumarate 20 mcg 02/03/23 08:00 02/03/23 07:42 Formoterol Fumarate 20 Mcg/2 Ml Nebu INHALATION 20 mcg RT-BID WIN Administration Gabapentin 300 mg 02/03/23 16:00 Gabapentin 300 Mg Cap PO TID@0800,1600,2200 WIN Heparin Sodium (Porcine) 5,000 unit 02/03/23 08:00 02/03/23 08:28 Heparin Sodium,Porcine/Pf 5,000 Unit/0.5 Ml Syringe SQ 5,000 unit Q8HR WIN Administration Sodium Chloride 1,000 mls @ 20 mls/hr 02/02/23 18:00 02/02/23 18:32 Saline 0.9% IV 20 mls/hr .Q24H WIN Administration Piperacillin Sod/Tazobactam 100 mls @ 25 mls/hr 02/03/23 04:00 02/03/23 04:21 Sod 3.375 gm/ Sodium Chloride IVPB 02/08/23 04:01 25 mls/hr Q8H WIN Administration Protocol Levofloxacin 750 mg/ IV 150 mls @ 100 mls/hr 02/02/23 19:00 02/02/23 20:55 Solution IVPB 100 mls/hr Q24H WIN Administration Protocol Bumetanide 10 mg/ Dextrose/ 100 mls @ 5 mls/hr 02/03/23 00:30 02/03/23 00:54 Water IV 0.5 mg/hr .Q20H WIN 5 mls/hr Administration 0.5 MG/HR Insulin Aspart 0 unit 02/03/23 07:00 02/03/23 06:47 Insulin Aspart (Novolog) 100 Unit/Ml Vial SQ 3 unit Q6HR WIN Administration Protocol Methylprednisolone Sodium Succinate 60 mg 02/03/23 00:30 02/03/23 06:34 Methylprednisolone Sod Succi 125 Mg/2 Ml Vial IV 60 mg Q6HR WIN Administration Metoprolol Succinate 25 mg 02/04/23 08:00 Metoprolol Succinate (Er) 25 Mg Tab.Er.24h PO DAILY@0800 [facility] Mirtazapine 15 mg 02/03/23 20:00 Mirtazapine 15 Mg Tab PO HS@2000 [facility] Miscellaneous Information 1 each 02/02/23 17:58 Pneumonia Protocol Utilized 1 Each Misc PO ONCE PRN Per Protocol Oxcarbazepine 600 mg 02/04/23 08:00 Oxcarbazepine 300 Mg Tab PO DAILY@0800 [facility] Pantoprazole Sodium 40 mg 02/03/23 09:00 02/03/23 08:27 Pantoprazole 40 Mg/10 Ml Vial IV 40 mg DAILY [facility] Administration Intake and Output 02/02/23 02/03/23 02/03/23 22:59 06:59 14:59 Intake Total 30 Output Total 2985 Balance -2955 Intake: Intake, IV Titration 30 Amount Bumetanide 10 mg In 5 Dextrose 5% in Water 60 ml @ 0.5 MG/HR 5 mls/hr IV .Q20H [facility] Rx#: [id number] Piperacillin-Tazobactam 3 25 .375 gm In Sodium Chloride 0.9% 100 ml @ 25 mls/hr IVPB Q8H [facility] Rx#: [id number] Output: Urine 2985 Other: Weight 167.829 kg 109.5 kg 02/03/23 00:47 02/03/23 00:47
[2023-02-03] MEDS: DEXMEDETOMIDINE/0.9% NACL(PMX) 400 MCG in EMPTY BAG 1 BAG IV SCH ×2 (10:06→18:33)
[2023-02-03] MEDS ORDERED: LORazepam 2 MG/ML INJ IV STA (10:42)
[2023-02-03] MEDS ORDERED: levETIRAcetam IV 500 MG in SODIUM CHLORIDE 0.9% 250 ML IVPB SCH (10:45)
--- NOTE | 2023-02-03 11:44 | CT ---
EXAMINATION TYPE: CT brain wo con DATE OF EXAM: 02/03/2023 COMPARISON: 01/22/2023 HISTORY: Altered mentation CT DLP: 1201.4 mGycm. Automated Exposure Control for Dose Reduction was Utilized. TECHNIQUE: CT scan of the head is performed without contrast. FINDINGS: There is no acute intracranial hemorrhage, mass effect, or midline shift identified. The ventricles and sulci are within normal limits in size. The globes are intact and the visualized sin uses are clear. Chronic mastoiditis. Hyperostosis. There is an area of low attenuation in the right f rontal lobe axial image 36. Report telephoned at 11:40 AM 02/03/2023 to the patient's nurse. IMPRESSION: 1. No acute intracranial hemorrhage, mass effect, or midline shift is seen. Area of low attenuation i n the right frontal parietal junction axial image 36 not seen with certainty on prior exam. Recommend MRI to exclude early ischemic change. A [place] critical message alert has been initiated for Kaylah Madeleine via the [facility] [facility] on 02/03/2023 11:40 AM. This message alert has been sent to Kaylah Salvador via th e preferences provided by the clinician for the receipt of Radiology Critical Findings. Message ID [id number].
[2023-02-03 12:15] LABS: Glucose,Whole Blood 149 mg/dL (70-110)
[2023-02-03 12:29] LABS: Creatine Kinase 22 U/L (30-135)
[2023-02-03] MEDS: levETIRAcetam IV 500 MG/5 ML VIAL IVP SCH ×2 (12:45→23:45)
--- NOTE | 2023-02-03 13:20 | P.CNNES ---
History of Present Illness Consult date: 02/03/23 Requesting physician: Kaylah Salvador Reason for Consult: seizure History of Present Illness: This is a 47 year-old woman with history of [employer], chronic hypoxic respiratory failure on nasal cannula pneumonia, DM, CHF, HTN, Schizophrenia, morbid obesity who resides in [facility] nursing facility was sent to our facility because of shortness of breath with hypoxia. Neurology is consulted for concern for seizure. History is obtained from the patient's primary team. According to the primary team the patient is alert oriented 3 and she presented facility again for shortness of breath and was a year last week for acute exacerbation of COPD but was responding appropriately. Currently she is having a lot of respiratory issues and is on BiPAP but that she was having the muscle spasm of the left thigh and abnormal movement noted. He does not have any history of seizures. The mother workup during his hospital visit consisted of: Her pCO2 is a 83 yesterday and today is 71 minutes slightly acidotic. Bicarbonate 42. Her sugar is in the 140s to 160s. Ammonia level is 18. CK level was 22. TSH is 0.[address] of the head today is reported as no acute intracranial hemorrhage, mass effect or midline shift is seen. Area of low attenuation in the right frontal parietal junction axial image 36 not seen with certainty on prior exam. Recommend MRI to exclude early ischemic changes. Personally reviewed the CT and I do not patient any acute subacute ischemia and there is no bleed that there is no mass effect. Of note patient had the CT of the head on 01/22/2023 was reported as no acute intracranial abnormality seen. Either 1.9 cm anterior left frontal meningioma versus congenital variation with hyper ostosis frontalis interna. I agree with the report. Review of Systems Review of system is limited but the prone positive and negative as per HPI. Past Medical History Past Medical History: Heart Failure, COPD, Diabetes Mellitus, GERD/Reflux, Hypertension Additional Past Medical History / Comment(s): colitis. chronic myeloi leukemia. resp failure with hypoxia. obesity. LEYVA History of Any Multi-Drug Resistant Organisms: None Reported Past Surgical History: Cholecystectomy, Hysterectomy, Tonsillectomy Additional Past Surgical History / Comment(s): carpal tunnel, right axila-lymph removal Past Psychological History: ADD/ADHD, Bipolar Smoking Status: Unknown if ever smoked Past Alcohol Use History: None Reported Past Drug Use History: None Reported - Past Family History Father Brother(s) Family Medical History: Unable to Obtain (due to mental status) Medications and Allergies Home Medications Medication Instructions Recorded Confirmed Type DULoxetine HCL [Cymbalta] 60 mg PO DAILY@0800 02/06/16 02/02/23 History Insulin Glargine [Lantus Vial] 34 unit SQ DAILY@1000 02/06/16 02/02/23 History Lurasidone [Latuda] 40 mg PO BID@0800,1800 02/06/16 02/02/23 History Acetaminophen Tab [Tylenol] 650 mg PO Q6H PRN 01/22/23 02/02/23 History Albuterol Inhaler [Ventolin Hfa 2 puff INHALATION 01/22/23 02/02/23 History Inhaler] RT-QID@00,,, Aspirin EC [Ecotrin Low Dose] 81 mg PO DAILY@0800 01/22/23 02/02/23 History Atorvastatin [Lipitor] 40 mg PO HS 01/22/23 02/02/23 History Calcium Carbonate 500 mg PO Q2H PRN 01/22/23 02/02/23 History Cyclobenzaprine [Flexeril] 10 mg PO Q12H PRN 01/22/23 02/02/23 History Ergocalciferol (Vitamin D2) 1,250 mcg PO CAUSEY 01/22/23 02/02/23 History [Drisdol (50,000 Iu)] Estradiol Cream [Estrace Cream 1 gm VAGINAL Q4D 01/22/23 02/02/23 History 0.01%] Gabapentin [Neurontin] 300 mg PO TID@0800,1600,2200 01/22/23 02/02/23 History Imatinib Mesylate [Gleevec] 400 mg PO DAILY@0800 01/22/23 02/02/23 History Ipratropium-Albuterol Nebulize 3 ml INHALATION RT-QID@00,,12,18 01/22/23 02/02/23 History [Duoneb 0.5 mg-3 mg/3 ml Soln] PRN L.acidoph,Paracasei, B.lactis 1 cap PO DAILY 01/22/23 02/02/23 History [Probiotic] Loratadine [Claritin] 10 mg PO DAILY@0800 01/22/23 02/02/23 History Melatonin 5 mg PO HS 01/22/23 02/02/23 History Metoprolol Succinate (ER) [Toprol 25 mg PO DAILY@0800 01/22/23 02/02/23 History XL] Mirtazapine [Remeron] 15 mg PO HS@199901/22/23 02/02/23 History Multivitamins, Thera [Multivitamin 1 tab PO DAILY@0800 01/22/23 02/02/23 History (formulary)] OXcarbazepine [Trileptal] 600 mg PO DAILY@0801/22/23 02/02/23 History Omeprazole [PriLOSEC] 20 mg PO HS@199901/22/23 02/02/23 History Pyridoxine HCl (Vitamin B6) 100 mg PO DAILY@79901/22/23 02/02/23 History [Vitamin B-6] HYDROcodone/APAP 5-325MG [[place] 1 tab PO Q8H PRN #9 tab 01/29/23 02/02/23 Rx 5-325] Albuterol Nebulized [Ventolin 2.5 mg INHALATION RT-Q2H PRN 02/02/23 02/02/23 History Nebulized] INSULIN LISPRO (humaLOG) [humaLOG] See Protocol SQ AC-TID 02/02/23 02/02/23 History busPIRone HCL 5 mg PO BID@0800,1600 02/02/23 02/02/23 History Allergies Allergy/AdvReac Type Severity Reaction Status Date / Time Fish Containing Products Allergy Unknown Verified 02/02/23 15:09 [Fish] furosemide [From Lasix] Allergy Unknown Verified 02/02/23 15:09 Latex, Natural Rubber Allergy Unknown Verified 02/02/23 15:09 prochlorperazine Allergy Unknown Verified 02/02/23 15:09 [From Compazine] shellfish derived [Shellfish] Allergy Unknown Verified 02/02/23 15:09 Sulfa (Sulfonamide Allergy Anaphylaxis Verified 02/02/23 15:09 Antibiotics) diuretics Allergy Swelling Uncoded 02/06/16 19:10 Physical Examination - Vital Signs Vital Signs: Vital Signs Temp Pulse Pulse Resp BP BP Pulse Ox 02/03/23 11:43 101 H 02/03/23 11:33 107 H 02/03/23 08:18 110 H 02/03/23 08:14 110 H 02/03/23 07:47 109 H 02/03/23 07:43 02/03/23 07:00 105 H 15 144/67 95 02/03/23 06:49 107 H 23 144/67 93 L 02/03/23 05:14 97 21 120/58 92 L 02/03/23 04:41 98.8 F 101 H 17 154/76 93 L 02/03/23 04:28 101 H 02/03/23 04:14 99 02/03/23 04:00 20 02/03/23 03:04 92 20 145/73 92 L 02/03/23 02:33 90 21 139/68 90 L 02/03/23 00:40 82 02/03/23 00:29 02/03/23 00:22 85 02/03/23 00:20 02/02/23 23:45 02/02/23 22:34 97.4 F L 96 28 H 143/58 90 L 02/02/23 21:17 96.3 F L 86 17 110/87 94 L 02/02/23 20:47 89 22 119/63 94 L 02/02/23 19:39 93 02/02/23 19:33 02/02/23 19:30 96 19 137/66 02/02/23 18:30 103 H 27 H 115/65 02/02/23 18:20 101 H 16 111/58 02/02/23 18:10 103 H 27 H 111/66 02/02/23 18:00 102 H 18 136/48 02/02/23 17:50 98 17 179/131 02/02/23 17:40 101 H 8 L 118/107 02/02/23 17:30 101 H 27 H 156/131 02/02/23 17:20 21 135/119 02/02/23 17:10 104 H 18 124/66 02/02/23 17:00 93 15 135/66 02/02/23 16:50 96 16 134/62 02/02/23 16:40 97 12 143/97 02/02/23 16:30 99 15 129/64 02/02/23 16:20 107 H 19 113/53 02/02/23 16:10 93 36 H 113/53 95 02/02/23 16:00 94 19 105/45 94 L 02/02/23 15:50 96 26 H 109/39 94 L 02/02/23 15:42 02/02/23 15:40 97.0 F L 96 20 98/38 95 02/02/23 15:18 97 02/02/23 14:59 102 H 02/02/23 14:19 02/02/23 14:12 96.9 F L 02/02/23 14:09 02/02/23 14:08 97 20 98/34 98 02/02/23 14:00 02/02/23 13:59 98 20 98/64 58 L FiO2 02/03/23 11:43 02/03/23 11:33 100 02/03/23 08:18 02/03/23 08:14 02/03/23 07:47 02/03/23 07:43 50 02/03/23 07:00 02/03/23 06:49 02/03/23 05:14 02/03/23 04:41 50 02/03/23 04:28 02/03/23 04:14 50 02/03/23 04:00 50 02/03/23 03:04 02/03/23 02:33 50 02/03/23 00:40 02/03/23 00:29 50 02/03/23 00:22 02/03/23 00:20 50 02/02/23 23:45 60 02/02/23 22:34 02/02/23 21:17 02/02/23 20:47 02/02/23 19:39 02/02/23 19:33 60 02/02/23 19:30 02/02/23 18:30 02/02/23 18:20 02/02/23 18:10 02/02/23 18:00 02/02/23 17:50 02/02/23 17:40 02/02/23 17:30 02/02/23 17:20 02/02/23 17:10 02/02/23 17:00 02/02/23 16:50 02/02/23 16:40 02/02/23 16:30 02/02/23 16:20 02/02/23 16:10 02/02/23 16:00 02/02/23 15:50 02/02/23 15:42 60 02/02/23 15:40 02/02/23 15:18 02/02/23 14:59 02/02/23 14:19 60 02/02/23 14:12 02/02/23 14:09 70 02/02/23 14:08 02/02/23 14:00 100 02/02/23 13:59 Intake and Output 02/02/23 02/03/23 02/03/23 22:59 06:59 14:59 Intake Total 30 40 Output Total 2985 1300 Balance -2955 -1260 Intake: IV 40 0.9 KVO 40 Intake, IV Titration 30 Amount Bumetanide 10 mg In 5 Dextrose 5% in Water 60 ml @ 0.5 MG/HR 5 mls/hr IV .Q20H [facility] Rx#: [id number] Piperacillin-Tazobactam 3 25 .375 gm In Sodium Chloride 0.9% 100 ml @ 25 mls/hr IVPB Q8H [facility] Rx#: [id number] Output: Urine 2985 1300 Other: Weight 167.829 kg 109.5 kg GENERAL: The patient is lying in bed and is not in acute distress. LUNG: Is on BiPAP. NEUROLOGICAL: Exam is limited. Higher mental function: The patient is drowsy but is awakeable to voice. Is oriented to self. Follows few simple commands (thumbs up, closing and opening eyes and wiggling toes). Language is very limited since on BiPAP and her condition., Cranial nerves: The pupils are round, equal and reactive to light. No facial weakness. Has abnormal movement of mouth like chewing or sticking tongue out. Motor: The strength is limited in assessment but briefly lifting bilateral above gravity and wiggle her toes. Has decrease tone throughout. Has twitching of the left thigh muscles and patient was responsive during episode and no fixed gaze deviation. Normal bulk. Cerebellum: Unable to assess. Sensation: Unable to assess. Reflexes (right/left): 1+ throughout. Plantars are mute bilaterally. Results - Laboratory Findings CBC and BMP: 02/03/23 00:47 02/03/23 00:47 Abnormal Lab Findings: Abnormal Labs 02/02/23 02/02/23 02/02/23 14:30 14:30 14:30 WBC 11.1 H RBC 3.74 L Hgb 10.3 L Hct MCHC 28.9 L RDW 17.3 H Plt Count Neutrophils # 9.9 H Lymphocytes # 0.7 L ABG pH ABG pCO2 ABG pO2 ABG HCO3 ABG Total CO2 ABG O2 Saturation Sodium 134 L Potassium 5.3 H Chloride 92 L Carbon Dioxide 39 H Glucose 155 H POC Glucose (mg/dL) Plasma Lactic Acid Dimitri Calcium Creatine Kinase Troponin I 0.037 H* Ur Leukocyte Esterase Urine WBC Urine Bacteria Urine Mucus 02/02/23 02/02/23 02/02/23 23:42 23:51 23:58 WBC RBC Hgb Hct MCHC RDW Plt Count Neutrophils # Lymphocytes # ABG pH 7.29 L ABG pCO2 83 H* ABG pO2 71 L ABG HCO3 39 H ABG Total CO2 42 H ABG O2 Saturation Sodium Potassium Chloride Carbon Dioxide Glucose POC Glucose (mg/dL) 113 H 162 H Plasma Lactic Acid Dimitri Calcium Creatine Kinase Troponin I Ur Leukocyte Esterase Urine WBC Urine Bacteria Urine Mucus 02/03/23 02/03/23 02/03/23 00:47 00:47 00:47 WBC RBC 3.16 L Hgb 8.6 L D Hct 29.6 L MCHC 29.2 L RDW 17.6 H Plt Count 135 L Neutrophils # Lymphocytes # ABG pH ABG pCO2 ABG pO2 ABG HCO3 ABG Total CO2 ABG O2 Saturation Sodium 135 L Potassium Chloride 94 L Carbon Dioxide 36 H Glucose 105 H POC Glucose (mg/dL) Plasma Lactic Acid Dimitri 0.6 L Calcium 8.3 L Creatine Kinase Troponin I Ur Leukocyte Esterase Urine WBC Urine Bacteria Urine Mucus 02/03/23 02/03/23 02/03/23 01:37 03:01 06:32 WBC RBC Hgb Hct MCHC RDW Plt Count Neutrophils # Lymphocytes # ABG pH ABG pCO2 71 H* ABG pO2 61 L ABG HCO3 40 H* ABG Total CO2 42 H ABG O2 Saturation 92.3 L Sodium Potassium Chloride Carbon Dioxide Glucose POC Glucose (mg/dL) 169 H Plasma Lactic Acid Dimitri Calcium Creatine Kinase Troponin I Ur Leukocyte Esterase Small H Urine WBC 13 H Urine Bacteria Rare H Urine Mucus Rare H 02/03/23 02/03/23 11:32 12:13 WBC RBC Hgb Hct MCHC RDW Plt Count Neutrophils # Lymphocytes # ABG pH ABG pCO2 ABG pO2 ABG HCO3 ABG Total CO2 ABG O2 Saturation Sodium Potassium Chloride Carbon Dioxide Glucose POC Glucose (mg/dL) 149 H Plasma Lactic Acid Dimitri Calcium Creatine Kinase 22 L Troponin I Ur Leukocyte Esterase Urine WBC Urine Bacteria Urine Mucus Assessment and Plan Assessment: Altered mental status seems due to hypoxic encephalopathy Her twitching of the left thigh seems likely due to metabolic/hypoxic derangem ent. Cannot rule out seizure CT of the head is reported as hypointensity over the right frontal parietal: Rule out acute ischemia. I personally reviewed the CT and I felt there is no hypodensity that is appreciable. Either 1.9 cm anterior left frontal meningioma versus congenital variation with hyperostosis frontalis interna on CT Acute COPD exacerbation Acute on chronic hypoxic respiratory failure currently on BiPAP Diabetes mellitus Congestive heart failure Hypertension Schizophrenia Morbid obesity Plan: We'll obtain a routine EEG was the patient is off BiPAP. Anytime cannot rule out underlying seizure and we'll start the patient on Keppra 500 mg 1 tablet twice a day with one time Ativan since the patient has left leg twitch and. Recommend to go down on the gabapentin from 300 mg 1 tablet 3 times a day to 100 mg 1 tablet 3 times a day if patient continues to be confused. We'll obtain MRI of the brain once the patient is stable to rule out any underlying stroke. If unable will obtain repeat CT head. She is resumed on her home dose ASA 81mg and Lipitor 40mg qhs. Continue neuro checks TSH is ordered by the primary team is pending We'll defer the rest of the medical management to the primary ICU team The plan discussed with the patient's primary attending and her nurse Thank you for the consultation Time with Patient: Greater than 30
--- NOTE | 2023-02-03 13:34 | P.PN ---
Subjective Progress Note Date: 02/03/23 Patient is a 47-year-old female with COPD chronically on 3 L nasal cannula, diabetes mellitus type 2, chronic indwelling Dixon catheter, hypertension, GERD, CML, and bipolar disorder who presented to the hospital after developing respiratory distress at [facility]. On arrival to the ER she was noted to be hypoxic at 58% on nasal cannula and was immediately placed on BiPAP. Initial laboratory analysis was remarkable for white blood cell count of 11.1, hemoglobin 10.3, sodium 134, potassium 5.3, and glucose of 155. Initial troponin was positive at 0.0037 and BNP was positive at 17,300. Chest x-ray showed new focal bilateral airspace disease with possible pneumonia and continued asymmetric elevation of the right hemidiaphragm. She was admitted for possible acute exacerbation of COPD and acute exacerbation of diastolic CHF. A CODE BLUE was called for respiratory arrest and the patient was on BiPAP with settings of 12/6 and FiO2 of 60% with tidal volumes of 1 to 200s. The patient never lost a pulse in her initial ABG at that time showed a pH of 7.29, pCO2 83, PaO2 of 71. She was subsequently transferred to the ICU. Her BiPAP settings were adjusted and repeat ABG showed a pH of 7.36, CO2 of 71, PaO2 of 61, and a bicarb of 40. Pulmonary critical care and cardiology were consulted. Patient seen and examined at bedside. She has very confused and keeps just stating the word Katherin over and over again. We asked her other questions she repeats the number "1". This is significantly different from my prior evaluations with patient during her previous hospital stay where she was awake, alert, oriented, and interacting appropriately. She does follow commands. Vital signs reviewed General: nontoxic, no distress, appears at stated age Cardiovascular: S1S2 reg, no murmur, positive posterior tibial pulse bilateral, Lungs: Coarse breath sounds bilateral, no rhonchi, no rales , no accessory muscle use Abdominal: soft, nontender to palpation, no guarding, no appreciable organomegaly Ext: no gross muscle atrophy, no edema b/l lower extremities, no contractures Neuro: CN II-XI grossly intact, no focal neuro deficits, mucle twitiching of right upper thigh, bruxisms, mydriasis, EOMI, Following commands, echolalia Psych: Awake, oriented to self, appears anxious Assessment/Plan: Acute on chronic hypoxic hypercapnic respiratory failure Acute exacerbation of cor pulmonale with RVSP at 90 Acute exacerbation of COPD Elevated troponin secondary to supply demand mismatch Obesity hypoventilation syndrome -Continue with DuoNeb schedule and as needed, Pulmicort inhalation twice daily, Solu-Medrol 60 every 6 -Pulmonary critical care note reviewed: Patient has been having agitation and ripping her BiPAP off and then defatting and therefore she was started on Precedex -Cardiology note reviewed: Continue with Bumex drip for diuresis, strict I's and O's, aggressive pulmonary hygiene. Elevated troponin secondary to supply demand mismatch -Await pro-calcitonin level Acute metabolic encephalopathy Tradiative dyspensia and right thigh twitching Concern for possible underlying seizure disorder versus serotonin syndrome -Case discussed with Dr. Monroe and who presented to the bedside. He agrees with proceeding with EEG and head CT (reviewed with possible quinonez-white matter change in the right frontal/parietal lobe), he does recommend a TSH. Start Keppra 500 gm IV BID -Check CK -Supportive care - hold flexeril, latuda, norco Diabetes mellitus type 2 -Sliding-scale insulin, hold Lantus given nothing by mouth status while on BiPAP -A1c 6.6 on 01/27/23 -Follow blood sugars Anemia, chronic Mild thrombocytopenia -Patient had thorough evaluation last hospital stay with normal B12, folic acid, and iron studies. This is likely secondary to her Gleevec being used for her CML. -Follow CBC Class 3 obesity with BMI 40.2 -Outpatient structured weight loss Chronic: Hypertension GERD Imaging: Chest x-ray from 02/03 at 5:30 AM reviewed which shows elevation of the right hemidiaphragm and increased pulmonary vasculature Data Review: Vital signs reviewed. Pulse 105, respirations 15, blood pressure 1 4467, O2 sat 95% on 50% BiPap Laboratory analysis reviewed and remarkable for hemoglobin 8.6 (baseline 9.6), platelet count 135, sodium 135, BUN 36, glucose 105 DVT prophylaxis: Heparin SC Anticipated discharge date: Pending Clinical Course Anticipated discharge place: Pending Clinical Course This dictation was prepared using [employer] voice recognition software. Though every attempt is made to correct errors during dictation some may still exist. Objective - Vital Signs Vital signs: Vital Signs Temp 99.9 F H 02/03/23 12:00 Pulse 93 06/22/23 13:00 Resp 20 02/03/23 13:00 BP 145/68 02/03/23 13:00 Pulse Ox 90 L 02/03/23 13:00 FiO2 100 02/03/23 12:00 Intake & Output 02/02/23 02/03/23 02/03/23 18:59 06:59 18:59 Intake Total 30 40 Output Total 2985 1300 Balance -2955 -1260 Weight 167.829 kg 109.5 kg Intake: IV 40 0.9 KVO 40 Intake, IV Titration 30 Amount Bumetanide 10 mg In 5 Dextrose 5% in Water 60 ml @ 0.5 MG/HR 5 mls/hr IV .Q20H [facility] Rx#: [id number] Piperacillin-Tazobactam 3 25 .375 gm In Sodium Chloride 0.9% 100 ml @ 25 mls/hr IVPB Q8H [facility] Rx#: [id number] Output: Urine 2985 1300 - Labs CBC & Chem 7: 02/03/23 00:47 02/03/23 00:47 Labs: Abnormal Lab Results - Last 24 Hours (Table) 02/02/23 02/02/23 02/02/23 Range/Units 14:30 14:30 14:30 WBC 11.1 H (3.8-10.6) k/uL RBC 3.74 L (3.80-5.40) m/uL Hgb 10.3 L (11.4-16.0) gm/dL Hct (34.0-46.0) % MCHC 28.9 L (31.0-37.0) g/dL RDW 17.3 H (11.5-15.5) % Plt Count (150-450) k/uL Neutrophils # 9.9 H (1.3-7.7) k/uL Lymphocytes # 0.7 L (1.0-4.8) k/uL ABG pH (7.35-7.45) ABG pCO2 (35-45) mmHg ABG pO2 (83-108) mmHg ABG HCO3 (21-25) mmol/L ABG Total CO2 (19-24) mmol/L ABG O2 Saturation (94-97) % Sodium 134 L (137-145) mmol/L Potassium 5.3 H (3.5-5.1) mmol/L Chloride 92 L (98-107) mmol/L Carbon Dioxide 39 H (22-30) mmol/L Glucose 155 H (74-99) mg/dL POC Glucose (mg/dL) (70-110) mg/dL Plasma Lactic Acid Dimitri (0.7-2.0) mmol/L Calcium (8.4-10.2) mg/dL Creatine Kinase (30-135) U/L Troponin I 0.037 H* (0.000-0.034) ng/mL TSH (0.465-4.680) mIU/L Ur Leukocyte Esterase (Negative) Urine WBC (0-5) /hpf Urine Bacteria (None) /hpf Urine Mucus (None) /hpf 02/02/23 02/02/23 02/02/23 Range/Units 23:42 23:51 23:58 WBC (3.8-10.6) k/uL RBC (3.80-5.40) m/uL Hgb (11.4-16.0) gm/dL Hct (34.0-46.0) % MCHC (31.0-37.0) g/dL RDW (11.5-15.5) % Plt Count (150-450) k/uL Neutrophils # (1.3-7.7) k/uL Lymphocytes # (1.0-4.8) k/uL ABG pH 7.29 L (7.35-7.45) ABG pCO2 83 H* (35-45) mmHg ABG pO2 71 L (83-108) mmHg ABG HCO3 39 H (21-25) mmol/L ABG Total CO2 42 H (19-24) mmol/L ABG O2 Saturation (94-97) % Sodium (137-145) mmol/L Potassium (3.5-5.1) mmol/L Chloride (98-107) mmol/L Carbon Dioxide (22-30) mmol/L Glucose (74-99) mg/dL POC Glucose (mg/dL) 113 H 162 H (70-110) mg/dL Plasma Lactic Acid Dimitri (0.7-2.0) mmol/L Calcium (8.4-10.2) mg/dL Creatine Kinase (30-135) U/L Troponin I (0.000-0.034) ng/mL TSH (0.465-4.680) mIU/L Ur Leukocyte Esterase (Negative) Urine WBC (0-5) /hpf Urine Bacteria (None) /hpf Urine Mucus (None) /hpf 02/03/23 02/03/23 02/03/23 Range/Units 00:47 00:47 00:47 WBC (3.8-10.6) k/uL RBC 3.16 L (3.80-5.40) m/uL Hgb 8.6 L D (11.4-16.0) gm/dL Hct 29.6 L (34.0-46.0) % MCHC 29.2 L (31.0-37.0) g/dL RDW 17.6 H (11.5-15.5) % Plt Count 135 L (150-450) k/uL Neutrophils # (1.3-7.7) k/uL Lymphocytes # (1.0-4.8) k/uL ABG pH (7.35-7.45) ABG pCO2 (35-45) mmHg ABG pO2 (83-108) mmHg ABG HCO3 (21-25) mmol/L ABG Total CO2 (19-24) mmol/L ABG O2 Saturation (94-97) % Sodium 135 L (137-145) mmol/L Potassium (3.5-5.1) mmol/L Chloride 94 L (98-107) mmol/L Carbon Dioxide 36 H (22-30) mmol/L Glucose 105 H (74-99) mg/dL POC Glucose (mg/dL) (70-110) mg/dL Plasma Lactic Acid Dimitri 0.6 L (0.7-2.0) mmol/L Calcium 8.3 L (8.4-10.2) mg/dL Creatine Kinase (30-135) U/L Troponin I (0.000-0.034) ng/mL TSH (0.465-4.680) mIU/L Ur Leukocyte Esterase (Negative) Urine WBC (0-5) /hpf Urine Bacteria (None) /hpf Urine Mucus (None) /hpf 02/03/23 02/03/23 02/03/23 Range/Units 01:37 03:01 06:32 WBC (3.8-10.6) k/uL RBC (3.80-5.40) m/uL Hgb (11.4-16.0) gm/dL Hct (34.0-46.0) % MCHC (31.0-37.0) g/dL RDW (11.5-15.5) % Plt Count (150-450) k/uL Neutrophils # (1.3-7.7) k/uL Lymphocytes # (1.0-4.8) k/uL ABG pH (7.35-7.45) ABG pCO2 71 H* (35-45) mmHg ABG pO2 61 L (83-108) mmHg ABG HCO3 40 H* (21-25) mmol/L ABG Total CO2 42 H (19-24) mmol/L ABG O2 Saturation 92.3 L (94-97) % Sodium (137-145) mmol/L Potassium (3.5-5.1) mmol/L Chloride (98-107) mmol/L Carbon Dioxide (22-30) mmol/L Glucose (74-99) mg/dL POC Glucose (mg/dL) 169 H (70-110) mg/dL Plasma Lactic Acid Dimitri (0.7-2.0) mmol/L Calcium (8.4-10.2) mg/dL Creatine Kinase (30-135) U/L Troponin I (0.000-0.034) ng/mL TSH (0.465-4.680) mIU/L Ur Leukocyte Esterase Small H (Negative) Urine WBC 13 H (0-5) /hpf Urine Bacteria Rare H (None) /hpf Urine Mucus Rare H (None) /hpf 02/03/23 02/03/23 Range/Units 11:32 12:13 WBC (3.8-10.6) k/uL RBC (3.80-5.40) m/uL Hgb (11.4-16.0) gm/dL Hct (34.0-46.0) % MCHC (31.0-37.0) g/dL RDW (11.5-15.5) % Plt Count (150-450) k/uL Neutrophils # (1.3-7.7) k/uL Lymphocytes # (1.0-4.8) k/uL ABG pH (7.35-7.45) ABG pCO2 (35-45) mmHg ABG pO2 (83-108) mmHg ABG HCO3 (21-25) mmol/L ABG Total CO2 (19-24) mmol/L ABG O2 Saturation (94-97) % Sodium (137-145) mmol/L Potassium (3.5-5.1) mmol/L Chloride (98-107) mmol/L Carbon Dioxide (22-30) mmol/L Glucose (74-99) mg/dL POC Glucose (mg/dL) 149 H (70-110) mg/dL Plasma Lactic Acid Dimitri (0.7-2.0) mmol/L Calcium (8.4-10.2) mg/dL Creatine Kinase 22 L (30-135) U/L Troponin I (0.000-0.034) ng/mL TSH 0.411 L (0.465-4.680) mIU/L Ur Leukocyte Esterase (Negative) Urine WBC (0-5) /hpf Urine Bacteria (None) /hpf Urine Mucus (None) /hpf
[2023-02-03 13:53] LABS: T4, Free (Free Thyroxine) 0.86 ng/dL (0.78-2.19)
[2023-02-03] MEDS: GABAPENTIN 300 MG CAP PO SCH ×2 (17:07→21:33)
[2023-02-03] MEDS: busPIRone HCl 5 MG TAB PO SCH (17:07)
[2023-02-03 18:37] LABS: Glucose,Whole Blood 196 mg/dL (70-110)
[2023-02-03] MEDS: LEVOFLOXACIN 750MG-D5W PMX 750 MG in DEXTROSE/WATER 1 150ML.BAG IVPB SCH (18:47)
[2023-02-03] MEDS ORDERED: MIRTAZAPINE 15 MG TAB PO SCH (20:00)
[2023-02-03] MEDS: ATORVASTATIN 40 MG TAB PO SCH (21:32)
[2023-02-03] MEDS: NITROGLYCERIN-D5W PMX 50 MG in DEXTROSE/WATER 1 250ML.BAG IV SCH (23:45)
[2023-02-03] MEDS: SODIUM CHLORIDE 0.9% 1,000 ML IV SCH (23:49)
[2023-02-03 23:51] LABS: Glucose,Whole Blood 200 mg/dL (70-110)
[2023-02-04] MEDS: methylPREDNISolone SOD SUCCI 125 MG/2 ML VIAL IV SCH ×2 (00:04→05:10)
[2023-02-04] MEDS: INSULIN ASPART (NovoLOG) 100 UNIT/ML VIAL SQ SCH ×4 (00:04→18:12)
[2023-02-04] MEDS: DEXMEDETOMIDINE/0.9% NACL(PMX) 400 MCG in EMPTY BAG 1 BAG IV SCH ×4 (00:17→20:37)
[2023-02-04 04:48] LABS: Anisocytosis Slight; Basophils % (A) 0 %; Eosinophils % (A) 0 %; HCT 29.5 % (34.0-46.0); HGB 9.3 gm/dL (11.4-16.0); Hypochromasia Slight; Lymphocytes # (A) 0.5 k/uL (1.0-4.8); Lymphocytes % (A) 5 %; MCH 27.3 pg (25.0-35.0); MCHC 31.4 g/dL (31.0-37.0); Mean Platelet Volume 8.6; Monocytes # (A) 0.4 k/uL (0-1.0); Monocytes % (A) 5 %; Neutrophils # (A) 7.4 k/uL (1.3-7.7); Neutrophils % (A) 89 %; Platelet Count 203 k/uL (150-450); RDW 18.4 % (11.5-15.5); WBC 8.4 k/uL (3.8-10.6)
[2023-02-04] MEDS: PIPERACILLIN-TAZOBACTAM 3.375 GM in SODIUM CHLORIDE 0.9% 100 ML IVPB SCH ×3 (04:57→21:19)
[2023-02-04 05:03] LABS: African American GFR (CKD) 59 (>60 ml/min/1.73 sqM); Blood Urea Nitrogen 29 mg/dL (7-17); Calcium 8.1 mg/dL (8.4-10.2); Chloride 83 mmol/L (98-107); Glucose 214 mg/dL (74-99); Non-African American GFR(CKD) 51 (>60 ml/min/1.73 sqM); Sodium 135 mmol/L (137-145)
[2023-02-04 05:06] LABS: Glucose,Whole Blood 240 mg/dL (70-110)
[2023-02-04 05:09] LABS: Anion Gap 11 mmol/L
[2023-02-04 05:14] LABS: Carbon Dioxide 41 mmol/L (22-30)
[2023-02-04 05:22] LABS: MCV 86.7 fL (80.0-100.0)
[2023-02-04 05:37] LABS: ABG Base Excess 24.9 mmol/L; ABG Oxygen Saturation 91.9 % (94-97); ABG PCO2 53 mmHg (35-45); ABG PO2 61 mmHg (83-108); ABG TCO2 49 mmol/L (19-24); Allen Test Performed? Yes
[2023-02-04 05:40] LABS: ABG HCO3 47 mmol/L (21-25); ABG PH 7.56 (7.35-7.45)
[2023-02-04] MEDS ORDERED: OXcarbazepine 300 MG TAB PO SCH (08:00)
[2023-02-04] MEDS: BUDESONIDE 1 MG/2 ML NEBU INHALATION SCH ×2 (08:00→21:06)
[2023-02-04] MEDS: IPRATROPIUM-ALBUTEROL 3 ML NEB INHALATION SCH ×4 (08:00→21:06)
[2023-02-04] MEDS ORDERED: DULoxetine HCL 60 MG CAPSULE.DR PO SCH (08:00)
[2023-02-04] MEDS: FORMOTEROL FUMARATE 20 MCG/2 ML NEBU INHALATION SCH ×2 (08:00→21:07)
--- NOTE | 2023-02-04 08:19 | XR ---
EXAMINATION TYPE: XR chest 1V portable DATE OF EXAM: 02/04/2023 Comparison: 02/04/2023 Clinical History: 47 year-old female shortness of breath, suspected CHF exacerbation Findings: Heart mild to moderately enlarged. Interstitial density persists. Patchy right basilar opacity is inc reasing. Further thickening of the right minor fissure. Impression: Cardiomegaly with ongoing pulmonary vascular congestion. While there has been some improvement in the right upper lobe airspace disease, there is increased small right pleural effusion with adjacent ate lectasis and/or consolidation. Consider ongoing CHF with shifting patchy pulmonary edema.
--- NOTE | 2023-02-04 09:01 | P.PN ---
Subjective Progress Note Date: 02/04/23 The patient is a 47-year-old female with multiple comorbid conditions who is currently admitted to the hospital with acute hypoxic respiratory failure and congestive heart failure. She has been started on Bumex drip and has remained on BiPAP since her arrival. Vital signs have been stable. Chest x-ray shows improvement in right upper lobe airspace disease, with increased small right pleural effusion. The patient has been started on Precedex for agitation and appears comfortable at rest. She denies any chest pain or chest pressure. She states she is having trouble breathing and would like her BiPAP to be removed. GENERAL: Well-appearing, well-nourished and in no acute distress. NECK: Supple without JVD or thyromegaly. LUNGS: Breath sounds are coarse to auscultation bilaterally. Respiration equal and unlabored. Bilateral rhonchi. HEART: Regular rate and rhythm without murmurs, rubs or gallops. S1 and S2 heard. EXTREMITIES: Normal range of motion, no edema. No clubbing or cyanosis. Meghana pheral pulses intact and strong. VITALS: Blood pressure 101/54, pulse 80, respiratory rate 13, SpO2 94% on 80% FiO2 TELEMETRY: Sinus rhythm to sinus tachycardia overnight LABS: WBC 8.4, hemoglobin 9.3, hematocrit 29.5, platelet 203, sodium 135, potassium 4.0, BUN 29, creatinine 1.25 IMPRESSION: Acute hypoxic respiratory failure Heart failure exacerbation, diastolic Elevated troponin, likely supply/demand mismatch Severe pulmonary hypertension with tricuspid regurgitation Leukocytosis PLAN: Continue diuresis Monitor electrolytes and strict I's and O's Aggressive pulmonary hygiene Further recommendations to be based upon clinical course I am dictating on behalf of Dr Cyrus Madrigal's history/physical and assessment/plan. Objective - Vital Signs Vital signs: Vital Signs Temp 98.2 F 02/04/23 07:30 Pulse 80 02/04/23 08:25 Resp 13 02/04/23 08:00 BP 101/54 02/04/23 08:00 Pulse Ox 94 L 02/04/23 08:00 FiO2 80 02/04/23 08:01 Intake & Output 02/03/23 02/04/23 02/04/23 18:59 06:59 18:59 Intake Total 267.892 654.196 40 Output Total 3850 4590 710 Balance -3582.108 -3935.804 -670 Weight 95.5 kg Intake: IV 200 390 40 0.9 KVO 100 140 40 Levofloxacin 750Mg-D5w 150 Pmx 750 mg In Dextrose/ Water 1 150ml.bag @ 100 mls/hr IVPB Q24H [facility] Rx#: [id number] Piperacillin-Tazobactam 3 100 100 .375 gm In Sodium Chloride 0.9% 100 ml @ 25 mls/hr IVPB Q8H [facility] Rx#: [id number] Intake, IV Titration 67.892 264.196 Amount Bumetanide 10 mg In 100 Dextrose 5% in Water 60 ml @ 0.5 MG/HR 5 mls/hr IV .Q20H [facility] Rx#: [id number] Dexmedetomidine/0.9% NaCl 67.892 149.196 (Pmx) 400 mcg In Empty Bag 1 bag @ 0.2 MCG/KG/HR 5.475 mls/hr IV .[id number] [facility] Rx#:[id number] Nitroglycerin-D5w Pmx 50 15.000 mg In Dextrose/Water 1 250ml.bag @ 5 MCG/MIN 1.5 mls/hr IV .Q24H WIN Rx#: [id number] Output: Urine 3850 4590 710 - Labs CBC & Chem 7: 02/04/23 04:32 02/04/23 04:32 Labs: Abnormal Lab Results - Last 24 Hours (Table) 02/02/23 02/03/23 02/03/23 Range/Units 14:30 00:10 11:32 RBC (3.80-5.40) m/uL Hgb (11.4-16.0) gm/dL Hct (34.0-46.0) % RDW (11.5-15.5) % Lymphocytes # (1.0-4.8) k/uL ABG pH (7.35-7.45) ABG pCO2 (35-45) mmHg ABG pO2 (83-108) mmHg ABG HCO3 (21-25) mmol/L ABG Total CO2 (19-24) mmol/L ABG O2 Saturation (94-97) % Sodium (137-145) mmol/L Chloride (98-107) mmol/L Carbon Dioxide (22-30) mmol/L BUN (7-17) mg/dL Creatinine (0.52-1.04) mg/dL Glucose (74-99) mg/dL POC Glucose (mg/dL) (70-110) mg/dL Hemoglobin A1c 6.3 H (<=6.0) % Calcium (8.4-10.2) mg/dL Creatine Kinase 22 L (30-135) U/L Procalcitonin 0.27 H (0.02-0.09) ng/mL TSH 0.411 L (0.465-4.680) mIU/L 02/03/23 02/03/23 02/03/23 Range/Units 12:13 18:36 23:49 RBC (3.80-5.40) m/uL Hgb (11.4-16.0) gm/dL Hct (34.0-46.0) % RDW (11.5-15.5) % Lymphocytes # (1.0-4.8) k/uL ABG pH (7.35-7.45) ABG pCO2 (35-45) mmHg ABG pO2 (83-108) mmHg ABG HCO3 (21-25) mmol/L ABG Total CO2 (19-24) mmol/L ABG O2 Saturation (94-97) % Sodium (137-145) mmol/L Chloride (98-107) mmol/L Carbon Dioxide (22-30) mmol/L BUN (7-17) mg/dL Creatinine (0.52-1.04) mg/dL Glucose (74-99) mg/dL POC Glucose (mg/dL) 149 H 196 H 200 H (70-110) mg/dL Hemoglobin A1c (<=6.0) % Calcium (8.4-10.2) mg/dL Creatine Kinase (30-135) U/L Procalcitonin (0.02-0.09) ng/mL TSH (0.465-4.680) mIU/L 02/04/23 02/04/23 02/04/23 Range/Units 04:32 04:32 05:05 RBC 3.40 L (3.80-5.40) m/uL Hgb 9.3 L (11.4-16.0) gm/dL Hct 29.5 L (34.0-46.0) % RDW 18.4 H (11.5-15.5) % Lymphocytes # 0.5 L (1.0-4.8) k/uL ABG pH (7.35-7.45) ABG pCO2 (35-45) mmHg ABG pO2 (83-108) mmHg ABG HCO3 (21-25) mmol/L ABG Total CO2 (19-24) mmol/L ABG O2 Saturation (94-97) % Sodium 135 L (137-145) mmol/L Chloride 83 L (98-107) mmol/L Carbon Dioxide 41 H* (22-30) mmol/L BUN 29 H (7-17) mg/dL Creatinine 1.25 H (0.52-1.04) mg/dL Glucose 214 H (74-99) mg/dL POC Glucose (mg/dL) 240 H (70-110) mg/dL Hemoglobin A1c (<=6.0) % Calcium 8.1 L (8.4-10.2) mg/dL Creatine Kinase (30-135) U/L Procalcitonin (0.02-0.09) ng/mL TSH (0.465-4.680) mIU/L 02/04/23 Range/Units 05:34 RBC (3.80-5.40) m/uL Hgb (11.4-16.0) gm/dL Hct (34.0-46.0) % RDW (11.5-15.5) % Lymphocytes # (1.0-4.8) k/uL ABG pH 7.56 H* (7.35-7.45) ABG pCO2 53 H (35-45) mmHg ABG pO2 61 L (83-108) mmHg ABG HCO3 47 H* (21-25) mmol/L ABG Total CO2 49 H (19-24) mmol/L ABG O2 Saturation 91.9 L (94-97) % Sodium (137-145) mmol/L Chloride (98-107) mmol/L Carbon Dioxide (22-30) mmol/L BUN (7-17) mg/dL Creatinine (0.52-1.04) mg/dL Glucose (74-99) mg/dL POC Glucose (mg/dL) (70-110) mg/dL Hemoglobin A1c (<=6.0) % Calcium (8.4-10.2) mg/dL Creatine Kinase (30-135) U/L Procalcitonin (0.02-0.09) ng/mL TSH (0.465-4.680) mIU/L Microbiology - Last 24 Hours (Table) 02/02/23 18:30 Blood Culture - Preliminary Blood 02/02/23 18:10 Blood Culture - Preliminary Blood
--- NOTE | 2023-02-04 09:02 | P.PN ---
Subjective Progress Note Date: 02/04/23 I am seeing this patient in new consultation today 02/03/2023 after the patient was sent from her ECF for respiratory distress and hypoxia. The patient is a 47-year-old female with medical history significant for oxygen dependent COPD, diabetes mellitus type 2, hypertension, GERD, CML. Patient did have a recent hospital admission on January 22 for multifocal pneumonia and respiratory failure requiring ventilator support. At that time, the patient was intubated for 4 days, and ultimately sent back to [facility] on January 29. The patient presented to the emergency room yesterday afternoon after being found hypoxic with a pulse ox of 60% and in some respiratory distress. She did present to the emergency room on BiPAP support, and was admitted to the cardiac stepdown unit. Around midnight, a code blue was called for a respiratory arrest. When I arrived to the room, the patient was on BiPAP with settings over 12/6 and FiO2 of 60%. The patient was achieving tidal volumes of 100-200 ML's. The patient did not lose a pulse. She was obtunded and minimally responsive to painful stimuli. I did augment the patient's pressure support to 16/6 and FiO2 of 50%. Patient did start to achieve better to tidal volumes of around 500ml. No further witnessed apneic episodes. The patient was transferred to the intensive care unit. Initial ABG shows a pO2 of 71, pCO2 of 83, pH of 7.29. The patient is now more arousable to verbal stimuli. We will hold off on intubation for now. Chest x- ray on arrival was concerning for CHF exacerbation and pulmonary edema. Multifocal pneumonia is also in the differential. NT proBNP was very elevated at 17,300. The patient has not received any diuretics since her admission. The patient does have a sulfa and Lasix ALLERGY. Most recent echo from her prior admission earlier this month shows a preserved ejection fraction of 60-65%, severe pulmonary hypertension, and moderate to severe tricuspid regurgitation. No IV maintenance fluids infusing. Initial BMP shows sodium 134, potassium 5.3, chloride 92, serum bicarb 39, BUN 16, creatinine 0.93, glucose 155. Troponin was also mildly elevated at 0.037, likely related to supply/demand mismatch. ECG shows no acute ischemic changes. CBC on arrival shows a WBC count of 11, hemoglobin 10.3, hematocrit 35.5, platelets 173. Patient was started on empiric antibiotics with Levaquin and Zosyn. Blood cultures are pending. BP is stable, and there is no need for vasopressor support. Patient's hypercapnic respiratory failure seems to be improving, and she will be monitored closely in the intensive care unit. I will hold off on intubation at this time. Patient on 02/04/2023, the patient is being seen for a follow-up. She remains on a BiPAP at pressures of 12/5 cm of water with FiO2 of 80% and the patient seems to be quite comfortable. Pulse ox is currently no evidence of 94%. She remains hemodynamically stable. Overnight, the patient had to be started on nitroglycerin drip. Blood pressure control. Nitroglycerin drip is currently running at 30 mcg/m. She also became quite restless and she was started on Precedex running at 0.8 mcg/kg/h. She remains on 0.5 mg/h. She has produced excellent amount of urine output. The overall fluid balance is -7 L over the past 24 hours. Chest x-ray shows improvement in volume status. There is some atelectatic change in the lung bases and possibly some small pleural effusions. At the same time, the patient has become alkalotic. The blood gas from today shows a pH of 7.56 with a pCO2 of 53 and pO2 of 61. This was an FiO2 of 70%. The patient was also sustained acute kidney injury. Creatinine is up to 1.25 with a BUN of 29. Serum bicarb is up to 41. Sodium is 135 with a potassium level of 4. Babinski was at 8.4 with a hemoglobin of 9.3. The echocardiogram was completed on the results are still pending for now. The mental status is improved considerably. CAT scan of the brain was done yesterday that showed no acute abnormalities. Area of low attenuation was seen and a right frontal parietal junction and MRI of the brain was recommended. Meanwhile, the patient was also seen by neurology. She is awake and alert and oriented and she is following commands and answering questions appropriately. No seizure activity has been noted. The patient was suspected to have seizure and the patient was having some twitching in her left thigh and she was started on Keppra by neurology. She remains critically ill in the intensive care unit. The blood cultures have been negative. ProBNP level was 17,000. Troponin was at 0.03. U A was essentially negative. Legionella urine antigen was also negative. Objective - Vital Signs Vital signs: Vital Signs Temp 98.2 F 02/04/23 07:30 Pulse 80 02/04/23 08:25 Resp 13 02/04/23 08:00 BP 101/54 02/04/23 08:00 Pulse Ox 94 L 02/04/23 08:00 FiO2 80 02/04/23 08:01 Intake & Output 02/03/23 02/04/23 02/04/23 18:59 06:59 18:59 Intake Total 267.892 654.196 40 Output Total 3850 4590 710 Balance -3582.108 -3935.804 -670 Weight 95.5 kg Intake: IV 200 390 40 0.9 KVO 100 140 40 Levofloxacin 750Mg-D5w 150 Pmx 750 mg In Dextrose/ Water 1 150ml.bag @ 100 mls/hr IVPB Q24H [facility] Rx#: [id number] Piperacillin-Tazobactam 3 100 100 .375 gm In Sodium Chloride 0.9% 100 ml @ 25 mls/hr IVPB Q8H WIN Rx#: [id number] Intake, IV Titration 67.892 264.196 Amount Bumetanide 10 mg In 100 Dextrose 5% in Water 60 ml @ 0.5 MG/HR 5 mls/hr IV .Q20H WIN Rx#: [id number] Dexmedetomidine/0.9% NaCl 67.892 149.196 (Pmx) 400 mcg In Empty Bag 1 bag @ 0.2 MCG/KG/HR 5.475 mls/hr IV .[id number] WIN Rx#:[id number] Nitroglycerin-D5w Pmx 50 15.000 mg In Dextrose/Water 1 250ml.bag @ 5 MCG/MIN 1.5 mls/hr IV .Q24H WIN Rx#: [id number] Output: Urine 3850 4590 710 - Exam GENERAL EXAM: Awake and oriented 3. The patient is current on a BiPAP at a pressure of 12/5 with an FiO2 of 80%. HEAD: Normocephalic and atraumatic EYES: Normal reaction of pupils, equal size. NOSE: Clear with pink turbinates. THROAT: No erythema or exudates. NECK: No masses, no JVD. CHEST: No chest wall deformity. LUNGS: Equal air entry with diffuse crackles and wheezes. CVS: S1 and S2 normal with no audible murmur, regular rhythm. No extra heart sounds ABDOMEN: Obese abdomen. There is a suprapubic catheter. No hepatosplenomegaly, active bowel sounds, no guarding or rigidity. SPINE: No scoliosis or deformity SKIN: No rashes CENTRAL NERVOUS SYSTEM: No focal deficits, tone is normal in all 4 extremities. EXTREMITIES: There is 1+ pitting lower extremity edema. No clubbing, or cyanosis. Peripheral pulses are intact. - Labs CBC & Chem 7: 02/04/23 04:32 02/04/23 04:32 Labs: Abnormal Lab Results - Last 24 Hours (Table) 02/02/23 02/03/23 02/03/23 Range/Units 14:30 00:10 11:32 RBC (3.80-5.40) m/uL Hgb (11.4-16.0) gm/dL Hct (34.0-46.0) % RDW (11.5-15.5) % Lymphocytes # (1.0-4.8) k/uL ABG pH (7.35-7.45) ABG pCO2 (35-45) mmHg ABG pO2 (83-108) mmHg ABG HCO3 (21-25) mmol/L ABG Total CO2 (19-24) mmol/L ABG O2 Saturation (94-97) % Sodium (137-145) mmol/L Chloride (98-107) mmol/L Carbon Dioxide (22-30) mmol/L BUN (7-17) mg/dL Creatinine (0.52-1.04) mg/dL Glucose (74-99) mg/dL POC Glucose (mg/dL) (70-110) mg/dL Hemoglobin A1c 6.3 H (<=6.0) % Calcium (8.4-10.2) mg/dL Creatine Kinase 22 L (30-135) U/L Procalcitonin 0.27 H (0.02-0.09) ng/mL TSH 0.411 L (0.465-4.680) mIU/L 02/03/23 02/03/23 02/03/23 Range/Units 12:13 18:36 23:49 RBC (3.80-5.40) m/uL Hgb (11.4-16.0) gm/dL Hct (34.0-46.0) % RDW (11.5-15.5) % Lymphocytes # (1.0-4.8) k/uL ABG pH (7.35-7.45) ABG pCO2 (35-45) mmHg ABG pO2 (83-108) mmHg ABG HCO3 (21-25) mmol/L ABG Total CO2 (19-24) mmol/L ABG O2 Saturation (94-97) % Sodium (137-145) mmol/L Chloride (98-107) mmol/L Carbon Dioxide (22-30) mmol/L BUN (7-17) mg/dL Creatinine (0.52-1.04) mg/dL Glucose (74-99) mg/dL POC Glucose (mg/dL) 149 H 196 H 200 H (70-110) mg/dL Hemoglobin A1c (<=6.0) % Calcium (8.4-10.2) mg/dL Creatine Kinase (30-135) U/L Procalcitonin (0.02-0.09) ng/mL TSH (0.465-4.680) mIU/L 02/04/23 02/04/23 02/04/23 Range/Units 04:32 04:32 05:05 RBC 3.40 L (3.80-5.40) m/uL Hgb 9.3 L (11.4-16.0) gm/dL Hct 29.5 L (34.0-46.0) % RDW 18.4 H (11.5-15.5) % Lymphocytes # 0.5 L (1.0-4.8) k/uL ABG pH (7.35-7.45) ABG pCO2 (35-45) mmHg ABG pO2 (83-108) mmHg ABG HCO3 (21-25) mmol/L ABG Total CO2 (19-24) mmol/L ABG O2 Saturation (94-97) % Sodium 135 L (137-145) mmol/L Chloride 83 L (98-107) mmol/L Carbon Dioxide 41 H* (22-30) mmol/L BUN 29 H (7-17) mg/dL Creatinine 1.25 H (0.52-1.04) mg/dL Glucose 214 H (74-99) mg/dL POC Glucose (mg/dL) 240 H (70-110) mg/dL Hemoglobin A1c (<=6.0) % Calcium 8.1 L (8.4-10.2) mg/dL Creatine Kinase (30-135) U/L Procalcitonin (0.02-0.09) ng/mL TSH (0.465-4.680) mIU/L 02/04/23 Range/Units 05:34 RBC (3.80-5.40) m/uL Hgb (11.4-16.0) gm/dL Hct (34.0-46.0) % RDW (11.5-15.5) % Lymphocytes # (1.0-4.8) k/uL ABG pH 7.56 H* (7.35-7.45) ABG pCO2 53 H (35-45) mmHg ABG pO2 61 L (83-108) mmHg ABG HCO3 47 H* (21-25) mmol/L ABG Total CO2 49 H (19-24) mmol/L ABG O2 Saturation 91.9 L (94-97) % Sodium (137-145) mmol/L Chloride (98-107) mmol/L Carbon Dioxide (22-30) mmol/L BUN (7-17) mg/dL Creatinine (0.52-1.04) mg/dL Glucose (74-99) mg/dL POC Glucose (mg/dL) (70-110) mg/dL Hemoglobin A1c (<=6.0) % Calcium (8.4-10.2) mg/dL Creatine Kinase (30-135) U/L Procalcitonin (0.02-0.09) ng/mL TSH (0.465-4.680) mIU/L Microbiology - Last 24 Hours (Table) 02/02/23 18:30 Blood Culture - Preliminary Blood 02/02/23 18:10 Blood Culture - Preliminary Blood Assessment and Plan Assessment: Acute on chronic hypoxemic and hypercapnic respiratory failure likely related to exacerbation of diastolic congestive heart failure and pulmonary edema. Chest x-ray on arrival shows cardiomegaly with multifocal bilateral airspace disease. NT proBNP was elevated at 17,300. Multifocal pneumonia is also in the differential. Patient was recently treated for multifocal/aspiration pneumonia earlier this month. She did require ventilator support at that time. Patient is currently on BIPAP, settings 12/5 and FiO2 of 80%. The patient has responded nicely to the Bumex drip at 0.5 mg an hour. She has produced adequate urine output and she has chest x-rays improved. Continues to have some atelectatic changes and possible some small effusions lung bases bilaterally. She has developed metabolic alkalosis. Altered mental status, improved and the patient currently is on Precedex which is being gradually weaned off Metabolic alkalosis secondary to diuresis Acute kidney injury Hypertension the patient is currently on nitroglycerin drip. Acute COPD exacerbation secondary to above. She is normally oxygen dependent on 3 L/m nasal cannula. Pulmonary hypertension, likely secondary in nature due to chronic hypoxic respiratory failure and possible obstructive sleep apnea Elevated troponins, likely related to supply/demand mismatch. ECG shows no acute ischemic changes. Diabetes mellitus type 2, insulin-dependent, maintained on Lantus insulin outpatient basis Benign essential hypertension Hyperlipidemia Anemia, of chronic disease Chronic myeloid leukemia, on Gleevec History of recent ventilator dependent respiratory failure Morbid obesity, BMI of 62 Chronic suprapubic Dixon catheter probably related to frequent UTIs Severe pulmonary hypertension has been earlier echocardiogram, preserved lv function. Twitching, questionable seizures and the patient is currently on [facility] resident and the patient resides at [facility] Plan: Stop the BiPAP and switch this patient to a high flow oxygen Stop the Bumex treatment put the patient on Lasix 40 mg IV every 12 hours Give the patient Diamox 500 mg every 12 hours 2 doses Wean off the Precedex and discontinue Continue the bronchodilators No need for systemic steroids at this point in time and this will be discontinued Continue Zosyn and Levaquin Cultures are negative Wean off nitroglycerin drip Continue Keppra wean off Precedex Restart Cymbalta Discontinue the IV Solu-Medrol Condition is critical and the patient will be kept here nicely from another 24 h ours. May be able to provide some diet and she is able to come off the BiPAP successfully and transitioned to high flow oxygen. Time with Patient: Greater than 30
[2023-02-04] MEDS: HEPARIN SODIUM,PORCINE/PF 5,000 UNIT/0.5 ML SYRINGE SQ SCH ×3 (09:28→23:43)
[2023-02-04] MEDS: PANTOPRAZOLE 40 MG/10 ML VIAL IV SCH (10:11)
[2023-02-04] MEDS: BUMETANIDE 0.25 MG/ML 10 ML VIAL IV SCH ×2 (10:49→21:20)
[2023-02-04] MEDS: ASPIRIN 81 MG PO SCH (11:20)
[2023-02-04] MEDS: GABAPENTIN 300 MG CAP PO SCH ×3 (11:21→21:19)
[2023-02-04] MEDS: METOPROLOL SUCCINATE (ER) 25 MG TAB.ER.24H PO SCH (11:21)
[2023-02-04] MEDS: busPIRone HCl 5 MG TAB PO SCH ×2 (11:22→16:02)
[2023-02-04] MEDS: PYRIDOXINE 50 MG TAB PO SCH (11:22)
[2023-02-04] MEDS: LURASIDONE 40 MG TAB PO SCH ×2 (11:22→18:08)
[2023-02-04] MEDS: levETIRAcetam IV 500 MG/5 ML VIAL IVP SCH (11:23)
[2023-02-04 12:05] LABS: Glucose,Whole Blood 232 mg/dL (70-110)
[2023-02-04] MEDS: DULoxetine HCL 60 MG CAPSULE.DR PO SCH (12:43)
--- NOTE | 2023-02-04 13:02 | P.PN ---
Subjective Progress Note Date: 02/04/23 Patient is a 47-year-old female with COPD chronically on 3 L nasal cannula, diabetes mellitus type 2, chronic indwelling Dixon catheter, hypertension, GERD, CML, and bipolar disorder who presented to the hospital after developing respiratory distress at [facility]. On arrival to the ER she was noted to be hypoxic at 58% on nasal cannula and was immediately placed on BiPAP. Initial laboratory analysis was remarkable for white blood cell count of 11.1, hemoglobin 10.3, sodium 134, potassium 5.3, and glucose of 155. Initial troponin was positive at 0.0037 and BNP was positive at 17,300. Chest x-ray showed new focal bilateral airspace disease with possible pneumonia and continued asymmetric elevation of the right hemidiaphragm. She was admitted for possible acute exacerbation of COPD and acute exacerbation of diastolic CHF. A CODE BLUE was called for respiratory arrest and the patient was on BiPAP with settings of 12/6 and FiO2 of 60% with tidal volumes of 1 to 200s. The patient never lost a pulse in her initial ABG at that time showed a pH of 7.29, pCO2 83, PaO2 of 71. She was subsequently transferred to the ICU. Her BiPAP settings were adjusted and repeat ABG showed a pH of 7.36, CO2 of 71, PaO2 of 61, and a bicarb of 40. Pulmonary critical care and cardiology were consulted. She was noted to have some abnormal muscle movement and rhythmic twitching in her left thigh. Patient is seen and examined at bedside. She is alert and oriented 2. She is following commands and responding appropriately. She is very thirsty and wants something to drink. She denies any shortness of breath or chest pain. She is very determined to drink something and have some food. Vital signs reviewed General: nontoxic, no distress, appears at stated age Cardiovascular: S1S2 reg, no murmur, positive posterior tibial pulse bilateral, Lungs: Coarse breath sounds bilateral, no rhonchi, no rales , no accessory muscle use Abdominal: soft, nontender to palpation, no guarding, no appreciable organomegaly Ext: no gross muscle atrophy, no edema b/l lower extremities, no contractures Neuro: CN II-XI grossly intact, no focal neuro deficits, muscle twitching of leftupper thigh, bruxisms, Psych: Awake, oriented to self, appears anxious Assessment/Plan: Acute on chronic hypoxic hypercapnic respiratory failure Acute exacerbation of cor pulmonale with RVSP at 95 Acute exacerbation of COPD Elevated troponin secondary to supply demand mismatch Obesity hypoventilation syndrome -Continue with DuoNeb schedule and as needed, Pulmicort inhalation twice daily, -Pulmonary critical care note reviewed: Patient has been having agitation and ripping her BiPAP off and then defatting and therefore she was started on Precedex - cardio note reviewed: lyndsay willson - Case discussed with Dr. Granados due to her hypercarbia we will start diamox, he recommends transition of bumex gtt and start buex IVP, conitnue precedex gtt. Off steroidsWill consider CPAP/BiPap on discharge. Will transition off Bipap and to high flow nasal cannula. - Procalcitonin level is low will stop levaquin and conitnue with zosyn Acute metabolic encephalopathy, imrpoving Tradiative dyspensia (resolved) and left thigh twitching Concern for possible underlying seizure disorder versus serotonin syndrome - altered mentation is improving will resume cymbalta and latuda, hold remeron and trileptal. - Await further neurology recs -Supportive care - hold flexeril, norco Diabetes mellitus type 2 -Sliding-scale insulin, Levemir 15 units -A1c 6.6 on 01/27/23 -Follow blood sugars ANOOP - elevated cr due to forced diuresis, decreasing bumex to IVP from gtt - repeat Cr in AM Anemia, chronic Mild thrombocytopenia -Patient had thorough evaluation last hospital stay with normal B12, folic acid, and iron studies. This is likely secondary to her Gleevec being used for her CML. -Follow CBC Class 3 obesity with BMI 40.2 -Outpatient structured weight loss Chronic: Hypertension GERD Imaging: Chest x-ray is reviewed by myself shows elevated right hemidiaphragm, fluid within the right major fissure, and increased pulmonary vascular markings CT brain 02/03/23- no acute intracranial hemorrhage, mass effect, or midline shift area of low attenuation in the right frontoparietal junction not seen with certainty on prior exam Data Review: Vital signs reviewed pulse 84, respirations 20, blood pressure 116/72, O2 sat 91%, T-max the last 24 hours 99.8 Laboratory analysis remarkable for hemoglobin 9.3, sodium 135, chloride 83, carbon dioxide 41, BUN 29, creatinine 1.25 (baseline 0.74), and blood sugar of 214. TSH 0.411, free T4 normal at 0.84, pro calcitonin low at 0.27 Legionella urine antigen, negative Blood cultures-negative 24 hours DVT prophylaxis: Heparin SC Anticipated discharge date: Pending Clinical Course Anticipated discharge place: Pending Clinical Course This dictation was prepared using [employer] voice recognition software. o [facility] [place] every attempt is made to correct errors during dictation some may still exist. Objective - Vital Signs Vital signs: Vital Signs Temp 99.4 F 02/04/23 04:00 Pulse 84 02/04/23 07:15 Resp 20 02/04/23 07:15 BP 116/62 02/04/23 07:15 Pulse Ox 91 L 02/04/23 07:15 FiO2 80 02/04/23 05:41 Intake & Output 02/03/23 02/04/23 02/04/23 18:59 06:59 18:59 Intake Total 267.892 654.196 20 Output Total 3850 4590 400 Balance -3582.108 -3935.804 -380 Weight 95.5 kg Intake: IV 200 390 20 0.9 KVO 100 140 20 Levofloxacin 750Mg-D5w 150 Pmx 750 mg In Dextrose/ Water 1 150ml.bag @ 100 mls/hr IVPB Q24H WIN Rx#: [id number] Piperacillin-Tazobactam 3 100 100 .375 gm In Sodium Chloride 0.9% 100 ml @ 25 mls/hr IVPB Q8H WIN Rx#: [id number] Intake, IV Titration 67.892 264.196 Amount Bumetanide 10 mg In 100 Dextrose 5% in Water 60 ml @ 0.5 MG/HR 5 mls/hr IV .Q20H WIN Rx#: [id number] Dexmedetomidine/0.9% NaCl 67.892 149.196 (Pmx) 400 mcg In Empty Bag 1 bag @ 0.2 MCG/KG/HR 5.475 mls/hr IV .[id number] WIN Rx#:[id number] Nitroglycerin-D5w Pmx 50 15.000 mg In Dextrose/Water 1 250ml.bag @ 5 MCG/MIN 1.5 mls/hr IV .Q24H WIN Rx#: [id number] Output: Urine 3850 4590 400 - Labs CBC & Chem 7: 02/04/23 04:32 02/04/23 04:32 Labs: Abnormal Lab Results - Last 24 Hours (Table) 02/02/23 02/03/23 02/03/23 Range/Units 14:30 00:10 11:32 RBC (3.80-5.40) m/uL Hgb (11.4-16.0) gm/dL Hct (34.0-46.0) % RDW (11.5-15.5) % Lymphocytes # (1.0-4.8) k/uL ABG pH (7.35-7.45) ABG pCO2 (35-45) mmHg ABG pO2 (83-108) mmHg ABG HCO3 (21-25) mmol/L ABG Total CO2 (19-24) mmol/L ABG O2 Saturation (94-97) % Sodium (137-145) mmol/L Chloride (98-107) mmol/L Carbon Dioxide (22-30) mmol/L BUN (7-17) mg/dL Creatinine (0.52-1.04) mg/dL Glucose (74-99) mg/dL POC Glucose (mg/dL) (70-110) mg/dL Hemoglobin A1c 6.3 H (<=6.0) % Calcium (8.4-10.2) mg/dL Creatine Kinase 22 L (30-135) U/L Procalcitonin 0.27 H (0.02-0.09) ng/mL TSH 0.411 L (0.465-4.680) mIU/L 02/03/23 02/03/23 02/03/23 Range/Units 12:13 18:36 23:49 RBC (3.80-5.40) m/uL Hgb (11.4-16.0) gm/dL Hct (34.0-46.0) % RDW (11.5-15.5) % Lymphocytes # (1.0-4.8) k/uL ABG pH (7.35-7.45) ABG pCO2 (35-45) mmHg ABG pO2 (83-108) mmHg ABG HCO3 (21-25) mmol/L ABG Total CO2 (19-24) mmol/L ABG O2 Saturation (94-97) % Sodium (137-145) mmol/L Chloride (98-107) mmol/L Carbon Dioxide (22-30) mmol/L BUN (7-17) mg/dL Creatinine (0.52-1.04) mg/dL Glucose (74-99) mg/dL POC Glucose (mg/dL) 149 H 196 H 200 H (70-110) mg/dL Hemoglobin A1c (<=6.0) % Calcium (8.4-10.2) mg/dL Creatine Kinase (30-135) U/L Procalcitonin (0.02-0.09) ng/mL TSH (0.465-4.680) mIU/L 02/04/23 02/04/23 02/04/23 Range/Units 04:32 04:32 05:05 RBC 3.40 L (3.80-5.40) m/uL Hgb 9.3 L (11.4-16.0) gm/dL Hct 29.5 L (34.0-46.0) % RDW 18.4 H (11.5-15.5) % Lymphocytes # 0.5 L (1.0-4.8) k/uL ABG pH (7.35-7.45) ABG pCO2 (35-45) mmHg ABG pO2 (83-108) mmHg ABG HCO3 (21-25) mmol/L ABG Total CO2 (19-24) mmol/L ABG O2 Saturation (94-97) % Sodium 135 L (137-145) mmol/L Chloride 83 L (98-107) mmol/L Carbon Dioxide 41 H* (22-30) mmol/L BUN 29 H (7-17) mg/dL Creatinine 1.25 H (0.52-1.04) mg/dL Glucose 214 H (74-99) mg/dL POC Glucose (mg/dL) 240 H (70-110) mg/dL Hemoglobin A1c (<=6.0) % Calcium 8.1 L (8.4-10.2) mg/dL Creatine Kinase (30-135) U/L Procalcitonin (0.02-0.09) ng/mL TSH (0.465-4.680) mIU/L 02/04/23 Range/Units 05:34 RBC (3.80-5.40) m/uL Hgb (11.4-16.0) gm/dL Hct (34.0-46.0) % RDW (11.5-15.5) % Lymphocytes # (1.0-4.8) k/uL ABG pH 7.56 H* (7.35-7.45) ABG pCO2 53 H (35-45) mmHg ABG pO2 61 L (83-108) mmHg ABG HCO3 47 H* (21-25) mmol/L ABG Total CO2 49 H (19-24) mmol/L ABG O2 Saturation 91.9 L (94-97) % Sodium (137-145) mmol/L Chloride (98-107) mmol/L Carbon Dioxide (22-30) mmol/L BUN (7-17) mg/dL Creatinine (0.52-1.04) mg/dL Glucose (74-99) mg/dL POC Glucose (mg/dL) (70-110) mg/dL Hemoglobin A1c (<=6.0) % Calcium (8.4-10.2) mg/dL Creatine Kinase (30-135) U/L Procalcitonin (0.02-0.09) ng/mL TSH (0.465-4.680) mIU/L Microbiology - Last 24 Hours (Table) 02/02/23 18:30 Blood Culture - Preliminary Blood 02/02/23 18:10 Blood Culture - Preliminary Blood
--- NOTE | 2023-02-04 13:04 | P.PN ---
Subjective Progress Note Date: 02/04/23 The patient is seen at bedside and feels drastically better. Per the patient's nurse and she agrees that the patient is doing drastically better. No seizure- like activity noted. Objective - Vital Signs Vital signs: Vital Signs Temp 98.2 F 02/04/23 07:30 Pulse 76 02/04/23 12:15 Resp 8 L 02/04/23 12:15 BP 148/79 02/04/23 12:15 Pulse Ox 95 02/04/23 12:15 FiO2 70 02/04/23 11:34 Intake & Output 02/03/23 02/04/23 02/04/23 18:59 06:59 18:59 Intake Total 267.892 702.137 185.275 Output Total 3850 4590 1905 Balance -3582.108 -3887.863 -1719.725 Weight 95.5 kg 95.5 kg Intake: IV 200 390 120 0.9 KVO 100 140 120 Levofloxacin 750Mg-D5w 150 Pmx 750 mg In Dextrose/ Water 1 150ml.bag @ 100 mls/hr IVPB Q24H WIN Rx#: [id number] Piperacillin-Tazobactam 3 100 100 .375 gm In Sodium Chloride 0.9% 100 ml @ 25 mls/hr IVPB Q8H WIN Rx#: [id number] Intake, IV Titration 67.892 312.137 65.275 Amount Bumetanide 10 mg In 100 Dextrose 5% in Water 60 ml @ 0.5 MG/HR 5 mls/hr IV .Q20H WIN Rx#: [id number] Dexmedetomidine/0.9% NaCl 67.892 197.137 (Pmx) 400 mcg In Empty Bag 1 bag @ 0.2 MCG/KG/HR 5.475 mls/hr IV .[id number] WIN Rx#:[id number] Nitroglycerin-D5w Pmx 50 15.000 65.275 mg In Dextrose/Water 1 250ml.bag @ 5 MCG/MIN 1.5 mls/hr IV .Q24H WIN Rx#: [id number] Output: Urine 3850 4590 1905 - Exam Neuro: Patient is awake alert oriented to self, place and time. Patient is following simple commands. No aphasia Pupils are round equal and reactive to light. Pupils are 3-4 mm bilaterally. Visual echeverria are full to confrontation. Extraocular movement is intact no nystagmus. No facial weakness. No dysarthria Motor: The strength is 5 over 5 throughout. No tremor or jerks of the left thigh noted. Sensory is normal to touch throughout. Some of the workup during his hospital visit consisted of: Her pCO2 is a 83 yesterday and today is 71 minutes slightly acidotic. Bicarbonate 42. Her sugar is in the 140s to 160s. Ammonia level is 18. CK level was 22. TSH is 0.[address] of the head today is reported as no acute intracranial hemorrhage, mass effect or midline shift is seen. Area of low attenuation in the right frontal parietal junction axial image 36 not seen with certainty on prior exam. Recommend MRI to exclude early ischemic changes. Personally reviewed the CT and I do not patient any acute subacute ischemia and there is no bleed that there is no mass effect. TSH: 0.411 and free T4 is normal. - Labs CBC & Chem 7: 02/04/23 04:32 02/04/23 04:32 Labs: Abnormal Lab Results - Last 24 Hours (Table) 02/02/23 02/03/23 02/03/23 Range/Units 14:30 00:10 11:32 RBC (3.80-5.40) m/uL Hgb (11.4-16.0) gm/dL Hct (34.0-46.0) % RDW (11.5-15.5) % Lymphocytes # (1.0-4.8) k/uL ABG pH (7.35-7.45) ABG pCO2 (35-45) mmHg ABG pO2 (83-108) mmHg ABG HCO3 (21-25) mmol/L ABG Total CO2 (19-24) mmol/L ABG O2 Saturation (94-97) % Sodium (137-145) mmol/L Chloride (98-107) mmol/L Carbon Dioxide (22-30) mmol/L BUN (7-17) mg/dL Creatinine (0.52-1.04) mg/dL Glucose (74-99) mg/dL POC Glucose (mg/dL) (70-110) mg/dL Hemoglobin A1c 6.3 H (<=6.0) % Calcium (8.4-10.2) mg/dL Creatine Kinase 22 L (30-135) U/L Procalcitonin 0.27 H (0.02-0.09) ng/mL TSH 0.411 L (0.465-4.680) mIU/L 02/03/23 02/03/23 02/04/23 Range/Units 18:36 23:49 04:32 RBC 3.40 L (3.80-5.40) m/uL Hgb 9.3 L (11.4-16.0) gm/dL Hct 29.5 L (34.0-46.0) % RDW 18.4 H (11.5-15.5) % Lymphocytes # 0.5 L (1.0-4.8) k/uL ABG pH (7.35-7.45) ABG pCO2 (35-45) mmHg ABG pO2 (83-108) mmHg ABG HCO3 (21-25) mmol/L ABG Total CO2 (19-24) mmol/L ABG O2 Saturation (94-97) % Sodium (137-145) mmol/L Chloride (98-107) mmol/L Carbon Dioxide (22-30) mmol/L BUN (7-17) mg/dL Creatinine (0.52-1.04) mg/dL Glucose (74-99) mg/dL POC Glucose (mg/dL) 196 H 200 H (70-110) mg/dL Hemoglobin A1c (<=6.0) % Calcium (8.4-10.2) mg/dL Creatine Kinase (30-135) U/L Procalcitonin (0.02-0.09) ng/mL TSH (0.465-4.680) mIU/L 02/04/23 02/04/23 02/04/23 Range/Units 04:32 05:05 05:34 RBC (3.80-5.40) m/uL Hgb (11.4-16.0) gm/dL Hct (34.0-46.0) % RDW (11.5-15.5) % Lymphocytes # (1.0-4.8) k/uL ABG pH 7.56 H* (7.35-7.45) ABG pCO2 53 H (35-45) mmHg ABG pO2 61 L (83-108) mmHg ABG HCO3 47 H* (21-25) mmol/L ABG Total CO2 49 H (19-24) mmol/L ABG O2 Saturation 91.9 L (94-97) % Sodium 135 L (137-145) mmol/L Chloride 83 L (98-107) mmol/L Carbon Dioxide 41 H* (22-30) mmol/L BUN 29 H (7-17) mg/dL Creatinine 1.25 H (0.52-1.04) mg/dL Glucose 214 H (74-99) mg/dL POC Glucose (mg/dL) 240 H (70-110) mg/dL Hemoglobin A1c (<=6.0) % Calcium 8.1 L (8.4-10.2) mg/dL Creatine Kinase (30-135) U/L Procalcitonin (0.02-0.09) ng/mL TSH (0.465-4.680) mIU/L 02/04/23 Range/Units 12:04 RBC (3.80-5.40) m/uL Hgb (11.4-16.0) gm/dL Hct (34.0-46.0) % RDW (11.5-15.5) % Lymphocytes # (1.0-4.8) k/uL ABG pH (7.35-7.45) ABG pCO2 (35-45) mmHg ABG pO2 (83-108) mmHg ABG HCO3 (21-25) mmol/L ABG Total CO2 (19-24) mmol/L ABG O2 Saturation (94-97) % Sodium (137-145) mmol/L Chloride (98-107) mmol/L Carbon Dioxide (22-30) mmol/L BUN (7-17) mg/dL Creatinine (0.52-1.04) mg/dL Glucose (74-99) mg/dL POC Glucose (mg/dL) 232 H (70-110) mg/dL Hemoglobin A1c (<=6.0) % Calcium (8.4-10.2) mg/dL Creatine Kinase (30-135) U/L Procalcitonin (0.02-0.09) ng/mL TSH (0.465-4.680) mIU/L Microbiology - Last 24 Hours (Table) 02/02/23 18:30 Blood Culture - Preliminary Blood 02/02/23 18:10 Blood Culture - Preliminary Blood Assessment and Plan Assessment: Altered mental status seems due to hypoxic encephalopathy---improved and is back to baseline. Twitching of the left thigh seems likely due to metabolic/hypoxic derangement. Cannot rule out seizure but feel unlikely---episoded resolved. CT of the head is reported as hypointensity over the right frontal parietal: Rule out acute ischemia. I personally reviewed the CT and I felt there is no hypodensity that is appreciable. Either 1.9 cm anterior left frontal meningioma versus congenital variation with hyperostosis frontalis interna on CT Acute COPD exacerbation Acute on chronic hypoxic respiratory failure currently on BiPAP Diabetes mellitus Congestive heart failure Hypertension Schizophrenia Morbid obesity Plan: Pending routine EEG and could not be peformed yesterday since was on BiPAP. She was started on Keppra 500 mg 1 tablet twice a day yesterday for ?concern for seizure. If EEG is negative for seizure and discharges, will discontinue it. Patient mentation is drastically improved today. Pending MRI of the brain once the patient is stable to rule out any underlying stroke. If unable will obtain repeat CT head. She is resumed on her home dose ASA 81mg and Lipitor 40mg qhs. Continue neuro checks We'll defer the rest of the medical management to the primary ICU team The plan discussed with the patient's primary attending and her nurse. Time with Patient: Less than 30
[2023-02-04] MEDS: INSULIN DETEMIR (LEVEMIR) 100 UNIT/ML SYR SQ SCH (14:20)
--- NOTE | 2023-02-04 15:01 | CDI ---
Documentation Clarification Form Date: 02/04/2023 02:19:52 PM From: Katherin Roach RN CCDS Phone: [phone] Admit Date: 02/02/2023 06:01:00 PM Patient Name: Shavonne Hurtado Visit Number: [id number] Discharge Date: ATTENTION: The Clinical Documentation Specialists (CDI) and [facility] Coding Staff appreciate your assistance in clarifying documentation. Please respond to the clarification below the line at the bottom and electronically sign. The CDI & [facility] Coding staff will review the response and follow-up if needed. Please note: Queries are made part of the Legal Health Record. If you have any questions, please contact the author of this message via ITS. Dr. Young Elevated troponin levels, suspect demand ischemia, 02/02, H&P. Additional clarification is needed. Patient History/Risk Factors: 47-year-old Female presents to the ED with worsening shortness of breath. Medical History: Chronic respiratory failure with home oxygen 3L, DM 2, HTN and COPD. 02/02, H&P. Clinical Indicators: 02/02, VSS: B/P 98/64; HR 98; RR 20; SpO2 58% nasal cannula 02/02, VSS: B/P 98/34; HR 97; RR 20; SpO2 98% BiPAP 02/02, Blood gas: PH 7.29; pCO2 83; pO2 71; HCO3 39; Total CO2; 42; O2 Saturation 95.0. 02/02, CXR: Cardiomegaly with new multifocal bilateral airspace disease. 02/02, H&P Lung assessment: Bilateral poor air entry with coarse breath sounds, Troponin: 02/02 0.037 EKG Results: 02/02 Sinus rhythm, Borderline right axis deviation. Low QRS voltage in precordial leads. Incomplete right bundle branch block. Treatment: BiPAP, Duoneb Inhalation WIN and PRN, Pulmicort Inhalation, Perforomist Inhalation WIN Please clarify Elevated troponin levels suspect demand ischemia, if known: [x] Type 2 OR due to acute respiratory failure [ ] Type 2 OR due to other (please specify ) [ ] Unable to determine [ ] Other Condition, please specify (Template Last Revised: October 2020) MTDD
[2023-02-04 17:59] LABS: Glucose,Whole Blood 235 mg/dL (70-110)
[2023-02-04] MEDS: SODIUM CHLORIDE 0.9% 1,000 ML IV SCH (18:11)
[2023-02-04] MEDS: ATORVASTATIN 40 MG TAB PO SCH (21:19)
[2023-02-04 23:36] LABS: Glucose,Whole Blood 143 mg/dL (70-110)
--- NOTE | 2023-02-05 00:46 | EEG ---
ELECTROENCEPHALOGRAM REPORT CLINICAL HISTORY: This is a 47-year-old woman with episode of confusion and leg twitching. The video EEG is obtained to evaluate for seizure epileptiform activity. RELEVANT MEDICATIONS: Keppra and gabapentin. EEG TYPE: A routine 21-channel EEG is performed with video using the 10/20 electrode placement system. DESCRIPTION: Wakefulness is only obtained. During awake state, the background consists of low to moderate voltage of 7 hertz activity. At times the background consists of diffuse nonrhythmic delta activity. There was no physiological sleep architecture seen. There is no focal slowing. Interictal and ictal is none. ACTIVATION PROCEDURE: Photic stimulation did not evoke a posterior driving response. There is no abnormality during the photic stimulation. Hyperventilation is not performed. CLINICAL INTERPRETATION: This is an abnormal routine EEG. The background slowing is suggestive of mild encephalopathy likely due to underlying metabolic hypoxic derangement. Otherwise, there is no focal slowing, epileptiform discharges or seizure on the EEG. Clinical correlation is recommended. HECTOR / DEMETRIO: [id number] / MTDD
[2023-02-05] MEDS: DEXMEDETOMIDINE/0.9% NACL(PMX) 400 MCG in EMPTY BAG 1 BAG IV SCH (03:24)
[2023-02-05] MEDS: PIPERACILLIN-TAZOBACTAM 3.375 GM in SODIUM CHLORIDE 0.9% 100 ML IVPB SCH ×3 (03:40→21:18)
[2023-02-05] MEDS ORDERED: MORPHINE SULFATE 2 MG/ML SYRINGE IVP STA (03:59)
[2023-02-05] MEDS: IPRATROPIUM-ALBUTEROL 3 ML NEB INHALATION PRN (04:06)
[2023-02-05 05:07] LABS: Anisocytosis Slight; Basophils % (A) 0 %; Eosinophils % (A) 0 %; HGB 9.3 gm/dL (11.4-16.0); Hypochromasia Marked; Lymphocytes # (A) 1.5 k/uL (1.0-4.8); Lymphocytes % (A) 14 %; MCH 27.7 pg (25.0-35.0); MCHC 31.1 g/dL (31.0-37.0); Mean Platelet Volume 7.8; Monocytes # (A) 0.7 k/uL (0-1.0); Monocytes % (A) 6 %; Neutrophils # (A) 8.6 k/uL (1.3-7.7); Neutrophils % (A) 78 %; Platelet Count 194 k/uL (150-450); RBC 3.37 m/uL (3.80-5.40); RDW 18.4 % (11.5-15.5); WBC 10.9 k/uL (3.8-10.6)
[2023-02-05 05:23] LABS: African American GFR (CKD) 48 (>60 ml/min/1.73 sqM); Anion Gap 11 mmol/L; Blood Urea Nitrogen 32 mg/dL (7-17); Calcium 8.2 mg/dL (8.4-10.2); Carbon Dioxide 34 mmol/L (22-30); Chloride 88 mmol/L (98-107); Glucose 211 mg/dL (74-99); Non-African American GFR(CKD) 41 (>60 ml/min/1.73 sqM); Potassium 3.2 mmol/L (3.5-5.1); Sodium 133 mmol/L (137-145)
[2023-02-05] MEDS ORDERED: Potassium Replacement Protocol 1 EACH MISC MISCELLANE PRN (05:42)
[2023-02-05 06:05] LABS: Glucose,Whole Blood 207 mg/dL (70-110)
[2023-02-05] MEDS: INSULIN ASPART (NovoLOG) 100 UNIT/ML VIAL SQ SCH ×4 (06:07→16:50)
[2023-02-05] MEDS: INSULIN DETEMIR (LEVEMIR) 100 UNIT/ML SYR SQ SCH (06:08)
[2023-02-05] MEDS: POTASSIUM BICARBONATE/CIT AC 20 MEQ TABLET.EFF NG-TUBE SCH ×2 (06:08→06:57)
[2023-02-05] MEDS: NITROGLYCERIN-D5W PMX 50 MG in DEXTROSE/WATER 1 250ML.BAG IV SCH ×2 (06:57→21:23)
[2023-02-05] MEDS: BUDESONIDE 1 MG/2 ML NEBU INHALATION SCH ×2 (07:55→20:57)
[2023-02-05] MEDS: IPRATROPIUM-ALBUTEROL 3 ML NEB INHALATION SCH ×4 (07:55→20:57)
[2023-02-05] MEDS: FORMOTEROL FUMARATE 20 MCG/2 ML NEBU INHALATION SCH ×2 (07:55→20:57)
--- NOTE | 2023-02-05 09:00 | P.PN ---
Subjective Progress Note Date: 02/05/23 I am seeing this patient in new consultation today 02/03/2023 after the patient was sent from her ECF for respiratory distress and hypoxia. The patient is a 47-year-old female with medical history significant for oxygen dependent COPD, diabetes mellitus type 2, hypertension, GERD, CML. Patient did have a recent hospital admission on January 22 for multifocal pneumonia and respiratory failure requiring ventilator support. At that time, the patient was intubated for 4 days, and ultimately sent back to [facility] on January 29. The patient presented to the emergency room yesterday afternoon after being found hypoxic with a pulse ox of 60% and in some respiratory distress. She did present to the emergency room on BiPAP support, and was admitted to the cardiac stepdown unit. Around midnight, a code blue was called for a respiratory arrest. When I arrived to the room, the patient was on BiPAP with settings over 12/6 and FiO2 of 60%. The patient was achieving tidal volumes of 100-200 ML's. The patient did not lose a pulse. She was obtunded and minimally responsive to painful stimuli. I did augment the patient's pressure support to 16/6 and FiO2 of 50%. Patient did start to achieve better to tidal volumes of around 500ml. No further witnessed apneic episodes. The patient was transferred to the intensive care unit. Initial ABG shows a pO2 of 71, pCO2 of 83, pH of 7.29. The patient is now more arousable to verbal stimuli. We will hold off on intubation for now. Chest x- ray on arrival was concerning for CHF exacerbation and pulmonary edema. Multifocal pneumonia is also in the differential. NT proBNP was very elevated at 17,300. The patient has not received any diuretics since her admission. The patient does have a sulfa and Lasix ALLERGY. Most recent echo from her prior admission earlier this month shows a preserved ejection fraction of 60-65%, severe pulmonary hypertension, and moderate to severe tricuspid regurgitation. No IV maintenance fluids infusing. Initial BMP shows sodium 134, potassium 5.3, chloride 92, serum bicarb 39, BUN 16, creatinine 0.93, glucose 155. Troponin was also mildly elevated at 0.037, likely related to supply/demand mismatch. ECG shows no acute ischemic changes. CBC on arrival shows a WBC count of 11, hemoglobin 10.3, hematocrit 35.5, platelets 173. Patient was started on empiric antibiotics with Levaquin and Zosyn. Blood cultures are pending. BP is stable, and there is no need for vasopressor support. Patient's hypercapnic respiratory failure seems to be improving, and she will be monitored closely in the intensive care unit. I will hold off on intubation at this time. Patient on 02/04/2023, the patient is being seen for a follow-up. She remains on a BiPAP at pressures of 12/5 cm of water with FiO2 of 80% and the patient seems to be quite comfortable. Pulse ox is currently no evidence of 94%. She remains hemodynamically stable. Overnight, the patient had to be started on nitroglycerin drip. Blood pressure control. Nitroglycerin drip is currently running at 30 mcg/m. She also became quite restless and she was started on Precedex running at 0.8 mcg/kg/h. She remains on 0.5 mg/h. She has produced excellent amount of urine output. The overall fluid balance is -7 L over the past 24 hours. Chest x-ray shows improvement in volume status. There is some atelectatic change in the lung bases and possibly some small pleural effusions. At the same time, the patient has become alkalotic. The blood gas from today shows a pH of 7.56 with a pCO2 of 53 and pO2 of 61. This was an FiO2 of 70%. The patient was also sustained acute kidney injury. Creatinine is up to 1.25 with a BUN of 29. Serum bicarb is up to 41. Sodium is 135 with a potassium level of 4. Babinski was at 8.4 with a hemoglobin of 9.3. The echocardiogram was completed on the results are still pending for now. The mental status is improved considerably. CAT scan of the brain was done yesterday that showed no acute abnormalities. Area of low attenuation was seen and a right frontal parietal junction and MRI of the brain was recommended. Meanwhile, the patient was also seen by neurology. She is awake and alert and oriented and she is following commands and answering questions appropriately. No seizure activity has been noted. The patient was suspected to have seizure and the patient was having some twitching in her left thigh and she was started on Keppra by neurology. She remains critically ill in the intensive care unit. The blood cultures have been negative. ProBNP level was 17,000. Troponin was at 0.03. U A was essentially negative. Legionella urine antigen was also negative. 4 2022, the patient is awake and alert and communicating. She was taken off the BiPAP and currently she is on high flow oxygen at 50 L with an FiO2 of 40%. The patient has diuresed adequately. She is currently on IV Bumex 1 mg every 12 hours she is also on Diamox. Most recent electrolytes on blood work today shows a serum bicarb of 34, sodium is at 133 with a potassium level of 3.4. The BUN is at 32 with a creatinine of 1.4. The white cell count is currently at 10.9 with a hemoglobin of 9.3. She is producing excellent amount of urine output. Overall fluid balance over the past 24 hours has been -4.6 L. She remains on bronchodilators. She is receiving albuterol and ipratropium 4 times a day scheduled, she is also on Pulmicort Respules. She is on empiric antibiotic coverage with IV Zosyn. She is on Levemir for blood sugar control. Mental status is completely back to her baseline. No other significant events otherwise for now. Objective - Vital Signs Vital signs: Vital Signs Temp 98.3 F 02/05/23 04:00 Pulse 81 02/05/23 08:17 Resp 17 02/05/23 06:00 BP 91/54 02/05/23 06:00 Pulse Ox 89 L 02/05/23 06:00 FiO2 40 02/05/23 07:59 Intake & Output 02/04/23 02/05/23 02/05/23 18:59 06:59 18:59 Intake Total 428.150 453.688 240 Output Total 3040 2460 335 Balance -2611.850 -2006.312 -95 Weight 95.5 kg 96.3 kg Intake: IV 240 240 40 0.9 KVO 240 240 40 Intake, IV Titration 188.150 213.688 Amount Dexmedetomidine/0.9% NaCl 100 213.688 (Pmx) 400 mcg In Empty Bag 1 bag @ 0.2 MCG/KG/HR 5.475 mls/hr IV .[id number] WIN Rx#:[id number] Nitroglycerin-D5w Pmx 50 88.150 mg In Dextrose/Water 1 250ml.bag @ 5 MCG/MIN 1.5 mls/hr IV .Q24H WIN Rx#: [id number] Oral 200 Output: Urine 3040 2460 335 - Exam GENERAL EXAM: Awake and oriented 3. The patient is current on eye high flow oxygen with 50 L an FiO2 of 40%. HEAD: Normocephalic and atraumatic EYES: Normal reaction of pupils, equal size. NOSE: Clear with pink turbinates. THROAT: No erythema or exudates. NECK: No masses, no JVD. CHEST: No chest wall deformity. LUNGS: Equal air entry with diffuse crackles and wheezes. CVS: S1 and S2 normal with no audible murmur, regular rhythm. No extra heart sounds ABDOMEN: Obese abdomen. There is a suprapubic catheter. No hepatosplenomegaly, active bowel sounds, no guarding or rigidity. SPINE: No scoliosis or deformity SKIN: No rashes CENTRAL NERVOUS SYSTEM: No focal deficits, tone is normal in all 4 extremities. EXTREMITIES: There is 1+ pitting lower extremity edema. No clubbing, or cyanosis. Peripheral pulses are intact. - Labs CBC & Chem 7: 02/05/23 04:22 02/05/23 07:50 Labs: Abnormal Lab Results - Last 24 Hours (Table) 02/04/23 02/04/23 02/04/23 Range/Units 12:04 17:57 23:35 WBC (3.8-10.6) k/uL RBC (3.80-5.40) m/uL Hgb (11.4-16.0) gm/dL Hct (34.0-46.0) % RDW (11.5-15.5) % Neutrophils # (1.3-7.7) k/uL Sodium (137-145) mmol/L Potassium (3.5-5.1) mmol/L Chloride (98-107) mmol/L Carbon Dioxide (22-30) mmol/L BUN (7-17) mg/dL Creatinine (0.52-1.04) mg/dL Glucose (74-99) mg/dL POC Glucose (mg/dL) 232 H 235 H 143 H (70-110) mg/dL Calcium (8.4-10.2) mg/dL 02/05/23 02/05/23 02/05/23 Range/Units 04:22 04:22 06:03 WBC 10.9 H (3.8-10.6) k/uL RBC 3.37 L (3.80-5.40) m/uL Hgb 9.3 L (11.4-16.0) gm/dL Hct 30.0 L (34.0-46.0) % RDW 18.4 H (11.5-15.5) % Neutrophils # 8.6 H (1.3-7.7) k/uL Sodium 133 L (137-145) mmol/L Potassium 3.2 L (3.5-5.1) mmol/L Chloride 88 L (98-107) mmol/L Carbon Dioxide 34 H (22-30) mmol/L BUN 32 H (7-17) mg/dL Creatinine 1.48 H (0.52-1.04) mg/dL Glucose 211 H (74-99) mg/dL POC Glucose (mg/dL) 207 H (70-110) mg/dL Calcium 8.2 L (8.4-10.2) mg/dL 02/05/23 Range/Units 07:50 WBC (3.8-10.6) k/uL RBC (3.80-5.40) m/uL Hgb (11.4-16.0) gm/dL Hct (34.0-46.0) % RDW (11.5-15.5) % Neutrophils # (1.3-7.7) k/uL Sodium (137-145) mmol/L Potassium 3.4 L (3.5-5.1) mmol/L Chloride (98-107) mmol/L Carbon Dioxide (22-30) mmol/L BUN (7-17) mg/dL Creatinine (0.52-1.04) mg/dL Glucose (74-99) mg/dL POC Glucose (mg/dL) (70-110) mg/dL Calcium (8.4-10.2) mg/dL Microbiology - Last 24 Hours (Table) 02/02/23 18:30 Blood Culture - Preliminary Blood 02/02/23 18:10 Blood Culture - Preliminary Blood Assessment and Plan Assessment: Acute on chronic hypoxemic and hypercapnic respiratory failure likely related to exacerbation of diastolic congestive heart failure and pulmonary edema. Chest x-ray on arrival shows cardiomegaly with multifocal bilateral airspace disease. NT proBNP was elevated at 17,300. Multifocal pneumonia is also in the differential. Patient was recently treated for multifocal/aspiration pneumonia earlier this month. She did require ventilator support at that time. Patient is currently off the BiPAP on high flow oxygen and she has responded very nicely. Oxygenation is improved. Altered mental status, improved and the patient currently is on Precedex which is being gradually weaned off, completely back to normal Metabolic alkalosis secondary to diuresis, improved on Diamox Acute kidney injury, creatinine today is at 1.48 Hypertension the patient is currently off nitroglycerin drip. Acute COPD exacerbation secondary to above. She is normally oxygen dependent on 3 L/m nasal cannula. Pulmonary hypertension, likely secondary in nature due to chronic hypoxic respiratory failure and possible obstructive sleep apnea Elevated troponins, likely related to supply/demand mismatch. ECG shows no acute ischemic changes. Diabetes mellitus type 2, insulin-dependent, maintained on Lantus insulin outpatient basis Benign essential hypertension Hyperlipidemia Anemia, of chronic disease Chronic myeloid leukemia, on Gleevec History of recent ventilator dependent respiratory failure Morbid obesity, BMI of 62 Chronic suprapubic Dixon catheter probably related to frequent UTIs Severe pulmonary hypertension has been earlier echocardiogram, preserved lv function. Twitching, questionable seizures and the patient is currently on [facility] resident and the patient resides at [facility] Plan: Continue high flow oxygen and the patient may be transitioned to a lower flow she is able to tolerate and FiO2 remains above 90%. Continue IV Bumex Medicine is back to normal Repeat chest x-ray for today Continue Zosyn Cultures are negative Wean off nitroglycerin drip Continue Keppra off Precedex Cymbalta restarted Discontinue the IV Solu-Medrol Repeat chest x-ray today Condition is critical and the patient will be kept here nicely from another 24 hours.
[2023-02-05] MEDS: HEPARIN SODIUM,PORCINE/PF 5,000 UNIT/0.5 ML SYRINGE SQ SCH ×2 (09:26→18:02)
[2023-02-05] MEDS: ASPIRIN 81 MG PO SCH (09:26)
[2023-02-05] MEDS: METOPROLOL SUCCINATE (ER) 25 MG TAB.ER.24H PO SCH (09:27)
[2023-02-05] MEDS: busPIRone HCl 5 MG TAB PO SCH ×2 (09:27→18:02)
[2023-02-05] MEDS: DULoxetine HCL 60 MG CAPSULE.DR PO SCH (09:27)
[2023-02-05] MEDS: GABAPENTIN 300 MG CAP PO SCH ×3 (09:27→21:19)
[2023-02-05] MEDS: LURASIDONE 40 MG TAB PO SCH ×2 (09:27→18:02)
[2023-02-05] MEDS: PYRIDOXINE 50 MG TAB PO SCH (09:27)
[2023-02-05] MEDS: POTASSIUM CHLORIDE ER 20 MEQ TAB.ER PO SCH ×2 (09:27→11:50)
[2023-02-05] MEDS: PANTOPRAZOLE 40 MG/10 ML VIAL IV SCH (09:27)
[2023-02-05] MEDS: BUMETANIDE 0.25 MG/ML 10 ML VIAL IV SCH ×2 (09:28→21:18)
--- NOTE | 2023-02-05 10:44 | P.PN ---
Subjective Progress Note Date: 02/05/23 The patient is a 47-year-old female with multiple comorbid conditions who is currently admitted to the hospital with acute hypoxic respiratory failure and congestive heart failure. She had been started on Bumex drip and has remained on BiPAP. The patient has since been transition to high flow nasal cannula and IV push Bumex as she has developed acute kidney injury. Neurology has been consulted for confusion. EEG reveals encephalopathy The patient is much more alert when interviewed and examined today. She is appropriate and states her breathing has improved. No chest pain or chest pressure. No dizziness or lightheadedness. GENERAL: Well-appearing, well-nourished and in no acute distress. NECK: Supple without JVD or thyromegaly. LUNGS: Breath sounds are coarse to auscultation bilaterally. Respiration equal and unlabored. Bilateral rhonchi. HEART: Regular rate and rhythm without murmurs, rubs or gallops. S1 and S2 heard. EXTREMITIES: Normal range of motion, no edema. No clubbing or cyanosis. Peripheral pulses intact and strong. VITALS: Blood pressure 91/54, pulse 70, respiratory rate 17, SpO2 90 on 50 L high flow TELEMETRY: Sinus rhythm to sinus tachycardia overnight LABS: WBC WBC 10.9, hemoglobin 9.3, hematocrit 30.0, platelet 194, sodium 133, potassium 3.4, BUN 32, creatinine 1.48 IMPRESSION: Acute hypoxic respiratory failure Heart failure exacerbation, diastolic Elevated troponin, likely supply/demand mismatch Severe pulmonary hypertension with tricuspid regurgitation Leukocytosis Acute kidney injury, likely secondary to diuretics Abnormal TSH PLAN: Monitor electrolytes and strict I's and O's Aggressive pulmonary hygiene No further recommendations from the cardiac standpoint. I am dictating on behalf of Dr Cyrus Madrigal's history/physical and assessment/plan. Objective - Vital Signs Vital signs: Vital Signs Temp 98.3 F 02/05/23 04:00 Pulse 81 02/05/23 08:17 Resp 17 02/05/23 06:00 BP 91/54 02/05/23 06:00 Pulse Ox 89 L 02/05/23 06:00 FiO2 40 02/05/23 07:59 Intake & Output 02/04/23 02/05/23 02/05/23 18:59 06:59 18:59 Intake Total 428.150 453.688 240 Output Total 3040 2460 335 Balance -2611.850 -2006.312 -95 Weight 95.5 kg 96.3 kg Intake: IV 240 240 40 0.9 KVO 240 240 40 Intake, IV Titration 188.150 213.688 Amount Dexmedetomidine/0.9% NaCl 100 213.688 (Pmx) 400 mcg In Empty Bag 1 bag @ 0.2 MCG/KG/HR 5.475 mls/hr IV .[id number] WIN Rx#:[id number] Nitroglycerin-D5w Pmx 50 88.150 mg In Dextrose/Water 1 250ml.bag @ 5 MCG/MIN 1.5 mls/hr IV .Q24H WIN Rx#: [id number] Oral 200 Output: Urine 3040 2460 335 - Labs CBC & Chem 7: 02/05/23 04:22 02/05/23 07:50 Labs: Abnormal Lab Results - Last 24 Hours (Table) 02/04/23 02/04/23 02/04/23 Range/Units 12:04 17:57 23:35 WBC (3.8-10.6) k/uL RBC (3.80-5.40) m/uL Hgb (11.4-16.0) gm/dL Hct (34.0-46.0) % RDW (11.5-15.5) % Neutrophils # (1.3-7.7) k/uL Sodium (137-145) mmol/L Potassium (3.5-5.1) mmol/L Chloride (98-107) mmol/L Carbon Dioxide (22-30) mmol/L BUN (7-17) mg/dL Creatinine (0.52-1.04) mg/dL Glucose (74-99) mg/dL POC Glucose (mg/dL) 232 H 235 H 143 H (70-110) mg/dL Calcium (8.4-10.2) mg/dL 02/05/23 02/05/23 02/05/23 Range/Units 04:22 04:22 06:03 WBC 10.9 H (3.8-10.6) k/uL RBC 3.37 L (3.80-5.40) m/uL Hgb 9.3 L (11.4-16.0) gm/dL Hct 30.0 L (34.0-46.0) % RDW 18.4 H (11.5-15.5) % Neutrophils # 8.6 H (1.3-7.7) k/uL Sodium 133 L (137-145) mmol/L Potassium 3.2 L (3.5-5.1) mmol/L Chloride 88 L (98-107) mmol/L Carbon Dioxide 34 H (22-30) mmol/L BUN 32 H (7-17) mg/dL Creatinine 1.48 H (0.52-1.04) mg/dL Glucose 211 H (74-99) mg/dL POC Glucose (mg/dL) 207 H (70-110) mg/dL Calcium 8.2 L (8.4-10.2) mg/dL 02/05/23 Range/Units 07:50 WBC (3.8-10.6) k/uL RBC (3.80-5.40) m/uL Hgb (11.4-16.0) gm/dL Hct (34.0-46.0) % RDW (11.5-15.5) % Neutrophils # (1.3-7.7) k/uL Sodium (137-145) mmol/L Potassium 3.4 L (3.5-5.1) mmol/L Chloride (98-107) mmol/L Carbon Dioxide (22-30) mmol/L BUN (7-17) mg/dL Creatinine (0.52-1.04) mg/dL Glucose (74-99) mg/dL POC Glucose (mg/dL) (70-110) mg/dL Calcium (8.4-10.2) mg/dL Microbiology - Last 24 Hours (Table) 02/02/23 18:30 Blood Culture - Preliminary Blood 02/02/23 18:10 Blood Culture - Preliminary Blood
[2023-02-05] MEDS: MORPHINE SULFATE ER 30 MG TABLET PO SCH ×2 (11:04→21:19)
[2023-02-05 11:20] LABS: Glucose,Whole Blood 220 mg/dL (70-110)
--- NOTE | 2023-02-05 11:57 | XR ---
EXAMINATION TYPE: XR chest 1V portable DATE OF EXAM: 02/05/2023 COMPARISON: 02/04/2023 HISTORY: Chest pain TECHNIQUE: Single frontal view of the chest is obtained. FINDINGS: Continued cardiomegaly with pulmonary venous congestion scattered infiltrates as well as small right- sided pleural effusion. Overall appearance is stable. The osseous structures are intact. IMPRESSION: 1. Stable features of mild congestive failure. Infiltrates of other etiology not excluded. Correlate clinically and progress studies are recommended.
--- NOTE | 2023-02-05 12:25 | P.PN ---
Subjective Progress Note Date: 02/05/23 The patient is seen at bedside and she continues to be feeling well. Denies of any new neurological issues. No further twitching. She is requiring high oxygen for her respiratory condition. Yesterday her EEG was negative for seizure and discharges and discontinued Keppra that was started during admission for concerns for ?seizure. Objective - Vital Signs Vital signs: Vital Signs Temp 98.3 F 02/05/23 04:00 Pulse 93 02/05/23 11:19 Resp 17 02/05/23 06:00 BP 91/54 02/05/23 06:00 Pulse Ox 89 L 02/05/23 06:00 FiO2 40 02/05/23 07:59 Intake & Output 02/04/23 02/05/23 02/05/23 18:59 06:59 18:59 Intake Total 428.150 453.688 270 Output Total 3040 2460 1335 Balance -2611.850 -2006.312 -1065 Weight 95.5 kg 96.3 kg Intake: IV 240 240 70 0.9 KVO 240 240 70 Intake, IV Titration 188.150 213.688 Amount Dexmedetomidine/0.9% NaCl 100 213.688 (Pmx) 400 mcg In Empty Bag 1 bag @ 0.2 MCG/KG/HR 5.475 mls/hr IV .[id number] WIN Rx#:[id number] Nitroglycerin-D5w Pmx 50 88.150 mg In Dextrose/Water 1 250ml.bag @ 5 MCG/MIN 1.5 mls/hr IV .Q24H WIN Rx#: [id number] Oral 200 Output: Urine 3040 2460 1335 - Exam Neuro: Patient is awake alert oriented to self, place and time. Patient is following simple commands. No aphasia Pupils are round equal and reactive to light. Pupils are 3-4 mm bilaterally. Visual echeverria are full to confrontation. Extraocular movement is intact no nystagmus. No facial weakness. No dysarthria Motor: The strength is 5 over 5 throughout. No tremor or jerks of the left thigh noted. Sensory is normal to touch throughout. Some of the workup during his hospital visit consisted of: Ammonia level is 18. CK level was 22. TSH is 0.[address] of the head today is reported as no acute intracranial hemorrhage, mass effect or midline shift is seen. Area of low attenuation in the right frontal parietal junction axial image 36 not seen with certainty on prior exam. Recommend MRI to exclude early ischemic changes. Personally reviewed the CT and I do not patient any acute subacute ischemia and there is no bleed that there is no mass effect. TSH: 0.411 and free T4 is normal. Routine EEGs abnormal. The back of slowing suggestive of mild encephalopathy likely due to underlying metabolic/hypoxic derangement. Otherwise there is no focal slowing, epileptiform discharges or seizure on the EEG. - Labs CBC & Chem 7: 02/05/23 04:22 02/05/23 07:50 Labs: Abnormal Lab Results - Last 24 Hours (Table) 02/04/23 02/04/23 02/05/23 Range/Units 17:57 23:35 04:22 WBC 10.9 H (3.8-10.6) k/uL RBC 3.37 L (3.80-5.40) m/uL Hgb 9.3 L (11.4-16.0) gm/dL Hct 30.0 L (34.0-46.0) % RDW 18.4 H (11.5-15.5) % Neutrophils # 8.6 H (1.3-7.7) k/uL Sodium (137-145) mmol/L Potassium (3.5-5.1) mmol/L Chloride (98-107) mmol/L Carbon Dioxide (22-30) mmol/L BUN (7-17) mg/dL Creatinine (0.52-1.04) mg/dL Glucose (74-99) mg/dL POC Glucose (mg/dL) 235 H 143 H (70-110) mg/dL Calcium (8.4-10.2) mg/dL 02/05/23 02/05/23 02/05/23 Range/Units 04:22 06:03 07:50 WBC (3.8-10.6) k/uL RBC (3.80-5.40) m/uL Hgb (11.4-16.0) gm/dL Hct (34.0-46.0) % RDW (11.5-15.5) % Neutrophils # (1.3-7.7) k/uL Sodium 133 L (137-145) mmol/L Potassium 3.2 L 3.4 L (3.5-5.1) mmol/L Chloride 88 L (98-107) mmol/L Carbon Dioxide 34 H (22-30) mmol/L BUN 32 H (7-17) mg/dL Creatinine 1.48 H (0.52-1.04) mg/dL Glucose 211 H (74-99) mg/dL POC Glucose (mg/dL) 207 H (70-110) mg/dL Calcium 8.2 L (8.4-10.2) mg/dL 02/05/23 Range/Units 11:19 WBC (3.8-10.6) k/uL RBC (3.80-5.40) m/uL Hgb (11.4-16.0) gm/dL Hct (34.0-46.0) % RDW (11.5-15.5) % Neutrophils # (1.3-7.7) k/uL Sodium (137-145) mmol/L Potassium (3.5-5.1) mmol/L Chloride (98-107) mmol/L Carbon Dioxide (22-30) mmol/L BUN (7-17) mg/dL Creatinine (0.52-1.04) mg/dL Glucose (74-99) mg/dL POC Glucose (mg/dL) 220 H (70-110) mg/dL Calcium (8.4-10.2) mg/dL Microbiology - Last 24 Hours (Table) 02/02/23 18:30 Blood Culture - Preliminary Blood 02/02/23 18:10 Blood Culture - Preliminary Blood Assessment and Plan Assessment: Altered mental status seems due to hypoxic encephalopathy---improved and is back to baseline. Twitching of the left thigh seems likely due to metabolic/hypoxic derangement---episode resolved. EEG is negative for seizure or discharges CT of the head is reported as hypointensity over the right frontal parietal: Rule out acute ischemia. I personally reviewed the CT and I felt there is no hypodensity that is appreciable. Either 1.9 cm anterior left frontal meningioma versus congenital variation with hyperostosis frontalis interna on CT Acute COPD exacerbation Acute on chronic hypoxic respiratory failure currently on BiPAP Diabetes mellitus Congestive heart failure Hypertension Schizophrenia Morbid obesity Plan: I stopped Keppra that was started during this admission for concern of ?seizure. Since EEG is negative for seizure or discharges no need. Also patient has not had any further twitching while off Keppra yesterday. Cannot obtain MRI Brain since respiratory condition. Will repeat CT head and if negative for any changes compared to initial CT then no further work-up. She is resumed on her home dose ASA 81mg and Lipitor 40mg qhs. Continue neuro checks We'll defer the rest of the medical management to the primary ICU team The plan discussed with the patient's primary attending and her nurse. Time with Patient: Less than 30
--- NOTE | 2023-02-05 13:44 | P.PN ---
Subjective Progress Note Date: 02/05/23 Patient is a 47-year-old female with COPD chronically on 3 L nasal cannula, diabetes mellitus type 2, chronic indwelling Dixon catheter, hypertension, GERD, CML, and bipolar disorder who presented to the hospital after developing respiratory distress at [facility]. On arrival to the ER she was noted to be hypoxic at 58% on nasal cannula and was immediately placed on BiPAP. Initial laboratory analysis was remarkable for white blood cell count of 11.1, hemoglobin 10.3, sodium 134, potassium 5.3, and glucose of 155. Initial troponin was positive at 0.0037 and BNP was positive at 17,300. Chest x-ray showed new focal bilateral airspace disease with possible pneumonia and continued asymmetric elevation of the right hemidiaphragm. She was admitted for possible acute exacerbation of COPD and acute exacerbation of diastolic CHF. A CODE BLUE was called for respiratory arrest and the patient was on BiPAP with settings of 12/6 and FiO2 of 60% with tidal volumes of 1 to 200s. The patient never lost a pulse in her initial ABG at that time showed a pH of 7.29, pCO2 83, PaO2 of 71. She was subsequently transferred to the ICU. Her BiPAP settings were adjusted and repeat ABG showed a pH of 7.36, CO2 of 71, PaO2 of 61, and a bicarb of 40. Pulmonary critical care and cardiology were consulted. She was noted to have some abnormal muscle movement and rhythmic twitching in her left t high. 02/05 Patient was seen and examined. No acute events overnight. Patient reports feeling better and would like to go home. Currently on high flow nasal cannula and 13L. Her mentation is significantly improved. CBC shows leukocytosis of 10.9 and hemoglobin 9.3. BMP shows sodium of 133, potassium of 3.2, chloride of 88, bicarbonate 34, BUN of 32, creatinine of 1.48, glucose of 211 and calcium of 8.2. EEG shows encephalopathy and no seizure-like activity. Chest x-ray shows pulmonary edema consistent with CHF exacerbation. Vital signs reviewed General: nontoxic, no distress, appears at stated age Cardiovascular: S1S2 reg, no murmur Lungs: Coarse breath sounds bilateral, no rhonchi, no rales , no accessory muscle use Abdominal: soft, nontender to palpation, no guarding, no appreciable organomegaly Ext: no gross muscle atrophy, no edema b/l lower extremities, no contractures Neuro: CN II-XI grossly intact, no focal neuro deficits, muscle twitching of left upper thigh, bruxisms, Psych: Awake, oriented to self, appears anxious Acute on chronic hypoxic hypercapnic respiratory failure Acute exacerbation of cor pulmonale with RVSP at 95 Acute exacerbation of COPD Elevated troponin secondary to supply demand mismatch Obesity hypoventilation syndrome Acute metabolic encephalopathy, imrpoving Tradiative dyspensia (resolved) and left thigh twitching Diabetes mellitus type 2 ANOOP Anemia, chronic Mild thrombocytopenia Class 3 obesity with BMI 40.2 Chronic: Hypertension, GERD Based on my assessment of this patient, this patient meets a high complexity level of care. Patient has an acute diagnosis of acute hypoxic respiratory failure, multifactorial due to cor pulmonale, COPD exacerbation, obesity hypoventilation syndrome and CHF exacerbation that poses a threat to life or bodily function. She is currently off BiPAP on 13 L HFNC. Continue Bumex 1 mg IV twice a day. Monitor renal function with daily BMP. Bronchodilators: DuoNeb 0.5mg-3mg/3ml scheduled and as needed for SOB and wheezing. Pulmicort 1 mg INH twice a day. Formoterol 20 g INH twice a day. Symbicort 2 puff BID. Spiriva 1 puff daily. Antibiotics: Zosyn 3.37 g IV every 8 hours. Case discussed with neurology, plans to repeat CT head. Heparin SQ for DVT prophylaxis. Full code. I have reviewed the following biometrics consultant notes: Cardiology, neurology, pulmonology note reviewed. I have reviewed the results of the following tests: CBC, BMP, EEG reviewed as above. I have ordered the following tests: I have discussed the care of this patient with the following independent historian: I have independently interpreted the following test below: Chest x-ray as above. I have discussed the management of this patient with the following physician: Discussed with neurology as above. Objective - Vital Signs Vital signs: Vital Signs Temp 98.3 F 02/05/23 04:00 Pulse 94 02/05/23 11:30 Resp 17 02/05/23 06:00 BP 91/54 02/05/23 06:00 Pulse Ox 89 L 02/05/23 06:00 FiO2 40 02/05/23 07:59 Intake & Output 02/04/23 02/05/23 02/05/23 18:59 06:59 18:59 Intake Total 428.150 453.688 270 Output Total 3040 2460 1335 Balance -2611.850 -2006.312 -1065 Weight 95.5 kg 96.3 kg Intake: IV 240 240 70 0.9 KVO 240 240 70 Intake, IV Titration 188.150 213.688 Amount Dexmedetomidine/0.9% NaCl 100 213.688 (Pmx) 400 mcg In Empty Bag 1 bag @ 0.2 MCG/KG/HR 5.475 mls/hr IV .[id number] [facility] Rx#:[id number] Nitroglycerin-D5w Pmx 50 88.150 mg In Dextrose/Water 1 250ml.bag @ 5 MCG/MIN 1.5 mls/hr IV .Q24H [facility] Rx#: [id number] Oral 200 Output: Urine 3040 2460 1335 - Labs CBC & Chem 7: 02/05/23 04:22 02/05/23 07:50 Labs: Abnormal Lab Results - Last 24 Hours (Table) 02/04/23 02/04/23 02/05/23 Range/Units 17:57 23:35 04:22 WBC 10.9 H (3.8-10.6) k/uL RBC 3.37 L (3.80-5.40) m/uL Hgb 9.3 L (11.4-16.0) gm/dL Hct 30.0 L (34.0-46.0) % RDW 18.4 H (11.5-15.5) % Neutrophils # 8.6 H (1.3-7.7) k/uL Sodium (137-145) mmol/L Potassium (3.5-5.1) mmol/L Chloride (98-107) mmol/L Carbon Dioxide (22-30) mmol/L BUN (7-17) mg/dL Creatinine (0.52-1.04) mg/dL Glucose (74-99) mg/dL POC Glucose (mg/dL) 235 H 143 H (70-110) mg/dL Calcium (8.4-10.2) mg/dL 02/05/23 02/05/23 02/05/23 Range/Units 04:22 06:03 07:50 WBC (3.8-10.6) k/uL RBC (3.80-5.40) m/uL Hgb (11.4-16.0) gm/dL Hct (34.0-46.0) % RDW (11.5-15.5) % Neutrophils # (1.3-7.7) k/uL Sodium 133 L (137-145) mmol/L Potassium 3.2 L 3.4 L (3.5-5.1) mmol/L Chloride 88 L (98-107) mmol/L Carbon Dioxide 34 H (22-30) mmol/L BUN 32 H (7-17) mg/dL Creatinine 1.48 H (0.52-1.04) mg/dL Glucose 211 H (74-99) mg/dL POC Glucose (mg/dL) 207 H (70-110) mg/dL Calcium 8.2 L (8.4-10.2) mg/dL 02/05/23 Range/Units 11:19 WBC (3.8-10.6) k/uL RBC (3.80-5.40) m/uL Hgb (11.4-16.0) gm/dL Hct (34.0-46.0) % RDW (11.5-15.5) % Neutrophils # (1.3-7.7) k/uL Sodium (137-145) mmol/L Potassium (3.5-5.1) mmol/L Chloride (98-107) mmol/L Carbon Dioxide (22-30) mmol/L BUN (7-17) mg/dL Creatinine (0.52-1.04) mg/dL Glucose (74-99) mg/dL POC Glucose (mg/dL) 220 H (70-110) mg/dL Calcium (8.4-10.2) mg/dL Microbiology - Last 24 Hours (Table) 02/02/23 18:30 Blood Culture - Preliminary Blood 02/02/23 18:10 Blood Culture - Preliminary Blood
--- NOTE | 2023-02-05 13:52 | CT ---
EXAMINATION TYPE: CT brain wo con DATE OF EXAM: 02/05/2023 COMPARISON: 02/03/2023 HISTORY: Hypodensity right frontoparietal CT. CT DLP: 1189.[address] of the brain was performed. The ventricles, basal cisterns and sulci overlying the cerebral convexities demonstrate a normal appe arance. There is no evidence for intracranial hemorrhage or sulcal effacement. No mass effects are seen. Osseous calvarium is intact. If symptoms persist consider MRI as clinically warranted. IMPRESSION: 1. No acute intracranial process is seen at this time. Area of hypodensity seen previously is not re demonstrated at this time. Opacification right sphenoid sinus.
[2023-02-05] MEDS: ACETAMINOPHEN TAB 325 MG TAB PO PRN (14:15)
[2023-02-05 15:15] LABS: Appearance,Urine Clear (Clear); Bilirubin,Urine Negative (Negative); Blood,Urine Negative (Negative); Color,Urine Light Yellow; Glucose,Urine (UA) Negative (Negative); Ketones,Urine Negative (Negative); Leukocyte Esterase,Urine Small (Negative); Mucus,Urine Rare /hpf; Nitrite,Urine Negative (Negative); Protein,Urine Negative (Negative); RBC,Urine 2 /hpf (0-5); Specific Gravity,Urine 1.009 (1.001-1.035); Squamous Epithelial Cell,Urine <1 /hpf (0-4); Urobilinogen,Urine <2.0 mg/dL (<2.0); WBC,Urine 4 /hpf (0-5)
[2023-02-05 16:20] LABS: Glucose,Whole Blood 175 mg/dL (70-110)
[2023-02-05] MEDS ORDERED: MELATONIN 5 MG TABLET PO PRN (16:21)
[2023-02-05] MEDS: MORPHINE SULFATE 2 MG/ML SYRINGE IVP PRN ×2 (16:40→19:42)
[2023-02-05] MEDS: LORATADINE 10 MG TAB PO SCH (16:40)
[2023-02-05] MEDS: ATORVASTATIN 40 MG TAB PO SCH (21:19)
[2023-02-05] MEDS: MIRTAZAPINE 15 MG TAB PO SCH (21:19)
[2023-02-05] MEDS: SODIUM CHLORIDE 0.9% 1,000 ML IV SCH (21:20)
[2023-02-05 23:49] LABS: Glucose,Whole Blood 274 mg/dL (70-110)
[2023-02-06] MEDS: INSULIN ASPART (NovoLOG) 100 UNIT/ML VIAL SQ SCH ×4 (00:01→16:53)
[2023-02-06] MEDS: HEPARIN SODIUM,PORCINE/PF 5,000 UNIT/0.5 ML SYRINGE SQ SCH ×3 (00:01→16:53)
[2023-02-06] MEDS: MORPHINE SULFATE 2 MG/ML SYRINGE IVP PRN ×4 (00:08→18:25)
[2023-02-06] MEDS: PIPERACILLIN-TAZOBACTAM 3.375 GM in SODIUM CHLORIDE 0.9% 100 ML IVPB SCH ×3 (03:54→21:26)
[2023-02-06 05:27] LABS: Anisocytosis Slight; Basophils % (A) 0 %; Eosinophils # (A) 0.1 k/uL (0-0.7); Eosinophils % (A) 1 %; HCT 35.3 % (34.0-46.0); HGB 10.6 gm/dL (11.4-16.0); Hypochromasia Marked; Lymphocytes # (A) 1.5 k/uL (1.0-4.8); Lymphocytes % (A) 15 %; MCH 27.7 pg (25.0-35.0); MCHC 30.2 g/dL (31.0-37.0); MCV 91.6 fL (80.0-100.0); Mean Platelet Volume 7.6; Monocytes # (A) 0.6 k/uL (0-1.0); Monocytes % (A) 6 %; Neutrophils # (A) 7.6 k/uL (1.3-7.7); Neutrophils % (A) 76 %; Platelet Count 208 k/uL (150-450); RBC 3.85 m/uL (3.80-5.40); RDW 17.8 % (11.5-15.5); WBC 10.1 k/uL (3.8-10.6)
[2023-02-06 05:45] LABS: African American GFR (CKD) 47 (>60 ml/min/1.73 sqM); Anion Gap 9 mmol/L; Blood Urea Nitrogen 28 mg/dL (7-17); Calcium 8.2 mg/dL (8.4-10.2); Carbon Dioxide 29 mmol/L (22-30); Chloride 98 mmol/L (98-107); Glucose 120 mg/dL (74-99); Non-African American GFR(CKD) 41 (>60 ml/min/1.73 sqM); Potassium 3.9 mmol/L (3.5-5.1); Sodium 136 mmol/L (137-145)
[2023-02-06] MEDS ORDERED: Potassium Replacement Protocol 1 EACH MISC MISCELLANE PRN (05:47)
[2023-02-06] MEDS ORDERED: POTASSIUM BICARBONATE/CIT AC 20 MEQ TABLET.EFF NG-TUBE SCH (06:00)
[2023-02-06 06:14] LABS: Glucose,Whole Blood 167 mg/dL (70-110)
[2023-02-06] MEDS: INSULIN DETEMIR (LEVEMIR) 100 UNIT/ML SYR SQ SCH (06:21)
[2023-02-06] MEDS: FORMOTEROL FUMARATE 20 MCG/2 ML NEBU INHALATION SCH ×2 (07:42→19:35)
[2023-02-06] MEDS: IPRATROPIUM-ALBUTEROL 3 ML NEB INHALATION SCH ×4 (07:42→19:35)
[2023-02-06] MEDS: BUDESONIDE 1 MG/2 ML NEBU INHALATION SCH ×2 (07:42→19:35)
--- NOTE | 2023-02-06 08:35 | P.PN ---
Subjective Progress Note Date: 02/06/23 I am seeing this patient in new consultation today 02/03/2023 after the patient was sent from her ECF for respiratory distress and hypoxia. The patient is a 47-year-old female with medical history significant for oxygen dependent COPD, diabetes mellitus type 2, hypertension, GERD, CML. Patient did have a recent hospital admission on January 22 for multifocal pneumonia and respiratory failure requiring ventilator support. At that time, the patient was intubated for 4 days, and ultimately sent back to [facility] on January 29. The patient presented to the emergency room yesterday afternoon after being found hypoxic with a pulse ox of 60% and in some respiratory distress. She did present to the emergency room on BiPAP support, and was admitted to the cardiac stepdown unit. Around midnight, a code blue was called for a respiratory arrest. When I arrived to the room, the patient was on BiPAP with settings over 12/6 and FiO2 of 60%. The patient was achieving tidal volumes of 100-200 ML's. The patient did not lose a pulse. She was obtunded and minimally responsive to painful stimuli. I did augment the patient's pressure support to 16/6 and FiO2 of 50%. Patient did start to achieve better to tidal volumes of around 500ml. No further witnessed apneic episodes. The patient was transferred to the intensive care unit. Initial ABG shows a pO2 of 71, pCO2 of 83, pH of 7.29. The patient is now more arousable to verbal stimuli. We will hold off on intubation for now. Chest x- ray on arrival was concerning for CHF exacerbation and pulmonary edema. Multifocal pneumonia is also in the differential. NT proBNP was very elevated at 17,300. The patient has not received any diuretics since her admission. The patient does have a sulfa and Lasix ALLERGY. Most recent echo from her prior admission earlier this month shows a preserved ejection fraction of 60-65%, severe pulmonary hypertension, and moderate to severe tricuspid regurgitation. No IV maintenance fluids infusing. Initial BMP shows sodium 134, potassium 5.3, chloride 92, serum bicarb 39, BUN 16, creatinine 0.93, glucose 155. Troponin was also mildly elevated at 0.037, likely related to supply/demand mismatch. ECG shows no acute ischemic changes. CBC on arrival shows a WBC count of 11, hemoglobin 10.3, hematocrit 35.5, platelets 173. Patient was started on empiric antibiotics with Levaquin and Zosyn. Blood cultures are pending. BP is stable, and there is no need for vasopressor support. Patient's hypercapnic respiratory failure seems to be improving, and she will be monitored closely in the intensive care unit. I will hold off on intubation at this time. Patient on 02/04/2023, the patient is being seen for a follow-up. She remains on a BiPAP at pressures of 12/5 cm of water with FiO2 of 80% and the patient seems to be quite comfortable. Pulse ox is currently no evidence of 94%. She remains hemodynamically stable. Overnight, the patient had to be started on nitroglycerin drip. Blood pressure control. Nitroglycerin drip is currently running at 30 mcg/m. She also became quite restless and she was started on Precedex running at 0.8 mcg/kg/h. She remains on 0.5 mg/h. She has produced excellent amount of urine output. The overall fluid balance is -7 L over the past 24 hours. Chest x-ray shows improvement in volume status. There is some atelectatic change in the lung bases and possibly some small pleural effusions. At the same time, the patient has become alkalotic. The blood gas from today shows a pH of 7.56 with a pCO2 of 53 and pO2 of 61. This was an FiO2 of 70%. The patient was also sustained acute kidney injury. Creatinine is up to 1.25 with a BUN of 29. Serum bicarb is up to 41. Sodium is 135 with a potassium level of 4. Babinski was at 8.4 with a hemoglobin of 9.3. The echocardiogram was completed on the results are still pending for now. The mental status is improved considerably. CAT scan of the brain was done yesterday that showed no acute abnormalities. Area of low attenuation was seen and a right frontal parietal junction and MRI of the brain was recommended. Meanwhile, the patient was also seen by neurology. She is awake and alert and oriented and she is following commands and answering questions appropriately. No seizure activity has been noted. The patient was suspected to have seizure and the patient was having some twitching in her left thigh and she was started on Keppra by neurology. She remains critically ill in the intensive care unit. The blood cultures have been negative. ProBNP level was 17,000. Troponin was at 0.03. U A was essentially negative. Legionella urine antigen was also negative. 4 2022, the patient is awake and alert and communicating. She was taken off the BiPAP and currently she is on high flow oxygen at 50 L with an FiO2 of 40%. The patient has diuresed adequately. She is currently on IV Bumex 1 mg every 12 hours she is also on Diamox. Most recent electrolytes on blood work today shows a serum bicarb of 34, sodium is at 133 with a potassium level of 3.4. The BUN is at 32 with a creatinine of 1.4. The white cell count is currently at 10.9 with a hemoglobin of 9.3. She is producing excellent amount of urine output. Overall fluid balance over the past 24 hours has been -4.6 L. She remains on bronchodilators. She is receiving albuterol and ipratropium 4 times a day scheduled, she is also on Pulmicort Respules. She is on empiric antibiotic coverage with IV Zosyn. She is on Levemir for blood sugar control. Mental status is completely back to her baseline. No other significant events otherwise for now. on 02/05/2023, the patient is doing well. She is on 4 L of oxygen nasal cannula. She was switched to IV Bumex 1 mg every 12 hours. She is producing excellent urine output. Her weight is down to 93 kg and she has lost approximately 10 kg since she was started on diuretics. Note that the patient was initially on BiPAP, later on to high flow oxygen and currently she is on 4 L nasal cannula. She is resting comfortably in bed. No other complaints otherwise. Urine culture came back positive for Pseudomonas aeruginosa and the patient is currently on IV Zosyn. Dixon catheter still in place. He is 28 with a creatinine 1.4. Sodium levels is 136. The echoes at 10 with a hemoglobin of 10.6. No other significant events otherwise for now and the patient's condition is optimized significantly. Objective - Vital Signs Vital signs: Vital Signs Temp 98.3 F 02/06/23 04:00 Pulse 92 02/06/23 07:00 Resp 16 02/06/23 07:00 BP 102/56 02/06/23 07:00 Pulse Ox 93 L 02/06/23 07:00 FiO2 40 02/05/23 07:59 Intake & Output 02/05/23 02/06/23 02/06/23 18:59 06:59 18:59 Intake Total 1000 320 20 Output Total 1959 2024 185 Balance -960 -1705 -165 Weight 93.8 kg Intake: IV 200 120 20 0.9 KVO 100 120 20 Piperacillin-Tazobactam 3 100 .375 gm In Sodium Chloride 0.9% 100 ml @ 25 mls/hr IVPB Q8H [facility] Rx#: [id number] Oral 800 200 Output: Urine 1959 2024 185 - Exam GENERAL EXAM: Awake and oriented 3. The patient is current on 4 L of oxygen nasal cannula HEAD: Normocephalic and atraumatic EYES: Normal reaction of pupils, equal size. NOSE: Clear with pink turbinates. THROAT: No erythema or exudates. NECK: No masses, no JVD. CHEST: No chest wall deformity. LUNGS: Equal air entry with diffuse crackles and wheezes. CVS: S1 and S2 normal with no audible murmur, regular rhythm. No extra heart sounds ABDOMEN: Obese abdomen. There is a suprapubic catheter. No hepatosplenomegaly, active bowel sounds, no guarding or rigidity. SPINE: No scoliosis or deformity SKIN: No rashes CENTRAL NERVOUS SYSTEM: No focal deficits, tone is normal in all 4 extremities. EXTREMITIES: There is 1+ pitting lower extremity edema. No clubbing, or cyanosis. Peripheral pulses are intact. - Labs CBC & Chem 7: 02/06/23 04:56 02/06/23 04:56 Labs: Abnormal Lab Results - Last 24 Hours (Table) 02/05/23 02/05/23 02/05/23 Range/Units 11:19 14:20 16:19 Hgb (11.4-16.0) gm/dL MCHC (31.0-37.0) g/dL RDW (11.5-15.5) % Sodium (137-145) mmol/L BUN (7-17) mg/dL Creatinine (0.52-1.04) mg/dL Glucose (74-99) mg/dL POC Glucose (mg/dL) 220 H 175 H (70-110) mg/dL Calcium (8.4-10.2) mg/dL Ur Leukocyte Esterase Small H (Negative) Urine Mucus Rare H (None) /hpf 06/02/06/23 02/06/23 Range/Units 23:48 04:56 04:56 Hgb 10.6 L (11.4-16.0) gm/dL MCHC 30.2 L (31.0-37.0) g/dL RDW 17.8 H (11.5-15.5) % Sodium 136 L (137-145) mmol/L BUN 28 H (7-17) mg/dL Creatinine 1.49 H (0.52-1.04) mg/dL Glucose 120 H (74-99) mg/dL POC Glucose (mg/dL) 274 H (70-110) mg/dL Calcium 8.2 L (8.4-10.2) mg/dL Ur Leukocyte Esterase (Negative) Urine Mucus (None) /hpf 02/06/23 Range/Units 06:13 Hgb (11.4-16.0) gm/dL MCHC (31.0-37.0) g/dL RDW (11.5-15.5) % Sodium (137-145) mmol/L BUN (7-17) mg/dL Creatinine (0.52-1.04) mg/dL Glucose (74-99) mg/dL POC Glucose (mg/dL) 167 H (70-110) mg/dL Calcium (8.4-10.2) mg/dL Ur Leukocyte Esterase (Negative) Urine Mucus (None) /hpf Microbiology - Last 24 Hours (Table) 02/02/23 18:30 Blood Culture - Preliminary Blood 02/02/23 18:10 Blood Culture - Preliminary Blood 02/03/23 03:01 Urine Culture - Final Urine,Voided Pseudomonas aeruginosa Assessment and Plan Assessment: Acute on chronic hypoxemic and hypercapnic respiratory failure likely related to exacerbation of diastolic congestive heart failure and pulmonary edema. Chest x-ray on arrival shows cardiomegaly with multifocal bilateral airspace disease. NT proBNP was elevated at 17,300. Multifocal pneumonia is also in the differential. Patient was recently treated for multifocal/aspiration pneumonia earlier this month. She did require ventilator support at that time. Patient is currently off the BiPAP on high flow oxygen and she has responded very nicely. Oxygenation is improved. Altered mental status, improved and the patient currently is on Precedex which is being gradually weaned off, completely back to normal Metabolic alkalosis secondary to diuresis, improved on Diamox Acute kidney injury, creatinine today is at 1.48 Hypertension the patient is currently off nitroglycerin drip. Acute COPD exacerbation secondary to above. She is normally oxygen dependent on 3 L/m nasal cannula. Pulmonary hypertension, likely secondary in nature due to chronic hypoxic respiratory failure and possible obstructive sleep apnea Elevated troponins, likely related to supply/demand mismatch. ECG shows no acute ischemic changes. Diabetes mellitus type 2, insulin-dependent, maintained on Lantus insulin outpatient basis Benign essential hypertension Hyperlipidemia Anemia, of chronic disease Chronic myeloid leukemia, on Gleevec History of recent ventilator dependent respiratory failure Morbid obesity, BMI of 62 Chronic suprapubic Dixon catheter probably related to frequent UTIs Severe pulmonary hypertension has been earlier echocardiogram, preserved lv function. Twitching, questionable seizures and the patient is currently on [facility] correction resident and the patient resides at [facility] Pseudomonal UTI and a chronic suprapubic catheter with recurrent and frequent UTIs in the past Plan: Continue diuretics as the patient continues to produce excellent amount of urine output Patient is currently on 4 L O2 nasal cannula Continue IV Bumex Continue IV Zosyn as the patient has pseudomonal UTI Repeat chest x-ray for today The chest x-ray from yesterday was already improving Continue Keppra Cymbalta restarted The patient should be able to transfer out of the intensive care unit today.
[2023-02-06] MEDS: PYRIDOXINE 50 MG TAB PO SCH (09:25)
[2023-02-06] MEDS: ASPIRIN 81 MG PO SCH (09:25)
[2023-02-06] MEDS: LORATADINE 10 MG TAB PO SCH (09:25)
[2023-02-06] MEDS: DULoxetine HCL 60 MG CAPSULE.DR PO SCH (09:25)
[2023-02-06] MEDS: LURASIDONE 40 MG TAB PO SCH ×2 (09:25→16:53)
[2023-02-06] MEDS: METOPROLOL SUCCINATE (ER) 25 MG TAB.ER.24H PO SCH (09:25)
[2023-02-06] MEDS: GABAPENTIN 300 MG CAP PO SCH ×3 (09:25→21:25)
[2023-02-06] MEDS: busPIRone HCl 5 MG TAB PO SCH ×2 (09:25→16:53)
[2023-02-06] MEDS: MORPHINE SULFATE ER 30 MG TABLET PO SCH ×3 (09:26→21:25)
[2023-02-06] MEDS: PANTOPRAZOLE 40 MG/10 ML VIAL IV SCH (09:26)
[2023-02-06] MEDS: BUMETANIDE 0.25 MG/ML 10 ML VIAL IV SCH ×2 (09:27→21:26)
--- NOTE | 2023-02-06 10:26 | XR ---
EXAMINATION TYPE: XR chest 1V portable DATE OF EXAM: 02/06/2023 COMPARISON: 02/05/2023 HISTORY: Chest pain TECHNIQUE: Single frontal view of the chest is obtained. FINDINGS: Overall improvement noted with resolved pulmonary venous congestion. Scattered infiltrates have also resolved with mild residual changes noted at the lung bases. Continued cardiomegaly. Hilar and medias tinal structures are stable. Bony thorax is intact. Small amount of fluid persists within the right m inor fissure. IMPRESSION: 1. Overall improvement in features of congestive failure and/or pneumonia.
[2023-02-06 11:29] LABS: Glucose,Whole Blood 224 mg/dL (70-110)
--- NOTE | 2023-02-06 13:20 | P.PN ---
Subjective Progress Note Date: 02/06/23 The patient seen at bedside and the she feels she is doing great. Denies of any focal weakness or any new neurological issues. Objective - Vital Signs Vital signs: Vital Signs Temp 98.6 F 02/06/23 08:00 Pulse 98 02/06/23 10:00 Resp 22 02/06/23 10:00 BP 121/62 02/06/23 10:00 Pulse Ox 94 L 02/06/23 10:00 FiO2 40 02/05/23 07:59 Intake & Output 02/05/23 02/06/23 02/06/23 18:59 06:59 18:59 Intake Total 1000 320 20 Output Total 1959 2024 185 Balance -960 -1705 -165 Weight 93.8 kg Intake: IV 200 120 20 0.9 KVO 100 120 20 Piperacillin-Tazobactam 3 100 .375 gm In Sodium Chloride 0.9% 100 ml @ 25 mls/hr IVPB Q8H [facility] Rx#: [id number] Oral 800 200 Output: Urine 1959 2024 185 - Exam Neuro: Patient is awake alert oriented to self, place and time. Patient is following simple commands. No aphasia Pupils are round equal and reactive to light. Pupils are 3-4 mm bilaterally. Visual echeverria are full to confrontation. Extraocular movement is intact no nystagmus. No facial weakness. No dysarthria Motor: The strength is 5 over 5 throughout. No tremor or jerks of the left thigh noted. Sensory is normal to touch throughout. Some of the workup during his hospital visit consisted of: Ammonia level is 18. CK level was 22. TSH is 0.411 CT of the head is reported as no acute intracranial hemorrhage, mass effect or midline shift is seen. Area of low attenuation in the right frontal parietal junction axial image 36 not seen with certainty on prior exam. Recommend MRI to exclude early ischemic changes. Personally reviewed the CT and I do not patient any acute subacute ischemia and there is no bleed that there is no mass effect. TSH: 0.411 and free T4 is normal. Routine EEGs abnormal. The back of slowing suggestive of mild encephalopathy likely due to underlying metabolic/hypoxic derangement. Otherwise there is no focal slowing, epileptiform discharges or seizure on the EEG. Most recent CT of the head is reported as no acute intracranial process seen at this time. Area of hypodensity seen previously is not redemonstrated at this time. Opacification right sphenoid sinus. - Labs CBC & Chem 7: 02/06/23 04:56 02/06/23 04:56 Labs: Abnormal Lab Results - Last 24 Hours (Table) 02/05/23 02/05/23 02/05/23 Range/Units 14:20 16:19 23:48 Hgb (11.4-16.0) gm/dL MCHC (31.0-37.0) g/dL RDW (11.5-15.5) % Sodium (137-145) mmol/L BUN (7-17) mg/dL Creatinine (0.52-1.04) mg/dL Glucose (74-99) mg/dL POC Glucose (mg/dL) 175 H 274 H (70-110) mg/dL Calcium (8.4-10.2) mg/dL Ur Leukocyte Esterase Small H (Negative) Urine Mucus Rare H (None) /hpf 02/06/23 02/06/23 02/06/23 Range/Units 04:56 04:56 06:13 Hgb 10.6 L (11.4-16.0) gm/dL MCHC 30.2 L (31.0-37.0) g/dL RDW 17.8 H (11.5-15.5) % Sodium 136 L (137-145) mmol/L BUN 28 H (7-17) mg/dL Creatinine 1.49 H (0.52-1.04) mg/dL Glucose 120 H (74-99) mg/dL POC Glucose (mg/dL) 167 H (70-110) mg/dL Calcium 8.2 L (8.4-10.2) mg/dL Ur Leukocyte Esterase (Negative) Urine Mucus (None) /hpf 02/06/23 Range/Units 11:28 Hgb (11.4-16.0) gm/dL MCHC (31.0-37.0) g/dL RDW (11.5-15.5) % Sodium (137-145) mmol/L BUN (7-17) mg/dL Creatinine (0.52-1.04) mg/dL Glucose (74-99) mg/dL POC Glucose (mg/dL) 224 H (70-110) mg/dL Calcium (8.4-10.2) mg/dL Ur Leukocyte Esterase (Negative) Urine Mucus (None) /hpf Microbiology - Last 24 Hours (Table) 02/02/23 18:30 Blood Culture - Preliminary Blood 02/02/23 18:10 Blood Culture - Preliminary Blood 02/03/23 03:01 Urine Culture - Final Urine,Voided Pseudomonas aeruginosa Assessment and Plan Assessment: Altered mental status seems due to hypoxic encephalopathy---improved and is back to baseline. Twitching of the left thigh seems likely due to metabolic/hypoxic derangement---episode resolved. EEG is negative for seizure or discharges CT of the head is reported as hypointensity over the right frontal parietal: but repeat CT head is reported as not seen. I personally reviewed the CT and I felt there is no hypodensity that is appreciable on either CT head. Either 1.9 cm anterior left frontal meningioma versus congenital variation with hyperostosis frontalis interna on CT Acute COPD exacerbation Acute on chronic hypoxic respiratory failure currently on BiPAP Diabetes mellitus Congestive heart failure Hypertension Schizophrenia Morbid obesity Plan: I stopped Keppra that was started during this admission for concern of ?seizure. Since EEG is negative for seizure or discharges no need. Also patient has not had any further twitching while off Keppra yesterday. Cannot obtain MRI Brain since respiratory condition. Repeat CT head is negative. She is resumed on her home dose ASA 81mg and Lipitor 40mg qhs. Continue neuro checks We'll defer the rest of the medical management to the primary ICU team The plan discussed with the patient's primary team. There is no additional neurological work-up. Will sign off. Please reconsult if needed. Time with Patient: Less than 30
--- NOTE | 2023-02-06 15:01 | P.PN ---
Subjective Progress Note Date: 02/06/23 Patient is a 47-year-old female with COPD chronically on 3 L nasal cannula, diabetes mellitus type 2, chronic indwelling Dixon catheter, hypertension, GERD, CML, and bipolar disorder who presented to the hospital after developing respiratory distress at [facility]. On arrival to the ER she was noted to be hypoxic at 58% on nasal cannula and was immediately placed on BiPAP. Initial laboratory analysis was remarkable for white blood cell count of 11.1, hemoglobin 10.3, sodium 134, potassium 5.3, and glucose of 155. Initial troponin was positive at 0.0037 and BNP was positive at 17,300. Chest x-ray showed new focal bilateral airspace disease with possible pneumonia and continued asymmetric elevation of the right hemidiaphragm. She was admitted for possible acute exacerbation of COPD and acute exacerbation of diastolic CHF. A CODE BLUE was called for respiratory arrest and the patient was on BiPAP with settings of 12/6 and FiO2 of 60% with tidal volumes of 1 to 200s. The patient never lost a pulse in her initial ABG at that time showed a pH of 7.29, pCO2 83, PaO2 of 71. She was subsequently transferred to the ICU. Her BiPAP settings were adjusted and repeat ABG showed a pH of 7.36, CO2 of 71, PaO2 of 61, and a bicarb of 40. Pulmonary critical care and cardiology were consulted. She was noted to have some abnormal muscle movement and rhythmic twitching in her left t high. 02/05 Patient was seen and examined. No acute events overnight. Patient reports feeling better and would like to go home. Currently on high flow nasal cannula and 13L. Her mentation is significantly improved. CBC shows leukocytosis of 10.9 and hemoglobin 9.3. BMP shows sodium of 133, potassium of 3.2, chloride of 88, bicarbonate 34, BUN of 32, creatinine of 1.48, glucose of 211 and calcium of 8.2. EEG shows encephalopathy and no seizure-like activity. Chest x-ray shows pulmonary edema consistent with CHF exacerbation. 02/06 Patient was seen and examined. No acute events overnight. Patient reports feeling great and would like to be discharged. Currently on baseline of 4L NC. CBC shows hemoglobin of 10.6. BMP shows sodium of 136, BUN of 28, creatinine 1.49, glucose 120 and calcium of 8.2. Repeat CT head negative for acute intracranial abnormality. Chest x-ray shows pulmonary venous congestion but improved from yesterday. She is -2.665L fluid balance over the past 24 hours. Vital signs reviewed General: nontoxic, no distress, appears at stated age Cardiovascular: S1S2 reg, no murmur Lungs: Coarse breath sounds bilateral, no rhonchi, no rales , no accessory muscle use Abdominal: soft, nontender to palpation, no guarding, no appreciable organomegaly Ext: no gross muscle atrophy, no edema b/l lower extremities, no contractures Neuro: CN II-XI grossly intact, no focal neuro deficits, muscle twitching of left upper thigh, bruxisms, Psych: Awake, oriented to self, appears anxious Acute on chronic hypoxic hypercapnic respiratory failure Acute exacerbation of cor pulmonale with RVSP at 95 Acute exacerbation of COPD Elevated troponin secondary to supply demand mismatch Obesity hypoventilation syndrome Acute metabolic encephalopathy, imrpoving Tradiative dyspensia (resolved) and left thigh twitching Diabetes mellitus type 2 ANOOP Anemia, chronic Mild thrombocytopenia Class 3 obesity with BMI 40.2 Chronic: Hypertension, GERD Based on my assessment of this patient, this patient meets a high complexity level of care. Patient has an acute diagnosis of acute hypoxic respiratory failure, multifactorial due to cor pulmonale, COPD exacerbation, obesity hypoventilation syndrome and CHF exacerbation that poses a threat to life or bodily function. She is currently off BiPAP on 4 L nasal cannula. Continue Bumex 1 mg IV twice a day. Monitor renal function with daily BMP. Bronchodilators: DuoNeb 0.5mg-3mg/3ml scheduled and as needed for SOB and wheezi ng. Pulmicort 1 mg INH twice a day. Formoterol 20 g INH twice a day. Symbicort 2 puff BID. Spiriva 1 puff daily. Antibiotics: Zosyn 3.37 g IV every 8 hours. Heparin SQ for DVT prophylaxis. Full code. I have reviewed the following [facility] consultant notes: Neurology, pulmonology note reviewed. I have reviewed the results of the following tests: CBC, BMP, CT head reviewed as above. I have ordered the following tests: BMP ordered for tomorrow morning. I have discussed the care of this patient with the following independent historian: I have independently interpreted the following test below: Chest x-ray as above. I have discussed the management of this patient with the following physician: Objective - Vital Signs Vital signs: Vital Signs Temp 98.6 F 02/06/23 08:00 Pulse 98 02/06/23 10:00 Resp 22 02/06/23 10:00 BP 121/62 02/06/23 10:00 Pulse Ox 94 L 02/06/23 10:00 FiO2 40 02/05/23 07:59 Intake & Output 02/05/23 02/06/23 02/06/23 18:59 06:59 18:59 Intake Total 1000 320 370 Output Total 1959 2024 1484 Balance -960 -1705 -1115 Weight 93.8 kg Intake: IV 200 120 120 0.9 KVO 100 120 20 Piperacillin-Tazobactam 3 100 100 .375 gm In Sodium Chloride 0.9% 100 ml @ 25 mls/hr IVPB Q8H [facility] Rx#: [id number] Oral 800 200 250 Output: Urine 1959 2024 148 - Labs CBC & Chem 7: 02/06/23 04:56 02/06/23 04:56 Labs: Abnormal Lab Results - Last 24 Hours (Table) 02/05/23 02/05/23 02/05/23 Range/Units 14:20 16:19 23:48 Hgb (11.4-16.0) gm/dL MCHC (31.0-37.0) g/dL RDW (11.5-15.5) % Sodium (137-145) mmol/L BUN (7-17) mg/dL Creatinine (0.52-1.04) mg/dL Glucose (74-99) mg/dL POC Glucose (mg/dL) 175 H 274 H (70-110) mg/dL Calcium (8.4-10.2) mg/dL Ur Leukocyte Esterase Small H (Negative) Urine Mucus Rare H (None) /hpf 02/06/23 02/06/23 02/06/23 Range/Units 04:56 04:56 06:13 Hgb 10.6 L (11.4-16.0) gm/dL MCHC 30.2 L (31.0-37.0) g/dL RDW 17.8 H (11.5-15.5) % Sodium 136 L (137-145) mmol/L BUN 28 H (7-17) mg/dL Creatinine 1.49 H (0.52-1.04) mg/dL Glucose 120 H (74-99) mg/dL POC Glucose (mg/dL) 167 H (70-110) mg/dL Calcium 8.2 L (8.4-10.2) mg/dL Ur Leukocyte Esterase (Negative) Urine Mucus (None) /hpf 02/06/23 Range/Units 11:28 Hgb (11.4-16.0) gm/dL MCHC (31.0-37.0) g/dL RDW (11.5-15.5) % Sodium (137-145) mmol/L BUN (7-17) mg/dL Creatinine (0.52-1.04) mg/dL Glucose (74-99) mg/dL POC Glucose (mg/dL) 224 H (70-110) mg/dL Calcium (8.4-10.2) mg/dL Ur Leukocyte Esterase (Negative) Urine Mucus (None) /hpf Microbiology - Last 24 Hours (Table) 02/02/23 18:30 Blood Culture - Preliminary Blood 02/02/23 18:10 Blood Culture - Preliminary Blood 02/03/23 03:01 Urine Culture - Final Urine,Voided Pseudomonas aeruginosa
[2023-02-06 16:26] LABS: Glucose,Whole Blood 142 mg/dL (70-110)
[2023-02-06] MEDS ORDERED: LOPERAMIDE 2 MG CAP PO PRN (19:23)
[2023-02-06 20:46] LABS: Glucose,Whole Blood 378 mg/dL (70-110)
[2023-02-06] MEDS: ATORVASTATIN 40 MG TAB PO SCH (21:25)
[2023-02-06] MEDS: MIRTAZAPINE 15 MG TAB PO SCH (21:26)
[2023-02-06] MEDS: SODIUM CHLORIDE 0.9% 1,000 ML IV SCH (22:59)
[2023-02-07 00:08] LABS: Glucose,Whole Blood 162 mg/dL (70-110)
[2023-02-07] MEDS: HEPARIN SODIUM,PORCINE/PF 5,000 UNIT/0.5 ML SYRINGE SQ SCH ×3 (00:17→16:56)
[2023-02-07] MEDS: INSULIN ASPART (NovoLOG) 100 UNIT/ML VIAL SQ SCH ×6 (00:17→16:56)
[2023-02-07 04:07] LABS: Glucose,Whole Blood 207 mg/dL (70-110)
[2023-02-07] MEDS: PIPERACILLIN-TAZOBACTAM 3.375 GM in SODIUM CHLORIDE 0.9% 100 ML IVPB SCH ×4 (04:13→22:04)
[2023-02-07 06:20] LABS: Glucose,Whole Blood 255 mg/dL (70-110)
[2023-02-07] MEDS ORDERED: NALOXONE 0.4 MG/ML 1 ML VIAL ONE (06:27)
[2023-02-07] MEDS ORDERED: NALOXONE 0.4 MG/ML 1 ML VIAL IVP STA (06:33)
[2023-02-07 06:47] LABS: ABG Base Excess -0.7 mmol/L; ABG HCO3 29 mmol/L (21-25); ABG Oxygen Saturation 95.4 % (94-97); ABG PO2 78 mmHg (83-108); ABG TCO2 31 mmol/L (19-24); Allen Test Performed? Yes
[2023-02-07 06:56] LABS: Anisocytosis Slight; HCT 37.1 % (34.0-46.0); HGB 10.2 gm/dL (11.4-16.0); Hypochromasia Marked; MCH 26.6 pg (25.0-35.0); MCHC 27.5 g/dL (31.0-37.0); Macrocytosis Slight; Mean Platelet Volume 7.6; Platelet Count 201 k/uL (150-450); RBC 3.83 m/uL (3.80-5.40); RDW 16.7 % (11.5-15.5); WBC 15.8 k/uL (3.8-10.6)
[2023-02-07 07:03] LABS: ABG PCO2 87 mmHg (35-45); ABG PH 7.12 (7.35-7.45)
[2023-02-07 07:34] LABS: Glucose,Whole Blood 305 mg/dL (70-110)
[2023-02-07] MEDS: IPRATROPIUM-ALBUTEROL 3 ML NEB INHALATION SCH ×4 (07:47→19:57)
[2023-02-07] MEDS: FORMOTEROL FUMARATE 20 MCG/2 ML NEBU INHALATION SCH ×2 (07:47→19:57)
[2023-02-07] MEDS: BUDESONIDE 1 MG/2 ML NEBU INHALATION SCH ×2 (07:48→19:57)
[2023-02-07 08:16] LABS: African American GFR (CKD) 30 (>60 ml/min/1.73 sqM); Anion Gap 10 mmol/L; Blood Urea Nitrogen 35 mg/dL (7-17); Carbon Dioxide 31 mmol/L (22-30); Chloride 94 mmol/L (98-107); Glucose 269 mg/dL (74-99); Non-African American GFR(CKD) 26 (>60 ml/min/1.73 sqM); Potassium 5.5 mmol/L (3.5-5.1); Sodium 135 mmol/L (137-145)
[2023-02-07] MEDS: BUMETANIDE 0.25 MG/ML 10 ML VIAL IV SCH (09:35)
[2023-02-07] MEDS: ASPIRIN 81 MG PO SCH ×2 (09:36→09:49)
[2023-02-07] MEDS: METOPROLOL SUCCINATE (ER) 25 MG TAB.ER.24H PO SCH ×2 (09:36→09:49)
[2023-02-07] MEDS: DULoxetine HCL 60 MG CAPSULE.DR PO SCH ×2 (09:36→09:49)
[2023-02-07] MEDS: LURASIDONE 40 MG TAB PO SCH ×3 (09:36→15:30)
[2023-02-07] MEDS: LORATADINE 10 MG TAB PO SCH ×2 (09:36→09:51)
[2023-02-07] MEDS: busPIRone HCl 5 MG TAB PO SCH ×3 (09:36→15:30)
[2023-02-07] MEDS: PYRIDOXINE 50 MG TAB PO SCH ×2 (09:36→09:51)
[2023-02-07] MEDS: PANTOPRAZOLE 40 MG/10 ML VIAL IV SCH (09:36)
[2023-02-07] MEDS: GABAPENTIN 300 MG CAP PO SCH ×4 (09:36→21:01)
[2023-02-07] MEDS: MORPHINE SULFATE ER 30 MG TABLET PO SCH ×2 (09:47→21:01)
[2023-02-07] MEDS: INSULIN DETEMIR (LEVEMIR) 100 UNIT/ML SYR SQ SCH (11:30)
--- NOTE | 2023-02-07 11:38 | PN ---
PROGRESS NOTE SUBJECTIVE: Shavonne is a 47-year-old lady, who was admitted to hospital with a combination of COPD and CHF exacerbations and was actually on the floor yesterday and developed confusion secondary to CO2 narcosis. The patient has hypoxic respiratory failure due to a combination of diastolic heart failure exacerbation and COPD exacerbation. She has elevated troponin secondary to supply demand mismatch. At the time of my evaluation, the patient is in ICU, has a BiPAP on, and appears somewhat confused. OBJECTIVE: VITAL SIGNS: Heart rate is 98 beats per minute, blood pressure is 94/63, respiratory rate is 18. CHEST: Reveals good air entry bilaterally. HEART: Reveals first and second heart sounds. No gallop. No murmur. ABDOMEN: Soft. EXTREMITIES: Did not reveal any edema. Peripheral pulses are palpable. LABORATORY DATA: Show that the hemoglobin is 10.2. Creatinine is 2.1. ASSESSMENT: 1. Acute respiratory failure primarily due to underlying chronic obstructive pulmonary disease exacerbation. 2. Acute renal failure. 3. Diastolic heart failure. PLAN: I am going to hold the Bumex at this time as she seems intravascularly volume depleted. MMODL / IJN: [id number] /
[2023-02-07 11:49] VITALS: BMI 34.4
--- NOTE | 2023-02-07 12:10 | P.PN ---
Subjective Progress Note Date: 02/07/23 Principal diagnosis: Acute on chronic hypoxic and hypercapnic respiratory failure I am seeing this patient in new consultation today 02/03/2023 after the patient was sent from her F for respiratory distress and hypoxia. The patient is a 47-year-old female with medical history significant for oxygen dependent COPD, diabetes mellitus type 2, hypertension, GERD, CML. Patient did have a recent hospital admission on January 22 for multifocal pneumonia and respiratory failure requiring ventilator support. At that time, the patient was intubated for 4 days, and ultimately sent back to [facility] on January 29. The patient presented to the emergency room yesterday afternoon after being found hypoxic with a pulse ox of 60% and in some respiratory distress. She did present to the emergency room on BiPAP support, and was admitted to the cardiac stepdown unit. Around midnight, a code blue was called for a respiratory arrest. When I arrived to the room, the patient was on BiPAP with settings over 12/6 and FiO2 of 60%. The patient was achieving tidal volumes of 100-200 ML's. The patient did not lose a pulse. She was obtunded and minimally responsive to painful stimuli. I did augment the patient's pressure support to 16/6 and FiO2 of 50%. Patient did start to achieve better to tidal volumes of around 500ml. No further witnessed apneic episodes. The patient was transferred to the intensive care unit. Initial ABG shows a pO2 of 71, pCO2 of 83, pH of 7.29. The patient is now more arousable to verbal stimuli. We will hold off on intubation for now. Chest x-ra y on arrival was concerning for CHF exacerbation and pulmonary edema. Multifocal pneumonia is also in the differential. NT proBNP was very elevated at 17,300. The patient has not received any diuretics since her admission. The patient does have a sulfa and Lasix ALLERGY. Most recent echo from her prior admission earlier this month shows a preserved ejection fraction of 60-65%, severe pulmonary hypertension, and moderate to severe tricuspid regurgitation. No IV maintenance fluids infusing. Initial BMP shows sodium 134, potassium 5.3, chloride 92, serum bicarb 39, BUN 16, creatinine 0.93, glucose 155. Troponin was also mildly elevated at 0.037, likely related to supply/demand mismatch. E CG shows no acute ischemic changes. CBC on arrival shows a WBC count of 11, hemoglobin 10.3, hematocrit 35.5, platelets 173. Patient was started on empiric antibiotics with Levaquin and Zosyn. Blood cultures are pending. BP is stable, and there is no need for vasopressor support. Patient's hypercapnic respiratory failure seems to be improving, and she will be monitored closely in the intensive care unit. I will hold off on intubation at this time. Patient on 02/04/2023, the patient is being seen for a follow-up. She remains on a BiPAP at pressures of 12/5 cm of water with FiO2 of 80% and the patient seems to be quite comfortable. Pulse ox is currently no evidence of 94%. She remains hemodynamically stable. Overnight, the patient had to be started on nitroglycerin drip. Blood pressure control. Nitroglycerin drip is currently running at 30 mcg/m. She also became quite restless and she was started on Precedex running at 0.8 mcg/kg/h. She remains on 0.5 mg/h. She has produced excellent amount of urine output. The overall fluid balance is -7 L over the past 24 hours. Chest x-ray shows improvement in volume status. There is some atelectatic change in the lung bases and possibly some small pleural effusions. At the same time, the patient has become alkalotic. The blood gas from today shows a pH of 7.56 with a pCO2 of 53 and pO2 of 61. This was an FiO2 of 70%. The patient was also sustained acute kidney injury. Creatinine is up to 1.25 with a BUN of 29. Serum bicarb is up to 41. Sodium is 135 with a potassium level of 4. Babinski was at 8.4 with a hemoglobin of 9.3. The echocardiogram was completed on the results are still pending for now. The mental status is improved considerably. CAT scan of the brain was done yesterday that showed no acute abnormalities. Area of low attenuation was seen and a right frontal parietal junction and MRI of the brain was recommended. Meanwhile, the patient was also seen by neurology. She is awake and alert and oriented and she is following commands and answering questions appropriately. No seizure activity has been noted. The patient was suspected to have seizure and the patient was having some twitching in her left thigh and she was started on Keppra by neurology. She remains critically ill in the intensive care unit. The blood cultures have been negative. ProBNP level was 17,000. Troponin was at 0.03. UA was essentially negative. Legionella urine antigen was also negative. 4 2022, the patient is awake and alert and communicating. She was taken off the BiPAP and currently she is on high flow oxygen at 50 L with an FiO2 of 40%. The patient has diuresed adequately. She is currently on IV Bumex 1 mg every 12 hours she is also on Diamox. Most recent electrolytes on blood work today shows a serum bicarb of 34, sodium is at 133 with a potassium level of 3.4. The BUN is at 32 with a creatinine of 1.4. The white cell count is currently at 10.9 with a hemoglobin of 9.3. She is producing excellent amount of urine output. Overall fluid balance over the past 24 hours has been -4.6 L. She remains on bronchodilators. She is receiving albuterol and ipratropium 4 times a day scheduled, she is also on Pulmicort Respules. She is on empiric antibiotic coverage with IV Zosyn. She is on Levemir for blood sugar control. Mental status is completely back to her baseline. No other significant events otherwise for now. on 02/05/2023, the patient is doing well. She is on 4 L of oxygen nasal cannula. She was switched to IV Bumex 1 mg every 12 hours. She is producing excellent urine output. Her weight is down to 93 kg and she has lost approximately 10 kg since she was started on diuretics. Note that the patient was initially on BiPAP, later on to high flow oxygen and currently she is on 4 L nasal cannula. She is resting comfortably in bed. No other complaints otherwise. Urine culture came back positive for Pseudomonas aeruginosa and the patient is currently on IV Zosyn. Dixon catheter still in place. He is 28 with a creatinine 1.4. Sodium levels is 136. The echoes at 10 with a hemoglobin of 10.6. No other significant events otherwise for now and the gilma ent's condition is optimized significantly. Reevaluated today on 02/07/2023, patient remains as an overflow in the ICU, doing quite well, remains on BiPAP. She is on 14/6/40% ABG before BiPAP showed a pO2 of 78 pCO2 87 pH of 7.12 clinically the patient is responding well to BiPAP, FiO2 is down to 50%, her IV fluids at KVO, patient remains on diuretics for her congestive heart failure/chronic congestive heart failure, WBC count today is 15.8 hemoglobin is 10.2 electrolytes are normal potassium was 5.5 remind you her pH was low her BUN is 35 creatinine 2.19, blood sugar is 269, chest x-ray yest erday showed overall improvement in features of congestive heart failure Objective - Vital Signs Vital signs: Vital Signs Temp 98.5 F 02/07/23 08:00 Pulse 98 02/07/23 11:50 Resp 10 L 02/07/23 08:00 BP 94/63 02/07/23 08:00 Pulse Ox 95 02/07/23 08:00 FiO2 30 02/07/23 11:38 Intake & Output 02/06/23 02/07/23 02/07/23 18:59 06:59 18:59 Intake Total 400 Output Total 2085 300 Balance -1685 -300 Weight 93.8 kg Intake: IV 150 0.9 KVO 50 Piperacillin-Tazobactam 3 100 .375 gm In Sodium Chloride 0.9% 100 ml @ 25 mls/hr IVPB Q8H [facility] Rx#: [id number] Oral 250 Output: Urine 2085 300 Other: Voiding Method Indwelling Catheter Indwelling Catheter # Bowel Movements 1 1 - Exam Physical Exam: Revealed a 47-year-old female obese in no distress on BiPAP Head: Atraumatic, normocephalic. HEENT:[Neck is supple.] [No neck masses.] [No thyromegaly.] [No JVD.] Chest: [Symmetrical chest expansion, minimal crackles at the bases. Cardiac Exam: [Normal S1 and S2, no S3 gallop, no murmur.] Abdomen: [Soft, nontender, no megaly, no rebound, no guarding, normal bowel sounds.] Extremities: [No clubbing, trace of bipedal, edema, no cyanosis.] Neurological Exam: [No focal neurologic deficit. Alert and oriented 3] Psychiatric: Normal mood affect and normal mental status examination. Skin: No rashes. - Labs CBC & Chem 7: 02/07/23 06:36 02/07/23 06:36 Labs: Abnormal Lab Results - Last 24 Hours (Table) 02/06/23 02/06/23 02/07/23 Range/Units 16:25 20:44 00:07 WBC (3.8-10.6) k/uL Hgb (11.4-16.0) gm/dL MCHC (31.0-37.0) g/dL RDW (11.5-15.5) % ABG pH (7.35-7.45) ABG pCO2 (35-45) mmHg ABG pO2 (83-108) mmHg ABG HCO3 (21-25) mmol/L ABG Total CO2 (19-24) mmol/L Sodium (137-145) mmol/L Potassium (3.5-5.1) mmol/L Chloride (98-107) mmol/L Carbon Dioxide (22-30) mmol/L BUN (7-17) mg/dL Creatinine (0.52-1.04) mg/dL Glucose (74-99) mg/dL POC Glucose (mg/dL) 142 H 378 H 162 H (70-110) mg/dL Calcium (8.4-10.2) mg/dL 02/07/23 02/07/23 02/07/23 Range/Units 04:05 06:18 06:36 WBC 15.8 H (3.8-10.6) k/uL Hgb 10.2 L (11.4-16.0) gm/dL MCHC 27.5 L (31.0-37.0) g/dL RDW 16.7 H (11.5-15.5) % ABG pH (7.35-7.45) ABG pCO2 (35-45) mmHg ABG pO2 (83-108) mmHg ABG HCO3 (21-25) mmol/L ABG Total CO2 (19-24) mmol/L Sodium (137-145) mmol/L Potassium (3.5-5.1) mmol/L Chloride (98-107) mmol/L Carbon Dioxide (22-30) mmol/L BUN (7-17) mg/dL Creatinine (0.52-1.04) mg/dL Glucose (74-99) mg/dL POC Glucose (mg/dL) 207 H 255 H (70-110) mg/dL Calcium (8.4-10.2) mg/dL 02/07/23 02/07/23 02/07/23 Range/Units 06:36 06:47 07:33 WBC (3.8-10.6) k/uL Hgb (11.4-16.0) gm/dL MCHC (31.0-37.0) g/dL RDW (11.5-15.5) % ABG pH 7.12 L* (7.35-7.45) ABG pCO2 87 H* (35-45) mmHg ABG pO2 78 L (83-108) mmHg ABG HCO3 29 H (21-25) mmol/L ABG Total CO2 31 H (19-24) mmol/L Sodium 135 L (137-145) mmol/L Potassium 5.5 H (3.5-5.1) mmol/L Chloride 94 L (98-107) mmol/L Carbon Dioxide 31 H (22-30) mmol/L BUN 35 H (7-17) mg/dL Creatinine 2.19 H (0.52-1.04) mg/dL Glucose 269 H (74-99) mg/dL POC Glucose (mg/dL) 305 H (70-110) mg/dL Calcium 8.0 L (8.4-10.2) mg/dL Assessment and Plan Assessment: Impression: Acute on chronic hypoxic respiratory failure secondary to acute exacerbation of diastolic congestive heart failure/pulmonary edema Acute toxic metabolic encephalopathy secondary to hypercapnia Acute kidney injury Benign essential hypertension Underlying COPD, presently inactive Pulmonary hypertension Obstructive sleep apnea syndrome Type 2 diabetes with diabetic nephropathy Chronic anemia Chronic myeloid leukemia on Gleevec History of mechanical ventilation secondary to above. Now was on the last hospital admission. Chronic suprapubic Dixon catheter related to frequent urinary tract infection Chronic diastolic congestive heart failure History of pseudomonal urinary tract infection Recommendation: Continue BiPAP and titrate accordingly transitioned to nasal cannula once the patient improves Continue IV diuretics Continue Zosyn for pseudomonal urinary tract infection Encourage ambulation and incentive spirometry Continue seizure medications including Keppra Transfer to a cardiac floor once a bed is available. We will continue to follow. Long-term prognosis remains guarded Time with Patient: Less than 30
[2023-02-07 12:34] LABS: Glucose,Whole Blood 158 mg/dL (70-110)
--- NOTE | 2023-02-07 16:27 | P.PN ---
Subjective Progress Note Date: 02/07/23 Patient is a 47-year-old female with COPD chronically on 3 L nasal cannula, diabetes mellitus type 2, chronic indwelling Dixon catheter, hypertension, GERD, CML, and bipolar disorder who presented to the hospital after developing respiratory distress at [facility]. On arrival to the ER she was noted to be hypoxic at 58% on nasal cannula and was immediately placed on BiPAP. Initial laboratory analysis was remarkable for white blood cell count of 11.1, hemoglobin 10.3, sodium 134, potassium 5.3, and glucose of 155. Initial troponin was positive at 0.0037 and BNP was positive at 17,300. Chest x-ray showed new focal bilateral airspace disease with possible pneumonia and continued asymmetric elevation of the right hemidiaphragm. She was admitted for possible acute exacerbation of COPD and acute exacerbation of diastolic CHF. A CODE BLUE was called for respiratory arrest and the patient was on BiPAP with settings of 12/6 and FiO2 of 60% with tidal volumes of 1 to 200s. The patient never lost a pulse in her initial ABG at that time showed a pH of 7.29, pCO2 83, PaO2 of 71. She was subsequently transferred to the ICU. Her BiPAP settings were adjusted and repeat ABG showed a pH of 7.36, CO2 of 71, PaO2 of 61, and a bicarb of 40. Pulmonary critical care and cardiology were consulted. She was noted to have some abnormal muscle movement and rhythmic twitching in her left thigh. 02/05 Patient was seen and examined. No acute events overnight. Patient reports feeling better and would like to go home. Currently on high flow nasal cannula and 13L. Her mentation is significantly improved. CBC shows leukocytosis of 10.9 and hemoglobin 9.3. BMP shows sodium of 133, potassium of 3.2, chloride of 88, bicarbonate 34, BUN of 32, creatinine of 1.48, glucose of 211 and calcium of 8.2. EEG shows encephalopathy and no seizure-like activity. Chest x-ray shows pulmonary edema consistent with CHF exacerbation. 02/06 Patient was seen and examined. No acute events overnight. Patient reports feeling great and would like to be discharged. Currently on baseline of 4L NC. CBC shows hemoglobin of 10.6. BMP shows sodium of 136, BUN of 28, creatinine 1.49, glucose 120 and calcium of 8.2. Repeat CT head negative for acute intracranial abnormality. Chest x-ray shows pulmonary venous congestion but improved from yesterday. She is -2.665L fluid balance over the past 24 hours. 02/07 Patient was seen and examined. She is more lethargic and unresponsive this morning. She is back on BiPAP this morning 14/ FiO2 of 40%. ABG this morning shows pH 7.12, pCO2 of 87. CBC shows WBC count of 15.8. BMP shows Na 135, K 5.5, Cl 94, bicab 31, BUN 35, Cr 2.19 and glucose of 269. Vital signs reviewed General: nontoxic, no distress, appears at stated age Cardiovascular: S1S2 reg, no murmur Lungs: Coarse breath sounds bilateral, no rhonchi, no rales , no accessory muscle use Abdominal: soft, nontender to palpation, no guarding, no appreciable organomegaly Ext: no gross muscle atrophy, no edema b/l lower extremities, no contractures Neuro: no focal neuro deficits, muscle twitching of left upper thigh, bruxisms, Psych: Awake, oriented to self, appears anxious Acute on chronic hypoxic hypercapnic respiratory failure Acute exacerbation of cor pulmonale with RVSP at 95 Acute exacerbation of COPD Diabetes mellitus type 2 with hyperglycemia ANOOP with hyperkalemia UTI growing Pseudomonas Elevated troponin secondary to supply demand mismatch Obesity hypoventilation syndrome Acute metabolic encephalopathy, improving Tradiative dyspensia (resolved) and left thigh twitching Anemia, chronic Class 3 obesity with BMI 40.2 Chronic: Hypertension, GERD Based on my assessment of this patient, this patient meets a high complexity level of care. Patient has an acute diagnosis of acute hypoxic respiratory failure, multifactorial due to cor pulmonale, COPD exacerbation, obesity hypoventilation syndrome and CHF exacerbation that poses a threat to life or bodily function. She is currently on BiPAP this morning. ABG this morning shows respiratory acidosis and worsening renal function likely related to forced diuresis. Continue Bumex 1 mg IV twice a day. Monitor renal function with daily BMP. Increase Levemir to 20 units QD and add Novolog 7 units TID along with MDSS. Bronchodilators: DuoNeb 0.5mg-3mg/3ml scheduled and as needed for SOB and wheezing. Pulmicort 1 mg INH twice a day. Formoterol 20 g INH twice a day. Symbicort 2 puff BID. Spiriva 1 puff daily. Antibiotics: Zosyn 3.37 g IV every 8 hours. Heparin SQ for DVT prophylaxis. FULL CODE. I have reviewed the following databases software consultant notes: I have reviewed the results of the following tests: CBC, BMP, ABG reviewed as above. I have ordered the following tests: BMP and ABG ordered for tomorrow morning. I have discussed the care of this patient with the following independent historian: I have independently interpreted the following test below: I have discussed the management of this patient with the following physician: Objective - Vital Signs Vital signs: Vital Signs Temp 98.1 F 02/07/23 02:00 Pulse 102 H 02/07/23 08:18 Resp 15 02/07/23 06:47 BP 90/54 02/07/23 02:00 Pulse Ox 93 L 02/07/23 02:00 FiO2 40 02/07/23 07:51 Intake & Output 02/06/23 02/07/23 02/07/23 18:59 06:59 18:59 Intake Total 400 Output Total 2085 300 Balance -1685 -300 Intake: IV 150 0.9 KVO 50 Piperacillin-Tazobactam 3 100 .375 gm In Sodium Chloride 0.9% 100 ml @ 25 mls/hr IVPB Q8H [facility] Rx#: [id number] Oral 250 Output: Urine 2085 300 Other: Voiding Method Indwelling Catheter # Bowel Movements 1 - Labs CBC & Chem 7: 02/07/23 06:36 02/07/23 06:36 Labs: Abnormal Lab Results - Last 24 Hours (Table) 02/06/23 02/06/23 02/06/23 Range/Units 11:28 16:25 20:44 WBC (3.8-10.6) k/uL Hgb (11.4-16.0) gm/dL MCHC (31.0-37.0) g/dL RDW (11.5-15.5) % ABG pH (7.35-7.45) ABG pCO2 (35-45) mmHg ABG pO2 (83-108) mmHg ABG HCO3 (21-25) mmol/L ABG Total CO2 (19-24) mmol/L Sodium (137-145) mmol/L Potassium (3.5-5.1) mmol/L Chloride (98-107) mmol/L Carbon Dioxide (22-30) mmol/L BUN (7-17) mg/dL Creatinine (0.52-1.04) mg/dL Glucose (74-99) mg/dL POC Glucose (mg/dL) 224 H 142 H 378 H (70-110) mg/dL Calcium (8.4-10.2) mg/dL 02/07/23 02/07/23 02/07/23 Range/Units 00:07 04:05 06:18 WBC (3.8-10.6) k/uL Hgb (11.4-16.0) gm/dL MCHC (31.0-37.0) g/dL RDW (11.5-15.5) % ABG pH (7.35-7.45) ABG pCO2 (35-45) mmHg ABG pO2 (83-108) mmHg ABG HCO3 (21-25) mmol/L ABG Total CO2 (19-24) mmol/L Sodium (137-145) mmol/L Potassium (3.5-5.1) mmol/L Chloride (98-107) mmol/L Carbon Dioxide (22-30) mmol/L BUN (7-17) mg/dL Creatinine (0.52-1.04) mg/dL Glucose (74-99) mg/dL POC Glucose (mg/dL) 162 H 207 H 255 H (70-110) mg/dL Calcium (8.4-10.2) mg/dL 02/07/23 02/07/23 02/07/23 Range/Units 06:36 06:36 06:47 WBC 15.8 H (3.8-10.6) k/uL Hgb 10.2 L (11.4-16.0) gm/dL MCHC 27.5 L (31.0-37.0) g/dL RDW 16.7 H (11.5-15.5) % ABG pH 7.12 L* (7.35-7.45) ABG pCO2 87 H* (35-45) mmHg ABG pO2 78 L (83-108) mmHg ABG HCO3 29 H (21-25) mmol/L ABG Total CO2 31 H (19-24) mmol/L Sodium 135 L (137-145) mmol/L Potassium 5.5 H (3.5-5.1) mmol/L Chloride 94 L (98-107) mmol/L Carbon Dioxide 31 H (22-30) mmol/L BUN 35 H (7-17) mg/dL Creatinine 2.19 H (0.52-1.04) mg/dL Glucose 269 H (74-99) mg/dL POC Glucose (mg/dL) (70-110) mg/dL Calcium 8.0 L (8.4-10.2) mg/dL 02/07/23 Range/Units 07:33 WBC (3.8-10.6) k/uL Hgb (11.4-16.0) gm/dL MCHC (31.0-37.0) g/dL RDW (11.5-15.5) % ABG pH (7.35-7.45) ABG pCO2 (35-45) mmHg ABG pO2 (83-108) mmHg ABG HCO3 (21-25) mmol/L ABG Total CO2 (19-24) mmol/L Sodium (137-145) mmol/L Potassium (3.5-5.1) mmol/L Chloride (98-107) mmol/L Carbon Dioxide (22-30) mmol/L BUN (7-17) mg/dL Creatinine (0.52-1.04) mg/dL Glucose (74-99) mg/dL POC Glucose (mg/dL) 305 H (70-110) mg/dL Calcium (8.4-10.2) mg/dL Microbiology - Last 24 Hours (Table) 02/02/23 18:30 Blood Culture - Preliminary Blood 02/02/23 18:10 Blood Culture - Preliminary Blood
[2023-02-07] MEDS: SODIUM CHLORIDE 0.9% 1,000 ML IV SCH (16:52)
[2023-02-07 16:57] LABS: Glucose,Whole Blood 92 mg/dL (70-110)
[2023-02-07 17:22] LABS: ABG Base Excess 3.9 mmol/L; ABG HCO3 31 mmol/L (21-25); ABG Oxygen Saturation 91.5 % (94-97); ABG PCO2 65 mmHg (35-45); ABG PH 7.28 (7.35-7.45); ABG TCO2 33 mmol/L (19-24); Allen Test Performed? Yes
[2023-02-07 17:28] LABS: ABG PO2 59 mmHg (83-108)
[2023-02-07] MEDS: ATORVASTATIN 40 MG TAB PO SCH (21:01)
[2023-02-07] MEDS: MIRTAZAPINE 15 MG TAB PO SCH (21:01)
[2023-02-08 00:27] LABS: Glucose,Whole Blood 130 mg/dL (70-110)
[2023-02-08] MEDS: IPRATROPIUM-ALBUTEROL 3 ML NEB INHALATION PRN (00:27)
[2023-02-08] MEDS: INSULIN ASPART (NovoLOG) 100 UNIT/ML VIAL SQ SCH ×5 (00:27→12:32)
[2023-02-08] MEDS: HEPARIN SODIUM,PORCINE/PF 5,000 UNIT/0.5 ML SYRINGE SQ SCH ×2 (00:31→08:32)
[2023-02-08] MEDS: MORPHINE SULFATE 2 MG/ML SYRINGE IVP PRN ×3 (03:31→14:29)
[2023-02-08] MEDS: PIPERACILLIN-TAZOBACTAM 3.375 GM in SODIUM CHLORIDE 0.9% 100 ML IVPB SCH (04:57)
[2023-02-08 05:16] LABS: African American GFR (CKD) 55 (>60 ml/min/1.73 sqM); Anion Gap 8 mmol/L; Blood Urea Nitrogen 30 mg/dL (7-17); Carbon Dioxide 26 mmol/L (22-30); Chloride 98 mmol/L (98-107); Glucose 158 mg/dL (74-99); Non-African American GFR(CKD) 48 (>60 ml/min/1.73 sqM); Potassium 3.6 mmol/L (3.5-5.1); Sodium 132 mmol/L (137-145)
[2023-02-08 05:21] LABS: Anisocytosis Slight; Hypochromasia Marked; MCH 27.6 pg (25.0-35.0); MCHC 29.9 g/dL (31.0-37.0); MCV 92.4 fL (80.0-100.0); Mean Platelet Volume 8.3; Platelet Count 158 k/uL (150-450); RBC 3.25 m/uL (3.80-5.40); RDW 17.7 % (11.5-15.5); WBC 9.1 k/uL (3.8-10.6)
[2023-02-08 06:28] LABS: Glucose,Whole Blood 152 mg/dL (70-110)
[2023-02-08] MEDS ORDERED: INSULIN DETEMIR (LEVEMIR) 100 UNIT/ML SYR SQ SCH (07:00)
[2023-02-08] MEDS: PANTOPRAZOLE 40 MG/10 ML VIAL IV SCH (08:24)
[2023-02-08] MEDS: GABAPENTIN 300 MG CAP PO SCH (08:33)
[2023-02-08] MEDS: METOPROLOL SUCCINATE (ER) 25 MG TAB.ER.24H PO SCH (08:33)
[2023-02-08] MEDS: LORATADINE 10 MG TAB PO SCH (08:33)
[2023-02-08] MEDS: DULoxetine HCL 60 MG CAPSULE.DR PO SCH (08:33)
[2023-02-08] MEDS: MORPHINE SULFATE ER 30 MG TABLET PO SCH (08:34)
[2023-02-08] MEDS: ASPIRIN 81 MG PO SCH (08:39)
[2023-02-08] MEDS: LURASIDONE 40 MG TAB PO SCH (08:40)
[2023-02-08] MEDS: PYRIDOXINE 50 MG TAB PO SCH (08:40)
[2023-02-08] MEDS: busPIRone HCl 5 MG TAB PO SCH (08:41)
[2023-02-08] MEDS: FORMOTEROL FUMARATE 20 MCG/2 ML NEBU INHALATION SCH (09:54)
[2023-02-08] MEDS: IPRATROPIUM-ALBUTEROL 3 ML NEB INHALATION SCH ×3 (09:54→16:07)
[2023-02-08] MEDS: BUDESONIDE 1 MG/2 ML NEBU INHALATION SCH (09:54)
[2023-02-08 11:38] LABS: Glucose,Whole Blood 175 mg/dL (70-110)
--- NOTE | 2023-02-08 12:15 | P.PN ---
Subjective Progress Note Date: 02/08/23 Principal diagnosis: Acute on chronic hypoxic and hypercapnic respiratory failure I am seeing this patient in new consultation today 02/03/2023 after the patient was sent from her F for respiratory distress and hypoxia. The patient is a 47-year-old female with medical history significant for oxygen dependent COPD, diabetes mellitus type 2, hypertension, GERD, CML. Patient did have a recent hospital admission on January 22 for multifocal pneumonia and respiratory failure requiring ventilator support. At that time, the patient was intubated for 4 days, and ultimately sent back to [facility] on January 29. The patient presented to the emergency room yesterday afternoon after being found hypoxic with a pulse ox of 60% and in some respiratory distress. She did present to the emergency room on BiPAP support, and was admitted to the cardiac stepdown unit. Around midnight, a code blue was called for a respiratory arrest. When I arrived to the room, the patient was on BiPAP with settings over 12/6 and FiO2 of 60%. The patient was achieving tidal volumes of 100-200 ML's. The patient did not lose a pulse. She was obtunded and minimally responsive to painful stimuli. I did augment the patient's pressure support to 16/6 and FiO2 of 50%. Patient did start to achieve better to tidal volumes of around 500ml. No further witnessed apneic episodes. The patient was transferred to the intensive care unit. Initial ABG shows a pO2 of 71, pCO2 of 83, pH of 7.29. The patient is now more arousable to verbal stimuli. We will hold off on intubation for now. Chest x-ra y on arrival was concerning for CHF exacerbation and pulmonary edema. Multifocal pneumonia is also in the differential. NT proBNP was very elevated at 17,300. The patient has not received any diuretics since her admission. The patient does have a sulfa and Lasix ALLERGY. Most recent echo from her prior admission earlier this month shows a preserved ejection fraction of 60-65%, severe pulmonary hypertension, and moderate to severe tricuspid regurgitation. No IV maintenance fluids infusing. Initial BMP shows sodium 134, potassium 5.3, chloride 92, serum bicarb 39, BUN 16, creatinine 0.93, glucose 155. Troponin was also mildly elevated at 0.037, likely related to supply/demand mismatch. E CG shows no acute ischemic changes. CBC on arrival shows a WBC count of 11, hemoglobin 10.3, hematocrit 35.5, platelets 173. Patient was started on empiric antibiotics with Levaquin and Zosyn. Blood cultures are pending. BP is stable, and there is no need for vasopressor support. Patient's hypercapnic respiratory failure seems to be improving, and she will be monitored closely in the intensive care unit. I will hold off on intubation at this time. Patient on 02/04/2023, the patient is being seen for a follow-up. She remains on a BiPAP at pressures of 12/5 cm of water with FiO2 of 80% and the patient seems to be quite comfortable. Pulse ox is currently no evidence of 94%. She remains hemodynamically stable. Overnight, the patient had to be started on nitroglycerin drip. Blood pressure control. Nitroglycerin drip is currently running at 30 mcg/m. She also became quite restless and she was started on Precedex running at 0.8 mcg/kg/h. She remains on 0.5 mg/h. She has produced excellent amount of urine output. The overall fluid balance is -7 L over the past 24 hours. Chest x-ray shows improvement in volume status. There is some atelectatic change in the lung bases and possibly some small pleural effusions. At the same time, the patient has become alkalotic. The blood gas from today shows a pH of 7.56 with a pCO2 of 53 and pO2 of 61. This was an FiO2 of 70%. The patient was also sustained acute kidney injury. Creatinine is up to 1.25 with a BUN of 29. Serum bicarb is up to 41. Sodium is 135 with a potassium level of 4. Babinski was at 8.4 with a hemoglobin of 9.3. The echocardiogram was completed on the results are still pending for now. The mental status is improved considerably. CAT scan of the brain was done yesterday that showed no acute abnormalities. Area of low attenuation was seen and a right frontal parietal junction and MRI of the brain was recommended. Meanwhile, the patient was also seen by neurology. She is awake and alert and oriented and she is following commands and answering questions appropriately. No seizure activity has been noted. The patient was suspected to have seizure and the patient was having some twitching in her left thigh and she was started on Keppra by neurology. She remains critically ill in the intensive care unit. The blood cultures have been negative. ProBNP level was 17,000. Troponin was at 0.03. UA was essentially negative. Legionella urine antigen was also negative. 4 2022, the patient is awake and alert and communicating. She was taken off the BiPAP and currently she is on high flow oxygen at 50 L with an FiO2 of 40%. The patient has diuresed adequately. She is currently on IV Bumex 1 mg every 12 hours she is also on Diamox. Most recent electrolytes on blood work today shows a serum bicarb of 34, sodium is at 133 with a potassium level of 3.4. The BUN is at 32 with a creatinine of 1.4. The white cell count is currently at 10.9 with a hemoglobin of 9.3. She is producing excellent amount of urine output. Overall fluid balance over the past 24 hours has been -4.6 L. She remains on bronchodilators. She is receiving albuterol and ipratropium 4 times a day scheduled, she is also on Pulmicort Respules. She is on empiric antibiotic coverage with IV Zosyn. She is on Levemir for blood sugar control. Mental status is completely back to her baseline. No other significant events otherwise for now. on 02/05/2023, the patient is doing well. She is on 4 L of oxygen nasal cannula. She was switched to IV Bumex 1 mg every 12 hours. She is producing excellent urine output. Her weight is down to 93 kg and she has lost approximately 10 kg since she was started on diuretics. Note that the patient was initially on BiPAP, later on to high flow oxygen and currently she is on 4 L nasal cannula. She is resting comfortably in bed. No other complaints otherwise. Urine culture came back positive for Pseudomonas aeruginosa and the patient is currently on IV Zosyn. Dixon catheter still in place. He is 28 with a creatinine 1.4. Sodium levels is 136. The echoes at 10 with a hemoglobin of 10.6. No other significant events otherwise for now and the gilma ent's condition is optimized significantly. Reevaluated today on 02/07/2023, patient remains as an overflow in the ICU, doing quite well, remains on BiPAP. She is on 14/6/40% ABG before BiPAP showed a pO2 of 78 pCO2 87 pH of 7.12 clinically the patient is responding well to BiPAP, FiO2 is down to 50%, her IV fluids at KVO, patient remains on diuretics for her congestive heart failure/chronic congestive heart failure, WBC count today is 15.8 hemoglobin is 10.2 electrolytes are normal potassium was 5.5 remind you her pH was low her BUN is 35 creatinine 2.19, blood sugar is 269, chest x-ray yest erday showed overall improvement in features of congestive heart failure Patient was reevaluated today on 02/08/2023, remains in the ICU, she is now on 5 L nasal cannula, last night she was on BiPAP 30%, patient is requesting to be discharged home. I will recommend that the patient gets out of the ICU to a monitor bed on selective today, however I don't believe the patient is quite ready to be discharged home considering her underlying cardiomyopathy and underlying COPD as well as obstructive sleep apnea. Unless the patient could be discharged to a rehab facility with BiPAP availability, I have a feeling that the patient is not compliant with her CPAP at home. Nonetheless I believe the patient could be transferred out of the ICU and the final decision unclear and the patient has to be made by cardiology since her presentation was mostly a cardiac presentation with acute pulmonary edema. Objective - Vital Signs Vital signs: Vital Signs Temp 98.8 F 02/08/23 08:00 Pulse 92 02/08/23 08:00 Resp 16 02/08/23 08:00 BP 125/68 02/08/23 08:00 Pulse Ox 98 02/08/23 08:44 FiO2 30 02/08/23 08:36 Intake & Output 02/07/23 02/08/23 02/08/23 18:59 06:59 18:59 Intake Total 0 1200 Output Total 175 1095 Balance -175 105 Weight 93.8 kg 98.4 kg Intake: IV 200 Piperacillin-Tazobactam 3 200 .375 gm In Sodium Chloride 0.9% 100 ml @ 25 mls/hr IVPB Q8H [facility] Rx#: [id number] Oral 0 1000 Output: Urine 175 1095 Other: Voiding Method Indwelling Catheter Indwelling Catheter Indwelling Catheter # Bowel Movements 1 - Exam Physical Exam: Revealed a 47-year-old female obese in no distress on 5 L nasal cannula Head: Atraumatic, normocephalic. HEENT:[Neck is supple.] [No neck masses.] [No thyromegaly.] [No JVD.] Chest: [Symmetrical chest expansion, minimal crackles at the bases. Cardiac Exam: [Normal S1 and S2, no S3 gallop, no murmur.] Abdomen: [Soft, nontender, no megaly, no rebound, no guarding, normal bowel sounds.] Extremities: [No clubbing, trace of bipedal, edema, no cyanosis.] Neurological Exam: [No focal neurologic deficit. Alert and oriented 3] Psychiatric: Normal mood affect and normal mental status examination. Skin: No rashes. - Labs CBC & Chem 7: 02/08/23 04:22 02/08/23 04:22 Labs: Abnormal Lab Results - Last 24 Hours (Table) 02/07/23 02/07/23 02/08/23 Range/Units 12:33 17:20 00:25 RBC (3.80-5.40) m/uL Hgb (11.4-16.0) gm/dL Hct (34.0-46.0) % MCHC (31.0-37.0) g/dL RDW (11.5-15.5) % ABG pH 7.28 L (7.35-7.45) ABG pCO2 65 H (35-45) mmHg ABG pO2 59 L* (83-108) mmHg ABG HCO3 31 H (21-25) mmol/L ABG Total CO2 33 H (19-24) mmol/L ABG O2 Saturation 91.5 L (94-97) % Sodium (137-145) mmol/L BUN (7-17) mg/dL Creatinine (0.52-1.04) mg/dL Glucose (74-99) mg/dL POC Glucose (mg/dL) 158 H 130 H (70-110) mg/dL Calcium (8.4-10.2) mg/dL 02/08/23 02/08/23 02/08/23 Range/Units 04:22 04:22 06:27 RBC 3.25 L (3.80-5.40) m/uL Hgb 9.0 L (11.4-16.0) gm/dL Hct 30.0 L (34.0-46.0) % MCHC 29.9 L (31.0-37.0) g/dL RDW 17.7 H (11.5-15.5) % ABG pH (7.35-7.45) ABG pCO2 (35-45) mmHg ABG pO2 (83-108) mmHg ABG HCO3 (21-25) mmol/L ABG Total CO2 (19-24) mmol/L ABG O2 Saturation (94-97) % Sodium 132 L (137-145) mmol/L BUN 30 H (7-17) mg/dL Creatinine 1.31 H (0.52-1.04) mg/dL Glucose 158 H (74-99) mg/dL POC Glucose (mg/dL) 152 H (70-110) mg/dL Calcium 8.0 L (8.4-10.2) mg/dL 02/08/23 Range/Units 11:36 RBC (3.80-5.40) m/uL Hgb (11.4-16.0) gm/dL Hct (34.0-46.0) % MCHC (31.0-37.0) g/dL RDW (11.5-15.5) % ABG pH (7.35-7.45) ABG pCO2 (35-45) mmHg ABG pO2 (83-108) mmHg ABG HCO3 (21-25) mmol/L ABG Total CO2 (19-24) mmol/L ABG O2 Saturation (94-97) % Sodium (137-145) mmol/L BUN (7-17) mg/dL Creatinine (0.52-1.04) mg/dL Glucose (74-99) mg/dL POC Glucose (mg/dL) 175 H (70-110) mg/dL Calcium (8.4-10.2) mg/dL Microbiology - Last 24 Hours (Table) 02/02/23 18:30 Blood Culture - Final Blood 02/02/23 18:10 Blood Culture - Final Blood Assessment and Plan Assessment: Impression: Acute on chronic hypoxic respiratory failure secondary to acute exacerbation of diastolic congestive heart failure/pulmonary edema Acute toxic metabolic encephalopathy secondary to hypercapnia Acute kidney injury Benign essential hypertension Underlying COPD, presently inactive Pulmonary hypertension Obstructive sleep apnea syndrome Type 2 diabetes with diabetic nephropathy Chronic anemia Chronic myeloid leukemia on Gleevec History of mechanical ventilation secondary to above. Now was on the last hospital admission. Chronic suprapubic Dixon catheter related to frequent urinary tract infection Chronic diastolic congestive heart failure History of pseudomonal urinary tract infection Recommendation: Transfer patient out of the ICU to a monitor bed on selective Cardiology to make a final decision regarding clearance of this patient as her presentation is mostly cardiac in nature Continue IV diuretics Continue Zosyn for pseudomonal urinary tract infection may transition that to oral antibiotics. Encourage ambulation and incentive spirometry Continue seizure medications including Keppra Transfer to a cardiac floor We will continue to follow. Strongly recommend referral to rehab or ECF Time with Patient: Less than 30
[2023-02-08 12:39] VITALS: BP 127/81; TEMP 98.7
--- NOTE | 2023-02-08 12:59 | PN ---
PROGRESS NOTE SUBJECTIVE: Shavonne is a 47-year-old lady who was admitted to hospital with COPD and CHF exacerbations. Had respiratory failure, doing much better now. Her symptoms have improved. Leg edema has resolved. Does not have any shortness of breath. OBJECTIVE: GENERAL: Comfortable at rest. VITAL SIGNS: Stable. CHEST: Exam reveals good air entry bilaterally. HEART: Reveals first and second heart sounds. No gallop. No murmur. ABDOMEN: Soft. EXAM: Extremities did not reveal any edema. LABORATORY DATA: Show BUN of 30, creatinine 1.3, hemoglobin is 9. The patient's creatinine has improved from 2 yesterday to 1.3 today. ASSESSMENT AND PLAN: 1. Shortness of breath secondary to a combination of acute exacerbation of diastolic heart failure and chronic obstructive pulmonary disease exacerbation. 2. Acute renal failure, primarily seems prerenal secondary to volume depletion. PLAN: I will resume Lasix 20 mg daily and discharge. Arrange followup with Cardiology. HECTOR / YOAVN: [id number] /
[2023-02-08] MEDS: ACETAMINOPHEN TAB 325 MG TAB PO PRN (13:42)
--- NOTE | 2023-02-08 15:30 | P.DS ---
Providers Date of admission: 02/02/23 18:01 Expected date of discharge: 02/08/23 Attending physician: Matthew Dick MD Consults: 02/02/23 17:58 Consult Physician Routine Consulting Provider: Nash Monroe Consult Reason/Comments: known Do you want consulting provider notified?: Yes 02/02/23 17:59 Consult Physician Routine Consulting Provider: Floresita Hamilton Consult Reason/Comments: chf Do you want consulting provider notified?: Yes 02/03/23 10:47 Consult Physician Routine Consulting Provider: Manohar Monroe Consult Reason/Comments: sieuzre Do you want consulting provider notified?: Already Contacted Primary care physician: Shayy Breen DO Hospital Course: Acute on chronic hypoxic hypercapnic respiratory failure Acute exacerbation of cor pulmonale with RVSP at 95 Acute exacerbation of COPD Diabetes mellitus type 2 with hyperglycemia ANOOP with hyperkalemia UTI growing Pseudomonas Elevated troponin secondary to supply demand mismatch Obesity hypoventilation syndrome Acute metabolic encephalopathy, improving Tradiative dyspensia (resolved) and left thigh twitching Anemia, chronic Class 3 obesity with BMI 40.2 Chronic: Hypertension, GERD Patient is a 47-year-old female with COPD chronically on 3 L nasal cannula, diabetes mellitus type 2, chronic indwelling Roach catheter, hypertension, GERD, CML, and bipolar disorder who presented to the hospital after developing respiratory distress at [facility]. On arrival to the ER she was noted to be hypoxic at 58% on nasal cannula and was immediately placed on BiPAP. Initial laboratory analysis was remarkable for white blood cell count of 11.1, hemoglobin 10.3, sodium 134, potassium 5.3, and glucose of 155. Initial troponin was positive at 0.0037 and BNP was positive at 17,300. Chest x-ray showed new focal bilateral airspace disease with possible pneumonia and continued asymmetric elevation of the right hemidiaphragm. She was admitted for possible acute exacerbation of COPD and acute exacerbation of diastolic CHF. A CODE BLUE was called for respiratory arrest and the patient was on BiPAP with settings of 12/6 and FiO2 of 60% with tidal volumes of 1 to 200s. The patient never lost a pulse in her initial ABG at that time showed a pH of 7.29, pCO2 83, PaO2 of 71. She was subsequently transferred to the ICU. Her BiPAP settings were adjusted and repeat ABG showed a pH of 7.36, CO2 of 71, PaO2 of 61, and a bicarb of 40. Pulmonary critical care and cardiology were consulted. She was noted to have some abnormal muscle movement and rhythmic twitching in her left thigh. Patient recovered well with BIPAP and diuretics and returned to her baseline mental status. She was [facility] for further care. I spent 45 minutes coordinating this discharge on 02/08 Gen: awake, alert HEENT: normocephalic, atraumatic, good hearing acuity, moist mucous membranes Resp: good air exchange, breathing comfortably with no accessory muscle use CVS: good distal perfusion x 4, GI: soft, NTTP, ND : no SPT, no CVAT, roach catheter not present MSK: no pitting edema, no clubbing Neuro: non-focal, moving all extremities Psych: cooperative, euthymic mood Patient Condition at Discharge: Good Plan - Discharge Summary Discharge Rx Participant: No New Discharge Prescriptions: New Furosemide [Lasix] 40 mg PO DAILY #30 tablet Insulin Detemir (Levemir) [Levemir] 20 unit SQ DAILY@0700 each Budesonide-Formot 160-4.5 Mcg [Symbicort 160-4.5 Mcg Inhaler] 2 puff INHALA TION BID #1 each Continue DULoxetine HCL [Cymbalta] 60 mg PO DAILY@0800 Lurasidone [Latuda] 40 mg PO BID@0800,1800 Acetaminophen Tab [Tylenol] 650 mg PO Q6H PRN PRN Reason: Fever And/ Or Pain Ipratropium-Albuterol Nebulize [Duoneb 0.5 mg-3 mg/3 ml Soln] 3 ml INHALATION RT-QID@00,06,12,18 PRN PRN Reason: Shortness Of Breath Calcium Carbonate 500 mg PO Q2H PRN PRN Reason: ACID REFLUX Albuterol Inhaler [Ventolin Hfa Inhaler] 2 puff INHALATION RT-QID@00,06,12,18 L.acidoph,Paracasei, B.lactis [Probiotic] 1 cap PO DAILY Imatinib Mesylate [Gleevec] 400 mg PO DAILY@0800 Atorvastatin [Lipitor] 40 mg PO HS Aspirin EC [Ecotrin Low Dose] 81 mg PO DAILY@0800 busPIRone HCL 5 mg PO BID@0800,1600 INSULIN LISPRO (humaLOG) [humaLOG] See Protocol SQ AC-TID Cyclobenzaprine [Flexeril] 10 mg PO Q12H PRN PRN Reason: MUSCLE SPASM OF BACK Pyridoxine HCl (Vitamin B6) [Vitamin B-6] 100 mg PO DAILY@0800 Ergocalciferol (Vitamin D2) [isdol (50,000 Iu)] 1,250 mcg PO CAUSEY Omeprazole [PriLOSEC] 20 mg PO HS@2000 OXcarbazepine [Trileptal] 600 mg PO DAILY@0800 Multivitamins, Thera [Multivitamin (formulary)] 1 tab PO DAILY@0800 Mirtazapine [Remeron] 15 mg PO HS@2000 Metoprolol Succinate (ER) [Toprol XL] 25 mg PO DAILY@0800 Melatonin 5 mg PO HS Estradiol Cream [Estrace Cream 0.01%] 1 gm VAGINAL Q4D Loratadine [Claritin] 10 mg PO DAILY@0800 Albuterol Nebulized [Ventolin Nebulized] 2.5 mg INHALATION RT-Q2H PRN PRN Reason: Wheezing HYDROcodone/APAP 5-325MG [[place] 5-325] 1 tab PO Q8H PRN #9 tab PRN Reason: Pain Gabapentin [Neurontin] 300 mg PO TID@0800,1600,2200 #9 cap Discontinued Insulin Glargine [Lantus Vial] 34 unit SQ DAILY@1000 Discharge Medication List DULoxetine HCL [Cymbalta] 60 mg PO DAILY@0800 02/06/16 [History] Lurasidone [Latuda] 40 mg PO BID@0800,1800 02/06/16 [History] Acetaminophen Tab [Tylenol] 650 mg PO Q6H PRN 01/22/23 [History] Albuterol Inhaler [Ventolin Hfa Inhaler] 2 puff INHALATION RT-QID@00,06,12,18 01/22/23 [History] Aspirin EC [Ecotrin Low Dose] 81 mg PO DAILY@0800 01/22/23 [History] Atorvastatin [Lipitor] 40 mg PO HS 01/22/23 [History] Calcium Carbonate 500 mg PO Q2H PRN 01/22/23 [History] Cyclobenzaprine [Flexeril] 10 mg PO Q12H PRN 01/22/23 [History] Ergocalciferol (Vitamin D2) [Drisdol (50,000 Iu)] 1,250 mcg PO CAUSEY 01/22/23 [History] Estradiol Cream [Estrace Cream 0.01%] 1 gm VAGINAL Q4D 01/22/23 [History] Imatinib Mesylate [Gleevec] 400 mg PO DAILY@0801/22/23 [History] Ipratropium-Albuterol Nebulize [Duoneb 0.5 mg-3 mg/3 ml Soln] 3 ml INHALATION RT-QID@00,06,12,18 PRN 01/22/23 [History] L.acidoph,Paracasei, B.lactis [Probiotic] 1 cap PO DAILY 01/22/23 [History] Loratadine [Claritin] 10 mg PO DAILY@79901/22/23 [History] Melatonin 5 mg PO HS 01/22/23 [History] Metoprolol Succinate (ER) [Toprol XL] 25 mg PO DAILY@79901/22/23 [History] Mirtazapine [Remeron] 15 mg PO HS@199901/22/23 [History] Multivitamins, Thera [Multivitamin (formulary)] 1 tab PO DAILY@79901/22/23 [History] OXcarbazepine [Trileptal] 600 mg PO DAILY@79901/22/23 [History] Omeprazole [PriLOSEC] 20 mg PO HS@199901/22/23 [History] Pyridoxine HCl (Vitamin B6) [Vitamin B-6] 100 mg PO DAILY@79901/22/23 [History] Albuterol Nebulized [Ventolin Nebulized] 2.5 mg INHALATION RT-Q2H PRN 02/02/23 [History] INSULIN LISPRO (humaLOG) [humaLOG] See Protocol SQ AC-TID 02/02/23 [History] busPIRone HCL 5 mg PO BID@0800,1600 02/02/23 [History] Budesonide-Formot 160-4.5 Mcg [Symbicort 160-4.5 Mcg Inhaler] 2 puff INHALATION BID #1 each 02/08/23 [Rx] Furosemide [Lasix] 40 mg PO DAILY #30 tablet 02/08/23 [Rx] Gabapentin [Neurontin] 300 mg PO TID@0800,1600,0 #9 cap 02/08/23 [Rx] HYDROcodone/APAP 5-325MG [[place] 5-325] 1 tab PO Q8H PRN #9 tab 02/08/23 [Rx] Insulin Detemir (Levemir) [Levemir] 20 unit SQ DAILY@0700 each 02/08/23 [Rx] Follow up Appointment(s)/Referral(s): Shayy Breen DO [Primary Care Provider] - 1-2 days Discharge Disposition: TRANSFER TO SNF/ECF
[2023-02-08 16:26] VITALS: PULSE 92; RESP 20
== END 2023-02-08 16:26 | DRG 194 ==
LOC: EC 13:57 → 3SCARD 18:01 → 2SICU 23:50 → 4SSUR 02-06 22:07 → 2SICU 02-07 07:12
PROVIDERS: ADMIT Internal Medicine; ATTEND Internal Medicine
PROC: 5A09357 Assistance with Respiratory Ventilation, Less than 24 Consecutive Hours, Continuous Positive Airway Pressure (ICD-10-PCS; principal; 2023-02-02)
DX: I11.0 Hypertensive heart disease with heart failure (principal); I50.33 Acute on chronic diastolic (congestive) heart failure; J96.21 Acute and chronic respiratory failure with hypoxia; G92.8 Other toxic encephalopathy; I21.A1 Myocardial infarction type 2; C92.10 Chronic myeloid leukemia, BCR/ABL-positive, not having achieved remission; D69.6 Thrombocytopenia, unspecified; I27.29 Other secondary pulmonary hypertension; J18.9 Pneumonia, unspecified organism; E66.2 Morbid (severe) obesity with alveolar hypoventilation; J96.22 Acute and chronic respiratory failure with hypercapnia; N17.9 Acute kidney failure, unspecified; I27.81 Cor pulmonale (chronic); J44.1 Chronic obstructive pulmonary disease with (acute) exacerbation; J44.0 Chronic obstructive pulmonary disease with (acute) lower respiratory infection; T83.518A Infection and inflammatory reaction due to other urinary catheter, initial encounter; I42.9 Cardiomyopathy, unspecified; E11.21 Type 2 diabetes mellitus with diabetic nephropathy; E11.65 Type 2 diabetes mellitus with hyperglycemia; F20.9 Schizophrenia, unspecified; F31.9 Bipolar disorder, unspecified; Z79.4 Long term (current) use of insulin; E86.9 Volume depletion, unspecified; E87.4 Mixed disorder of acid-base balance; K75.81 Nonalcoholic steatohepatitis (NASH); N39.0 Urinary tract infection, site not specified; B96.5 Pseudomonas (aeruginosa) (mallei) (pseudomallei) as the cause of diseases classified elsewhere; T50.2X5A Adverse effect of carbonic-anhydrase inhibitors, benzothiadiazides and other diuretics, initial encounter; E87.5 Hyperkalemia; I07.1 Rheumatic tricuspid insufficiency; D63.0 Anemia in neoplastic disease; E78.5 Hyperlipidemia, unspecified; F90.9 Attention-deficit hyperactivity disorder, unspecified type; F41.9 Anxiety disorder, unspecified; K21.9 Gastro-esophageal reflux disease without esophagitis; I45.10 Unspecified right bundle-branch block; M62.838 Other muscle spasm; R94.6 Abnormal results of thyroid function studies; Z68.36 Body mass index [BMI] 36.0-36.9, adult; Z91.199 Patient's noncompliance with other medical treatment and regimen due to unspecified reason; Z99.81 Dependence on supplemental oxygen; Z79.82 Long term (current) use of aspirin; Z79.890 Hormone replacement therapy; Z79.51 Long term (current) use of inhaled steroids; Z79.899 Other long term (current) drug therapy; Z87.440 Personal history of urinary (tract) infections; Z71.3 Dietary counseling and surveillance; Y84.6 Urinary catheterization as the cause of abnormal reaction of the patient, or of later complication, without mention of misadventure at the time of the procedure; Z91.040 Latex allergy status; Z91.013 Allergy to seafood; Z88.2 Allergy status to sulfonamides; Z88.8 Allergy status to other drugs, medicaments and biological substances; Z91.018 Allergy to other foods
CPT/HCPCS: 36415; 36600; 70450; 71045; 80048; 80053; 81001; 82140; 82550; 82805; 83036; 83605; 83735; 83880; 84132; 84145; 84439; 84443; 84484; 85025; 85027; 85610; 85730; 87040; 87077; 87086; 87186; 87324; 87449; 93005; 94640; 94660; 95816; 96365; 96366; 96367; 99285